=== PATIENT | male | born 1985 | race Caucasian/White ===

== ENCOUNTER 2018-09-15 18:42 | Emergency (ER) | payer MEDICAID, SELFPAY ==
[2018-09-15 18:43] VITALS: BP 161/89; PULSE 90; RESP 17; TEMP 36.1; O2SAT 96; BMI 43.4
--- NOTE | 2018-09-15 19:24 | CT_ITS ---
STUDY: CT ABDOMEN AND PELVIS WITHOUT CONTRAST REASON FOR EXAM: Male, 33 years old. Right flank pain and hypertension RADIATION DOSAGE (If Supplied By Facility): CTDIvol = ( 23.94 ) mGy, DLP = ( 1489.21 ) mGycm TECHNIQUE: Transaxial images were obtained from the dome of the diaphragm to the symphysis pubis without oral contrast, and without intravenous contrast. Sagittal and coronal images were reconstructed. Individualized dose optimization techniques were used for this CT. COMPARISON: None. FINDINGS: There is mild atelectasis within the dependent portion of the lungs.. The visualized portions of the heart are within normal limits. Liver is mildly fatty infiltrated without mass or bile duct dilatation Normal gallbladder and extrahepatic biliary system. Normal spleen. Normal pancreas. Normal bilateral adrenal glands. There is mild right hydroureteronephrosis secondary to tiny calculus at the ureterovesical junction measuring approximately 3.7 mm in size. Tiny nonobstructing left renal calculus. No hydronephrosis or mass Normal visualized stomach. Normal small intestine. Normal colon. The appendix is visualized and appears normal. Normal abdominal aorta. Normal inferior vena cava. Normal retroperitoneum. Incompletely distended mildly thick-walled bladder likely of no significance Normal abdominal wall. Normal osseous structures. CT/Abdomen/Pelvis without Cont IMPRESSION: Mild right hydroureteronephrosis secondary to tiny calculus at the ureterovesical junction Left nephrolithiasis Electronically Signed: Donis San MD at 20:40 EST , Service support ,
[2018-09-15] MEDS: 0.9% Normal Saline 1,000 ML 1000 ML IV (19:57)
[2018-09-15] MEDS: Morphine 4 MG/ML Syringe IV (19:57)
[2018-09-15] MEDS: Ondansetron 4 MG/2 ML Vial IV (19:58)
[2018-09-15 20:14] LABS: Bacteria 0 SEEN /hpf (None Seen); Mucous, Urine 0 SEEN /hpf (<or=2+); Squamous Epithelial Cells - UA 0 SEEN /hpf (0-5)
[2018-09-15 20:26] LABS: Absolute Lymphocyte Count 2.61 X10^3/ul (0.83-4.51); Absolute Neutrophil Count 11.1 X10^3/uL (2.0-7.7); Basophil# 0.03 X10^3/uL; Basophil% 0.2 % (0-1); Color, Urine Yellow (Yellow); Eosinophil# 0.04 X10^3/uL; Eosinophils% 0.3 % (0-5); Glucose, Dipstick Normal (Normal); Hematocrit 47.3 % (40-54); Hemoglobin 15.9 g/dl (13.0-16.5); Ketone-Dipstick Negative (Negative); Leukocyte Esterase-Dipstick 25 /ul (Negative); Lymphocyte # 2.61 X10^3/ul (4.0); Lymphocyte % 17.7 % (19-41); Mean Corp Hgb Conc 33.6 g/gl (32-36); Mean Corpuscular Hgb 30.4 pg (27.0-32.0); Mean Corpuscular Volume 90.4 fL (80-94); Mean Platelet Vol. 10.8 fl (6.2-12.0); Monocyte# 0.88 X10^3/uL; Neutrophil # 11.12 X10^3/uL (2.7-7.7); Neutrophil % 75.5 % (47-70); Nitrite-Dipstick Negative (Negative); Occult Blood-Urine 250 /ul (Negative); POSITIVE COUNT NO; POSITIVE DIFFERENTIAL NO; POSITIVE MORPHOLOGY NO; Platelet Count 234 K/mm3 (150-450); Protein-Dipstick 15 mg/dl (Negative); RBC Distribution Width CV 13.6 % (11.6-14.6); RBC Distribution Width SD 44.6 fl (35.1-43.9); Red Blood Count 5.23 M/mm3 (4.6-6.2); Specific Gravity, Urine 1.015 (1.002-1.030); Urine Bilirubin Dipstick Negative (Negative); Urine Clarity Clear (Clear); Urine Urobilinogen 1 mg/dl (Normal); White Blood Count 14.7 K/mm3 (4.4-11.0)
[2018-09-15 20:32] LABS: Red Blood Cells-Urine 10-25 SEEN /hpf (0-5); White Blood Cells 0-5 SEEN /hpf (0-5)
[2018-09-15 20:47] LABS: AST(SGOT) 32 U/L (15-37); Alanine Aminotransfer ALT/SGPT 56 U/L (16-61); Alkaline Phosphatase 83 U/L (45-117); Anion Gap 7 (5-15); BUN 10 mg/dL (7-18); BUN/Creat Ratio 7.9 RATIO (10-20); Calcium,Total 8.6 mg/dL (8.5-10.1); Chloride 108 mmol/L (98-107); Creatinine, Serum 1.26 mg/dL (0.70-1.30); EST Glomerular Filtration Rate 70 mL/min (>60); Est Glom Filt Rate - Afr Amer 84 mL/min (>60); Estimated Creatinine Clearance 90.67 ml/min; Glucose 101 mg/dL (74-106); Lipase 149 U/L (73-393); Potassium 4.1 mmol/L (3.5-5.1); Sodium Level 140 mmol/L (136-145)
--- NOTE | 2018-09-15 21:06 | ED.DCSUM_ITS ---
- ER Visit Summary Date of Service: 09/15/18 Chief Complaint: Right-sided abdominal pain History of Present Illness: The patient is a 33 M with right lower abdominal pain that started around 3 PM today. He feels like it is a stabbing pain. It radiates to his flank and right lower back. Associated with nausea and vomiting. Denies dysuria or hematuria. Denies any history of this in the past. Denies fevers. Physical Examination: Blood pressure 161/89. Otherwise afebrile and vitals are normal. He appears uncomfortable but not toxic or in distress. Heart regular rate and rhythm. Lungs clear. Abdomen tender in the right lower quadrant and right flank. No guarding or rebound. Skin appears normal. Test Results: White count 14.7. Other laboratory studies unremarkable. Urinalysis shows signs of blood but no signs of infection. CT shows a tiny miguel a culus at the right UVJ with hydroureter and hydronephrosis. He has multiple stones in his left kidney. Emergency Department Course and Treatment: Patient received fluids, morphine, and Zofran. Patient is comfortable and appropriate for outpatient follow-up at this point. There is no sign of infection or other complication. No indication for inpatient evaluation. He will be referred to Dr. Sy. He was given a prescription for Flomax, Zofran, and Percocet. His prescriptive database report was unremarkable. Patient should return if he is unable to tolerate his medications, if he has fevers, or signs of infection, or any other complicating issues. Treatment Plan: As above Disposition: Discharge Impression: 1. Ureteral colic right side This note was generated with [employer] dictation software. It may contain incorrect words, spelling, and punctuation that were not noted in review of the chart prior to signing ED Disposition - Plan for ED Patient: Chief Complaint: Abd Pain Referrals: Raghu Blackwell MD [Primary Care Provider] -
--- NOTE | 2018-09-15 21:06 | ED.DEP ---
ED Disposition - Plan for ED Patient: Chief Complaint: Abd Pain Instructions: ED Stone Renal W Colic Prescriptions: Oxycodone HCl/Acetaminophen [Percocet 5/325] 1 tab PO Q6H PRN PRN 3 Days #12 tab PRN Reason: Pain Ondansetron [Zofran Odt] 4 mg PO Q8H PRN PRN #10 tab PRN Reason: Nausea Tamsulosin HCl [Flomax] 0.4 mg PO DAILY #7 cap Referrals: Soto Sy MD [STAFF PHYSICIAN] -
[2018-09-15 21:18] VITALS: BP 147/82; PULSE 96; RESP 18; O2SAT 97
== END 2018-09-15 21:19 | disposition home or self-care (01) ==
LOC: ED 19:35
PROVIDERS: Emergency Provider Emergency Medicine; Family Provider Family Medicine; PCP Family Medicine
DX: N13.2 Hydronephrosis with renal and ureteral calculous obstruction (principal); Z72.0 Tobacco use; F41.9 Anxiety disorder, unspecified; F31.9 Bipolar disorder, unspecified
CPT/HCPCS: 74176; 80053; 81001; 83690; 85025; 96361; 96374; 96375; 99284; J7030; A4216; J2405

== ENCOUNTER 2019-05-10 19:24 | Emergency (ER) | payer MEDICAID, SELFPAY ==
[2019-05-10 19:25] VITALS: BP 131/89; PULSE 90; RESP 18; TEMP 36.2; O2SAT 99; BMI 41.5
--- NOTE | 2019-05-10 19:48 | CT_ITS ---
STUDY: CT ABDOMEN AND PELVIS WITHOUT CONTRAST REASON FOR EXAM: Male, 33 years old. Left flank pain RADIATION DOSAGE (If Supplied By Facility): CTDIvol = ( 23.37 ) mGy, DLP = ( 1389.84 ) mGycm TECHNIQUE: Transaxial images were obtained from the dome of the diaphragm to the symphysis pubis without oral contrast, and without intravenous contrast. Sagittal and coronal images were reconstructed. Individualized dose optimization techniques were used for this CT. COMPARISON: None. FINDINGS: The visualized lung bases are unremarkable. The visualized portions of the heart are within normal limits. Fatty liver. Normal gallbladder and extrahepatic biliary system. Normal spleen. Normal pancreas. Normal bilateral adrenal glands. Normal right kidney. Normal left kidney. Mild prominence of the distal left ureter. Normal visualized stomach. Normal small intestine. Normal colon. The appendix is visualized and appears normal. Normal abdominal aorta. Normal inferior vena cava. Normal retroperitoneum. There is a punctate stone at the left UVJ of the urinary bladder. Normal abdominal wall. Normal osseous structures. CT/Abdomen/Pelvis without Cont IMPRESSION: Punctate stone at the left UVJ with mild prominence of the distal left ureter. Fatty liver. Electronically Signed: Juan Brice DO at 20:42 EDT Tel [phone], Service support ,
[2019-05-10] MEDS: Ondansetron 4 MG/2 ML Vial IV (20:05)
[2019-05-10] MEDS: 0.9% Normal Saline 1,000 ML 125 ML IV (20:05)
[2019-05-10] MEDS: Ketorolac 30 MG/ML Syringe IV (20:06)
[2019-05-10] MEDS: Morphine 4 MG/ML Syringe IV (20:07)
[2019-05-10 20:09] LABS: Absolute Lymphocyte Count 3.44 X10^3/ul (0.83-4.51); Basophil# 0.03 X10^3/uL; Basophil% 0.3 % (0-1); Eosinophil# 0.07 X10^3/uL; Eosinophils% 0.7 % (0-5); Hematocrit 49.8 % (40-54); Hemoglobin 17.1 g/dl (13.0-16.5); Lymphocyte # 3.44 X10^3/ul (4.0); Lymphocyte % 33.6 % (19-41); Mean Corp Hgb Conc 34.3 g/gl (32-36); Mean Corpuscular Hgb 30.5 pg (27.0-32.0); Mean Corpuscular Volume 88.9 fL (80-94); Mean Platelet Vol. 10.6 fl (6.2-12.0); Monocyte% 6.8 % (0-10); Neutrophil # 5.97 X10^3/uL (2.7-7.7); Neutrophil % 58.3 % (47-70); POSITIVE COUNT NO; POSITIVE DIFFERENTIAL NO; POSITIVE MORPHOLOGY NO; Platelet Count 200 K/mm3 (150-450); RBC Distribution Width CV 13.2 % (11.6-14.6); RBC Distribution Width SD 43.4 fl (35.1-43.9); White Blood Count 10.2 K/mm3 (4.4-11.0)
[2019-05-10 20:19] LABS: Anion Gap 5 (5-15); BUN 13 mg/dL (7-18); BUN/Creat Ratio 15.7 RATIO (10-20); Calcium,Total 9.2 mg/dL (8.5-10.1); Chloride 108 mmol/L (98-107); Creatinine, Serum 0.83 mg/dL (0.70-1.30); EST Glomerular Filtration Rate 112 mL/min (>60); Est Glom Filt Rate - Afr Amer 136 mL/min (>60); Estimated Creatinine Clearance 137.64 ml/min; Glucose 89 mg/dL (74-106); Potassium 4.1 mmol/L (3.5-5.1); Sodium Level 138 mmol/L (136-145)
[2019-05-10 20:24] LABS: Color, Urine Yellow (Yellow); Glucose, Dipstick Normal (Normal); Ketone-Dipstick 5 mg/dl (Negative); Leukocyte Esterase-Dipstick Negative /ul (Negative); Nitrite-Dipstick Negative (Negative); Occult Blood-Urine 150 /ul (Negative); Protein-Dipstick 15 mg/dl (Negative); Urine Bilirubin Dipstick Negative (Negative); Urine Clarity Clear (Clear); Urine Urobilinogen Normal (Normal)
[2019-05-10 20:32] LABS: Red Blood Cells-Urine 10-25 SEEN /hpf (0-5); White Blood Cells 0-5 SEEN /hpf (0-5)
[2019-05-10 20:33] LABS: Bacteria 1+ /hpf (None Seen); Mucous, Urine 2+ /hpf (<or=2+); Squamous Epithelial Cells - UA 0-5 SEEN /hpf (0-5)
--- NOTE | 2019-05-10 20:41 | ED.VISSUMM ---
- ER Visit Summary Date of Service: 05/10/19 Chief Complaint: [Left flank pain] History of Present Illness: The patient is a 33 M [presents to the emergency department left-sided flank pain that started several hours ago. Patient states the pain came on suddenly. He currently rates his pain a 5 out of 10 but at one point was a 10 out of 10. Patient denies any nausea or vomiting. Pain did radiate around to the left side of his lower abdomen. Pain did radiate into his left testicle. Patient has had history of prior kidney stone on the right side and he was told he had small stones in his left kidney as well. Patient denies any fevers. He denies any diarrhea. He denies urinary symptoms.] Physical Examination: [HEENT-PERRLA, EOMI. Cranial nerves II through XII grossly intact. TMs clear. Mucous membranes moist. No adenopathy. Cardiovascular-regular rate and rhythm without murmur or ectopy Lungs-clear to auscultation, chest wall stable without crepitus or subcu emphysema Abdomen-normoactive bowel sounds, soft. Patient has tenderness to palpation over the left lower quadrant with some mild guarding. There is no rebound, rigidity, cranial signs. Patient also with some mild CVA tenderness on the left. Extremities-intact ?4, normal range of motion, normal pulses, atraumatic] Test Results: [CBC with differential obtained was normal. Chemistries unremarkable. Urinalysis showed 10-25 RBCs but no signs of infection. CT scan of the abdomen pelvis without contrast was obtained which was read by myself initially and is awaiting official interpretation by radiology. CT scan on my interpretation does show a 2 mm stone at the left UVJ with just mild hydroureter.] Emergency Department Course and Treatment: [Patient was medicated with Toradol 30 mg IV, morphine 4 mg IV, and Zofran 4 mg IV. Patient had good pain relief. Patient is currently pain-free.] Treatment Plan: [Patient will be given a prescription for Naprosyn and [place] as well as urine strainers. Patient will be given the referral to urology for follow-up.] Disposition: [Discharged home in stable condition. Patient advised to return if worsening pain, fever, vomiting, or conditions worsen anyway.] Impression: [Urolithiasis] This note was generated with [employer] dictation software. It may contain incorrect words, spelling, and punctuation that were not noted in review of the chart prior to signing ED Disposition - Plan for ED Patient: Referrals: Raghu Blackwell MD [Primary Care Provider] -
--- NOTE | 2019-05-10 20:44 | ED.DEP ---
ED Disposition - Plan for ED Patient: Instructions: KIDNEY STONE w/ Colic Prescriptions: Naproxen [Naprosyn] 500 mg PO BID PRN #20 tab Prescription Printed Hydrocodone Bitart/Apap 5-325 [[place] 5MG-325MG] 1 tab PO Q4H PRN PRN 2 Days #10 tab PRN Reason: Pain Prescription Printed Referrals: Raghu Blackwell MD [Primary Care Provider] - Soto Sy MD [STAFF PHYSICIAN] -
[2019-05-10 20:54] VITALS: BP 140/99; PULSE 95; RESP 18; O2SAT 98
== END 2019-05-10 20:55 | disposition home or self-care (01) ==
PROVIDERS: Emergency Provider Emergency Medicine; Family Provider Family Medicine; PCP Family Medicine
DX: N20.9 Urinary calculus, unspecified (principal); N13.4 Hydroureter; Z87.442 Personal history of urinary calculi; Z72.0 Tobacco use
CPT/HCPCS: 74176; 80048; 81001; 85025; 96361; 96374; 96375; 99284; J7030; A4216; J2405

== ENCOUNTER 2019-06-25 14:57 | Emergency (ER) | payer MEDICAID, SELFPAY ==
[2019-06-25 14:58] VITALS: BP 159/71; PULSE 97; RESP 16; TEMP 36.9; O2SAT 96; BMI 41.3
--- NOTE | 2019-06-25 15:26 | ED.VIS.BACK ---
History of Present Illness Chief Complaint: Back Informant: Patient Onset: Days - 3 Context: - - woke w/ sx Timing: Continuous Quality: Aching Location: Lumbar - left, no radiation Current Severity: Moderate Maximum Severity: Moderate Worsened by: improves with: Movement Relieved by: Remaining Still Associated Symptoms: - - Denies. No abdominal pain, numbness tingling, radiation to lower extremity, bowel or bladder dysfunction, problems urinating at all. Denies any injury or repetitive motions or heavy lifting the day before. Narrative: States he has had prior back pain that is gone away in a couple days but not like this and this is not changed since it started. He has history of degenerative disc disease and is a smoker. Denies any numbness or weakness in his lower extremities. Prior similar symptoms: No - Past Medical History (1) Bipolar 1 disorder Status: Chronic (2) Lumbar degenerative disc disease Status: Chronic Past Medical History - Allergies and Home Meds Allergies/Adverse Reactions: Allergies Penicillins Allergy (Verified 06/25/19 15:00) Hives Primary Care Physician: Raghu Blackwell MD [Primary Care Provider] - Lives: With Family Smoking Status: Current every day smoker Drugs: None - no IVDU Review of Systems General: Denies: Chills, Fever, Sweats Eyes: Denies: Visual changes - bilaterally, Diplopia ENT: Denies: Rhinorrhea, Sore throat Cardiovascular: Denies: Chest pain, Palpitations Respiratory: Denies: Dyspnea, Cough, Dyspnea on exertion Gastrointestinal: Denies: Abdominal pain, Nausea, Vomiting, Diarrhea, Melena, Hematochezia Genitourinary: Denies: Dysuria, Hematuria, Frequency Musculoskeletal: Reports: Back pain. Denies: Extremity Pain Skin: Denies: Rash, Wounds Neurological: Denies: Headache, Weakness, Numbness Physical Exam Vital Signs/Narrative: Vital Signs Temp Pulse Resp BP Pulse Ox 06/25/19 14:58 98.4 F 97 16 159/71 H 96 Inital Vital Signs reviewed: Yes General: Well nourished, Well developed, Obese Head: Normocephalic, Atraumatic Abdomen: Soft, Nontender, Nondistended, Normal bowel sounds Back: Normal Inspection, Nontender - pt indicates that pain is in area of left SI joint; no tenderness, no rash, Negative SLR - Right, Negative SLR - Left Extremeties: Nontender, No edema, Strong Pulses Skin: Normal color, No rash, No Trauma Neuro: Alert, Oriented, Normal Strength, Normal Sensation, Normal DTR, Normal Gait, Normal Reflexes Reflexes: Negative for: Right Clonus, Right Babinski, Left Clonus, Left Babinski Psychological: Normal affect, Normal Mood Diagnostic/Tx/Re-eval - Medical Decision Making No x-rays indicated. This is likely sacroiliac dysfunction. Given NSAIDs advised to follow-up with either chiropractic or physical therapy, the latter he may need referral from his PCP. ED Disposition - Plan for ED Patient: Disposition: Home or Assisted Living Diagnosis: Sacroiliac joint dysfunction of left side Instructions: Sacroiliitis, Anatomy of the Sacroiliac Joint Prescriptions: Naproxen [Naprosyn] 500 mg PO BID PRN #20 tab Prescription Printed Referrals: Raghu Blackwell MD [Primary Care Provider] - 1 Week if not improving
[2019-06-25] MEDS: Ketorolac 60 MG/2 ML Vial IM (15:39)
== END 2019-06-25 15:57 | disposition home or self-care (01) ==
PROVIDERS: Emergency Provider Emergency Medicine; Family Provider Family Medicine; PCP Family Medicine
DX: M53.3 Sacrococcygeal disorders, not elsewhere classified (principal); F31.9 Bipolar disorder, unspecified; M51.36 Other intervertebral disc degeneration, lumbar region; F17.200 Nicotine dependence, unspecified, uncomplicated; Z88.0 Allergy status to penicillin; E66.9 Obesity, unspecified
CPT/HCPCS: 96372; 99282

== ENCOUNTER 2022-09-03 01:55 | Emergency (ER) | payer MEDICAID, SELFPAY ==
[2022-09-03 01:56] VITALS: PULSE 74; RESP 17; TEMP 37.1; O2SAT 98; BMI 44.0
[2022-09-03 02:00] VITALS: BP 129/77
--- NOTE | 2022-09-03 03:07 | US_ITS ---
INDICATION: pain / ? Torsion EXAMINATION: Ultrasound US Scrotum (Contents) TECHNIQUE: Realtime ultrasound of the testicles was performed with grayscale, Color Doppler and spectral Doppler analysis. COMPARISON: None. FINDINGS: RIGHT: TESTIS: Right testicle measures 4.5 x 2.8 x 3 cm. Normal in size with numerous punctate calcifications but no discrete mass. COLOR DOPPLER: Normal arterial flow present in the testicle with monophasic waveforms. EPIDIDYMIS: Normal in size and echotexture, without focal lesion. [Normal color Doppler flow pattern in the epididymis. HYDROCELE: Small right hydrocele. VARICOCELE: None. LEFT: TESTIS: Left testicle measures 4.3 x 2.7 x 3.1 cm. Normal in size with numerous punctate calcifications but no discrete mass. COLOR DOPPLER: Normal arterial flow present in the testicle with monophasic waveforms. EPIDIDYMIS: Normal in size and echotexture, without focal lesion. [Normal color Doppler flow pattern in the epididymis. HYDROCELE: Trace left hydrocele. VARICOCELE: None. US/Testicular with Arterial Flow IMPRESSION: Bilateral testicular microlithiasis but no discrete mass or evidence of torsion. Small right and trace left hydroceles. Electronically Signed: Cj Barbosa MD at 3:54 EDT ,
[2022-09-03] MEDS: Ondansetron ODT 4 MG Tablet PO (03:13)
[2022-09-03] MEDS: morphine 10 MG/ML Syringe 8 MG IM (03:13)
--- NOTE | 2022-09-03 04:24 | EX.ED.GUMALE ---
HPI History of Present Illness Chief Complaint: Male Pain/Injury Narrative Narrative: Patient is a 37-year-old male with past medical history of bipolar and lumbar degenerative disc disease. He states that he was lying down this evening when he rolled over and when he did this he developed sudden pain in his right testicle. He states that the pain was not letting up over a few minutes and with this he was concerned about trauma to the area and therefore comes to the hospital for evaluation. He states there is no dysuria or hematuria he denies any discharge or concern for STD. PFSH PFSH Home Medications albuterol sulfate 90 mcg/actuation aerosol inhaler (ProAir HFA) 1 puff inhalation Q4H PRN PRN Shortness Of Breath 04/28/14 [History Last Taken 04/02/14] loratadine 10 mg tablet (Allergy Relief (loratadine)) 10 mg PO DAILY 04/28/14 [History Last Taken 04/02/14] cariprazine 6 mg capsule (Vraylar) 6 mg PO DAILY 09/15/18 [History Last Taken Unknown] melatonin 5 mg tablet 5 mg PO QHS PRN Insomnia 05/10/19 [History Last Taken Unknown] naproxen 500 mg tablet 500 mg PO BID PRN #20 tabs 05/10/19 [Rx Last Taken Unknown] omeprazole 20 mg capsule,delayed release 20 mg PO DAILY 05/10/19 [History Last Taken Unknown] naproxen 500 mg tablet 500 mg PO BID PRN #20 tabs 06/25/19 [Rx Last Taken Unknown] Allergy/AdvReac Type Severity Reaction Status Date / Time Penicillins Allergy Hives Verified 09/03/22 01:59 Social History Smoking Status: Current every day smoker tobacco type: cigarettes ROS ROS ED Constitutional Constitutional ED: Denies chills or fever(s) ENT ENT ED: Denies sore throat Cardiovascular Cardiovascular: Denies chest pain Respiratory/Chest Respiratory/Chest: Denies cough or dyspnea Gastrointestinal Gastrointestinal: Denies abdominal pain, diarrhea, nausea or vomiting Genitourinary Genitourinary ED: Reports other Details: Positive testicular pain ; Denies dysuria or hematuria Musculoskeletal Musculoskeletal: Denies back pain or myalgias Integumentary Denies rash Neurologic Neurologic: Denies headache(s) Hematologic/Lymphatic Hematologic/Lymphatic: Denies easy bleeding or easy bruising EXAM Physical Exam Const Vital Signs: 09/03/22 01:56 09/03/22 02:00 09/03/22 04:34 Temperature 98.7 F Temperature Source Temporal Pulse Rate 74 68 Respiratory Rate 17 17 Blood Pressure 129/77 H 112/71 Blood Pressure Mean 94 Pulse Ox 98 95 Oxygen Delivery Method Room Air Positive well nourished, well developed and obese General Appearance ED: well developed Nutritional Appearance: obese Eyes PERRL and EOMs intact bilaterally Neck supple Resp normal respiratory effort and clear to auscultation bilaterally Cardio regular rate and regular rhythm GI non-tender and non-distended Auscultation: normoactive bowel sounds Palpation: soft Narrative: Normal circumcised male without blood or discharge from the urethral meatus. No soft tissue swelling or discoloration of the scrotum noted. No obvious direct or indirect hernia palpated. The testicle is not held in an abnormal lie. There is mild diffuse pain on palpation of the right testicle without focal findings such as mass or discoloration. No soft tissue changes to suggest Marcelino's gangrene. Back/Spine no CVA tenderness Extremity normal to inspection Neuro oriented x3 and CN's II-XII intact bilaterally Sensorium / Orientation: alert Psych mental status grossly normal Skin no rashes or lesions noted MDM MDM MDM Narrative Medical decision making narrative: Patient presented to the ER with stable vitals. His age and physical exam do not suggest testicular torsion but as he still has diffuse tenderness I will elect to perform an ultrasound to rule this out. Ultrasound showed small bilateral hydroceles but no signs of torsion. Therefore at this time with physical exam showing no signs of infection and ultrasound confirming no torsion patient is otherwise safe for discharge Radiography Diagnostic Testing: Clinical Impression(s) from Imaging Studies Testicular Ultrasound 09/03/22 03:07 IMPRESSION: Bilateral testicular microlithiasis but no discrete mass or evidence of torsion. Small right and trace left hydroceles. Electronically Signed: Cj Barbosa MD at 3:54 EDT , Discharge Plan Triage Chief Complaint: Male Pain/Injury ED Provider: Marcio Edward Dx/Rx/DC Orders Clinical Impression: Pain in right testicle, Hydrocele in adult Instructions: ED Testicular Pain, Unclear Cause Prescriptions: No Action albuterol sulfate [ProAir HFA] 1 PUFF inhaler 1 puff inhalation Q4H PRN PRN (Reason: Shortness Of Breath) loratadine [Allergy Relief (loratadine)] 10 MG tablet 10 mg PO DAILY cariprazine [Vraylar] 6 mg capsule 6 mg PO DAILY Label Comments: Take 1 capsule by mouth once a day omeprazole 20 MG capsule 20 mg PO DAILY melatonin 5 MG tablet 5 mg PO QHS PRN (Reason: Insomnia) naproxen 500 MG tablet 500 mg PO BID PRN Qty: 20 0RF naproxen 500 MG tablet 500 mg PO BID PRN Qty: 20 0RF Primary Care Provider: Raghu Blackwell Referrals: Raghu Blackwell MD [Primary Care Provider] - Disposition Disposition: Home, Self Care Discharge Date/Time: 09/03/22 04:35
[2022-09-03 04:34] VITALS: BP 112/71; PULSE 68; RESP 17; O2SAT 95
== END 2022-09-03 04:35 | disposition home or self-care (01) ==
PROVIDERS: Emergency Provider Emergency Medicine; PCP Family Medicine; Visit Provider Emergency Medicine
DX: N50.811 Right testicular pain (principal); N43.3 Hydrocele, unspecified; F17.210 Nicotine dependence, cigarettes, uncomplicated
CPT/HCPCS: 76870; 93976

== ENCOUNTER 2022-09-03 17:52 | Emergency (ER) | payer MEDICAID, SELFPAY ==
[2022-09-03 17:52] VITALS: BP 150/98; PULSE 112; RESP 15; TEMP 36; O2SAT 99; BMI 44.7
--- NOTE | 2022-09-03 18:41 | CT_ITS ---
STUDY: CT ABDOMEN AND PELVIS WITHOUT CONTRAST REASON FOR EXAM: Male, 37 years old. kidney stone RADIATION DOSAGE (If Supplied By Facility): CTDIvol = ( 31.51 ) mGy, DLP = ( 1999.64 ) mGycm TECHNIQUE: Transaxial images were obtained from the dome of the diaphragm to the symphysis pubis without oral contrast, and without intravenous contrast. Sagittal and coronal images were reconstructed. Individualized dose optimization techniques were used for this CT. COMPARISON: 05/10/2019 FINDINGS: The visualized portions of the heart are within normal limits. Mild nonspecific fatty infiltration of liver without mass or bile duct dilatation. Gallbladder is normal. Normal spleen. Normal pancreas. Normal bilateral adrenal glands. Normal right kidney. Normal left kidney. Normal visualized stomach. Normal small intestine. Normal colon. The appendix is visualized and appears normal. Minor atherosclerotic changes of the aorta without evidence for aneurysm. Normal inferior vena cava. Normal retroperitoneum. Normal urinary bladder. Small fat-containing right inguinal hernia is noted. Normal osseous structures. CT/Abdomen/Pelvis without Cont IMPRESSION: No acute abnormalities. Specifically no evidence for hydronephrosis or ureteral calculus. Other findings as above Electronically Signed: Donis San MD at 20:20 EDT ,
--- NOTE | 2022-09-03 19:00 | EX.ED.GUMALE ---
HPI History of Present Illness Chief Complaint: Complaint Narrative Narrative: 37-year-old male presenting with right testicular pain. He was seen early this morning and was discharged home after 4 AM. He had an ultrasound of the testicles which showed hydroceles without evidence of torsion. Urinalysis showed occult blood. Patient states he had no trauma to his testicles. He states that he was given morphine while he was here and went home and slept most of the day. When he got up he states he had pain that doubled him over in the right testicle which is similar to what he had yesterday. He denies dysuria, hematuria. He denies concern for STDs. He is not had any trauma to the testicle. He states he has not taken anything for pain all day long because he did not know what to take. PFSH PFSH Home Medications albuterol sulfate 90 mcg/actuation aerosol inhaler (ProAir HFA) 1 puff inhalation Q4H PRN PRN Shortness Of Breath 04/28/14 [History Last Taken 04/02/14] loratadine 10 mg tablet (Allergy Relief (loratadine)) 10 mg PO DAILY 04/28/14 [History Last Taken 04/02/14] cariprazine 6 mg capsule (Vraylar) 6 mg PO DAILY 09/15/18 [History Last Taken Unknown] melatonin 5 mg tablet 5 mg PO QHS PRN Insomnia 05/10/19 [History Last Taken Unknown] naproxen 500 mg tablet 500 mg PO BID PRN #20 tabs 05/10/19 [Rx Last Taken Unknown] omeprazole 20 mg capsule,delayed release 20 mg PO DAILY 05/10/19 [History Last Taken Unknown] naproxen 500 mg tablet 500 mg PO BID PRN #20 tabs 06/25/19 [Rx Last Taken Unknown] Allergy/AdvReac Type Severity Reaction Status Date / Time Penicillins Allergy Hives Verified 09/03/22 17:54 Social History Smoking Status: Current every day smoker tobacco type: cigarettes ROS ROS ED Genitourinary Genitourinary ED: Denies testicular mass EXAM Physical Exam Const Vital Signs: 09/03/22 17:52 Temperature 96.8 F L Temperature Source Temporal Pulse Rate 112 H Respiratory Rate 15 Blood Pressure 150/98 H Blood Pressure Mean 115 Pulse Ox 99 Oxygen Delivery Method Room Air Positive well nourished General Appearance ED: NAD HEENT Reports moist mucous membranes normocephalic and atraumatic Eyes PERRL and EOMs intact bilaterally Resp normal respiratory effort Cardio regular rate and regular rhythm GI non-tender no CVA tenderness Penis: normal penis; Negative for edematous, erythema, mass, papules, pustules, vesicles or no retractile foreskin Meatus: meatus normal; Negative for meatal discharge or blood at meatus Scrotum: testes descended bilaterally and cremasteric reflex present; Negative for inguinal hernia, erythema, ecchymosis, varicocele or scrotal warts Testes: testicular lie normal; Negative for testicular mass, blue dot sign or high-riding testicle Extremity normal to inspection Neuro oriented x3 and CN's II-XII intact bilaterally Sensorium / Orientation: alert MDM MDM MDM Narrative Medical decision making narrative: Patient here for repeat evaluation of right testicle pain. He had ultrasound done yesterday which showed bilateral hydroceles. There was no torsion noted. Patient has not taken anything for pain all day long and woke up with pain. He states it doubled him over. She denies any new trauma. He does have a history of kidney stones and does relate that it previously radiated to his testicle but is denying abdominal pain or flank pain. Patient given Toradol. I obtain basic lab works. I will obtain a CT of the abdomen pelvis since his ultrasound was normal yesterday. His testicular exam is completely normal with exception of some mild tenderness on the right testicle. There is no evidence of torsion on exam. Scrotum appears normal. No high riding testicle. Normal cremasteric reflex. Blood work was obtained he has a slight leukocytosis of 12.0. Hemoglobin macular stable. Platelets are normal. Renal function and electrolytes all within normal limits. Reviewed previous ultrasound done yesterday which showed bilateral varicoceles. Based on his exam do not believe he has a torsion or any reason to have a repeat testicular ultrasound. I did check a CT scan of the abdomen pelvis because of the history of kidney stones and this is negative for any acute findings. Patient was initially treated with Toradol and feels improved. I counseled him he will need to alternate Tylenol and ibuprofen at home for his symptoms. He is to wear tight fitting underwear. I will give him follow-up with urology. Impression: Signed 1 Right testicular pain 2. History of bilateral hydroceles Lab Data Attestation: I reviewed the patient's lab results. Labs: Laboratory Results - last 24 hr 09/03/22 09/03/22 19:00 19:00 WBC 12.0 H RBC 5.05 Hgb 14.8 Hct 45.9 MCV 90.9 MCH 29.3 MCHC 32.2 RDW Std Deviation 45.4 H RDW Coeff of Jodie 13.4 Plt Count 239 MPV 10.7 Immature Gran % (Auto) 0.500 Neut % (Auto) 71.7 H Lymph % (Auto) 19.3 [place] % (Auto) 7.5 Eos % (Auto) 0.3 Baso % (Auto) 0.7 Absolute Neuts (auto) 8.6 H Absolute Lymphs (auto) 2.31 Nucleated RBC % 0 Sodium 140 Potassium 4.0 Chloride 110 H Carbon Dioxide 23.0 Anion Gap 7 BUN 13 Creatinine 1.13 Estim Creat Clear Calc 97.29 Est GFR (MDRD) Af Amer 93 Est GFR (MDRD) Non-Af 77 BUN/Creatinine Ratio 11.5 Glucose 95 Calcium 9.2 Radiography Diagnostic Testing: Clinical Impression(s) from Imaging Studies Abdomen/Pelvis CT 09/03/22 18:41 IMPRESSION: No acute abnormalities. Specifically no evidence for hydronephrosis or ureteral calculus. Other findings as above Electronically Signed: Donis San MD at 20:20 EDT , Discharge Plan Triage Chief Complaint: Complaint ED Provider: Augusto Medina Dx/Rx/DC Orders Prescriptions: No Action albuterol sulfate [ProAir HFA] 1 PUFF inhaler 1 puff inhalation Q4H PRN PRN (Reason: Shortness Of Breath) loratadine [Allergy Relief (loratadine)] 10 MG tablet 10 mg PO DAILY cariprazine [Vraylar] 6 mg capsule 6 mg PO DAILY Label Comments: Take 1 capsule by mouth once a day omeprazole 20 MG capsule 20 mg PO DAILY melatonin 5 MG tablet 5 mg PO QHS PRN (Reason: Insomnia) naproxen 500 MG tablet 500 mg PO BID PRN Qty: 20 0RF naproxen 500 MG tablet 500 mg PO BID PRN Qty: 20 0RF Primary Care Provider: Raghu Blackwell Referrals: Raghu Blackwell MD [Primary Care Provider] -
[2022-09-03] MEDS: Ketorolac 15 MG/ML Vial IV (19:07)
[2022-09-03 19:17] LABS: Absolute Lymphocyte Count 2.31 X10^3/uL (0.83-4.51); Absolute Neutrophil Count 8.6 X10^3/uL (2.0-7.7); Basophil# 0.08 X10^3/uL; Basophil% 0.7 % (0-1); Eosinophil# 0.04 X10^3/uL; Eosinophils% 0.3 % (0-5); Hematocrit 45.9 % (40-54); Hemoglobin 14.8 g/dL (13.0-16.5); Lymphocyte # 2.31 X10^3/ul (0.83-4.51); Lymphocyte % 19.3 % (19-41); Mean Corp Hgb Conc 32.2 g/dL (32-36); Mean Corpuscular Hgb 29.3 pg (27.0-32.0); Mean Corpuscular Volume 90.9 fL (80-94); Mean Platelet Vol. 10.7 fl (6.2-12.0); Monocyte% 7.5 % (0-10); NRBC Flagged by Analyzer 0 % (0-5); Neutrophil % 71.7 % (47-70); Platelet Count 239 K/mm3 (150-450); RBC Distribution Width CV 13.4 % (11.6-14.6); RBC Distribution Width SD 45.4 fl (35.1-43.9); Red Blood Count 5.05 M/mm3 (4.6-6.2)
[2022-09-03 19:30] LABS: Anion Gap 7 (5-15); BUN 13 mg/dL (7-18); BUN/Creat Ratio 11.5 RATIO (10-20); Calcium,Total 9.2 mg/dL (8.5-10.1); Chloride 110 mmol/L (98-107); Creatinine, Serum 1.13 mg/dL (0.70-1.30); EST Glomerular Filtration Rate 77 mL/min (>60); Est Glom Filt Rate - Afr Amer 93 mL/min (>60); Estimated Creatinine Clearance 97.29 ml/min; Glucose 95 mg/dL (74-106); Sodium Level 140 mmol/L (136-145)
[2022-09-03 22:54] VITALS: TEMP 36.8; O2SAT 98
== END 2022-09-03 23:03 | disposition home or self-care (01) ==
PROVIDERS: Emergency Provider Student in an Organized Health Care Education/Training Program; PCP Family Medicine; Visit Provider Student in an Organized Health Care Education/Training Program
DX: N50.811 Right testicular pain (principal); N43.3 Hydrocele, unspecified; F17.210 Nicotine dependence, cigarettes, uncomplicated
CPT/HCPCS: 74176; 76870; 80048; 85025; 93976; 96372; 96374; 99284; A4216

== ENCOUNTER 2022-09-13 11:29 | Emergency (ER) | payer MEDICAID, SELFPAY ==
[2022-09-13 11:30] VITALS: BP 166/85; PULSE 89; RESP 16; TEMP 36.6; O2SAT 98; BMI 43.7
--- NOTE | 2022-09-13 11:50 | US_ITS ---
STUDY: SCROTUM ULTRASOUND REASON FOR EXAM: Male, 37 years old. Bilateral scrotal pain. TECHNIQUE: Ultrasound evaluation of the scrotum was performed with color Doppler and static ivan-scale imaging. COMPARISON: None. FINDINGS: RIGHT TESTICLE INTRATESTICULAR: There is a normal size of the right testicle. The right testicle measures 4.8 cm x 3.7 cm x 2.9 cm. There is a homogenous echotexture. There is normal arterial and normal venous vascularity. There is no demonstrated right testicular mass or cyst. Microlithiasis. EXTRATESTICULAR: The epididymis is normal in size. The epididymis head measures 1.1 cm x 1 cm x 1.1 cm. There is normal vascularity of the epididymis. There is a well-defined cystic structure within the epididymis, without internal echoes, consistent with an epididymal cyst. There is a small hydrocele. There is no demonstrated varicocele. There is no demonstrated extratesticular mass or cyst. LEFT TESTICLE INTRATESTICULAR: There is a normal size of the left testicle. The left testicle measures 5.1 cm x 3.8 cm x 2.6 cm. There is a homogenous echotexture. There is normal arterial and normal venous vascularity. There is no demonstrated left testicular mass or cyst. Microlithiasis. EXTRATESTICULAR: The epididymis is normal in size. The epididymis head measures 1.1 cm x 1.4 cm x 1.1 cm. There is increased (hyperemic) vascularity of the epididymis. There is a well-defined cystic structure within the epididymis, without internal echoes, consistent with an epididymal cyst. The largest cyst measures 3 mm x 3 mm x 2 mm. There is a small hydrocele. There is no demonstrated varicocele. There is no demonstrated extratesticular mass or cyst. US/Testicular with Arterial Flow IMPRESSION: Small bilateral hydroceles. Small bilateral epididymal cysts. Mild increased vascularity in the left epididymis. Bilateral microlithiasis. Electronically Signed: Juels Bro MD at 13:54 EDT ,
--- NOTE | 2022-09-13 11:51 | EX.ED.GUMALE ---
HPI History of Present Illness Chief Complaint: Male Pain/Injury Pain Onset: Weeks (1-11/13) Context: Sudden Onset Timing: Waxes and wanes Worsened by: Sitting Relieved by: Standing Urinary Symptoms Genitourinary Symptoms: No Symptoms Narrative Narrative: Patient presents with right inguinal pain that became worse again today. Patient states that it has been waxing and waning over the past week and a half. Patient states that he was seen here in the emergency department twice when it began. Patient states he had an ultrasound done at that time which showed a hydrocele but no torsion. Patient states that he followed up with his primary care physician and was given antibiotics and pain medications. Patient states that today the pain became worse again. Patient states it feels like something is twisting. Patient describes his pain as dull and burning. Patient states it is worse when he sits and better when he stands. Patient does admit to some dysuria and urgency. Patient denies any hematuria. Patient also admits to some occasional back pain. [facility] Medical History Bipolar 1 disorder Home Medications albuterol sulfate 90 mcg/actuation aerosol inhaler (ProAir HFA) 1 puff inhalation Q4H PRN PRN Shortness Of Breath 04/28/14 [History Last Taken 04/02/14] cariprazine 6 mg capsule (Vraylar) 6 mg PO DAILY 09/15/18 [History Last Taken Unknown] melatonin 5 mg tablet 5 mg PO QHS PRN Insomnia 05/10/19 [History Last Taken Unknown] naproxen 500 mg tablet 500 mg PO BID PRN #20 tabs 05/10/19 [Rx Last Taken Unknown] omeprazole 20 mg capsule,delayed release 20 mg PO DAILY 05/10/19 [History Last Taken Unknown] naproxen 500 mg tablet 500 mg PO BID PRN #20 tabs 06/25/19 [Rx Last Taken Unknown] levofloxacin 500 mg tablet 500 mg PO DAILY #10 tabs 09/13/22 [Rx Last Taken Unknown] Allergy/AdvReac Type Severity Reaction Status Date / Time Penicillins Allergy Hives Verified 09/13/22 11:31 Social History Smoking Status: Current every day smoker tobacco type: cigarettes ROS ROS ED Constitutional Constitutional ED: Denies chills or fever(s) Eyes Eyes: Denies blurry vision or change in vision ENT ENT ED: Denies rhinorrhea or sore throat Cardiovascular Cardiovascular: Denies chest pain or palpitations Respiratory/Chest Respiratory/Chest: Denies cough or dyspnea Gastrointestinal Gastrointestinal: Denies nausea or vomiting Genitourinary Genitourinary ED: Reports dysuria; Denies hematuria Musculoskeletal Musculoskeletal: Reports back pain; Denies neck pain Integumentary Denies abscess or rash Neurologic Neurologic: Denies headache(s) or weakness Allergic/Immunologic Allergic/Immunologic ED: Denies mouth swelling or urticaria EXAM Physical Exam Const Vital Signs: 09/13/22 11:30 09/13/22 13:44 Temperature 97.8 F Temperature Source Temporal Pulse Rate 89 Respiratory Rate 16 14 Blood Pressure 166/85 H Blood Pressure Mean 112 Pulse Ox 98 Oxygen Delivery Method Room Air Positive well nourished, well developed and obese General Appearance ED: well developed and NAD Nutritional Appearance: obese HEENT Reports moist mucous membranes Neck supple and no JVD Resp normal respiratory effort and clear to auscultation bilaterally Cardio regular rate, regular rhythm and no murmurs GI normal to inspection, nondistended, normoactive bowel sounds Palpation: soft Narrative: There is some tenderness over the right inguinal area. There is mild testicular tenderness. There is no edema. There is no erythema or warmth. After palpation of the right inguinal area, patient stated he felt something move in his groin area. Patient states he feels something sliding in and out of his inguinal area. Groin / Perineum Exam: edema Back/Spine no CVA tenderness Extremity normal to inspection General Extremety ED: Negative for edema or tenderness General Extremity: Negative for edema Neuro oriented x3, CN's II-XII intact bilaterally and no sensory deficits noted Sensorium / Orientation: alert Motor Exam: strength 5/5 throughout Psych mental status grossly normal Skin no rashes or lesions noted MDM MDM MDM Narrative Medical decision making narrative: CBC was within normal limits. Basic metabolic profile was within normal limits. Urinalysis does not show any evidence of urinary tract infection. Testicular ultrasound was obtained. There are small bilateral hydroceles. There are small bilateral epididymal cysts. There is mild increased vascularity in the left epididymis. There is no torsion noted. This was interpreted by the radiologist and reviewed by myself. Patient was advised of his findings. Patient was also advised that this could be a sliding inguinal hernia that spontaneously reduces and recurs. I did not palpate an inguinal hernia today however. We will cover the patient with Levaquin for possible epididymitis. Patient was instructed to follow-up with urology as scheduled. Patient was instructed to return if worse in any way. Patient understood and was agreeable with the plan. All questions were answered. Lab Data Attestation: I reviewed the patient's lab results. Labs: Laboratory Results - last 24 hr 09/13/22 09/13/22 09/13/22 12:00 12:00 12:07 WBC 9.6 RBC 4.86 Hgb 14.7 Hct 44.5 MCV 91.6 MCH 30.2 MCHC 33.0 RDW Std Deviation 46.0 H RDW Coeff of Jodie 13.6 Plt Count 227 MPV 10.6 Immature Gran % (Auto) 0.400 Neut % (Auto) 48.1 Lymph % (Auto) 41.3 H [place] % (Auto) 8.1 Eos % (Auto) 1.3 Baso % (Auto) 0.8 Absolute Neuts (auto) 4.6 Absolute Lymphs (auto) 3.96 Nucleated RBC % 0 Sodium 140 Potassium 3.8 Chloride 113 H Carbon Dioxide 22.0 Anion Gap 5 BUN 13 Creatinine 0.94 Estim Creat Clear Calc 116.95 Est GFR (MDRD) Af Amer 116 Est GFR (MDRD) Non-Af 96 BUN/Creatinine Ratio 13.9 Glucose 96 Calcium 8.7 Urine Color Yellow Urine Clarity Sl. Cloudy Urine pH 6.0 Ur Specific [place] 1.020 Urine Protein Negative Urine Glucose (UA) Normal Urine Ketones Negative Urine Occult Blood Negative Urine Nitrite Negative Urine Bilirubin Negative Urine Urobilinogen Normal Ur Leukocyte Esterase 25 H Urine RBC 0 SEEN Urine WBC 0-5 SEEN Ur Squamous Epith Cells 0 SEEN Urine Bacteria 0 SEEN Urine Mucus 0 SEEN Radiography Diagnostic Testing: Clinical Impression(s) from Imaging Studies Testicular Ultrasound 09/13/22 11:50 IMPRESSION: Small bilateral hydroceles. Small bilateral epididymal cysts. Mild increased vascularity in the left epididymis. Bilateral microlithiasis. Electronically Signed: Jules Bro MD at 13:54 EDT , Discharge Plan Triage Chief Complaint: Male Pain/Injury ED Provider: Lazaro Zapata Dx/Rx/DC Orders Clinical Impression: Epididymitis, Right inguinal pain Instructions: ED Epididymitis Prescriptions: New levofloxacin [levofloxacin] 500 mg tablet 500 mg PO DAILY Qty: 10 0RF No Action albuterol sulfate [ProAir HFA] 1 PUFF inhaler 1 puff inhalation Q4H PRN PRN (Reason: Shortness Of Breath) Vraylar 6 mg capsule 6 mg PO DAILY Label Comments: Take 1 capsule by mouth once a day omeprazole 20 MG capsule 20 mg PO DAILY melatonin 5 MG tablet 5 mg PO QHS PRN (Reason: Insomnia) naproxen 500 MG tablet 500 mg PO BID PRN Qty: 20 0RF naproxen 500 MG tablet 500 mg PO BID PRN Qty: 20 0RF Primary Care Provider: Raghu Blackwell Referrals: Raghu Blackwell MD [Primary Care Provider] -
[2022-09-13 12:13] LABS: Bacteria 0 SEEN /hpf (None Seen); Mucous, Urine 0 SEEN /hpf (<or=2+); Red Blood Cells-Urine 0 SEEN /hpf (0-5); Squamous Epithelial Cells - UA 0 SEEN /hpf (0-5)
[2022-09-13 12:14] LABS: Color, Urine Yellow (Yellow); Glucose, Dipstick Normal (Normal); Ketone-Dipstick Negative (Negative); Leukocyte Esterase-Dipstick 25 /ul (Negative); Nitrite-Dipstick Negative (Negative); Occult Blood-Urine Negative /ul (Negative); Protein-Dipstick Negative (Negative); Urine Bilirubin Dipstick Negative (Negative); Urine Clarity Sl. Cloudy (Clear); Urine Urobilinogen Normal (Normal)
[2022-09-13 12:18] LABS: Anion Gap 5 (5-15); BUN 13 mg/dL (7-18); BUN/Creat Ratio 13.9 RATIO (10-20); Calcium,Total 8.7 mg/dL (8.5-10.1); Chloride 113 mmol/L (98-107); Creatinine, Serum 0.94 mg/dL (0.70-1.30); EST Glomerular Filtration Rate 96 mL/min (>60); Est Glom Filt Rate - Afr Amer 116 mL/min (>60); Estimated Creatinine Clearance 116.95 ml/min; Glucose 96 mg/dL (74-106); Potassium 3.8 mmol/L (3.5-5.1); Sodium Level 140 mmol/L (136-145)
[2022-09-13 12:23] LABS: Absolute Lymphocyte Count 3.96 X10^3/uL (0.83-4.51); Absolute Neutrophil Count 4.6 X10^3/uL (2.0-7.7); Basophil# 0.08 X10^3/uL; Basophil% 0.8 % (0-1); Eosinophil# 0.12 X10^3/uL; Eosinophils% 1.3 % (0-5); Hematocrit 44.5 % (40-54); Hemoglobin 14.7 g/dL (13.0-16.5); Lymphocyte # 3.96 X10^3/ul (0.83-4.51); Lymphocyte % 41.3 % (19-41); Mean Corpuscular Hgb 30.2 pg (27.0-32.0); Mean Corpuscular Volume 91.6 fL (80-94); Mean Platelet Vol. 10.6 fl (6.2-12.0); Monocyte# 0.78 X10^3/uL; Monocyte% 8.1 % (0-10); NRBC Flagged by Analyzer 0 % (0-5); Neutrophil # 4.61 X10^3/uL (2.7-7.7); Neutrophil % 48.1 % (47-70); Platelet Count 227 K/mm3 (150-450); RBC Distribution Width CV 13.6 % (11.6-14.6); Red Blood Count 4.86 M/mm3 (4.6-6.2); White Blood Count 9.6 K/mm3 (4.4-11.0)
[2022-09-13 12:26] LABS: White Blood Cells 0-5 SEEN /hpf (0-5)
[2022-09-13 13:44] VITALS: RESP 14
[2022-09-13] MEDS: levoFLOXacin 500 MG Tablet PO (14:35)
[2022-09-13] MEDS: Ibuprofen 400 MG Tablet 800 MG PO (14:39)
[2022-09-13 14:41] VITALS: BP 148/67; PULSE 82; RESP 16; O2SAT 97
== END 2022-09-13 14:41 | disposition home or self-care (01) ==
LOC: ED 12:20
PROVIDERS: Emergency Provider Emergency Medicine; PCP Family Medicine; Visit Provider Emergency Medicine
DX: N45.1 Epididymitis (principal); F31.9 Bipolar disorder, unspecified; N43.3 Hydrocele, unspecified; F17.210 Nicotine dependence, cigarettes, uncomplicated
CPT/HCPCS: 76870; 80048; 81001; 85025; 93976; 99284

== ENCOUNTER 2022-09-15 17:30 | Emergency (ER) | payer MEDICAID, SELFPAY ==
[2022-09-15 17:31] VITALS: BP 178/96; PULSE 104; RESP 18; TEMP 36.7; O2SAT 95; BMI 43.2
--- NOTE | 2022-09-15 18:35 | CT_ITS ---
INDICATION: Right lower quadrant abdominal pain for 3 weeks. EXAMINATION: CT ABDOMEN AND PELVIS WITH CONTRAST - CT Abdomen And Pelvis W/ Contrast Injection TECHNIQUE: Helically acquired images were obtained of the abdomen and pelvis following IV contrast. A radiation dose optimization technique was used for this scan. IV Contrast dosage and agent: 100 mL of Isovue 370 Oral contrast: None. COMPARISON: September 03, 2022. FINDINGS: LOWER CHEST: Lung bases are clear. No cardiomegaly or pericardial effusion. LIVER: Homogeneous. No focal mass. GALLBLADDER AND BILIARY TREE: No calcified gallstones. No gallbladder distension or wall edema. No intra- or extrahepatic biliary ductal dilation. PANCREAS: No focal cystic or solid mass. SPLEEN: Normal size without focal cystic or solid mass. ADRENAL GLANDS: No nodules. KIDNEYS AND URETERS: Normal renal size and position. No hydronephrosis. Normal ureters. PERITONEUM: No ascites or free air. No other fluid collection. BOWEL: Normal stomach. Normal small intestine. Normal colon. Normal appendix. LYMPH NODES: No enlarged mesenteric or retroperitoneal lymph nodes. VESSELS: Aorta is non-dilated. URINARY BLADDER: Unremarkable. REPRODUCTIVE ORGANS: Normal prostate. ABDOMINAL WALL: No discrete abdominal or pelvic wall hernia. BONES: No lytic or blastic abnormality. CT/Abdomen/Pelvis W IV Cont ONLY IMPRESSION: 1. Normal appendix. 2. No evidence of renal, ureteral or urinary bladder abnormality. 3. Normal CT of the abdomen and pelvis. No major interval change. Electronically Signed: Jean Pierre Fine DO at 20:33 EDT Reading Location ID and State: [facility] / [place] Tel [phone], Service support ,
--- NOTE | 2022-09-15 18:56 | EDS_ITS ---
HPI <RADHIKA Karimi - Last Filed: 09/15/22 21:39> HPI - GI History of Present Illness Chief Complaint: Abd Pain Narrative Narrative: Patient presents with sharp testicular pain that started on 03 September. The pain radiates into his back, lower abdomen, and bilateral inguinal region. He states he cannot sit or sleep due to being so uncomfortable. He was here on 13 September and was treated with levofloxacin for possible epididymitis. He states his PCP Dr. Lino prescribed him a second round of antibiotics. Patient has also vomited from the pain and is having dysuria and urinary hesitancy. Patient denies fever, chills, stool changes,and blood in the urine. [facility] <RADHIKA Karimi - Last Filed: 09/15/22 21:39> [facility] Medical History Bipolar 1 disorder Home Medications albuterol sulfate 90 mcg/actuation aerosol inhaler (ProAir HFA) 1 puff inhalation Q4H PRN PRN Shortness Of Breath 04/28/14 [History Last Taken 04/02/14] cariprazine 6 mg capsule (Vraylar) 6 mg PO DAILY 09/15/18 [History Last Taken Unknown] melatonin 5 mg tablet 5 mg PO QHS PRN Insomnia 05/10/19 [History Last Taken Unknown] naproxen 500 mg tablet 500 mg PO BID PRN #20 tabs 05/10/19 [Rx Last Taken Unknown] omeprazole 20 mg capsule,delayed release 20 mg PO DAILY 05/10/19 [History Last Taken Unknown] naproxen 500 mg tablet 500 mg PO BID PRN #20 tabs 06/25/19 [Rx Last Taken Unknown] levofloxacin 500 mg tablet 500 mg PO DAILY #10 tabs 09/13/22 [Rx Last Taken Unknown] hydrocodone-acetaminophen 5-325mg 5mg-325mg 1 tab PO Q6H PRN pain 3 days #10 tabs 09/15/22 [Rx Last Taken Unknown] naproxen 500 mg tablet (Naprosyn) 500 mg PO BID PRN pain #20 tabs 09/15/22 [Rx Last Taken Unknown] Allergy/AdvReac Type Severity Reaction Status Date / Time Penicillins Allergy Hives Verified 09/15/22 17:31 Social History Smoking Status: Current every day smoker tobacco type: cigarettes ROS <RADHIKA Karimi - Last Filed: 09/15/22 21:39> ROS ED Constitutional Constitutional ED: Denies chills, fever(s) or sweats ENT ENT ED: Denies rhinorrhea or sore throat Cardiovascular Cardiovascular: Denies chest pain Respiratory/Chest Respiratory/Chest: Denies cough, dyspnea or dyspnea on exertion Gastrointestinal Gastrointestinal: Reports abdominal pain, nausea and vomiting; Denies constipation or diarrhea Genitourinary Genitourinary ED: Reports dysuria; Denies hematuria or urinary frequency Musculoskeletal Musculoskeletal: Denies myalgias Integumentary Denies abscess, Abrasions or rash Neurologic Neurologic: Denies headache(s) EXAM <RADHIKA Karimi - Last Filed: 09/15/22 21:39> Physical Exam Const Vital Signs: 09/15/22 17:31 09/15/22 19:32 09/15/22 21:33 Temperature 98.1 F Temperature Source Temporal Pulse Rate 104 H 94 98 Respiratory Rate 18 16 16 Blood Pressure 178/96 H Blood Pressure Mean 123 Pulse Ox 95 97 97 Oxygen Delivery Method Room Air Room Air Room Air Positive obese Nutritional Appearance: obese HEENT Reports moist mucous membranes normocephalic and atraumatic Eyes PERRL and EOMs intact bilaterally Neck supple Resp normal respiratory effort and clear to auscultation bilaterally Effort and Inspection: Negative for respiratory distress Auscultation: Negative for rales, rhonchi, wheezes or diminished lung sounds Cardio regular rate, regular rhythm and no murmurs GI non-distended and no masses GI Narrative: Patient is tender to palpation along the right and left lower abdomen. Auscultation: normoactive bowel sounds Palpation: Negative for hepatomegaly or splenomegaly Narrative: Patient is non tender to testicular palpation per Dr. Morales. Extremity full ROM Neuro moves all extremities, no sensory deficits noted and gait normal Sensorium / Orientation: alert and oriented to person Psych mental status grossly normal and thought process normal Skin no wounds General Skin Exam: Negative for jaundice Lesions: no lesions Rashes: no rashes Trauma: Negative for abrasion <Dr. Corwin Morales DO - Last Filed: 09/15/22 21:11> Physical Exam Const Vital Signs: 09/15/22 17:31 09/15/22 19:32 09/15/22 21:33 Temperature 98.1 F Temperature Source Temporal Pulse Rate 104 H 94 98 Respiratory Rate 18 16 16 Blood Pressure 178/96 H Blood Pressure Mean 123 Pulse Ox 95 97 97 Oxygen Delivery Method Room Air Room Air Room Air [facility] <RADHIKA Karimi - Last Filed: 09/15/22 21:39> [facility] Narrative Medical decision making narrative: Due to the pain patient is presenting with, an abdominal CT has been ordered. He has been given Dilaudid and Zofran here in the ED to help control his pain and nausea. Abdominal CT shows no acute abdominal process. He is stable and able to go home with pain control. Patient has a urology appointment next Sunday. I have personally performed a face to face assessment of the patient and have reviewed the VIPIN Note. I performed a substantive portion of the visit including all aspects of the following. My sinha findings include: History is [patient presents with lower abdominal pain that he has had since September 03. Patient was seen in the emergency department recently had a testicular ultrasound and was diagnosed with epididymitis and started on antibiotics. Patient states that he is no better and has an appointment to see the urologist in 5 days. Patient continues to complain of lower abdominal discomfort. He denies any fevers. He does describe some dysuria. Patient denies any discharge from his penis.] Exam is [HEENT-PERRLA, EOMI. Cranial nerves II through XII grossly intact. TMs clear. Mucous membranes moist. No adenopathy. Cardiovascular-regular rate and rhythm without murmur or ectopy Lungs-clear to auscultation, chest wall stable without crepitus or subcu emphyse ma Abdomen-normoactive bowel sounds, soft,, no rebound or rigidity, no peritoneal signs. Patient does have tenderness palpation over the suprapubic region. No masses palpated. exam-testicles are both descended and vertical and lie. Normal cremasteric reflex. No tenderness over the testicles or the epididymides bilaterally. Extremities-intact ?4, normal range of motion, normal pulses, atraumatic] Medical Decison Making [patient had lab work obtained that was normal. Chemistries were normal. Urinalysis was normal. CT scan of the abdomen pelvis with IV contrast also was read as normal. This point etiology of his pain is unclear. I will send off GC and chlamydia from urine. Patient to keep his appointment with urology. Patient will be given a prescription for Douglas and naproxen. Patient advised to return if worsening pain, fever, vomiting, or condition should worsen anyway.] Other additions or changes: [None] Lab Data Attestation: I reviewed the patient's lab results. Labs: Laboratory Results - last 24 hr 09/15/22 09/15/22 09/15/22 19:30 19:30 19:30 WBC 10.5 RBC 5.09 Hgb 15.0 Hct 46.1 MCV 90.6 MCH 29.5 MCHC 32.5 RDW Std Deviation 45.1 H RDW Coeff of Jodie 13.5 Plt Count 227 MPV 10.8 Immature Gran % (Auto) 0.500 Neut % (Auto) 66.9 Lymph % (Auto) 25.8 [place] % (Auto) 5.9 Eos % (Auto) 0.3 Baso % (Auto) 0.6 Absolute Neuts (auto) 7.0 Absolute Lymphs (auto) 2.71 Nucleated RBC % 0 Platelet Estimate ADEQUATE RBC Morphology N CHROM Anisocytosis RARE Macrocytosis RARE Sodium 138 Potassium 4.6 Chloride 111 H Carbon Dioxide 21.0 Anion Gap 6 BUN 11 Creatinine 1.01 Estim Creat Clear Calc 108.84 Est GFR (MDRD) Af Amer 106 Est GFR (MDRD) Non-Af 88 BUN/Creatinine Ratio 10.9 Glucose 94 Lactic Acid 0.6 Calcium 9.4 Urine Color Urine Clarity Urine pH Ur Specific [place] Urine Protein Urine Glucose (UA) Urine Ketones Urine Occult Blood Urine Nitrite Urine Bilirubin Urine Urobilinogen Ur Leukocyte Esterase Urine RBC Urine WBC Ur Squamous Epith Cells Urine Bacteria Urine Mucus 09/15/22 19:30 WBC RBC Hgb Hct MCV MCH MCHC RDW Std Deviation RDW Coeff of Jodie Plt Count MPV Immature Gran % (Auto) Neut % (Auto) Lymph % (Auto) [place] % (Auto) Eos % (Auto) Baso % (Auto) Absolute Neuts (auto) Absolute Lymphs (auto) Nucleated RBC % Platelet Estimate RBC Morphology Anisocytosis Macrocytosis Sodium Potassium Chloride Carbon Dioxide Anion Gap BUN Creatinine Estim Creat Clear Calc Est GFR (MDRD) Af Amer Est GFR (MDRD) Non-Af BUN/Creatinine Ratio Glucose Lactic Acid Calcium Urine Color Yellow Urine Clarity Clear Urine pH 6.5 Ur Specific [place] 1.020 Urine Protein Negative Urine Glucose (UA) Normal Urine Ketones Negative Urine Occult Blood Negative Urine Nitrite Negative Urine Bilirubin Negative Urine Urobilinogen Normal Ur Leukocyte Esterase Negative Urine RBC 0 SEEN Urine WBC 0 SEEN Ur Squamous Epith Cells 0 SEEN Urine Bacteria RARE Urine Mucus 0 SEEN Radiography Diagnostic Testing: Clinical Impression(s) from Imaging Studies Abdomen/Pelvis CT 09/15/22 18:35 IMPRESSION: 1. Normal appendix. 2. No evidence of renal, ureteral or urinary bladder abnormality. 3. Normal CT of the abdomen and pelvis. No major interval change. Electronically Signed: Jean Pierre Fine DO at 20:33 EDT Reading Location ID and State: [facility] / [place] Tel [phone], Service support , <Dr. Corwin Morales DO - Last Filed: 09/15/22 21:11> [facility] Narrative Medical decision making narrative: Due to the pain patient is presenting with, an abdominal CT has been ordered. He has been given Dilaudid and Zofran here in the ED to help control his pain and nausea. Abdominal CT shows no acute abdominal process. He is stable and able to go home with pain control. I have personally performed a face to face assessment of the patient and have reviewed the VIPIN Note. I performed a substantive portion of the visit including all aspects of the following. My sinha findings include: History is [patient presents with lower abdominal pain that he has had since September 03. Patient was seen in the emergency department recently had a testicular ultrasound and was diagnosed with epididymitis and started on antibiotics. Patient states that he is no better and has an appointment to see the urologist in 5 days. Patient continues to complain of lower abdominal discomfort. He denies any fevers. He does describe some dysuria. Patient denies any discharge from his penis.] Exam is [HETOMMY-PERRLA, EOMI. Cranial nerves II through XII grossly intact. TMs clear. Mucous membranes moist. No adenopathy. Cardiovascular-regular rate and rhythm without murmur or ectopy Lungs-clear to auscultation, chest wall stable without crepitus or subcu emphysema Abdomen-normoactive bowel sounds, soft,, no rebound or rigidity, no peritoneal signs. Patient does have tenderness palpation over the suprapubic region. No m asses palpated. exam-testicles are both descended and vertical and lie. Normal cremasteric reflex. No tenderness over the testicles or the epididymides bilaterally. Extremities-intact ?4, normal range of motion, normal pulses, atraumatic] Medical Decison Making [patient had lab work obtained that was normal. Chemistries were normal. Urinalysis was normal. CT scan of the abdomen pelvis with IV contrast also was read as normal. This point etiology of his pain is unclear. I will send off GC and chlamydia from urine. Patient to keep his appointment with urology. Patient will be given a prescription for Douglas and naproxen. Patient advised to return if worsening pain, fever, vomiting, or condition should worsen anyway.] Other additions or changes: [None] Lab Data Labs: Laboratory Results - last 24 hr 09/15/22 09/15/22 09/15/22 19:30 19:30 19:30 WBC 10.5 RBC 5.09 Hgb 15.0 Hct 46.1 MCV 90.6 MCH 29.5 MCHC 32.5 RDW Std Deviation 45.1 H RDW Coeff of Jodie 13.5 Plt Count 227 MPV 10.8 Immature Gran % (Auto) 0.500 Neut % (Auto) 66.9 Lymph % (Auto) 25.8 [place] % (Auto) 5.9 Eos % (Auto) 0.3 Baso % (Auto) 0.6 Absolute Neuts (auto) 7.0 Absolute Lymphs (auto) 2.71 Nucleated RBC % 0 Platelet Estimate ADEQUATE RBC Morphology N CHROM Anisocytosis RARE Macrocytosis RARE Sodium 138 Potassium 4.6 Chloride 111 H Carbon Dioxide 21.0 Anion Gap 6 BUN 11 Creatinine 1.01 Estim Creat Clear Calc 108.84 Est GFR (MDRD) Af Amer 106 Est GFR (MDRD) Non-Af 88 BUN/Creatinine Ratio 10.9 Glucose 94 Lactic Acid 0.6 Calcium 9.4 Urine Color Urine Clarity Urine pH Ur Specific [place] Urine Protein Urine Glucose (UA) Urine Ketones Urine Occult Blood Urine Nitrite Urine Bilirubin Urine Urobilinogen Ur Leukocyte Esterase Urine RBC Urine WBC Ur Squamous Epith Cells Urine Bacteria Urine Mucus 09/15/22 19:30 WBC RBC Hgb Hct MCV MCH MCHC RDW Std Deviation RDW Coeff of Jodie Plt Count MPV Immature Gran % (Auto) Neut % (Auto) Lymph % (Auto) [place] % (Auto) Eos % (Auto) Baso % (Auto) Absolute Neuts (auto) Absolute Lymphs (auto) Nucleated RBC % Platelet Estimate RBC Morphology Anisocytosis Macrocytosis Sodium Potassium Chloride Carbon Dioxide Anion Gap BUN Creatinine Estim Creat Clear Calc Est GFR (MDRD) Af Amer Est GFR (MDRD) Non-Af BUN/Creatinine Ratio Glucose Lactic Acid Calcium Urine Color Yellow Urine Clarity Clear Urine pH 6.5 Ur Specific [place] 1.020 Urine Protein Negative Urine Glucose (UA) Normal Urine Ketones Negative Urine Occult Blood Negative Urine Nitrite Negative Urine Bilirubin Negative Urine Urobilinogen Normal Ur Leukocyte Esterase Negative Urine RBC 0 SEEN Urine WBC 0 SEEN Ur Squamous Epith Cells 0 SEEN Urine Bacteria RARE Urine Mucus 0 SEEN Radiography Diagnostic Testing: Clinical Impression(s) from Imaging Studies Abdomen/Pelvis CT 09/15/22 18:35 IMPRESSION: 1. Normal appendix. 2. No evidence of renal, ureteral or urinary bladder abnormality. 3. Normal CT of the abdomen and pelvis. No major interval change. Electronically Signed: Jean Pierre Fine DO at 20:33 EDT Reading Location ID and State: [address] [place] [address] Tel [phone], Service support , Discharge Plan Triage Chief Complaint: Abd Pain ED Midlevel Provider: Lana Boswell ED Provider: Corwin Morales Dx/Rx/DC Orders Clinical Impression: Abdominal pain, Pain in scrotum without trauma of scrotum Instructions: Abdominal Pain, ED Testicular Pain, Unclear Cause Prescriptions: New hydrocodone-acetaminophen 5-325 mg tablet 1 tab PO Q6H PRN (Reason: pain) 3 Days Qty: 10 0RF naproxen [Naprosyn] 500 mg tablet 500 mg PO BID PRN (Reason: pain) Qty: 20 0RF No Action albuterol sulfate [ProAir HFA] 1 PUFF inhaler 1 puff inhalation Q4H PRN PRN (Reason: Shortness Of Breath) Vraylar 6 mg capsule 6 mg PO DAILY Label Comments: Take 1 capsule by mouth once a day omeprazole 20 MG capsule 20 mg PO DAILY melatonin 5 MG tablet 5 mg PO QHS PRN (Reason: Insomnia) naproxen 500 MG tablet 500 mg PO BID PRN Qty: 20 0RF naproxen 500 MG tablet 500 mg PO BID PRN Qty: 20 0RF levofloxacin [levofloxacin] 500 mg tablet 500 mg PO DAILY Qty: 10 0RF Primary Care Provider: Raghu Blackwell Referrals: Raghu Blackwell MD [Primary Care Provider] - As soon as possible Activity Restrictions/Additional Instructions: Seek medical attention if symptoms worsen or if new symptoms begin. Follow up with PCP as soon as possible. Disposition Disposition: Home, Self Care
[2022-09-15] MEDS: HYDROmorphone 1 MG/ML Syringe IV (19:31)
[2022-09-15] MEDS: Ondansetron 4 MG/2 ML Vial IV (19:31)
[2022-09-15 19:32] VITALS: PULSE 94; RESP 16; O2SAT 97
[2022-09-15] MEDS: 0.9% Normal Saline 1,000 ML 125 ML IV (19:32)
[2022-09-15 19:39] LABS: Mucous, Urine 0 SEEN /hpf (<or=2+); Red Blood Cells-Urine 0 SEEN /hpf (0-5); Squamous Epithelial Cells - UA 0 SEEN /hpf (0-5); White Blood Cells 0 SEEN /hpf (0-5)
[2022-09-15 19:43] LABS: Absolute Lymphocyte Count 2.71 X10^3/uL (0.83-4.51); Basophil# 0.06 X10^3/uL; Basophil% 0.6 % (0-1); Color, Urine Yellow (Yellow); Eosinophil# 0.03 X10^3/uL; Eosinophils% 0.3 % (0-5); Glucose, Dipstick Normal (Normal); Hematocrit 46.1 % (40-54); Ketone-Dipstick Negative (Negative); Leukocyte Esterase-Dipstick Negative /ul (Negative); Lymphocyte # 2.71 X10^3/ul (0.83-4.51); Lymphocyte % 25.8 % (19-41); Mean Corp Hgb Conc 32.5 g/dL (32-36); Mean Corpuscular Hgb 29.5 pg (27.0-32.0); Mean Corpuscular Volume 90.6 fL (80-94); Mean Platelet Vol. 10.8 fl (6.2-12.0); Monocyte# 0.62 X10^3/uL; Monocyte% 5.9 % (0-10); NRBC Flagged by Analyzer 0 % (0-5); Neutrophil # 7.02 X10^3/uL (2.7-7.7); Neutrophil % 66.9 % (47-70); Nitrite-Dipstick Negative (Negative); Occult Blood-Urine Negative /ul (Negative); POSITIVE COUNT YES; Platelet Count 227 K/mm3 (150-450); Protein-Dipstick Negative (Negative); RBC Distribution Width CV 13.5 % (11.6-14.6); RBC Distribution Width SD 45.1 fl (35.1-43.9); Red Blood Count 5.09 M/mm3 (4.6-6.2); Urine Bilirubin Dipstick Negative (Negative); Urine Clarity Clear (Clear); Urine Urobilinogen Normal (Normal); Urine pH 6.5 (5.0 - 8.0); White Blood Count 10.5 K/mm3 (4.4-11.0)
[2022-09-15 19:51] LABS: Differential Indicated SCAN CRITERIA MET
[2022-09-15 19:54] LABS: Bacteria RARE /hpf (None Seen)
[2022-09-15 20:01] LABS: Anion Gap 6 (5-15); BUN 11 mg/dL (7-18); BUN/Creat Ratio 10.9 RATIO (10-20); Calcium,Total 9.4 mg/dL (8.5-10.1); Chloride 111 mmol/L (98-107); Creatinine, Serum 1.01 mg/dL (0.70-1.30); EST Glomerular Filtration Rate 88 mL/min (>60); Est Glom Filt Rate - Afr Amer 106 mL/min (>60); Estimated Creatinine Clearance 108.84 ml/min; Glucose 94 mg/dL (74-106); Potassium 4.6 mmol/L (3.5-5.1); Sodium Level 138 mmol/L (136-145)
[2022-09-15 20:15] LABS: Lactic Acid 0.6 mmol/L (0.4-1.9)
[2022-09-15 20:23] LABS: Anisocytosis RARE; Macrocytosis RARE; Platelet Estimate ADEQUATE (ADEQ); Red Cell Morphology N CHROM NORMAL (NORM C&C)
[2022-09-15 21:33] VITALS: PULSE 98; RESP 16; O2SAT 97
[2022-09-15 22:48] VITALS: BP 167/79; PULSE 88; RESP 18; O2SAT 95
[2022-09-15 23:43] LABS: Chlamydia Trachomatis by PCR Negative (Negative); Neisserai gonorrhoeae by PCR Negative (Negative); Probe Check PASS; Sample Adequacy Control PASS; Specimen Processing Control PASS
== END 2022-09-15 22:48 | disposition home or self-care (01) ==
PROVIDERS: Emergency Provider Emergency Medicine; PCP Family Medicine; Visit Provider Emergency Medicine
DX: R10.9 Unspecified abdominal pain (principal); R11.2 Nausea with vomiting, unspecified; M54.9 Dorsalgia, unspecified; R30.0 Dysuria; F17.210 Nicotine dependence, cigarettes, uncomplicated; N50.819 Testicular pain, unspecified; N45.1 Epididymitis; N50.82 Scrotal pain; R39.11 Hesitancy of micturition
CPT/HCPCS: 74177; 80048; 81001; 83605; 85025; 87491; 87591; 99282; J7030; Q9967; A4216; J2405

== ENCOUNTER 2022-12-04 15:10 | Emergency (ER) | payer MEDICAID, SELFPAY ==
[2022-12-04 15:11] VITALS: BP 135/85; PULSE 110; RESP 18; TEMP 36.1; O2SAT 97; BMI 44.0
[2022-12-04 16:34] LABS: Mucous, Urine 0 SEEN /hpf (<or=2+); Red Blood Cells-Urine 0 SEEN /hpf (0-5); Squamous Epithelial Cells - UA 0 SEEN /hpf (0-5)
[2022-12-04 16:37] LABS: Absolute Lymphocyte Count 2.57 X10^3/uL (0.83-4.51); Absolute Neutrophil Count 7.3 X10^3/uL (2.0-7.7); Basophil# 0.06 X10^3/uL; Basophil% 0.6 % (0-1); Eosinophil# 0.07 X10^3/uL; Eosinophils% 0.6 % (0-5); Hematocrit 48.2 % (40-54); Hemoglobin 15.6 g/dL (13.0-16.5); Lymphocyte # 2.57 X10^3/ul (0.83-4.51); Lymphocyte % 23.9 % (19-41); Mean Corp Hgb Conc 32.4 g/dL (32-36); Mean Corpuscular Volume 89.6 fL (80-94); Mean Platelet Vol. 9.8 fl (6.2-12.0); Monocyte# 0.71 X10^3/uL; Monocyte% 6.6 % (0-10); NRBC Flagged by Analyzer 0 % (0-5); Neutrophil # 7.32 X10^3/uL (2.7-7.7); Neutrophil % 67.9 % (47-70); Platelet Count 250 K/mm3 (150-450); RBC Distribution Width CV 13.9 % (11.6-14.6); RBC Distribution Width SD 45.1 fl (35.1-43.9); Red Blood Count 5.38 M/mm3 (4.6-6.2); White Blood Count 10.8 K/mm3 (4.4-11.0)
[2022-12-04 16:49] LABS: Glucose, Dipstick Normal (Normal); Ketone-Dipstick Negative (Negative); Occult Blood-Urine Negative /ul (Negative); Urine Bilirubin Dipstick Negative (Negative); Urine Urobilinogen Normal (Normal)
--- NOTE | 2022-12-04 16:49 | ED.VIS.GI ---
HPI HPI - GI History of Present Illness Chief Complaint: Abd Pain Narrative Narrative: 37-year-old male presenting with abdominal pain. He states its bilateral in the lower abdomen mostly. He reports he has had this since August of last year. He had negative CTs in August in September of last year. He did have epididymitis and followed up with urology. He reports that he was diagnosed with pelvic floor syndrome. He is not having any nausea, vomiting, diarrhea, constipation, fever, chills. He feels otherwise well except for chronic intermittent pain in the lower abdomen. He states he went to his primary care office today to be evaluated for this and was told he needed to come to the emergency room for an emergent CT. He does report that his pain is basically unchanged. He states his pain is at a 2/3 on the pain scale. He states that his primary care office sent him over here for rebound tenderness and as well as concern for a bowel perforation. Patient denies previous abdominal surgeries or obstruction. Patient does have history of kidney stones in the past. He is not having flank pain. PFSH PFS Medical History Bipolar 1 disorder DDD (degenerative disc disease) Spastic pelvic floor syndrome Home Medications cariprazine 6 mg capsule (Vraylar) 6 mg PO DAILY 09/15/18 [History Last Taken Unknown] omeprazole 20 mg capsule,delayed release 20 mg PO DAILY 05/10/19 [History Last Taken Unknown] polyethylene glycol 3350 17 gram/dose oral powder (ClearLax) 17 g PO DAILY PRN constipation #119 grams 12/04/22 [Rx Last Taken Unknown] topiramate 50 mg tablet 100 mg PO DAILY 12/04/22 [History Last Taken Unknown] hydrocodone-acetaminophen 5-325mg 5mg-325mg 1 tab PO Q6H PRN PRN Pain 3 days #10 TABLETS 12/06/22 [Rx Last Taken Unknown] Allergy/AdvReac Type Severity Reaction Status Date / Time Penicillins Allergy Hives Verified 12/06/22 18:57 Surgical History Hx of cardiac cath Social History Smoking Status: Current every day smoker tobacco type: cigarettes ROS ROS ED Constitutional Constitutional ED: Denies chills or fever(s) ENT ENT ED: Denies rhinorrhea or sore throat Cardiovascular Cardiovascular: Denies chest pain or palpitations Respiratory/Chest Respiratory/Chest: Denies cough or dyspnea Gastrointestinal Gastrointestinal: Reports abdominal pain; Denies constipation, diarrhea, melena, nausea or vomiting Genitourinary Genitourinary ED: Denies dysuria Musculoskeletal Musculoskeletal: Denies arthralgias or back pain Integumentary Denies abscess or Abrasions Neurologic Neurologic: Denies headache(s) Psychiatric Psychiatric: Denies anxiety or depression Endocrine Endocrinology: Denies polydipsia or polyphagia EXAM Physical Exam Const Vital Signs: 12/04/22 15:11 Temperature 96.9 F L Temperature Source Temporal Pulse Rate 110 H Respiratory Rate 18 Blood Pressure 135/85 H Blood Pressure Mean 101 Pulse Ox 97 Oxygen Delivery Method Room Air Positive well nourished and obese Constitutional Narrative: Patient is pleasant, laughing, joking. He is in no distress. General Appearance ED: NAD; Negative for pallor Nutritional Appearance: obese HEENT Reports moist mucous membranes normocephalic Eyes PERRL and EOMs intact bilaterally Neck no lymphadenopathy Resp normal respiratory effort and clear to auscultation bilaterally Effort and Inspection: respiratory distress Auscultation: Negative for rales, rhonchi or wheezes Cardio regular rhythm Rate: tachycardic GI Palpation: soft and tender LLQ and RLQ; Negative for guarding, rigid, hepatomegaly, splenomegaly, hernia, mass or rebound tenderness present Back/Spine no CVA tenderness Neuro CN's II-XII intact bilaterally, moves all extremities and no sensory deficits noted Sensorium / Orientation: alert Motor Exam: strength 5/5 throughout Psych mental status grossly normal and thought process normal Skin no wounds General Skin Exam: Negative for jaundice or pallor MDM MDM MDM Narrative Medical decision making narrative: Patient with chronic lower abdominal pain. He is diagnosed with pelvic floor syndrome. He states this is similar and unchanged. He reports no other new GI symptoms. He has been able to eat and drink as well as make normal urine and stool. He has not had any fever. No previous abdominal surgery. Abdominal exam is significant for some very mild tenderness in the lower quadrants and the patient does not flinch. No rebound, guarding, rigidity, masses. Bowel sounds are normal active. Differential at this point is constipation, pelvic floor syndrome, kidney stone. I have a low suspicion for bowel obstruction given patient's not had any surgical history to his abdomen and he has normal bowel sounds. His abdominal exam is benign. He is not distended. CBC to assess for white blood cell count, hemoglobin, platelets, differential. This shows a normal white blood cell at 10.8. Hemoglobin stable at 15.6. Platelets normal at 250. No left shift. CMP to assess for liver function, electrolytes, renal function, glucose, anion gap. Liver function is normal. Renal function and electrolytes within normal limits with exception of a chloride of 113. Glucose 95. Anion gap normal. Urinalysis used to assess for infection versus occult blood for kidney stone. Urinalysis is normal. Lipase to assess for pancreatic involvement. This is normal at 170. Given normal lab work I do not feel patient needs a CT of the abdomen pelvis. I did obtain an acute abdominal series which on my interpretation showed no acute obstruction. Does appear to be a lot of stool burden. Patient was started on MiraLAX for home. Return precautions were discussed. Impression: 1. Abdominal pain 2. Constipation Lab Data Labs: Laboratory Results - last 24 hr 12/04/22 12/04/22 12/04/22 16:27 16:27 16:27 WBC 10.8 RBC 5.38 Hgb 15.6 Hct 48.2 MCV 89.6 MCH 29.0 MCHC 32.4 RDW Std Deviation 45.1 H RDW Coeff of Jodie 13.9 Plt Count 250 MPV 9.8 Immature Gran % (Auto) 0.400 Neut % (Auto) 67.9 Lymph % (Auto) 23.9 [place] % (Auto) 6.6 Eos % (Auto) 0.6 Baso % (Auto) 0.6 Absolute Neuts (auto) 7.3 Absolute Lymphs (auto) 2.57 Nucleated RBC % 0 Sodium 140 Potassium 4.2 Chloride 113 H Carbon Dioxide 22.0 Anion Gap 5 BUN 8 Creatinine 1.10 Estim Creat Clear Calc 99.94 Est GFR (MDRD) Af Amer 96 Est GFR (MDRD) Non-Af 80 BUN/Creatinine Ratio 7.3 L Glucose 95 Calcium 9.1 Total Bilirubin 0.30 AST 17 ALT 30 Alkaline Phosphatase 92 Total Protein 8.2 Albumin 4.0 Globulin 4.2 Albumin/Globulin Ratio 1.0 Lipase 170 Urine Color Yellow Urine Clarity Clear Urine pH 8.0 Ur Specific [place] 1.015 Urine Protein Negative Urine Glucose (UA) Normal Urine Ketones Negative Urine Occult Blood Negative Urine Nitrite Negative Urine Bilirubin Negative Urine Urobilinogen Normal Ur Leukocyte Esterase 25 H Radiography Diagnostic Testing: Clinical Impression(s) from Imaging Studies Acute Abdomen Series 12/04/22 18:15 IMPRESSION: 1. No acute cardiopulmonary disease. 2. Increased colonic feces suggesting constipation. Electronically Signed: Jean Pierre Fine DO at 18:37 EST Reading Location ID and State: [facility] / [place] Tel [phone], Service support , Discharge Plan Triage Chief Complaint: Abd Pain ED Provider: Augusto Medina Dx/Rx/DC Orders Instructions: ED Constipation (Adult), ED Abdominal Pain Unkn Cause Male... Prescriptions: New polyethylene glycol 3350 [ClearLax] 17 gram/dose powder 17 g PO DAILY PRN (Reason: constipation) Qty: 119 0RF No Action Vraylar 6 mg capsule 6 mg PO DAILY Label Comments: Take 1 capsule by mouth once a day omeprazole 20 MG capsule 20 mg PO DAILY topiramate 50 mg tablet 100 mg PO DAILY hydrocodone-acetaminophen 5-325 mg tablet 1 tab PO Q6H PRN PRN (Reason: Pain) 3 Days Qty: 10 0RF Primary Care Provider: Raghu Blackwell Referrals: Raghu Blackwell MD [Primary Care Provider] - Disposition Disposition: Home, Self Care Discharge Date/Time: 12/04/22 19:24
[2022-12-04 16:53] LABS: Color, Urine Yellow (Yellow); Leukocyte Esterase-Dipstick 25 /ul (Negative); Nitrite-Dipstick Negative (Negative); Protein-Dipstick Negative (Negative); Specific Gravity, Urine 1.015 (1.002-1.030); Urine Clarity Clear (Clear)
[2022-12-04 16:54] LABS: AST(SGOT) 17 U/L (15-37); Alanine Aminotransfer ALT/SGPT 30 U/L (16-61); Alkaline Phosphatase 92 U/L (45-117); Anion Gap 5 (5-15); BUN 8 mg/dL (7-18); BUN/Creat Ratio 7.3 RATIO (10-20); Calcium,Total 9.1 mg/dL (8.5-10.1); Chloride 113 mmol/L (98-107); EST Glomerular Filtration Rate 80 mL/min (>60); Est Glom Filt Rate - Afr Amer 96 mL/min (>60); Estimated Creatinine Clearance 99.94 ml/min; Globulin 4.2 g/dL (2.2-4.2); Glucose 95 mg/dL (74-106); Lipase 170 U/L (73-393); Potassium 4.2 mmol/L (3.5-5.1); Protein, Total 8.2 g/dL (6.4-8.2); Sodium Level 140 mmol/L (136-145)
[2022-12-04 17:00] LABS: Bacteria 1+ /hpf (None Seen); White Blood Cells 0-5 SEEN /hpf (0-5)
[2022-12-04 17:10] VITALS: BP 119/73; PULSE 86; RESP 18; O2SAT 96
--- NOTE | 2022-12-04 18:15 | RAD_ITS ---
STUDY: X-RAY - ACUTE ABDOMINAL SERIES REASON FOR EXAM: Male, 37 years old. Abdominal pain. TECHNIQUE: Single view of the chest. Supine, and erect view(s) of the abdomen were obtained. COMPARISON: CT the abdomen and pelvis, September 15, 2022. FINDINGS: The lungs are clear and expanded. Normal size heart. Normal mediastinum and william. Normal visualized pulmonary arteries. Normal visualized aortic arch and descending thoracic aorta. Feces is seen throughout nondistended colon. There is no small bowel dilatation. No free air. The soft tissue structures of the abdomen and pelvis are unremarkable. Normal visualized osseous structures. RAD/Acute Abdomen Inc Chest IMPRESSION: 1. No acute cardiopulmonary disease. 2. Increased colonic feces suggesting constipation. Electronically Signed: Jean Pierre Fine DO at 18:37 EST ,
[2022-12-04 19:00] VITALS: BP 115/78; PULSE 82; RESP 16; O2SAT 98
== END 2022-12-04 19:24 | disposition home or self-care (01) ==
PROVIDERS: Emergency Provider Student in an Organized Health Care Education/Training Program; PCP Family Medicine; Visit Provider Student in an Organized Health Care Education/Training Program
DX: R10.819 Abdominal tenderness, unspecified site (principal); F31.9 Bipolar disorder, unspecified; K59.00 Constipation, unspecified; F17.210 Nicotine dependence, cigarettes, uncomplicated
CPT/HCPCS: 74022; 80053; 81001; 83690; 85025; 99283; A4216

== ENCOUNTER 2022-12-06 18:55 | Emergency (ER) | payer MEDICAID, SELFPAY ==
[2022-12-06 18:57] VITALS: BP 149/64; PULSE 114; RESP 18; TEMP 36.8; O2SAT 95; BMI 44.0
--- NOTE | 2022-12-06 21:05 | CT_ITS ---
STUDY: CT ABDOMEN AND PELVIS WITH CONTRAST REASON FOR EXAM: Male, 37 years old. Abdominal pain RADIATION DOSAGE (If Supplied By Facility): CTDIvol = ( 25.39 ) mGy, DLP = ( 1396.66 ) mGycm TECHNIQUE: Transaxial images were obtained from the dome of the diaphragm to the symphysis pubis without oral contrast. IV 100mL Isovue-370 was administered. Sagittal and coronal images were reconstructed. Individualized dose optimization techniques were used for this CT. COMPARISON: September 15, 2022 FINDINGS: The visualized lung bases are unremarkable. The visualized portions of the heart are within normal limits. Normal liver. Normal gallbladder and extrahepatic biliary system. Normal spleen. Normal pancreas. Normal bilateral adrenal glands. There is stable 0.2 cm stone of the right kidney. Normal left kidney. Normal visualized stomach. Normal small intestine. Normal colon. The appendix is visualized and appears normal. Normal abdominal aorta. Normal inferior vena cava. Normal retroperitoneum. Normal urinary bladder. There are prostatic calcifications. There is no free fluid in the abdomen or pelvis. Normal abdominal wall. Normal osseous structures. CT/Abdomen/Pelvis W IV Cont ONLY IMPRESSION: Stable small right renal stone. No hydronephrosis No obstruction. Electronically Signed: Goyo Nino MD at 22:49 EST ,
--- NOTE | 2022-12-06 21:05 | US_ITS ---
STUDY: SCROTUM ULTRASOUND REASON FOR EXAM: Male, 37 years old. Testicular pain TECHNIQUE: Ultrasound evaluation of the scrotum was performed with color Doppler and static ivan-scale imaging. COMPARISON: September 13, 2022 FINDINGS: RIGHT TESTICLE INTRATESTICULAR: There is a normal size of the right testicle. The right testicle measures 4.7 x 2.9 x 2.5 cm. There is a homogenous echotexture. There is stable testicular microlithiasis. There is normal arterial and normal venous vascularity. There is no demonstrated right testicular mass or cyst. EXTRATESTICULAR: The epididymis is normal in size. The epididymis head measures 1.2 cm. There is normal vascularity of the epididymis. There is no demonstrated epididymal cystic structure. There is a small hydrocele. There is no demonstrated varicocele. There is no demonstrated extratesticular mass or cyst. LEFT TESTICLE INTRATESTICULAR: There is a normal size of the left testicle. The left testicle measures 5.0 x 2.8 x 2.4 cm. There is a homogenous echotexture. There is stable testicular microlithiasis. There is normal arterial and normal venous vascularity. There is no demonstrated left testicular mass or cyst. EXTRATESTICULAR: The epididymis is normal in size. The epididymis head measures 1.1 cm. There is normal vascularity of the epididymis. There is no demonstrated epididymal cystic structure. There is a small hydrocele. There is no demonstrated varicocele. There is no demonstrated extratesticular mass or cyst. US/Testicular with Arterial Flow IMPRESSION: No intratesticular mass. Normal blood flow. Bilateral microlithiasis. Small hydroceles. Electronically Signed: Goyo Nino MD at 22:52 EST ,
[2022-12-06] MEDS: Ondansetron 4 MG/2 ML Vial IV (21:19)
[2022-12-06] MEDS: Morphine 4 MG/ML Syringe IV (21:20)
[2022-12-06] MEDS: 0.9% Normal Saline 1,000 ML 1000 ML IV (21:21)
--- NOTE | 2022-12-06 21:21 | EDS_ITS ---
HPI History of Present Illness Chief Complaint: Male Pain/Injury Informant: patient Narrative Narrative: 37-year-old male presenting with abdominal and groin pain. He states this started tonight. He complains of bilateral testicular pain that is sharp and started suddenly. He has a history of pelvic floor syndrome and is currently in physical therapy. He is unsure if he hurt himself while doing physical therapy. Denies vomiting or diarrhea. Prior similar symptoms: Yes Recent Illness/Hospitalization: No PFSH PFSH Medical History Bipolar 1 disorder DDD (degenerative disc disease) Spastic pelvic floor syndrome Home Medications cariprazine 6 mg capsule (Vraylar) 6 mg PO DAILY 09/15/18 [History Last Taken Unknown] omeprazole 20 mg capsule,delayed release 20 mg PO DAILY 05/10/19 [History Last Taken Unknown] polyethylene glycol 3350 17 gram/dose oral powder (ClearLax) 17 g PO DAILY PRN constipation #119 grams 12/04/22 [Rx Last Taken Unknown] topiramate 50 mg tablet 100 mg PO DAILY 12/04/22 [History Last Taken Unknown] hydrocodone-acetaminophen 5-325mg 5mg-325mg 1 tab PO Q6H PRN PRN Pain 3 days #10 TABLETS 12/06/22 [Rx Last Taken Unknown] Allergy/AdvReac Type Severity Reaction Status Date / Time Penicillins Allergy Hives Verified 12/06/22 18:57 Surgical History Hx of cardiac cath Social History Smoking Status: Current every day smoker tobacco type: cigarettes ROS ROS ED Constitutional Constitutional ED: Denies fever(s) Eyes Eyes: Denies change in vision ENT ENT ED: Denies rhinorrhea or sore throat Cardiovascular Cardiovascular: Denies chest pain or palpitations Respiratory/Chest Respiratory/Chest: Denies cough or dyspnea Gastrointestinal Gastrointestinal: Reports abdominal pain; Denies diarrhea, nausea or vomiting Genitourinary Genitourinary ED: Denies dysuria Musculoskeletal Musculoskeletal: Denies myalgias Integumentary Denies rash Neurologic Neurologic: Denies headache(s) Psychiatric Psychiatric: Denies suicidal thoughts EXAM Physical Exam Const Vital Signs: 12/06/22 18:57 12/06/22 22:00 Temperature 98.3 F Temperature Source Temporal Pulse Rate 114 H 95 Respiratory Rate 18 15 Blood Pressure 149/64 H 131/80 H Blood Pressure Mean 92 97 Pulse Ox 95 94 Oxygen Delivery Method Room Air Room Air Positive well nourished and well developed General Appearance ED: well developed HEENT Reports normocephalic and head/scalp atraumatic Eyes PERRL and EOMs intact bilaterally Neck supple General: Negative for tenderness Chest Wall inspection of chest normal Resp normal respiratory effort and clear to auscultation bilaterally Cardio regular rhythm Rate: tachycardic GI non-distended Palpation: soft and tender suprapubic; Negative for guarding or rebound tenderness present no CVA tenderness Narrative: Minimal testicular tenderness, normal lie. Extremity normal to inspection Neuro oriented x3 Sensorium / Orientation: alert Psych mental status grossly normal MDM MDM MDM Narrative Medical decision making narrative: Patient was given morphine, Zofran IV. CBC is unremarkable. Chemistries unremarkable. Urinalysis is normal. CT abdomen pelvis shows stable right renal stone, no hydronephrosis. No obstruction. Testicular ultrasound shows no testicular mass, normal blood flow, bilateral microlithiasis, small hydroceles. Patient is resting comfortably on reevaluation. He will follow-up with urology. He was given short course of [place]. He is comfortable with discharge home. Advised to return to the ED for worsening complaints. Lab Data Attestation: I reviewed the patient's lab results. Labs: Laboratory Results - last 24 hr 12/06/22 12/06/22 12/06/22 21:10 21:10 22:30 WBC 9.4 RBC 5.26 Hgb 15.5 Hct 47.5 MCV 90.3 MCH 29.5 MCHC 32.6 RDW Std Deviation 46.3 H RDW Coeff of Jodie 13.8 Plt Count 229 MPV 10.3 Immature Gran % (Auto) 0.400 Neut % (Auto) 59.6 Lymph % (Auto) 30.8 [place] % (Auto) 7.5 Eos % (Auto) 1.2 Baso % (Auto) 0.5 Absolute Neuts (auto) 5.6 Absolute Lymphs (auto) 2.90 Nucleated RBC % 0 Sodium 140 Potassium 4.0 Chloride 112 H Carbon Dioxide 22.0 Anion Gap 6 BUN 11 Creatinine 1.00 Estim Creat Clear Calc 109.93 Est GFR (MDRD) Af Amer 107 Est GFR (MDRD) Non-Af 89 BUN/Creatinine Ratio 11.0 Glucose 94 Calcium 9.1 Urine Color Yellow Urine Clarity Clear Urine pH 7.0 Ur Specific [place] 1.010 Urine Protein Negative Urine Glucose (UA) NEGATIVE Urine Ketones Negative Urine Occult Blood Negative Urine Nitrite Negative Urine Bilirubin Negative Urine Urobilinogen Normal Ur Leukocyte Esterase Negative Urine RBC 0 SEEN Urine WBC 0 SEEN Ur Squamous Epith Cells 0 SEEN Urine Bacteria 0 SEEN Urine Mucus 0 SEEN Radiography Diagnostic Testing: Clinical Impression(s) from Imaging Studies Abdomen/Pelvis CT 12/06/22 21:05 IMPRESSION: Stable small right renal stone. No hydronephrosis No obstruction. Electronically Signed: Goyo Nino MD at 22:49 EST Reading Location ID and State: [facility] / [place] , Service support , Testicular Ultrasound 12/06/22 21:05 IMPRESSION: No intratesticular mass. Normal blood flow. Bilateral microlithiasis. Small hydroceles. Electronically Signed: Goyo Nino MD at 22:52 EST , Discharge Plan Triage Chief Complaint: Male Pain/Injury ED Provider: Zoe Lema Dx/Rx/DC Orders Clinical Impression: Bilateral groin pain Instructions: Abdominal Pain Prescriptions: New hydrocodone-acetaminophen 5-325 mg tablet 1 tab PO Q6H PRN PRN (Reason: Pain) 3 Days Qty: 10 0RF No Action Vraylar 6 mg capsule 6 mg PO DAILY Label Comments: Take 1 capsule by mouth once a day omeprazole 20 MG capsule 20 mg PO DAILY topiramate 50 mg tablet 100 mg PO DAILY polyethylene glycol 3350 [ClearLax] 17 gram/dose powder 17 g PO DAILY PRN (Reason: constipation) Qty: 119 0RF Primary Care Provider: Raghu Blackwell Referrals: Soto Sy MD [Med Staff - Active Staff] - Raghu Blackwell MD [Primary Care Provider] - Disposition Disposition: Home, Self Care
[2022-12-06 21:39] LABS: Absolute Neutrophil Count 5.6 X10^3/uL (2.0-7.7); Basophil# 0.05 X10^3/uL; Basophil% 0.5 % (0-1); Eosinophil# 0.11 X10^3/uL; Eosinophils% 1.2 % (0-5); Hematocrit 47.5 % (40-54); Hemoglobin 15.5 g/dL (13.0-16.5); Lymphocyte % 30.8 % (19-41); Mean Corp Hgb Conc 32.6 g/dL (32-36); Mean Corpuscular Hgb 29.5 pg (27.0-32.0); Mean Corpuscular Volume 90.3 fL (80-94); Mean Platelet Vol. 10.3 fl (6.2-12.0); Monocyte# 0.71 X10^3/uL; Monocyte% 7.5 % (0-10); NRBC Flagged by Analyzer 0 % (0-5); Neutrophil # 5.62 X10^3/uL (2.7-7.7); Neutrophil % 59.6 % (47-70); Platelet Count 229 K/mm3 (150-450); RBC Distribution Width CV 13.8 % (11.6-14.6); RBC Distribution Width SD 46.3 fl (35.1-43.9); Red Blood Count 5.26 M/mm3 (4.6-6.2); White Blood Count 9.4 K/mm3 (4.4-11.0)
[2022-12-06 21:59] LABS: Anion Gap 6 (5-15); BUN 11 mg/dL (7-18); Calcium,Total 9.1 mg/dL (8.5-10.1); Chloride 112 mmol/L (98-107); EST Glomerular Filtration Rate 89 mL/min (>60); Est Glom Filt Rate - Afr Amer 107 mL/min (>60); Estimated Creatinine Clearance 109.93 ml/min; Glucose 94 mg/dL (74-106); Sodium Level 140 mmol/L (136-145)
[2022-12-06 22:00] VITALS: BP 131/80; PULSE 95; RESP 15; O2SAT 94
[2022-12-06 22:33] LABS: Bacteria 0 SEEN /hpf (None Seen); Mucous, Urine 0 SEEN /hpf (<or=2+); Red Blood Cells-Urine 0 SEEN /hpf (0-5); Squamous Epithelial Cells - UA 0 SEEN /hpf (0-5); White Blood Cells 0 SEEN /hpf (0-5)
[2022-12-06 22:45] LABS: Color, Urine Yellow (Yellow); Urine Clarity Clear (Clear)
[2022-12-06 22:46] LABS: Glucose, Dipstick NEGATIVE (Normal); Ketone-Dipstick Negative (Negative); Leukocyte Esterase-Dipstick Negative /ul (Negative); Nitrite-Dipstick Negative (Negative); Occult Blood-Urine Negative /ul (Negative); Protein-Dipstick Negative (Negative); Urine Bilirubin Dipstick Negative (Negative); Urine Urobilinogen Normal (Normal)
[2022-12-06 23:29] VITALS: BP 143/83; PULSE 95; RESP 15; O2SAT 96
== END 2022-12-06 23:30 | disposition home or self-care (01) ==
PROVIDERS: Emergency Provider Emergency Medicine; PCP Family Medicine; Visit Provider Emergency Medicine
DX: R10.31 Right lower quadrant pain (principal); F31.9 Bipolar disorder, unspecified; N20.0 Calculus of kidney; R10.32 Left lower quadrant pain; F17.210 Nicotine dependence, cigarettes, uncomplicated
CPT/HCPCS: 74177; 76870; 80048; 81001; 85025; 93976; 96361; 96374; 96375; 99285; J7030; Q9967; A4216; J2405

== ENCOUNTER 2023-06-16 03:08 | Emergency (ER) | payer MEDICAID, SELFPAY ==
[2023-06-16 03:09] VITALS: BP 161/108; PULSE 72; RESP 18; TEMP 36.2; O2SAT 98
--- NOTE | 2023-06-16 03:30 | EDS_ITS ---
HPI History of Present Illness Chief Complaint: Lower Extremity Injury Informant: patient and EMS Narrative Narrative: Patient is a 37-year-old male with past medical history of bipolar disorder lumbar degenerative disc disease and pelvic floor syndrome. He states that over the last 2 days he has been having increasing pain along the lower abdomen and into the groin. He denies any trauma or excessive activity. He states he is not having dysuria or hematuria. He denies any flank pain. He denies any nausea vomiting diarrhea or constipation. He states that his symptoms feel similar nature to his pelvic floor syndrome but that they have slowly progressed and he cannot sleep secondary to them and therefore comes in for evaluation. [facility] Medical History Bipolar 1 disorder DDD (degenerative disc disease) Spastic pelvic floor syndrome Home Medications cariprazine 6 mg capsule (Vraylar) 6 mg PO DAILY 09/15/18 [History Last Taken Unknown] omeprazole 20 mg capsule,delayed release 20 mg PO DAILY 05/10/19 [History Last Taken Unknown] polyethylene glycol 3350 17 gram/dose oral powder (ClearLax) 17 g PO DAILY PRN constipation #119 grams 12/04/22 [Rx Last Taken Unknown] topiramate 50 mg tablet 100 mg PO DAILY 12/04/22 [History Last Taken Unknown] hydrocodone-acetaminophen 5-325mg 5mg-325mg 1 tab PO Q6H PRN PRN Pain 3 days #10 TABLETS 12/06/22 [Rx Last Taken Unknown] diazepam 5 mg tablet (Valium) 5 mg PO TID PRN muscle spasm 5 days #15 tabs 06/16/23 [Rx Last Taken Unknown] oxycodone-acetaminophen 5 mg-325 mg tablet (Percocet) 1 tab PO Q6H PRN pain 3 days #12 tabs 06/16/23 [Rx Last Taken Unknown] Allergy/AdvReac Type Severity Reaction Status Date / Time Penicillins Allergy Hives Verified 12/06/22 18:57 Surgical History Hx of cardiac cath Social History Smoking Status: Current every day smoker tobacco type: cigarettes ROS ROS ED Constitutional Constitutional ED: Denies chills or fever(s) ENT ENT ED: Denies sore throat Cardiovascular Cardiovascular: Denies chest pain Respiratory/Chest Respiratory/Chest: Denies cough or dyspnea Gastrointestinal Gastrointestinal: Reports abdominal pain; Denies constipation, diarrhea, nausea or vomiting Genitourinary Genitourinary ED: Reports other Details: Positive genital pain ; Denies dysuria, hematuria or urinary frequency Musculoskeletal Musculoskeletal: Denies back pain or myalgias Integumentary Denies rash Neurologic Neurologic: Denies headache(s) Hematologic/Lymphatic Hematologic/Lymphatic: Denies easy bleeding or easy bruising EXAM Physical Exam Const Vital Signs: 06/16/23 03:09 Temperature 97.1 F L Temperature Source Temporal Pulse Rate 72 Respiratory Rate 18 Blood Pressure 161/108 H Blood Pressure Mean 125 Pulse Ox 98 Oxygen Delivery Method Room Air Positive well nourished, well developed and obese General Appearance ED: well developed Nutritional Appearance: obese HEENT HEENT Narrative: Normocephalic atraumatic Eyes PERRL and EOMs intact bilaterally Neck supple Resp normal respiratory effort and clear to auscultation bilaterally Cardio regular rate and regular rhythm Rate: other Other Details: Radial pulses are equal bilaterally GI non-distended GI Narrative: Abdomen is obese soft and nondistended with normal active bowel sounds. There is faint pain on palpation in the lower abdomen diffusely without voluntary guarding or rigidity. No pulsatile mass or fluid wave. No organomegaly to suggest urinary retention. Auscultation: normoactive bowel sounds Palpation: soft Narrative: No testicular swelling or masses palpated. No hernia palpated. No overlying soft tissue changes to suggest Marcelino's gangrene. Back/Spine no CVA tenderness Extremity normal to inspection Neuro oriented x3 and CN's II-XII intact bilaterally Sensorium / Orientation: alert Psych mental status grossly normal Skin no rashes or lesions noted MDM MDM MDM Narrative Medical decision making narrative: Patient arrived to the ER hypertensive but otherwise with stable vitals. He has a history of pelvic floor dysfunction and reports that he has had increasing pain over the last few days without trauma or excessive activity. He also states he has been no sick symptoms such as nausea vomiting diarrhea dysuria or hematuria. Charts from December 04 and of this year were reviewed as patient presented with similar complaint. At that time he had blood work as well as a CT scan and ultrasound obtained all showing no clinically significant findings. Differential diagnosis today includes acute urinary retention versus kidney stone versus biliary colic versus pancreatitis versus colitis versus hernia versus UTI versus pelvic floor syndrome. Patient does not have flank pain he denies dysuria he also denies hematuria and there my concern for UTI versus kidney stone is low. The pain is in the genital region and suprapubic region and not the midepigastric going against pancreatitis or biliary colic. There is also no organomegaly palpated and a bedside ultrasound shows no signs of a distended bladder going against acute urinary retention. At this time his history and exam indicate he is having a flare of his chronic pelvic floor syndrome symptoms. As it has been worked up in the past with negative results I do not feel there is need for repeat imaging or lab. Patient was medicated with [place] and Valium and Toradol and had resolution of pain. Therefore this time there is no need for further work-up and he can be discharged home with symptomatic care History & Record Review Discussion w/independent historian: EMS personnel and Patient Discharge Plan Triage Chief Complaint: Lower Extremity Injury ED Provider: Marcio Edward Dx/Rx/DC Orders Clinical Impression: Spastic pelvic floor syndrome, Lumbar degenerative disc disease, Bipolar 1 disorder Instructions: Abdominal Pain Prescriptions: New oxycodone-acetaminophen [Percocet] 5-325 mg tablet 1 tab PO Q6H PRN (Reason: pain) 3 Days Qty: 12 0RF diazepam [Valium] 5 mg tablet 5 mg PO TID PRN (Reason: muscle spasm) 5 Days Qty: 15 0RF No Action Vraylar 6 mg capsule 6 mg PO DAILY Patient Comments: Take 1 capsule by mouth once a day omeprazole 20 MG capsule 20 mg PO DAILY topiramate 50 mg tablet 100 mg PO DAILY polyethylene glycol 3350 [ClearLax] 17 gram/dose powder 17 g PO DAILY PRN (Reason: constipation) Qty: 119 0RF hydrocodone-acetaminophen 5-325 mg tablet 1 tab PO Q6H PRN PRN (Reason: Pain) 3 Days Qty: 10 0RF Primary Care Provider: Raghu Blackwell Referrals: Raghu Blackwell MD [Primary Care Provider] - Activity Restrictions/Additional Instructions: Your history and exam indicate that you are having a flare of your pelvic floor syndrome. Continue to stretch and walk to help control symptoms but take the medication which was prescribed as directed to help with the flare. Follow-up with your family doctor and/or urologist for repeat evaluation and return to the ER should you have any further concerns. Disposition Disposition: Home, Self Care
[2023-06-16] MEDS: HYDROcodone Bitartrate/Apap 5/325 Tablet PO (03:38)
[2023-06-16] MEDS: diazePAM 5 MG Tablet PO (03:39)
[2023-06-16] MEDS: Ketorolac 60 MG/2 ML Vial IM (04:30)
[2023-06-16 05:20] VITALS: BP 149/89; PULSE 77; RESP 18; O2SAT 97
== END 2023-06-16 05:20 | disposition home or self-care (01) ==
PROVIDERS: Emergency Provider Emergency Medicine; PCP Family Medicine; Visit Provider Emergency Medicine
DX: M99.05 Segmental and somatic dysfunction of pelvic region (principal); F31.9 Bipolar disorder, unspecified; M51.36 Other intervertebral disc degeneration, lumbar region; F17.210 Nicotine dependence, cigarettes, uncomplicated
CPT/HCPCS: 96372; 99285

== ENCOUNTER → 2023-06-19 | Outpatient (CLI) | payer MEDICAID, SELFPAY ==
--- NOTE | 2023-06-19 08:31 | VDLE_ITS ---
Reason For Study: BLE Edema RIGHT LEFT GSV is normal. GSV is normal. CFV is compressible, spontaneous, phasic, CFV is compressible, spontaneous, phasic, competent and demonstrates normal competent, and demonstrates normal augmentation. augmentation. FV is compressible, spontaneous, phasic, FV is compressible, spontaneous, phasic, competent and demonstrates normal competent and demonstrates normal augmentation. augmentation. POP V is compressible, spontaneous, phasic, POP V is compressible, spontaneous, phasic, competent and demonstrates normal competent and demonstrates normal augmentation. augmentation. T/P Trunk is compressible. T/P Trunk is compressible. PTV is compressible. PTV is compressible. RT PerV is compressible. LT PerV is compressible. Procedure This is a venous duplex using B-mode, color flow and spectral Doppler. Exam performed in department. The exam was diagnostic. A preliminary report was called and/or faxed to Dr. Blackwell Office. VL/Venous Duplex US - Caleb Extrem Interpretation Summary Deep veins of the lower extremities are bilaterally patent and compressible seg mentally. There is no evidence of deep vein thrombosis on either side. Valvular competence appears in tact within the proximal deep venous systems bilaterally. The great saphenous veins appear bila terally patent and compressible segmentally. Ordering Physician: Raghu Blackwell Referring Physician: Raghu Blackwell Performed By: Shaan De La Cruz, RVT
== END | disposition home or self-care (01) ==
PROVIDERS: PCP Family Medicine; Referring Provider Family Medicine; Visit Provider Family Medicine
DX: R60.0 Localized edema (principal)
CPT/HCPCS: 93970

== ENCOUNTER 2024-01-07 16:01 | Emergency (ER) | payer MEDICAID, SELFPAY ==
[2024-01-07 16:02] VITALS: BP 169/109; PULSE 149; RESP 22; TEMP 37.4; O2SAT 94; BMI 44.9
--- NOTE | 2024-01-07 16:22 | CT_ITS ---
STUDY: CT PELVIS WITH CONTRAST REASON FOR EXAM: Male, 38 years old. pelvic pain, infection RADIATION DOSAGE (If Supplied By Facility): CTDIvol = ( 28.21 ) mGy, DLP = ( 1201.39 ) mGycm TECHNIQUE: Transaxial imaging of the pelvis was performed without oral contrast. IV 100mL Isovue-370 was administered intravenously. Individualized dose optimization techniques were used for this CT. COMPARISON: None. FINDINGS: Normal urinary bladder. Normal visualized small intestine. Normal visualized colon. There is no pelvic fluid. There is no pelvic lymphadenopathy or mass lesion. Normal visualized pelvic arteries. Normal abdominal wall. Normal osseous structures. CT/Pelvis WITH IV Contrast IMPRESSION: Normal enhanced CT of the pelvis. MRI of the pelvic floor may be useful for further evaluation if indicated Electronically Signed: Donis San MD at 18:45 EST ,
--- NOTE | 2024-01-07 16:26 | EX.ED.DYSGE1 ---
HPI History of Present Illness Chief Complaint: Complaint Detail of Chief Complaint: Pelvic pain, pelvic floor syndrome Informant: patient Narrative Narrative: Patient reports having a history of pelvic floor syndrome. The last couple days he was wearing 2 pairs of boxers which did not give him as much support as normal. He states he now has pain through his scrotum and perineum. He noted a slight rash in the area as well. Patient denies fever or chills. [facility] Medical History Bipolar 1 disorder DDD (degenerative disc disease) Spastic pelvic floor syndrome Home Medications cariprazine 6 mg capsule (Vraylar) 6 mg PO DAILY 09/15/18 [History Last Taken Unknown] omeprazole 20 mg capsule,delayed release 20 mg PO DAILY 05/10/19 [History Last Taken Unknown] polyethylene glycol 3350 17 gram/dose oral powder (ClearLax) 17 g PO DAILY PRN constipation #119 grams 12/04/22 [Rx Last Taken Unknown] topiramate 50 mg tablet 100 mg PO DAILY 12/04/22 [History Last Taken Unknown] hydrocodone-acetaminophen 5-325mg 5mg-325mg 1 tab PO Q6H PRN PRN Pain 3 days #10 TABLETS 12/06/22 [Rx Last Taken Unknown] diazepam 5 mg tablet (Valium) 5 mg PO TID PRN muscle spasm 5 days #15 tabs 06/16/23 [Rx Last Taken Unknown] oxycodone-acetaminophen 5 mg-325 mg tablet (Percocet) 1 tab PO Q6H PRN pain 3 days #12 tabs 06/16/23 [Rx Last Taken Unknown] diazepam 5 mg tablet (Valium) 5 mg PO BID PRN muscle spasm #10 tabs 01/07/24 [Rx Last Taken Unknown] oxycodone-acetaminophen 5 mg-325 mg tablet (Percocet) 1 tab PO Q8H PRN pain 3 days #10 tabs 01/07/24 [Rx Last Taken Unknown] Allergy/AdvReac Type Severity Reaction Status Date / Time Penicillins Allergy Hives Verified 01/07/24 16:08 Surgical History Hx of cardiac cath Social History Smoking Status: Current every day smoker tobacco type: cigarettes ROS ROS ED Constitutional Constitutional ED: Denies chills or fever(s) Eyes Eyes: Denies discharge from eye(s) ENT ENT ED: Denies discharge from eye(s), rhinorrhea or sore throat Cardiovascular Cardiovascular: Denies chest pain or palpitations Respiratory/Chest Respiratory/Chest: Denies cough or dyspnea Gastrointestinal Gastrointestinal: Reports abdominal pain; Denies nausea or vomiting Genitourinary Genitourinary ED: Denies dysuria Musculoskeletal Musculoskeletal: Denies back pain or extremity pain Integumentary Reports rash; Denies Abrasions Neurologic Neurologic: Denies headache(s) or weakness Psychiatric Psychiatric: Denies anxiety or depression Allergic/Immunologic Allergic/Immunologic ED: Denies lip swelling or urticaria EXAM Physical Exam Const Vital Signs: 01/07/24 16:02 01/07/24 18:02 Temperature 99.4 F H Temperature Source Temporal Pulse Rate 149 H Respiratory Rate 22 H Blood Pressure 169/109 H 151/83 H Blood Pressure Mean 129 105 Pulse Ox 94 Oxygen Delivery Method Room Air Positive well nourished and well developed General Appearance ED: well developed HEENT Reports moist mucous membranes Eyes EOMs intact bilaterally Chest Wall inspection of chest normal and palpation of chest normal Resp normal respiratory effort and clear to auscultation bilaterally Cardio Rate: tachycardic GI GI Narrative: Abdomen soft and nontender. He does have mild erythema over the anterior pelvis and scrotum. No crepitus. No significant edema. No testicular tenderness. Extremity normal to inspection Neuro oriented x3 Psych Mood & Affect: anxious MDM MDM MDM Narrative Medical decision making narrative: Patient's oral temperature was rechecked at the time of my exam and he did not have a fever. IV line is initiated. Labwork obtained to evaluate for leukocytosis, anemia, and electrolyte derangement. CT scan of the pelvis was obtained to evaluate for deep infection. Urinalysis obtained to evaluate for infection/hematuria. Morphine and Zofran given for pain control. History & Record Review Discussion w/independent historian: Patient Lab Data Attestation: I reviewed the patient's lab results. Labs: Laboratory Results - last 24 hr 01/07/24 01/07/24 16:40 18:10 WBC 10.6 RBC 5.13 Hgb 14.4 Hct 44.6 MCV 86.9 MCH 28.1 MCHC 32.3 RDW Std Deviation 42.1 RDW Coeff of Jodie 13.3 Plt Count 305 MPV 10.0 Immature Gran % (Auto) 0.800 Neut % (Auto) 53.1 Lymph % (Auto) 36.0 Wirt % (Auto) 8.4 Eos % (Auto) 0.8 Baso % (Auto) 0.9 Absolute Neuts (auto) 5.6 Absolute Lymphs (auto) 3.81 Nucleated RBC % 0 Sodium 140 Potassium 3.9 Chloride 115 H Carbon Dioxide 21.0 Anion Gap 4 L BUN 14 Creatinine 1.59 H Estim Creat Clear Calc 94.15 Est GFR (MDRD) Af Amer 63 Est GFR (MDRD) Non-Af 52 L BUN/Creatinine Ratio 8.8 L Glucose 107 H Lactic Acid 0.9 Calcium 9.5 Urine Color Yellow Urine Clarity Clear Urine pH 6.0 Ur Specific [place] 1.020 Urine Protein 15 H Urine Glucose (UA) Normal Urine Ketones Negative Urine Occult Blood Negative Urine Nitrite Negative Urine Bilirubin Negative Urine Urobilinogen 1 H Ur Leukocyte Esterase 25 H Urine RBC 0 SEEN Urine WBC 0-5 SEEN Ur Squamous Epith Cells 0 SEEN Urine Bacteria 0 SEEN Urine Mucus 0 SEEN Radiography Diagnostic Testing: Clinical Impression(s) from Imaging Studies Pelvis CT 01/07/24 16:22 IMPRESSION: Normal enhanced CT of the pelvis. MRI of the pelvic floor may be useful for further evaluation if indicated Electronically Signed: Donis San MD at 18:45 EST Reading Location ID and State: [address] [place] [address] Tel , Service support , Treatment and Re-Evaluation :: CBC was normal white count at 10.6 with normal differential. Hemoglobin is 14.4. Chemistry studies significant only for a creatinine 1.59. This is increased from a creatinine of 1.0 from 13 months ago. Urinalysis reveals no evidence of infection. CT scan of the pelvis with contrast is unremarkable with no evidence of infection. Patient did receive analgesics here along with medication for muscle spasm. It appears that he was here in June of last year and received Percocet and Valium for similar symptoms. He states he did well with this. He will be given prescriptions for the same as he has not had any controlled substances since that time. Discharge Plan Triage Chief Complaint: Complaint ED Provider: Priscila Cates Dx/Rx/DC Orders Clinical Impression: Spastic pelvic floor syndrome Instructions: ED Abdominal Pain Unkn Cause Male... Prescriptions: New oxycodone-acetaminophen [Percocet] 5-325 mg tablet 1 tab PO Q8H PRN (Reason: pain) 3 Days Qty: 10 0RF diazepam [Valium] 5 mg tablet 5 mg PO BID PRN (Reason: muscle spasm) Qty: 10 0RF No Action Vraylar 6 mg capsule 6 mg PO DAILY Patient Comments: Take 1 capsule by mouth once a day omeprazole 20 MG capsule 20 mg PO DAILY topiramate 50 mg tablet 100 mg PO DAILY polyethylene glycol 3350 [ClearLax] 17 gram/dose powder 17 g PO DAILY PRN (Reason: constipation) Qty: 119 0RF hydrocodone-acetaminophen 5-325 mg tablet 1 tab PO Q6H PRN PRN (Reason: Pain) 3 Days Qty: 10 0RF oxycodone-acetaminophen [Percocet] 5-325 mg tablet 1 tab PO Q6H PRN (Reason: pain) 3 Days Qty: 12 0RF diazepam [Valium] 5 mg tablet 5 mg PO TID PRN (Reason: muscle spasm) 5 Days Qty: 15 0RF Primary Care Provider: Raghu Blackwell Referrals: Raghu Blackwell MD [Primary Care Provider] - 1 Week Activity Restrictions/Additional Instructions: Follow-up with your urologist/specialist at [facility]. Disposition Disposition: Home, Self Care
[2024-01-07] MEDS: Ondansetron 4 MG/2 ML Vial IV (16:46)
[2024-01-07] MEDS: 0.9% Normal Saline (1000mL) 1,000 ML 1000 ML IV (16:46)
[2024-01-07] MEDS: Morphine 4 MG/ML Syringe IV ×2 (16:47→17:44)
[2024-01-07 16:58] LABS: Absolute Lymphocyte Count 3.81 X10^3/uL (0.83-4.51); Absolute Neutrophil Count 5.6 X10^3/uL (2.0-7.7); Basophil# 0.09 X10^3/uL; Basophil% 0.9 % (0-1); Eosinophil# 0.08 X10^3/uL; Eosinophils% 0.8 % (0-5); Hematocrit 44.6 % (40-54); Hemoglobin 14.4 g/dL (13.0-16.5); Lymphocyte # 3.81 X10^3/ul (0.83-4.51); Mean Corp Hgb Conc 32.3 g/dL (32-36); Mean Corpuscular Hgb 28.1 pg (27.0-32.0); Mean Corpuscular Volume 86.9 fL (80-94); Monocyte# 0.89 X10^3/uL; Monocyte% 8.4 % (0-10); NRBC Flagged by Analyzer 0 % (0-5); Neutrophil # 5.62 X10^3/uL (2.7-7.7); Neutrophil % 53.1 % (47-70); Platelet Count 305 K/mm3 (150-450); RBC Distribution Width CV 13.3 % (11.6-14.6); RBC Distribution Width SD 42.1 fl (35.1-43.9); Red Blood Count 5.13 M/mm3 (4.6-6.2); White Blood Count 10.6 K/mm3 (4.4-11.0)
[2024-01-07 17:12] LABS: Anion Gap 4 (5-15); BUN 14 mg/dL (7-18); BUN/Creat Ratio 8.8 RATIO (10-20); Calcium,Total 9.5 mg/dL (8.5-10.1); Chloride 115 mmol/L (98-107); Creatinine, Serum 1.59 mg/dL (0.70-1.30); EST Glomerular Filtration Rate 52 mL/min (>60); Est Glom Filt Rate - Afr Amer 63 mL/min (>60); Estimated Creatinine Clearance 94.15 ml/min; Glucose 107 mg/dL (74-106); Potassium 3.9 mmol/L (3.5-5.1); Sodium Level 140 mmol/L (136-145)
[2024-01-07 17:23] LABS: Lactic Acid 0.9 mmol/L (0.4-1.9)
[2024-01-07] MEDS: cycloBENZAPRine HCl 10 MG Tablet PO (17:43)
[2024-01-07 18:02] VITALS: BP 151/83
[2024-01-07 18:17] LABS: Bacteria 0 SEEN /hpf (None Seen); Mucous, Urine 0 SEEN /hpf (<or=2+); Red Blood Cells-Urine 0 SEEN /hpf (0-5); Squamous Epithelial Cells - UA 0 SEEN /hpf (0-5)
[2024-01-07 18:24] LABS: Color, Urine Yellow (Yellow); Glucose, Dipstick Normal (Normal); Ketone-Dipstick Negative (Negative); Leukocyte Esterase-Dipstick 25 /ul (Negative); Nitrite-Dipstick Negative (Negative); Occult Blood-Urine Negative /ul (Negative); Protein-Dipstick 15 mg/dl (Negative); Urine Bilirubin Dipstick Negative (Negative); Urine Clarity Clear (Clear); Urine Urobilinogen 1 mg/dl (Normal)
[2024-01-07 18:32] LABS: White Blood Cells 0-5 SEEN /hpf (0-5)
[2024-01-07] MEDS: 0.9% Normal Saline (1000mL) 1,000 ML 150 ML IV (18:54)
[2024-01-07] MEDS: diazePAM 5 MG Tablet PO (19:50)
[2024-01-07] MEDS: oxyCODONE 5 MG Tablet PO (19:50)
[2024-01-07 19:52] VITALS: BP 147/95; PULSE 73; RESP 18; TEMP 35.9; O2SAT 96
--- OUTSIDE RECORDS SUMMARY | 2024-01-08 00:04 | XMS RPT_ITS | CCD ---
Author Name Unknown Address [facility] [address] [place] [address] Organization [facility] Care Team Providers Care Supervisor Shuttle Veneering Name Role Phone Jessie Blackwell MD Primary Care Provider JACOBO, JESSIE Nielsen Referring Unavailable DIAN HEATON Attending Unavailable JACOBO, JESSIE Nielsen Primary Care Unavailable JACOBO, JESSIE Nielsen Referring Unavailable JACOBO, JESSIE Nielsen Primary Care Unavailable KENZIE ART Attending Unavailable JESSIE BLACKWELL Primary Care Unavailable JACOBO, JESSIE Nielsen Referring Unavailable EDMUND MCKENZIE Attending Unavailable JACOBO, JESSIE Nielsen Primary Care Unavailable JACOBO, JESSIE Nielsen Referring Unavailable KENZIE ART Attending Unavailable JACOBO, JESSIE Nielsen Primary Care Unavailable JACOBO, JESSIE Nielsen Referring Unavailable DIAN HEATON Attending Unavailable JESSIE BLACKWELL Primary Care Unavailable JESSIE BLACKWELL Referring Unavailable KENZIE ART Attending Unavailable JESSIE BLACKWELL Primary Care Unavailable JACOBO, JESSIE Nielsen Referring Unavailable JACOBO, JESSIE Nielsen Primary Care Unavailable KENZIE ART Attending Unavailable JESSIE BLACKWELL Primary Care Unavailable JESSIE BLACKWELL Referring Unavailable JACOBO, JESSIE Nielsen Referring Unavailable JACOBO, JESSIE Nielsen Primary Care Unavailable JACOBO, JESSIE Nielsen Primary Care Unavailable LEONARD MARTÍNEZ Attending Unavailable PLACIDO PÉREZ Referring Unavailable JACOBO, JESSIE Nielsen Attending Unavailable JESSIE BLACKWELL Primary Care Unavailable JACOBO, JESSIE Nielsen Primary Care Unavailable JACOBOJESSIE Attending Unavailable JESSIE BLACKWELL Primary Care Unavailable JACOBO, JESSIE Nielsen Primary Care Unavailable JACOBO, JESSIE Nielsen Primary Care Unavailable EBEN CHEN Referring Unavailable JACOBO, JESSIE Nielsen Primary Care Unavailable JACOBO, JESSIE Nielsen Primary Care Unavailable JACOBO, JESSIE Nielsen Referring Unavailable EDMUND MCKENZIE Referring Unavailable DIAN HEATON Attending Unavailable JACOBO, JESSIE Nielsen Primary Care Unavailable JACOBO, JESSIE Nielsen Referring Unavailable JACOBO, JESSIE Nielsen Primary Care Unavailable Jessie Blackwell MD Primary Care Provider Allergies Allergy Classification Reported Allergen(s) Allergy Type Date of Onset Reaction(s) Facility (20 sources) Penicillins; Translations: [PENICILLINS] Drug Allergy 02-12-2012 [facility] Medications Current Medications Medication Drug Class(es) Dates Sig (Normalized) Sig (Original) cephalexin 500 mg oral capsule (1 source) Cephalosporin Antibacterial Start: 01-02-2024 End: 01-09-2024 take 1 capsule by mouth four times daily cephALEXin (KEFLEX) 500 mg capsule Indications: Facial infection Take 1 capsule by mouth four times daily for 7 days. 28 capsule 0 01/02/2024 01/09/2024 Active Completed/Discontinued Medications Medication Drug Class(es) Dates Sig (Normalized) Sig (Original) acetaminophen 325 mg / HYDROcodone bitartrate 7.5 mg oral tablet (20 sources) Opioid Agonist Start: 09-05-2022 take 1 tablet by mouth every six hours as needed for pain HYDROcodone-Acetami nophen (NORCO) 7.5-325 mg per tablet Indications: Right epididymitis Take 1 tablet by mouth every 6 hours as needed for pain. 28 tablet 0 09/05/2022 Active Problems Active Problems Problem Classification Problem Date Documented Date Episodic/Chronic Abdominal pain (2 sources) Right lower quadrant pain; Translations: [Right lower quadrant pain] Episodic Disorders of lipid metabolism (20 sources) Hyperlipidemia; Translations: [Hyperlipidemia, unspecified] Onset: 06-21-2012 06-21-2012 Chronic Esophageal disorders (20 sources) Gastroesophageal reflux disease; Translations: [Gastro-esophageal reflux disease without esophagitis] Onset: 06-21-2012 06-21-2012 Chronic Essential hypertension (20 sources) Hypertensive disorder; Translations: [Essential (primary) hypertension] Onset: 06-21-2012 06-21-2012 Chronic Inflammatory conditions of male genital organs (1 source) Epididymitis; Translations: [Epididymitis] Episodic Mood disorders (20 sources) Bipolar II disorder; Translations: [Bipolar II disorder] Onset: 11-07-2021 11-07-2021 Chronic Nutritional deficiencies (1 source) Vitamin D deficiency, unspecified; Translations: [Avitaminosis D] Onset: 10-03-2023 Chronic Other aftercare (1 source) Other extermination inspector (current) drug therapy; Translations: [On angiotensin receptor blockers (ARB)] Onset: 10-03-2023 Episodic Other circulatory disease (1 source) Abnormal peripheral pulse; Translations: [Other specified symptoms and signs involving the circulatory and respiratory systems] 12-25-2023 Episodic Other connective tissue disease (1 source) Swelling of lower limb; Translations: [Other specified soft tissue disorders] Episodic Other hematologic conditions (1 source) Erythrocytosis; Translations: [Secondary polycythemia] Episodic Other non-traumatic joint disorders (2 sources) Pain in left knee; Translations: [Pain in joint, lower leg] Onset: 10-13-2023 10-13-2023 Episodic Other nutritional; endocrine; and metabolic disorders (20 sources) Body mass index 40+ - severely obese; Translations: [Morbid (severe) obesity due to excess calories] Onset: 02-13-2018 02-13-2018 Chronic Other skin disorders (1 source) Ingrowing toenail; Translations: [Ingrowing nail] 12-25-2023 Episodic Other skin disorders (1 source) Dystrophia unguium; Translations: [Nail dystrophy] 12-25-2023 Episodic Other skin disorders (1 source) Ingrowing nail; Translations: [Ingrown toenail] Onset: 12-25-2023 Episodic Residual codes; unclassified (1 source) Edema; Translations: [Edema, unspecified] 06-18-2023 Episodic Residual codes; unclassified (1 source) Localized edema; Translations: [Localized edema] 06-18-2023 Episodic Skin and subcutaneous tissue infections (4 sources) Infected face; Translations: [Local infection of the skin and subcutaneous tissue, unspecified] Onset: 08-07-2023 12-31-2023 Episodic Spondylosis; intervertebral disc disorders; other back problems (20 sources) Degeneration of lumbar intervertebral disc; Translations: [Other intervertebral disc degeneration, lumbar region] Onset: 09-30-2012 09-30-2012 Chronic Substance-related disorders (20 sources) Cannabis abuse; Translations: [Cannabis abuse, uncomplicated] Onset: 2012 2012 Chronic Past or Other Problems Problem Classification Problem Date Documented Da te Episodic/Chronic Immunizations and screening for infectious disease (2 sources) Encounter for immunization; Translations: [Encounter for immunization] Onset: 08-07-2023 Episodic Other connective tissue disease (15 sources) Increased muscle tone; Translations: [Other specified disorders of muscle] Onset: 06-29-2023 06-29-2023 Episodic Other gastrointestinal disorders (20 sources) Anismus; Translations: [Other specified symptoms and signs involving the digestive system and abdomen] Onset: 10-20-2022 Episodic Other gastrointestinal disorders (1 source) Outlet dysfunction constipation; Translations: [Spastic pelvic floor syndrome] Onset: 10-20-2022 Episodic Other male genital disorders (18 sources) Bilateral testicular pain; Translations: [Right testicular pain] Onset: 06-29-2023 Episodic Other male genital disorders (1 source) Right testicular pain; Translations: [Pain in both testicles] Onset: 06-22-2023 Episodic Other male genital disorders (1 source) Left testicular pain; Translations: [Pain in both testicles] Onset: 06-22-2023 Episodic Residual codes; unclassified (20 sources) Tobacco use and exposure - finding; Translations: [Tobacco use] Onset: 06-21-2012 06-21-2012 Episodic Residual codes; unclassified (1 source) Edema, unspecified; Translations: [Edema, unspecified type] Onset: 06-21-2023 Episodic Residual codes; unclassified (1 source) Localized edema; Translations: [Localized edema] Onset: 06-18-2023 Episodic Spondylosis; intervertebral disc disorders; other back problems (20 sources) Neck pain; Translations: [Cervicalgia] Onset: 10-21-2013 10-21-2013 Episodic Results Test Name Value Interpretation Reference Range Facil ity Vital Signs Date Time Vital Sign Value Performing Clinician Heidi burton 01-02-2024 10:26-0500 Body temperature 98.6 [degF] Placido Pérez APRN.CNP Work Phone: [facility] 01-02-2024 10:26-0500 Body weight 148.33 kg Placido Pérez APRN.CNP Work Phone: [facility] 01-02-2024 10:26-0500 Diastolic blood pressure 88 mm[Hg] Placido Pérez APRN.CNP Work Phone: [facility] 01-02-2024 10:26-0500 Heart rate 118 /min Placido Pérez APRN.CNP Work Phone: [facility] 01-02-2024 10:26-0500 Respiratory rate 18 /min Placido Beto NAIL TECH.SET O TYPE OPERATOR Work Phone: [facility] 01-02-2024 10:26-0500 SaO2% (BldA) [Mass fraction] 96 % Placido Beto NAIL TECH.SET O TYPE OPERATOR Work Phone: [facility] 01-02-2024 10:26-0500 Systolic blood pressure 128 mm[Hg] Placido Beto NAIL TECH.SET O TYPE OPERATOR Work Phone: [facility] 12-31-2023 13:57-0500 Body temperature 98.4 [degF] Placido Beto NAIL TECH.SET O TYPE OPERATOR Work Phone: [facility] 12-31-2023 13:57-0500 Body weight 151.96 kg Placido Beto NAIL TECH.SET O TYPE OPERATOR Work Phone: [facility] 12-31-2023 13:57-0500 Diastolic blood pressure 82 mm[Hg] Placido Beto NAIL TECH.SET O TYPE OPERATOR Work Phone: [facility] 12-31-2023 13:57-0500 Heart rate 118 /min Placido Beto NAIL TECH.SET O TYPE OPERATOR Work Phone: [facility] 12-31-2023 13:57-0500 Respiratory rate 18 /min Placido Beto NAIL TECH.SET O TYPE OPERATOR Work Phone: [facility] 12-31-2023 13:57-0500 SaO2% (BldA) [Mass fraction] 96 % Placido Beto NAIL TECH.SET O TYPE OPERATOR Work Phone: [facility] 12-31-2023 13:57-0500 Systolic blood pressure 148 mm[Hg] Placido Beto NAIL TECH.SET O TYPE OPERATOR Work Phone: [facility] 10-13-2023 09:20-0500 Body temperature 97.11 [degF] Eben Chen MD Work Phone: [facility] 10-13-2023 09:20-0500 Body weight 151.5 kg Eben Chen MD Work Phone: [facility] 10-13-2023 09:20-0500 Diastolic blood pressure 72 mm[Hg] Eben Chen MD Work Phone: [facility] 10-13-2023 09:20-0500 Heart rate 98 /min Eben Chen MD Work Phone: [facility] 10-13-2023 09:20-0500 Respiratory rate 18 /min Eben Chen MD Work Phone: [facility] 10-13-2023 09:20-0500 SaO2% (BldA) [Mass fraction] 95 % Eben Chen MD Work Phone: [facility] 10-13-2023 09:20-0500 Systolic blood pressure 128 mm[Hg] Eben Chen MD Work Phone: [facility] 06-22-2023 15:37-0400 Body height 182.9 cm Edmund Mckenzie PA-C Work Phone: [facility] 06-22-2023 15:37-0400 Body temperature 97.9 [degF] Edmund Mckenzie PA-C Work Phone: [facility] 06-22-2023 15:37-0400 Body weight 155.04 kg Edmund Mckenzie PA-C Work Phone: [facility] 06-22-2023 15:37-0400 Diastolic blood pressure 80 mm[Hg] Edmund Mckenzie PA-C Work Phone: [facility] 06-22-2023 15:37-0400 Heart rate 102 /min Edmund Mckenzie PA-C Work Phone: [facility] 06-22-2023 15:37-0400 Respiratory rate 20 /min Edmund Mckenzie PA-C Work Phone: [facility] 06-22-2023 15:37-0400 SaO2% (BldA) [Mass fraction] 95 % Edmund Mckenzie PA-C Work Phone: [facility] 06-22-2023 15:37-0400 Systolic blood pressure 144 mm[Hg] Edmund Mckenzie PA-C Work Phone: [facility] 06-18-2023 18:35-0400 Body weight 154.68 kg Jessie Blackwell MD Work Phone: [facility] 06-18-2023 18:35-0400 Diastolic blood pressure 74 mm[Hg] Jessie Blackwell MD Work Phone: [facility] 06-18-2023 18:35-0400 Heart rate 88 /min Jessie Blackwell MD Work Phone: [facility] 06-18-2023 18:35-0400 SaO2% (BldA) [Mass fraction] 95 % Jessie Blackwell MD Work Phone: [facility] 06-18-2023 18:35-0400 Systolic blood pressure 115 mm[Hg] Jessie Blackwell MD Work Phone: [facility] 12-04-2022 14:42-0500 Body temperature 99 [degF] Frida Haagen NAIL TECH.SET O TYPE OPERATOR Work Phone: [facility] 12-04-2022 14:26-0500 Body weight 147.42 kg Frida Haagen NAIL TECH.SET O TYPE OPERATOR Work Phone: [facility] 12-04-2022 14:26-0500 Diastolic blood pressure 94 mm[Hg] Frida Haagen NAIL TECH.SET O TYPE OPERATOR Work Phone: [facility] 12-04-2022 14:26-0500 Heart rate 118 /min Frida Haagen NAIL TECH.SET O TYPE OPERATOR Work Phone: [facility] 12-04-2022 14:26-0500 Respiratory rate 20 /min Frida Haagen NAIL TECH.SET O TYPE OPERATOR Work Phone: [facility] 12-04-2022 14:26-0500 SaO2% (BldA) [Mass fraction] 96 % Frida Haagen NAIL TECH.SET O TYPE OPERATOR Work Phone: [facility] 12-04-2022 14:26-0500 Systolic blood pressure 148 mm[Hg] Frida Haagen NAIL TECH.SET O TYPE OPERATOR Work Phone: [facility] 09-15-2022 16:35-0400 Body height 181.6 cm Jessie Blackwell MD Work Phone: [facility] 09-15-2022 16:35-0400 Body temperature 97.9 [degF] Jessie Blackwell MD Work Phone: [facility] 09-15-2022 16:35-0400 Body weight 144.97 kg Jessie Blackwell MD Work Phone: [facility] 09-15-2022 16:35-0400 Diastolic blood pressure 98 mm[Hg] Jessie Blackwell MD Work Phone: [facility] 09-15-2022 16:35-0400 Heart rate 96 /min Jessie Blackwell MD Work Phone: [facility] 09-15-2022 16:35-0400 SaO2% (BldA) [Mass fraction] 98 % Jessie Blackwell MD Work Phone: [facility] 09-15-2022 16:35-0400 Systolic blood pressure 144 mm[Hg] Jessie Blackwell MD Work Phone: [facility] 09-05-2022 15:16-0400 Body temperature 98.6 [degF] NA Lino PA-C Work Phone: [facility] 09-05-2022 15:16-0400 Body weight 146.06 kg NA Lino PA-C Work Phone: [facility] 09-05-2022 15:16-0400 Diastolic blood pressure 72 mm[Hg] NA Lino PA-C Work Phone: [facility] 09-05-2022 15:16-0400 Heart rate 87 /min NA Lino PA-C Work Phone: [facility] 09-05-2022 15:16-0400 Respiratory rate 20 /min NA Lino PA-C Work Phone: [facility] 09-05-2022 15:16-0400 SaO2% (BldA) [Mass fraction] 96 % NA Lino PA-C Work Phone: [facility] 09-05-2022 15:16-0400 Systolic blood pressure 130 mm[Hg] NA Holland VALERO Work Phone: [facility] Encounters Encounter Date Encounter Type Care Provider Facility Start: 01-02-2024 End: 01-02-2024 Patient encounter procedure Placido Pérez APRN.SET O TYPE OPERATOR Work Phone: [facility] Procedures Date Procedure Procedure Detail Performing Clinician Start: 10-03-2023 Lipid 1996 panel - S fab or Plasma Eben Chen MD Work Phone: Start: 06-26-2023 Lipid 1996 panel - S fab or Plasma Kenzie Art PT Work Phone: Start: 05-04-2022 Adult depression screening assessment Jessie Blackwell MD Work Phone: Plan of Treatment Date Care Activity Detail Author Start: 10-03-2028 Lipid 1996 panel - S fab or Plasma Lipid Screening [facility] Start: 10-03-2028 Lipid panel Lipid Screening [facility] Start: 06-26-2028 Lipid 1996 panel - S fab or Plasma Lipid Screening [facility] Start: 06-26-2028 LIPID SCREEN LIPID SCREEN [facility] Start: 05-11-2027 LIPID SCREEN LIPID SCREEN [facility] Start: 10-13-2024 BP Controlled (<130/80) BP Controlle d (<130/80) [facility] Start: 08-07-2024 Annual PCP Team Staffing Branch Manager dolores Disease Visit Annual PCP Team Chronic Disease Visit [facility] Start: 08-07-2024 Covid-19 Vaccine ( season) Covid-19 Vaccine ( season) [facility] Immunizations Immunization Date Immunization Notes Care Provider Fa cility 08-07-2023 influenza, injectabl e, quadrivalent, contains preservative Eben Chen MD Work Phone: [facility] 08-07-2023 pneumococcal (PCV20) vaccine, 20 valent (PREVNAR 20) Eben Chen MD Work Phone: [facility] 07-04-2021 COVID-19 vaccine, fu ll dose (MODERNA) Jessie Blackwell MD Work Phone: [facility] 06-06-2021 COVID-19 vaccine, fu ll dose (MODERNA) Jessie Blackwell MD Work Phone: [facility] 07-30-2019 influenza, injectabl e, quadrivalent, contains preservative Jessie Blackwell MD Work Phone: [facility] 07-30-2019 influenza virus vacc ine, unspecified formulation Kenzie Art PT Work Phone: [facility] 01-08-2018 influenza, injectabl e, quadrivalent, contains preservative Jessie Blackwell MD Work Phone: [facility] 01-11-2017 influenza, injectabl e, quadrivalent, preservative free Jessie Blackwell MD Work Phone: [facility] 08-28-2014 influenza, seasonal, injectable Jessie Blackwell MD Work Phone: [facility] 10-08-2013 influenza virus vacc ine, unspecified formulation Jessie Blackwell MD Work Phone: [facility] 12-04-2012 influenza virus vacc ine, unspecified formulation Jessie Blackwell MD Work Phone: [facility] Payers Date Payer Category Payer Medicaid [id number] 2021 Medicaid [employer] [id number] 2021-Present [phone] [address] [place] [address] Medicaid [id number] 2021 Medicaid [id number] Social History Date Type Detail Facility Start: 05-25-2014 End: 06-22-2023 Tobacco smoking status NHIS Smokes tobacco daily [facility] End: 09-12-2023 History of tobacco use Cigarette Smoker [facility] Start: 05-25-2014 End: 06-22-2023 Cigarettes smoked current (pack per day) - Reported 1 [facility] Work Phone: Start: 05-25-2014 End: 12-25-2023 Tobacco use and exposure Former smokeless tobacco user [facility] Start: 05-04-2022 End: 01-02-2024 Alcohol intake Ex-drinker (finding) [facility] Start: 06-21-2012 History SDOH Alcohol Comment social few drinks a year [facility] Start: 1985 Sex Assigned At Not on file C [facility] Start: 09-01-2022 End: 09-19-2022 Exposure to SARS-CoV-2 (event) Not sure [facility] Start: 06-18-2023 End: 06-22-2023 Tobacco use panel [facility] Work Phone: Adult Depression Screening Assessment 1 [facility] Work Phone: History of tobacco use Chews Tobacco [facility] Start: 12-25-2023 Tobacco smoking stat us NJIS Ex-smoker [facility] End: 09-12-2023 History of tobacco use Current smoker [facility] Clinical Notes 10-22-2014 to 01-02-2024 Placido Pérez APRN.SET O TYPE OPERATOR - 01/02/2024 10:37 AM ESTAddendum Note - Placido Pérez APRN.SET O TYPE OPERATOR - 12/31/2023 3:07 PM ESTTelephone Encounter - Krysten Diaz RN - 12/31/2023 2:46 PM EST Note Date & Type Note Facility 01-02-2024 History of Presen t illness Narrative Images from the original note were not included. Subjective HPI HPI Alyson Quinn is a 38 year old male who presents today for CC of facial infection, continuing. Seen in express care 2 days ago, placed on bactrim. Denies fever. .Patient presents with: Derm Problem: redness, swelling and drainage seen Sunday on bactrim PAST MEDICAL HISTORY Diagnosis Date Bipolar 2 disorder (HCC) Dr. Justice, psych Degenerative disc disease Dr. 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 1/2 hr before meal.^Disp: 30 capsule^Rfl: 5 amitriptyline (ELAVIL) 50 mg tablet^Take 1 tablet by mouth daily at bedtime.^Disp: 90 tablet^Rfl: 3 FLUoxetine (PROZAC) 10 mg capsule^Take 10 mg by mouth once daily.^Disp: ^Rfl: topiramate (TOPAMAX) 25 mg tablet^Take 25 mg by mouth. 1 twice daily^Disp: ^Rfl: diphenhydrAMINE (BENADRYL) 25 mg capsule^Take 25 mg by mouth once daily. daily^Disp: ^Rfl: cariprazine (VRAYLAR) 3 mg capsule^Take 6 mg by mouth once daily. [facility] ^Disp: ^Rfl: cephALEXin (KEFLEX) 500 mg capsule^Take 1 capsule by mouth four times daily for 7 days.^Disp: 28 capsule^Rfl: 0 naproxen (NAPROSYN) 500 mg tablet^Take 500 mg by mouth twice daily with meals.^Disp: ^Rfl: (Patient not taking: Reported on 06/22/2023) HYDROcodone-Acetaminophen (NORCO) 7.5-325 mg per tablet^Take 1 tablet by mouth every 6 hours as needed for pain.^Disp: 28 tablet^Rfl: 0 (Patient not taking: Reported on 08/07/2023) FAMILY HISTORY Problem Relation Age of Onset other (bipolar [Other]) Father Diabetes Paternal Grandfather Stroke Paternal Grandmother Hypertension Paternal Grandmother Heart Paternal Grandmother other (Migraine [Other]) Mother other (Migraine [Other]) Father Social History Tobacco Use Smoking status: Former Packs/day: 1 Types: Cigarettes Quit date: 09/12/2023 Years since quittin.3 Smokeless tobacco: Former Types: Chew Vaping Use Vaping Use: Never used Substance Use Topics Alcohol use: Not Currently Comment: social few drinks a year Drug use: Yes Frequency: 7.0 times per week Types: Marijuana ROS Objective Blood pressure 128/88, pulse 118, temperature 37 C (98.6 F), resp. rate 18, weight (!) 148.3 kg (327 lb), SpO2 96%. Physical Exam Constitutional: General: He is not in acute distress. Appearance: He is not toxic-appearing or diaphoretic. HENT: Head: Normocephalic and atraumatic. Pulmonary: Effort: Pulmonary effort is normal. No accessory muscle usage or respiratory distress. Neurological: Mental Status: He is alert and oriented to person, place, and time. ASSESSMENT/PLAN: 1. Facial infection - ICD9: 136.8, ICD10: L08.9 - Begin treatment with Cephalaxin (Keflex) - No lymphangetic streaking, this was defined for patient to watch for and to seek medical care immediately if appears - Follow up for recheck in two days with pcp, will schedule Urgent f/u for worsening s/s. - CEPHALEXIN 500 MG CAPSULE Placido Pérez APRN.RAMÓN documented in this encounter [facility] 12-31-2023 Note HNO ID: [id number] Author: PLACIDO PÉREZ APRN.RAMÓN Service: ? Author Type: Nurse Practitioner Type: Progress Notes Filed: 12/31/2023 14:40 Note Text: Subjective HPI HPI Alyson Quinn is a 38 year old male who presents today for CC of infection on face. This started 3-4 days ago. Has tried warm compresses for relief. Symptoms are worsened by nothing. Denies hx of bad skin infections/mrsa. Reports otherwise feeling well. .Patient presents with: Derm Problem: right lower lip sore x 3-4 days PAST MEDICAL HISTORY Diagnosis Date Bipolar 2 disorder (HCC) Dr. Justice, psych Degenerative disc disease Dr. 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 1/2 hr before meal.Disp: 30 capsuleRfl: 5 FLUoxetine (PROZAC) 10 mg capsuleTake 10 mg by mouth once daily.Disp: Rfl: topiramate (TOPAMAX) 25 mg tabletTake 25 mg by mouth. 1 twice dailyDisp: Rfl: diphenhydrAMINE (BENADRYL) 25 mg capsuleTake 25 mg by mouth once daily. dailyDisp: Rfl: cariprazine (VRAYLAR) 3 mg capsuleTake 6 mg by mouth once daily. [facility] Disp: Rfl: amitriptyline (ELAVIL) 50 mg tabletTake 1 tablet by mouth daily at bedtime.Disp: 90 tabletRfl: 3 naproxen (NAPROSYN) 500 mg tabletTake 500 mg by mouth twice daily with meals.Disp: Rfl: (Patient not taking: Reported on 06/22/2023) levoFLOXacin (LEVAQUIN) 500 mg tabletTake 500 mg by mouth once daily. X 10 days. Ordered previously. Patient states five days remaining.Disp: Rfl: (Patient not taking: Reported on 06/22/2023) HYDROcodone-Acetaminophen (NORCO) 7.5-325 mg per tabletTake 1 tablet by mouth every 6 hours as needed for pain.Disp: 28 tabletRfl: 0 (Patient not taking: Reported on 08/07/2023) FAMILY HISTORY Problem Relation Age of Onset other (bipolar [Other]) Father Diabetes Paternal Grandfather Stroke Paternal Grandmother Hypertension Paternal Grandmother Heart Paternal Grandmother other (Migraine [Other]) Mother other (Migraine [Other]) Father Social History Tobacco Use Smoking status: Former Packs/day: 1 Types: Cigarettes Quit date: 09/12/2023 Years since quittin.3 Smokeless tobacco: Former Types: Chew Vaping Use Vaping Use: Never used Substance Use Topics Alcohol use: Not Currently Comment: social few drinks a year Drug use: Yes Frequency: 7.0 times per week Types: Marijuana Review of Systems Constitutional: Negative for fever. Objective Blood pressure 148/82, pulse 118, temperature 36.9 ?C (98.4 ?F), resp. rate 18, weight (!) 152 kg (335 lb), SpO2 96%. Physical Exam Constitutional: General: He is not in acute distress. Appearance: He is not toxic-appearing or diaphoretic. HENT: Head: Normocephalic and atraumatic. Pulmonary: Effort: Pulmonary effort is normal. No accessory muscle usage or respiratory distress. Neurological: Mental Status: He is alert and oriented to person, place, and time. ASSESSMENT/PLAN: 1. Facial infection - ICD9: 136.8, ICD10: L08.9 - Begin treatment with Trimethoprim-sulfamethozazole (Bactrim) 2 DS PO BID - No lymphangetic streaking, this was defined for patient to watch for and to seek medical care immediately if appears - Follow up for recheck in three days with pcp or express care if not able to get in Urgent f/u for worsening s/s - SULFAMETHOXAZOLE 800 MG-TRIMETHOPRIM 160 MG TABLET Placido Pérez APRN.CNP [facility] 12-31-2023 Miscellaneous Notes Addended by: PLACIDO PÉREZ on: 12/31/2023 03:07 PM Modules accepted: Orders documented in this encounter [facility] 12-31-2023 Miscellaneous Notes Pt needed antibiotic sent to [facility] instead of [place]. Patient has been identified by name and date of : Yes, Provider Placido Pérez [facility] Date 12/31/23 Time 1447. Patient phones for refill(s): Requested Prescriptions Pending Prescriptions Disp Refills sulfamethoxazole-trimethoprim (BACTRIM DS) 800-160 mg per tablet 14 tablet 0 Sig: Take 1 tablet by mouth two times a day for 7 days. Date of last office visit in primary care: 12/31/2023 Date of next office visit in primary care: Visit date not found Please advise. Thank you. Krysten Diaz RN. documented in this encounter [facility] 12-31-2023 History of Presen t illness Narrative Images from the original note were not included. Subjective HPI HPI Alyson Quinn is a 38 year old male who presents today for CC of infection on face. This started 3-4 days ago. Has tried warm compresses for relief. Symptoms are worsened by nothing. Denies hx of bad skin infections/mrsa. Reports otherwise feeling well. .Patient presents with: Derm Problem: right lower lip sore x 3-4 days PAST MEDICAL HISTORY Diagnosis Date Bipolar 2 disorder (HCC) Dr. Justice, psych Degenerative disc disease Dr. 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 1/2 hr before meal.^Disp: 30 capsule^Rfl: 5 FLUoxetine (PROZAC) 10 mg capsule^Take 10 mg by mouth once daily.^Disp: ^Rfl: topiramate (TOPAMAX) 25 mg tablet^Take 25 mg by mouth. 1 twice daily^Disp: ^Rfl: diphenhydrAMINE (BENADRYL) 25 mg capsule^Take 25 mg by mouth once daily. daily^Disp: ^Rfl: cariprazine (VRAYLAR) 3 mg capsule^Take 6 mg by mouth once daily. [facility] ^Disp: ^Rfl: amitriptyline (ELAVIL) 50 mg tablet^Take 1 tablet by mouth daily at bedtime.^Disp: 90 tablet^Rfl: 3 naproxen (NAPROSYN) 500 mg tablet^Take 500 mg by mouth twice daily with meals.^Disp: ^Rfl: (Patient not taking: Reported on 06/22/2023) levoFLOXacin (LEVAQUIN) 500 mg tablet^Take 500 mg by mouth once daily. X 10 days. Ordered previously. Patient states five days remaining.^Disp: ^Rfl: (Patient not taking: Reported on 06/22/2023) HYDROcodone-Acetaminophen (NORCO) 7.5-325 mg per tablet^Take 1 tablet by mouth every 6 hours as needed for pain.^Disp: 28 tablet^Rfl: 0 (Patient not taking: Reported on 08/07/2023) FAMILY HISTORY Problem Relation Age of Onset other (bipolar [Other]) Father Diabetes Paternal Grandfather Stroke Paternal Grandmother Hypertension Paternal Grandmother Heart Paternal Grandmother other (Migraine [Other]) Mother other (Migraine [Other]) Father Social History Tobacco Use Smoking status: Former Packs/day: 1 Types: Cigarettes Quit date: 09/12/2023 Years since quittin.3 Smokeless tobacco: Former Types: Chew Vaping Use Vaping Use: Never used Substance Use Topics Alcohol use: Not Currently Comment: social few drinks a year Drug use: Yes Frequency: 7.0 times per week Types: Marijuana Review of Systems Constitutional: Negative for fever. Objective Blood pressure 148/82, pulse 118, temperature 36.9 C (98.4 F), resp. rate 18, weight (!) 152 kg (335 lb), SpO2 96%. Physical Exam Constitutional: General: He is not in acute distress. Appearance: He is not toxic-appearing or diaphoretic. HENT: Head: Normocephalic and atraumatic. Pulmonary: Effort: Pulmonary effort is normal. No accessory muscle usage or respiratory distress. Neurological: Mental Status: He is alert and oriented to person, place, and time. ASSESSMENT/PLAN: 1. Facial infection - ICD9: 136.8, ICD10: L08.9 - Begin treatment with Trimethoprim-sulfamethozazole (Bactrim) 2 DS PO BID - No lymphangetic streaking, this was defined for patient to watch for and to seek medical care immediately if appears - Follow up for recheck in three days with pcp or express care if not able to get in Urgent f/u for worsening s/s - SULFAMETHOXAZOLE 800 MG-TRIMETHOPRIM 160 MG TABLET Placido Pérez APRN.SET O TYPE OPERATOR documented in this encounter [facility] 12-25-2023 Note HNO ID: [id number] Author: LEONARD MARTÍNEZ, ? Service: ? Author Type: Physician Type: Progress Notes Filed: 12/25/2023 13:54 Note Text: Consultation requested by Dr. Pérez for an opinion regarding ingrowing toenail. My final recommendations will be communicated back to the requesting physician by way of shared Medical record or letter to requesting physician via US mail. Initial Podiatric Office Visit: Chief Complaint: This 38 year old male who presents with chief complaint:ingrowing toenail of left hallux HPI Patient presents to clinic for evaluation of left foot. Had developed ingrowing toenail of left hallux. Was treated with doxycyline. He states that helped with infection and the pain has resolved Now complaining of occasional painful toenail, right hallux. PAIN EVALUATION No data found in the last 1 encounters. Hemoglobin A1C (%) Date Value 10/03/2023 5.3 PCP: Jessie Blackwell MD PAST MEDICAL HISTORY Diagnosis Date Bipolar 2 disorder (HCC) Dr. Justice, psych Degenerative disc disease Dr. 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 1/2 hr before meal. amitriptyline (ELAVIL) 50 mg tablet Take 1 tablet by mouth daily at bedtime. FLUoxetine (PROZAC) 10 mg capsule Take 10 mg by mouth once daily. topiramate (TOPAMAX) 25 mg tablet Take 25 mg by mouth. 1 twice daily diphenhydrAMINE (BENADRYL) 25 mg capsule Take 25 mg by mouth once daily. daily cariprazine (VRAYLAR) 3 mg capsule Take 6 mg by mouth once daily. [facility] naproxen (NAPROSYN) 500 mg tablet Take 500 mg by mouth twice daily with meals. (Patient not taking: Reported on 06/22/2023) levoFLOXacin (LEVAQUIN) 500 mg tablet Take 500 mg by mouth once daily. X 10 days. Ordered previously. Patient states five days remaining. (Patient not taking: Reported on 06/22/2023) HYDROcodone-Acetaminophen (NORCO) 7.5-325 mg per tablet Take 1 tablet by mouth every 6 hours as needed for pain. (Patient not taking: Reported on 08/07/2023) Current Facility-Administered Medications Medication Dose Route Frequency perflutren lipid microspheres 1.3 mL in NaCl (PF) 0.9% 10 mL injection (DEFINITY) INTRAVENOUS DIRECTED PRN sodium chloride 0.9 % (flush) 10 mL (BD POSIFLUSH) 10 mL INTRAVENOUS DIRECTED PRN ALLERGIES Allergen Reactions Penicillins Hives PAST SURGICAL HISTORY Procedure Laterality Date CARDIAC CATH 2007 [facility]-normal ESOPHAGOGASTRODUODENOSCOPY TRANSORAL DIAGNOSTIC 2007 EGD FAMILY HISTORY Problem Relation Age of Onset other (bipolar [Other]) Father Diabetes Paternal Grandfather Stroke Paternal Grandmother Hypertension Paternal Grandmother Heart Paternal Grandmother other (Migraine [Other]) Mother other (Migraine [Other]) Father Social History Tobacco Use Smoking status: Former Packs/day: 1 Types: Cigarettes Quit date: 09/12/2023 Years since quittin.2 Smokeless tobacco: Former Types: Chew Vaping Use Vaping Use: Never used Substance Use Topics Alcohol use: Not Currently Comment: social few drinks a year Drug use: Yes Frequency: 7.0 times per week Types: Marijuana REVIEW OF SYSTEMS GENERAL: Negative for Malaise, significant weight loss, fever RESPIRATORY: Negative for cough, wheezing and shortness of breath CARDIOVASCULAR: Negative for chest pain, leg swelling and palpitations GI: Negative for abdominal discomfort, blood in stools or black stools and change in bowel habits : Negative for dysuria, frequency and incontinence MUSCULOSKELETAL: Negative for joint pain or swelling, back pain, and muscle pain. SKIN: Negative for lesions, rash, and itching. HEMATOLOGY/LYMPHOLOGY Negative for prolonged bleeding, bruising easily, and swollen nodes. ENDOCRINE: Negative for cold or heat intolerance, polyuria, polydipsia and goiter. NEURO: negative Physical Exam: Constitutional: Pt is a well developed 38 year old male who is alert, oriented and cooperative Eyes: Following during examination. No redness or drainage. Respiratory: RR normal and nonlabored. Even breathing. No evidence of distress or shortness of breath. Psychology: Patient is engaged during conversation. Normal affect and mood. Does not appear depressed or anxious during encounter. Vascular: Dorsalis pedis and posterior tibial pulses nonpalpable b/l Capillary Fill time < 5 seconds to digits 1-5 b/l Skin temperature warm to cool proximal to distal b/l Hair growth decreased to digits Neurological: intact light touch/epicritic (more content not included)... [facility] 12-25-2023 Note HNO ID: [id number] Author: POOJA ROSALES RN Service: ? Author Type: Registered Nurse Type: Progress Notes Filed: 12/25/2023 13:54 Note Text: Patient presents with: Left Great Toe - New Patient, Ingrown Nail Referred by Urgent Care. Was seen on 12/06/23 for ingrown toenail that was infected. Prescribed doxycycline. Infection has since resolved. No pain. [facility] 12-25-2023 History of Presen t illness Narrative Consultation requested by Dr. Pérez for an opinion regarding ingrowing toenail. My final recommendations will be communicated back to the requesting physician by way of shared Medical record or letter to requesting physician via [place] mail. Initial Podiatric Office Visit: Chief Complaint: This 38 year old male who presents with chief complaint:ingrowing toenail of left hallux HPI Patient presents to clinic for evaluatio\n of left foot. Had developed ingrowing toenail of left hallux. Was treated with doxycyline. He states that helped with infection and the pain has resolved Now complaining of occasional painful toenail, right hallux. PAIN EVALUATION No data found in the last 1 encounters. Hemoglobin A1C (%) Date Value 10/03/2023 5.3 PCP: Jessie Blackwell MD PAST MEDICAL HISTORY Diagnosis Date Bipolar 2 disorder (HCC) Dr. Justice, psych Degenerative disc disease Dr. 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 1/2 hr before meal. amitriptyline (ELAVIL) 50 mg tablet Take 1 tablet by mouth daily at bedtime. FLUoxetine (PROZAC) 10 mg capsule Take 10 mg by mouth once daily. topiramate (TOPAMAX) 25 mg tablet Take 25 mg by mouth. 1 twice daily diphenhydrAMINE (BENADRYL) 25 mg capsule Take 25 mg by mouth once daily. daily cariprazine (VRAYLAR) 3 mg capsule Take 6 mg by mouth once daily. [facility] naproxen (NAPROSYN) 500 mg tablet Take 500 mg by mouth twice daily with meals. (Patient not taking: Reported on 06/22/2023) levoFLOXacin (LEVAQUIN) 500 mg tablet Take 500 mg by mouth once daily. X 10 days. Ordered previously. Patient states five days remaining. (Patient not taking: Reported on 06/22/2023) HYDROcodone-Acetaminophen (NORCO) 7.5-325 mg per tablet Take 1 tablet by mouth every 6 hours as needed for pain. (Patient not taking: Reported on 08/07/2023) Current Facility-Administered Medications Medication Dose Route Frequency perflutren lipid microspheres 1.3 mL in NaCl (PF) 0.9% 10 mL injection (DEFINITY) INTRAVENOUS DIRECTED PRN sodium chloride 0.9 % (flush) 10 mL (BD POSIFLUSH) 10 mL INTRAVENOUS DIRECTED PRN ALLERGIES Allergen Reactions Penicillins Hives PAST SURGICAL HISTORY Procedure Laterality Date CARDIAC CATH 2007 [facility]-normal ESOPHAGOGASTRODUODENOSCOPY TRANSORAL DIAGNOSTIC 2007 EGD FAMILY HISTORY Problem Relation Age of Onset other (bipolar [Other]) Father Diabetes Paternal Grandfather Stroke Paternal Grandmother Hypertension Paternal Grandmother Heart Paternal Grandmother other (Migraine [Other]) Mother other (Migraine [Other]) Father Social History Tobacco Use Smoking status: Former Packs/day: 1 Types: Cigarettes Quit date: 09/12/2023 Years since quittin.2 Smokeless tobacco: Former Types: Chew Vaping Use Vaping Use: Never used Substance Use Topics Alcohol use: Not Currently Comment: social few drinks a year Drug use: Yes Frequency: 7.0 times per week Types: Marijuana REVIEW OF SYSTEMS GENERAL: Negative for Malaise, significant weight loss, fever RESPIRATORY: Negative for cough, wheezing and shortness of breath CARDIOVASCULAR: Negative for chest pain, leg swelling and palpitations GI: Negative for abdominal discomfort, blood in stools or black stools and change in bowel habits : Negative for dysuria, frequency and incontinence MUSCULOSKELETAL: Negative for joint pain or swelling, back pain, and muscle pain. SKIN: Negative for lesions, rash, and itching. HEMATOLOGY/LYMPHOLOGY Negative for prolonged bleeding, bruising easily, and swollen nodes. ENDOCRINE: Negative for cold or heat intolerance, polyuria, polydipsia and goiter. NEURO: negative Physical Exam: Constitutional: Pt is a well developed 38 year old male who is alert, oriented and cooperative Eyes: Following during examination. No redness or drainage. Respiratory: RR normal and nonlabored. Even breathing. No evidence of distress or shortness of breath. Psychology: Patient is engaged during conversation. Normal affect and mood. Does not appear depressed or anxious during encounter. Vascular: Dorsalis pedis and posterior tibial pulses nonpalpable b/l Capillary Fill time < 5 seconds to digits 1-5 b/l Skin temperature warm to cool proximal to distal b/l Hair growth decreased to digits Neurological: intact light touch/epicritic sensation b/l intact protective sensation no significant neurological deficits Dermatological: B/l hallux has ingrowing tendency. No signs of infection. No pain left. Minimal pain right. Webspaces clean and dry 1-4 b/l. Skin appears well hydrated and supple. good color, texture, turgor. No open lesions present. No callosities present. Radiographs: n/a ASSESSMENT: (L60.3) Onychodystrophy (primary encounter diagnosis) (L60.0) Ingrown toenail (R09.89) Diminished pulses in lower extremity PLAN: 1. History and physical examination performed. 2. Discussed ingrowing toenail of b/l hallux. No signs of infection at this time. Informed patient that he does have ingrowing tendency and these can lead to infection but no infection currently. Options include proper trimming of the nail vs partial nail or total nail matrixectomy. He is former smoker, quit in September. I have difficult time palpating pulses. Would recommend getting pvr to access ability to heal. 3. We discussed the possible etiologies of discolored, dystrophic, and thickened nails including fungus, yeast, mold as well as in some instances, prior trauma, or mechanical causes such as repetitive microtrauma in shoe gear. We discussed topical medication for discolored toenails which has very low success but no major side effects. We discussed oral medication. Patient will need hepatic testing prior to use. Patient informed of risks associated with Lamisil. We discussed removal of toenails. Suspect more trauma etiology. May consider removal pending pvr Leonard Martínez DPM Podiatry [address] [facility] [address] Dept: [phone] Dept Patient presents with: Left Great Toe - New Patient, Ingrown Nail Referred by Urgent Care. Was seen on 12/06/23 for ingrown toenail that was infected. Prescribed doxycycline. Infection has since resolved. No pain. documented in this encounter [facility] 12-06-2023 Note HNO ID: [id number] Author: PLACIDO PÉREZ APRN.SET O TYPE OPERATOR Service: ? Author Type: Nurse Practitioner Type: Progress Notes Filed: 12/06/2023 09:33 Note Text: Subjective HPI HPI Alyson Quinn is a 38 year old male who presents today for CC of great toe infection. This started 1 week ago. Has tried otc medication for relief. Symptoms are worsened by nothing. Risk factors, broke the nail recently. Denies fever. .Patient presents with: toenail infection: Left big toe infection x 1 week PAST MEDICAL HISTORY Diagnosis Date Bipolar 2 disorder (HCC) Dr. Justice, psych Degenerative disc disease Dr. 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 1/2 hr before meal.Disp: 30 capsuleRfl: 5 amitriptyline (ELAVIL) 50 mg tabletTake 1 tablet by mouth daily at bedtime.Disp: 90 tabletRfl: 3 FLUoxetine (PROZAC) 10 mg capsuleTake 10 mg by mouth once daily.Disp: Rfl: topiramate (TOPAMAX) 25 mg tabletTake 25 mg by mouth. 1 twice dailyDisp: Rfl: diphenhydrAMINE (BENADRYL) 25 mg capsuleTake 25 mg by mouth once daily. dailyDisp: Rfl: cariprazine (VRAYLAR) 3 mg capsuleTake 6 mg by mouth once daily. [facility] Disp: Rfl: Cholecalciferol, Vitamin D3, 125 mcg (5,000 unit) capDisp: Rfl: naproxen (NAPROSYN) 500 mg tabletTake 500 mg by mouth twice daily with meals.Disp: Rfl: (Patient not taking: Reported on 06/22/2023) levoFLOXacin (LEVAQUIN) 500 mg tabletTake 500 mg by mouth once daily. X 10 days. Ordered previously. Patient states five days remaining.Disp: Rfl: (Patient not taking: Reported on 06/22/2023) HYDROcodone-Acetaminophen (NORCO) 7.5-325 mg per tabletTake 1 tablet by mouth every 6 hours as needed for pain.Disp: 28 tabletRfl: 0 (Patient not taking: Reported on 08/07/2023) FAMILY HISTORY Problem Relation Age of Onset other (bipolar [Other]) Father Diabetes Paternal Grandfather Stroke Paternal Grandmother Hypertension Paternal Grandmother Heart Paternal Grandmother other (Migraine [Other]) Mother other (Migraine [Other]) Father Social History Tobacco Use Smoking status: Every Day Packs/day: 1 Types: Cigarettes Smokeless tobacco: Former Types: Chew Vaping Use Vaping Use: Never used Substance Use Topics Alcohol use: Not Currently Comment: social few drinks a year Drug use: Yes Frequency: 7.0 times per week Types: Marijuana ROS Objective Blood pressure 132/78, pulse 87, temperature 36.7 ?C (98 ?F), temperature source Tympanic, resp. rate 16, weight (!) 153.5 kg (338 lb 6.4 oz), SpO2 96%. Physical Exam Constitutional: General: He is not in acute distress. Appearance: He is not toxic-appearing or diaphoretic. HENT: Head: Normocephalic and atraumatic. Pulmonary: Effort: Pulmonary effort is normal. No accessory muscle usage or respiratory distress. Musculoskeletal: Feet: Neurological: Mental Status: He is alert and oriented to person, place, and time. ASSESSMENT/PLAN: 1. Ingrown toenail - ICD9: 703.0, ICD10: L60.0 Atb ordered Refer to podiatry F/u for worsening s/s Keep clean and covered - CONSULT TO PODIATRY - DOXYCYCLINE MONOHYDRATE 100 MG TABLET - MUPIROCIN 2 % TOPICAL OINTMENT Placido Pérez APRN.[facility] 10-13-2023 Note HNO ID: [id number] Author: Shanon Reid RT(R) Service: Radiology Author Type: Technologist Type: Progress Notes Filed: 10/13/2023 9:52 AM Note Text: Radiology Service Progress Note PATIENT NAME: Alyson Quinn DATE OF SERVICE: October 13, 2023 TIME: 9:41 AM PATIENT IDENTITY VERIFICATION COMPLETED USING TWO (2) IDENTIFIERS: Name and Date of confirmed by patient verbally. FALL SCREENING: Has the patient had 2 falls in the last year or 1 fall with injury or currently using an Ambulatory Assistive Device (Walker, Cane, Wheelchair, Crutches, etc.)? No PATIENT GENDER DATA: Male PATIENT RELEVANT IMPLANT DATA REVIEWED: Not Applicable RADIOLOGY DEPARTMENT: General X-ray: Exam(s) Completed: Lower Extremity X-Ray(s): Knee, AP / Lat / Tunne / Merchant Left and Wt. Bearing PERIPHERAL IV DATA: Not applicable SIGNED BY: RT Luis(R) October 13, 2023 9:41 AM [facility] 10-13-2023 Note HNO ID: [id number] Author: Eben Chen MD Service: ? Author Type: Physician Type: Progress Notes Filed: 10/13/2023 10:07 AM Note Text: Patient presents with: Knee Pain: left x 1 week, denies injury HPI: Left knee pain: Duration: started a couple weeks ago Location: medial left knee Character: aching, sharp, and stabbing Radiation: No. Aggravating: walking and lifting leg Relieving: rest (no pain) Pain relievers: Motrin Associated: Pertinent negatives: Denies numbness, swelling, bruising, fever, known injury, locking, popping, MEDICATIONS: omeprazole (PRILOSEC) 20 mg capsuleTake 1 capsule by mouth daily before breakfast. 1/2 hr before meal.Disp: 30 capsuleRfl: 5 amitriptyline (ELAVIL) 50 mg tabletTake 1 tablet by mouth daily at bedtime.Disp: 90 tabletRfl: 3 FLUoxetine (PROZAC) 10 mg capsuleTake 10 mg by mouth once daily.Disp: Rfl: topiramate (TOPAMAX) 25 mg tabletTake 25 mg by mouth. 1 twice dailyDisp: Rfl: diphenhydrAMINE (BENADRYL) 25 mg capsuleTake 25 mg by mouth once daily. dailyDisp: Rfl: cariprazine (VRAYLAR) 3 mg capsuleTake 6 mg by mouth once daily. [facility] Disp: Rfl: naproxen (NAPROSYN) 500 mg tabletTake 500 mg by mouth twice daily with meals.Disp: Rfl: (Patient not taking: Reported on 06/22/2023) levoFLOXacin (LEVAQUIN) 500 mg tabletTake 500 mg by mouth once daily. X 10 days. Ordered previously. Patient states five days remaining.Disp: Rfl: (Patient not taking: Reported on 06/22/2023) HYDROcodone-Acetaminophen (NORCO) 7.5-325 mg per tabletTake 1 tablet by mouth every 6 hours as needed for pain.Disp: 28 tabletRfl: 0 (Patient not taking: Reported on 08/07/2023) ALLERGIES: ALLERGIES Allergen Reactions Penicillins Hives VITALS: BP 128/72 Pulse 98 Temp 36.2 ?C (97.1 ?F) Resp 18 Wt (!) 151.5 kg (334 lb) SpO2 95% BMI 45.30 kg/m? PE: Pleasant, in no acute distress. KNEE: left compared to right. No erythema, effusion, or deformity. FROM without pain. No crepitus. medial joint line tenderness. Stable to varus and valgus strain. Negative anterior drawer test. Negative posterior drawer test. No pain with weightbearing. Mild antalgic gait. ASSESSMENT/PLAN: 1. Acute pain of left knee - ICD9: 719.46, ICD10: M25.562 - XR KNEE GENERAL 4V AP BOTH/PA BOTH/LAT/MERC LEFT - no acute fractures or lytic lesions. - PREDNISONE 20 MG TABLET - burst. Follow up with primary care or orthopedics if not improving. Eben Chen MD [facility] 10-13-2023 History of Presen t illness Narrative Patient presents with: Knee Pain: left x 1 week, denies injury HPI: Left knee pain: Duration: started a couple weeks ago Location: medial left knee Character: aching, sharp, and stabbing Radiation: No. Aggravating: walking and lifting leg Relieving: rest (no pain) Pain relievers: Motrin Associated: Pertinent negatives: Denies numbness, swelling, bruising, fever, known injury, locking, popping, MEDICATIONS: omeprazole (PRILOSEC) 20 mg capsule^Take 1 capsule by mouth daily before breakfast. 1/2 hr before meal.^Disp: 30 capsule^Rfl: 5 amitriptyline (ELAVIL) 50 mg tablet^Take 1 tablet by mouth daily at bedtime.^Disp: 90 tablet^Rfl: 3 FLUoxetine (PROZAC) 10 mg capsule^Take 10 mg by mouth once daily.^Disp: ^Rfl: topiramate (TOPAMAX) 25 mg tablet^Take 25 mg by mouth. 1 twice daily^Disp: ^Rfl: diphenhydrAMINE (BENADRYL) 25 mg capsule^Take 25 mg by mouth once daily. daily^Disp: ^Rfl: cariprazine (VRAYLAR) 3 mg capsule^Take 6 mg by mouth once daily. [facility] ^Disp: ^Rfl: naproxen (NAPROSYN) 500 mg tablet^Take 500 mg by mouth twice daily with meals.^Disp: ^Rfl: (Patient not taking: Reported on 06/22/2023) levoFLOXacin (LEVAQUIN) 500 mg tablet^Take 500 mg by mouth once daily. X 10 days. Ordered previously. Patient states five days remaining.^Disp: ^Rfl: (Patient not taking: Reported on 06/22/2023) HYDROcodone-Acetaminophen (NORCO) 7.5-325 mg per tablet^Take 1 tablet by mouth every 6 hours as needed for pain.^Disp: 28 tablet^Rfl: 0 (Patient not taking: Reported on 08/07/2023) ALLERGIES: ALLERGIES Allergen Reactions Penicillins Hives VITALS: BP 128/72 Pulse 98 Temp 36.2 C (97.1 F) Resp 18 Wt (!) 151.5 kg (334 lb) SpO2 95% BMI 45.30 kg/m PE: Pleasant, in no acute distress. KNEE: left compared to right. No erythema, effusion, or deformity. FROM without pain. No crepitus. medial joint line tenderness. Stable to varus and valgus strain. Negative anterior drawer test. Negative posterior drawer test. No pain with weightbearing. Mild antalgic gait. ASSESSMENT/PLAN: 1. Acute pain of left knee - ICD9: 719.46, ICD10: M25.562 - XR KNEE GENERAL 4V AP BOTH/PA BOTH/LAT/MERC LEFT - no acute fractures or lytic lesions. - PREDNISONE 20 MG TABLET - burst. Follow up with primary care or orthopedics if not improving. Eben Chen MD documented in this encounter [facility] 08-07-2023 Note HNO ID: [id number] Author: Jessie Blackwell MD Service: ? Author Type: Physician Type: Progress Notes Filed: 08/08/2023 8:01 AM Note Text: Patient presents with: Follow Up: 1 month HPI: Patient presents today for office visit for follow up. Has seen urology. Now on elavil. Finished his therapy He is feeling much better. Still has mild tingling in his right thigh. Pain is much better in his back and pelvis. No weakness. No problems with bowel or bladder. Has been losing weight. He is moving more. He is trying to quit smoking. Needs letter that he is disabled to help with the cost of his bus pass. His edema is improving. Wearing support socks. Bp is good. No chest pain or shortness of breath. Still seeing psychiatry. See previous ov: HOSPITAL/ER FOLLOW UP: Reason for visit: testicular pain Which facility: [facility] Date of visit: 06/16/23 Diagnosis: spastic pelvic floor symdrome, lumbar degenerative disc disease Testing done: reports US to be sure bladder was not obstructed Treatment given: percocet and valium Current symptoms: Feels like when he sits is sitting on his right testicle. Bilateral feet/leg edema wearing diabetic socks for them and they are leaving indents in legs. The edema has been going on for a couple of months with the rest of these issues while he has been stuck in the chair unable to lay down. Stay swollen all the time. States that is doing the stretches and exercises as he was instructed. Issues have been on and off since Aug. Hasn't been able to lie down since Aug. Started on Sunday night with the feeling of pelvic spasms again and that is when he went to ER. Denies fever, dysuria, or hematuria Appears he has been going back to ER multiple times He has had multiple ct's and ultrasounds. He only went a few times to physical therapy and has not followed up again with urology. Back is bothering him more again. He having worsening pain in his lower back and down his right leg. Has had xrays and lumbar mri's remotely. No new injuries. No urinary or bladder incontinence. Component Latest Ref Rng AND Units 06/26/2023 WBC 3.70 - 11.00 k/uL 9.42 RBC 4.20 - 6.00 m/uL 5.11 Hemoglobin 13.0 - 17.0 g/dL 15.0 Hematocrit 39.0 - 51.0 % 45.8 MCV 80.0 - 100.0 fL 89.6 MCH 26.0 - 34.0 pg 29.4 MCHC 30.5 - 36.0 g/dL 32.8 RDW-CV 11.5 - 15.0 % 13.9 Platelet Count 150 - 400 k/uL 208 MPV 9.0 - 12.7 fL 11.0 Neut% % 50.2 Abs Neut (ANC) 1.45 - 7.50 k/uL 4.72 Lymph% % 40.4 Abs Lymph 1.00 - 4.00 k/uL 3.81 [place]% % 7.1 Abs [place] <0.87 k/uL 0.67 Eosin% % 1.1 Abs Eosin <0.46 k/uL 0.10 Baso% % 0.7 Abs Baso <0.11 k/uL 0.07 Immature Gran % % 0.5 IMMATURE GRANS (ABS) <0.10 k/uL 0.05 NRBC /100 WBC 0.0 Absolute nRBC <0.01 k/uL <0.01 DTYPE Auto Protein, Total 6.3 - 8.0 g/dL 7.0 Albumin 3.9 - 4.9 g/dL 4.2 Calcium 8.5 - 10.2 mg/dL 9.1 Bilirubin, Total 0.2 - 1.3 mg/dL <0.2 (L) Alkaline Phosphatase 38 - 113 U/L 90 AST 14 - 40 U/L 18 ALT 10 - 54 U/L 25 Glucose 74 - 99 mg/dL 77 BUN 9 - 24 mg/dL 9 Creatinine 0.73 - 1.22 mg/dL 1.01 Sodium 136 - 144 mmol/L 138 Potassium 3.7 - 5.1 mmol/L 4.0 Chloride 97 - 105 mmol/L 107 (H) CO2 22 - 30 mmol/L 20 (L) Anion Gap 9 - 18 mmol/L 11 eGFR >=60 mL/min/1.73mA? 98 Cholesterol, Total <200 mg/dL 168 Triglyceride <150 mg/dL 111 HDL Cholesterol >39 mg/dL 36 (L) Non HDL Cholesterol <130 mg/dL 132 (H) Fasting Time hrs 9 VLDL Cholesterol <30 mg/dL 22 TC:HDL Ratio <5.10 4.67 LDL Cholesterol <100 mg/dL 110 (H) LDL:HDL Ratio <2.54 3.06 (H) MEDICATIONS: Current Outpatient Medications Medication Sig amitriptyline (ELAVIL) 50 mg tablet Take 1 tablet by mouth daily at bedtime. FLUoxetine (PROZAC) 10 mg capsule Take 10 mg by mouth once daily. omeprazole (PRILOSEC) 20 mg capsule Take 1 capsule by mouth daily before breakfast. 1/2 hr before meal. topiramate (TOPAMAX) 25 mg tablet Take 25 mg by mouth. 1 twice daily diphenhydrAMINE (BENADRYL) 25 mg capsule Take 25 mg by mouth once daily. daily cariprazine (VRAYLAR) 3 mg capsule Take 6 mg by mouth once daily. [facility] naproxen (NAPROSYN) 500 mg tablet Take 500 mg by mouth twice daily with meals. (Patient not taking: Reported on 06/22/2023) levoFLOXacin (LEVAQUIN) 500 mg tablet Take 500 mg by mouth once daily. X 10 days. Ordered previously. Patient states five days remaining. (Patient not taking: Reported on 06/22/2023) HYDROcodone-Acetaminophen (NORCO) 7.5-325 mg per tablet Take 1 tablet by mouth every 6 hours as needed for pain. (Patient not taking: Reported on 08/07/2023) Current Facility-Administered Medications Medication Dose Route Frequency perflutren lipid microspheres 1.3 mL in NaCl (PF) 0.9% 10 mL injection (DEFINITY) INTRAVENOUS DIRECTED PRN sodium chloride 0.9 % (flush) 10 mL (BD POSIFLUSH) 10 mL INTRAVENOUS DIRECTED PRN ALLERGIES: ALLERGIES Allergen Reactions Penicillins Hives PAST MEDICAL (more content not included)... [facility] 07-31-2023 Note HNO ID: [id number] Author: Kenzie Art PT Service: ? Author Type: Physical Therapist Type: Progress Notes Filed: 07/31/2023 2:53 PM Note Text: Episode Visit Count: 5 Therapist That Will Accept/Oversee The Plan Of Care: Kenzie Art Start of Care Date: 06/29/23 Onset Date: 06/22/23 Plan of Care Certification Date: 06/29/23 Next Certification Due Date: 08/28/23 Patient Identified by Name and Date of : Yes REHABILITATION AND SPORTS THERAPY PHYSICAL THERAPY DISCONTINUANCE OF CARE PLAN OF CARE UPDATE: Assessment: Alyson Quinn is discontinued from Physical Therapy services due to Patient/Clinician mutual decision to discontinue current plan of care.. Patient was seen for 5 visits from Start of Care Date: 06/29/23 to 07/31/2023 and treatment included: Therapeutic exercise, Self-half-way management, and Patient/Family/Caregiver Education. Goals updated 07/31/2023 Goals for Episode of Care: created on 06/28/23 through 08/23/23 [place] in home exercise program. - MET Perform standing and walking for 45 minutes without pain. - MET Improve flexibility of hip flexors to WNL for decreased extension force on L spine in 8 weeks or less- Not assessed Patient Goals: Reduce pain SUBJECTIVE: Had some soreness this morning. Somes and goes but stretching helps. Patient Goals: improve pain Functional Limitations: nothing Prior Level of Function: Independent without limitations Intake Information: Prescription present Pain: Pain Pain Level: 0 Pain Location: Leg - Right Pain Level 2: 0 Pain Location 2: Low Back/Lumbar Spine - Right PROMIS Scales Higher is Better 07/31/2023 06/28/2023 Phys Func - Score 49 (within normal limits) 45 (within normal limits) Phys Func - Percentile 46 % 31 % Self-Eff Symptom - Score - 50 (Average) Self-Eff Symptom - Percentile - 50 % T-scores: mean of general population = 50. 5 points is clinically meaningfully difference Percentiles provide an indication of how the patient's score ranks in relation to the general population. Higher percentile rankings indicate better function/quality of life. 50th percentile is the average of the general population and indicates half of respondents had a worse score. OBJECTIVE MEASURES WITH LEVEL OF FUNCTION: Lumbar Spine AROM Lumbar Flexion: Normal Lumbar Extension: Normal Lumbar R Side-Bend: Normal Lumbar L Side-Bend: Normal Lumbar R Rotation: Normal Lumbar L Rotation: Normal LE AROM Tested?: Yes LE AROM R LE AROM: WNL L LE AROM: WNL LE Strength R LE Strength: 5/5 L LE Strength: 5/5 TREATMENT: Therapeutic Exercise: 1: All objective measures taken this session 2: Standing press with core bracing x 10 with 20 sec holds 3: Standing curl 15# 2 x 10 each arm 4: Reverse crunch x 10 5: Rotary crunch alternating direction 3 x 8 Skilled Intervention: Patient was educated in proper exercise technique and purpose for exercises. Skilled judgment was provided in selection of appropriate interventions. Provided written instruction for home exercise program to facilitate proper performance and compliance. Correct performance of therapeutic exercises was facilitated with verbal and visual cuing. Billing Therapeutic Exercise Treatment Minutes: 39 Skilled Treatment Time Minutes (timed and untimed codes): 39 Total Session Time (minutes): 39 Session Start Time : 1415 Session Stop Time : 1454 Kenzie Art PT [facility] 07-31-2023 Note HNO ID: [id number] Author: Dian Heaton PT Service: ? Author Type: Physical Therapist Type: Progress Notes Filed: 07/31/2023 1:42 PM Note Text: Episode Visit Count: 3 Therapist That Will Accept/Oversee The Plan Of Care: Dian Moyer Start of Care Date: 06/29/23 Onset Date: 06/22/23 Plan of Care Certification Date: 06/29/23 Next Certification Due Date: 08/28/23 Patient Identified by Name and Date of : Yes REHABILITATION AND SPORTS THERAPY PHYSICAL THERAPY DISCONTINUANCE OF CARE PLAN OF CARE UPDATE: Assessment: Alyson Quinn is discontinued from Physical Therapy services due to goal achievement and maximal benefit.. Patient was seen for 3 visits from Start of Care Date: 06/29/23 to 07/31/2023 and treatment included: Therapeutic exercise and Self-half-way management. Goals for Episode of Care: created on 06/29/23 Updated on: 07/31/23 [place] in home exercise program.-MET Patient will increase flexibility of BLE to WNL to decrease pain.-MOSTLY MET Perform sitting and sleeping with at least 75% improvement in pain compared to IE.-MET Patient Goals: improve pain SUBJECTIVE: Pt reports feeling great, no pelvic pain at all since last visit. Pt able to sleep and sit with no issues. Pt reports good compliance with HEP, feels comfortable continuing on his own at home. Pain: Pain Pain Level: 0 Post Treatment Pain Post Treatment Pain Level: 0 PROMIS Scales Higher is Better 06/28/2023 Phys Func - Score 45 (within normal limits) Phys Func - Percentile 31 % Self-Eff Symptom - Score 50 (Average) Self-Eff Symptom - Percentile 50 % T-scores: mean of general population = 50. 5 points is clinically meaningfully difference Percentiles provide an indication of how the patient's score ranks in relation to the general population. Higher percentile rankings indicate better function/quality of life. 50th percentile is the average of the general population and indicates half of respondents had a worse score. OBJECTIVE MEASURES WITH LEVEL OF FUNCTION: LE Flexibility Flexibility: Hamstring Flexibility R Hamstring Flexibility: WNL L Hamstring Flexibility: WNL R Hip Flexor Flexibility: Min restrictions L Hip Flexor Flexibility: Min restrictions TREATMENT: Therapeutic Exercise: 1: Reassessment 2: seated hamstring stretch, [id number] each 3: seated figure-4 stretch, [id number] each 4: standing hip flexor stretch, [id number] each 5: standing sidebend stretch, [id number] each 6: Discussed discharge planning Skilled Intervention: Patient was educated in proper exercise technique and purpose for exercises. Skilled judgment was provided in selection of appropriate interventions. Billing Therapeutic Exercise Treatment Minutes: 25 Skilled Treatment Time Minutes (timed and untimed codes): 25 Total Session Time (minutes): 25 Session Start Time : 1316 Session Stop Time : 1341 Dian Moyer PT [facility] 07-31-2023 History of Presen t illness Narrative Episode Visit Count: 5 Therapist That Will Accept/Oversee The Plan Of Care: Kenzie Art Start of Care Date: 06/29/23 Onset Date: 06/22/23 Plan of Care Certification Date: 06/29/23 Next Certification Due Date: 08/28/23 Patient Identified by Name and Date of : Yes REHABILITATION AND SPORTS THERAPY PHYSICAL THERAPY DISCONTINUANCE OF CARE PLAN OF CARE UPDATE: Assessment: Alyson Quinn is discontinued from Physical Therapy services due to Patient/Clinician mutual decision to discontinue current plan of care.. Patient was seen for 5 visits from Start of Care Date: 06/29/23 to 07/31/2023 and treatment included: Therapeutic exercise, Self-half-way management, and Patient/Family/Caregiver Education. Goals updated 07/31/2023 Goals for Episode of Care: created on 06/28/23 through 08/23/23 [place] in home exercise program. - MET Perform standing and walking for 45 minutes without pain. - MET Improve flexibility of hip flexors to WNL for decreased extension force on L spine in 8 weeks or less- Not assessed Patient Goals: Reduce pain SUBJECTIVE: Had some soreness this morning. Somes and goes but stretching helps. Patient Goals: improve pain Functional Limitations: nothing Prior Level of Function: Independent without limitations Intake Information: Prescription present Pain: Pain Pain Level: 0 Pain Location: Leg - Right Pain Level 2: 0 Pain Location 2: Low Back/Lumbar Spine - Right PROMIS Scales Higher is Better 07/31/2023 06/28/2023 Phys Func - Score 49 (within normal limits) 45 (within normal limits) Phys Func - Percentile 46 % 31 % Self-Eff Symptom - Score - 50 (Average) Self-Eff Symptom - Percentile - 50 % T-scores: mean of general population = 50. 5 points is clinically meaningfully difference Percentiles provide an indication of how the patient's score ranks in relation to the general population. Higher percentile rankings indicate better function/quality of life. 50th percentile is the average of the general population and indicates half of respondents had a worse score. OBJECTIVE MEASURES WITH LEVEL OF FUNCTION: Lumbar Spine AROM Lumbar Flexion: Normal Lumbar Extension: Normal Lumbar R Side-Bend: Normal Lumbar L Side-Bend: Normal Lumbar R Rotation: Normal Lumbar L Rotation: Normal LE AROM Tested?: Yes LE AROM R LE AROM: WNL L LE AROM: WNL LE Strength R LE Strength: 5/5 L LE Strength: 5/5 TREATMENT: Therapeutic Exercise: 1: All objective measures taken this session 2: Standing press with core bracing x 10 with 20 sec holds 3: Standing curl 15# 2 x 10 each arm 4: Reverse crunch x 10 5: Rotary crunch alternating direction 3 x 8 Skilled Intervention: Patient was educated in proper exercise technique and purpose for exercises. Skilled judgment was provided in selection of appropriate interventions. Provided written instruction for home exercise program to facilitate proper performance and compliance. Correct performance of therapeutic exercises was facilitated with verbal and visual cuing. Billing Therapeutic Exercise Treatment Minutes: 39 Skilled Treatment Time Minutes (timed and untimed codes): 39 Total Session Time (minutes): 39 Session Start Time : 1415 Session Stop Time : 1454 Kenzie Art PT documented in this encounter [facility] 07-31-2023 History of Presen t illness Narrative Episode Visit Count: 3 Therapist That Will Accept/Oversee The Plan Of Care: Dian Moyer Start of Care Date: 06/29/23 Onset Date: 06/22/23 Plan of Care Certification Date: 06/29/23 Next Certification Due Date: 08/28/23 Patient Identified by Name and Date of : Yes REHABILITATION AND SPORTS THERAPY PHYSICAL THERAPY DISCONTINUANCE OF CARE PLAN OF CARE UPDATE: Assessment: Alyson Quinn is discontinued from Physical Therapy services due to goal achievement and maximal benefit.. Patient was seen for 3 visits from Start of Care Date: 06/29/23 to 07/31/2023 and treatment included: Therapeutic exercise and Self-half-way management. Goals for Episode of Care: created on 06/29/23 Updated on: 07/31/23 [place] in home exercise program.-MET Patient will increase flexibility of BLE to WNL to decrease pain.-MOSTLY MET Perform sitting and sleeping with at least 75% improvement in pain compared to IE.-MET Patient Goals: improve pain SUBJECTIVE: Pt reports feeling great, no pelvic pain at all since last visit. Pt able to sleep and sit with no issues. Pt reports good compliance with HEP, feels comfortable continuing on his own at home. Pain: Pain Pain Level: 0 Post Treatment Pain Post Treatment Pain Level: 0 PROMIS Scales Higher is Better 06/28/2023 Phys Func - Score 45 (within normal limits) Phys Func - Percentile 31 % Self-Eff Symptom - Score 50 (Average) Self-Eff Symptom - Percentile 50 % T-scores: mean of general population = 50. 5 points is clinically meaningfully difference Percentiles provide an indication of how the patient's score ranks in relation to the general population. Higher percentile rankings indicate better function/quality of life. 50th percentile is the average of the general population and indicates half of respondents had a worse score. OBJECTIVE MEASURES WITH LEVEL OF FUNCTION: LE Flexibility Flexibility: Hamstring Flexibility R Hamstring Flexibility: WNL L Hamstring Flexibility: WNL R Hip Flexor Flexibility: Min restrictions L Hip Flexor Flexibility: Min restrictions TREATMENT: Therapeutic Exercise: 1: Reassessment 2: seated hamstring stretch, [id number] each 3: seated figure-4 stretch, [id number] each 4: standing hip flexor stretch, [id number] each 5: standing sidebend stretch, [id number] each 6: Discussed discharge planning Skilled Intervention: Patient was educated in proper exercise technique and purpose for exercises. Skilled judgment was provided in selection of appropriate interventions. Billing Therapeutic Exercise Treatment Minutes: 25 Skilled Treatment Time Minutes (timed and untimed codes): 25 Total Session Time (minutes): 25 Session Start Time : 1316 Session Stop Time : 1341 Dian Moyer PT documented in this encounter [facility] 07-27-2023 Note HNO ID: [id number] Author: Kenzie Art PT Service: ? Author Type: Physical Therapist Type: Progress Notes Filed: 07/27/2023 2:54 PM Note Text: Episode Visit Count: 4 Therapist That Will Accept/Oversee The Plan Of Care: Kenzie Art Start of Care Date: 06/29/23 Onset Date: 06/22/23 Plan of Care Certification Date: 06/29/23 Next Certification Due Date: 08/28/23 Patient Identified by Name and Date of : Yes REHABILITATION AND SPORTS THERAPY PHYSICAL THERAPY TREATMENT NOTE ASSESSMENT: Alyson Quinn tolerated the session with no issues. He demonstrated decreased pain compared to last visit at the start of the session. The patient will continue to benefit from ongoing skilled physical therapy to progress toward set goals. PLAN FOR NEXT VISIT: Standing PPT with core strengthening SUBJECTIVE: The exercises are going good. Pain: Pain Pain Level: 0 Pain Location: Leg - Right Pain Level 2: 2 Pain Location 2: Low Back/Lumbar Spine - Right Post Treatment Pain Post Treatment Pain Level: 0 Post Treatment Pain Location: Low Back/Lumbar Spine- Midline OBJECTIVE MEASURES WITH LEVEL OF FUNCTION: Good posture in sitting TREATMENT: Therapeutic Exercise: 2: Supine hip flexor stretch 3 x 30 sec each leg 4: Stri the pot standing holding 15# x 10 CW x 3 sets 5: Standing core bracing with aingle arm 15# bicep curls x 10 each x 3 sets 6: Hooklying TA bracing with alt arm/leg lifts 3 x 10 7: Hooklying PPT with alt marching 3x10 BLE 8: Hooklying PPT 4# MB raises 3 x 15 9: SKTC x 5 each leg holding 15 sec Skilled Intervention: Patient was educated in proper exercise technique and purpose for exercises. Provided written instruction for home exercise program to facilitate proper performance and compliance. Correct performance of therapeutic exercises was facilitated with verbal and visual cuing. Billing Therapeutic Exercise Treatment Minutes: 40 Skilled Treatment Time Minutes (timed and untimed codes): 40 Total Session Time (minutes): 40 Session Start Time : 1407 Session Stop Time : 1447 Kenzie Art PT [facility] 07-27-2023 History of Presen t illness Narrative Episode Visit Count: 4 Therapist That Will Accept/Oversee The Plan Of Care: Kenzie Art Start of Care Date: 06/29/23 Onset Date: 06/22/23 Plan of Care Certification Date: 06/29/23 Next Certification Due Date: 08/28/23 Patient Identified by Name and Date of : Yes REHABILITATION AND SPORTS THERAPY PHYSICAL THERAPY TREATMENT NOTE ASSESSMENT: Alyson Quinn tolerated the session with no issues. He demonstrated decreased pain compared to last visit at the start of the session. The patient will continue to benefit from ongoing skilled physical therapy to progress toward set goals. PLAN FOR NEXT VISIT: Standing PPT with core strengthening SUBJECTIVE: The exercises are going good. Pain: Pain Pain Level: 0 Pain Location: Leg - Right Pain Level 2: 2 Pain Location 2: Low Back/Lumbar Spine - Right Post Treatment Pain Post Treatment Pain Level: 0 Post Treatment Pain Location: Low Back/Lumbar Spine- Midline OBJECTIVE MEASURES WITH LEVEL OF FUNCTION: Good posture in sitting TREATMENT: Therapeutic Exercise: 2: Supine hip flexor stretch 3 x 30 sec each leg 4: Stri the pot standing holding 15# x 10 CW x 3 sets 5: Standing core bracing with aingle arm 15# bicep curls x 10 each x 3 sets 6: Hooklying TA bracing with alt arm/leg lifts 3 x 10 7: Hooklying PPT with alt marching 3x10 BLE 8: Hooklying PPT 4# MB raises 3 x 15 9: SKTC x 5 each leg holding 15 sec Skilled Intervention: Patient was educated in proper exercise technique and purpose for exercises. Provided written instruction for home exercise program to facilitate proper performance and compliance. Correct performance of therapeutic exercises was facilitated with verbal and visual cuing. Billing Therapeutic Exercise Treatment Minutes: 40 Skilled Treatment Time Minutes (timed and untimed codes): 40 Total Session Time (minutes): 40 Session Start Time : 1407 Session Stop Time : 1447 Kenzie Art PT documented in this encounter [facility] 07-20-2023 Note HNO ID: [id number] Author: Kenzie Art PT Service: ? Author Type: Physical Therapist Type: Progress Notes Filed: 07/20/2023 3:42 PM Note Text: Episode Visit Count: 3 Therapist That Will Accept/Oversee The Plan Of Care: Kenzie Art Start of Care Date: 06/29/23 Onset Date: 06/22/23 Plan of Care Certification Date: 06/29/23 Next Certification Due Date: 08/28/23 Patient Identified by Name and Date of : Yes REHABILITATION AND SPORTS THERAPY PHYSICAL THERAPY TREATMENT NOTE ASSESSMENT: Alyson Quinn tolerated the session with no issues. He demonstrated good tolerance to all therapeutic exercises with good form. The patient will continue to benefit from ongoing skilled physical therapy to progress toward set goals. PLAN FOR NEXT VISIT: PPT with strengthening SUBJECTIVE: The exercises are really helping. Loves the hip stretch. Pain: Pain Pain Level: 5 Pain Location: Leg - Right Frequency: Continuous Pain Level 2: 5 Pain Location 2: Low Back/Lumbar Spine - Right Post Treatment Pain Post Treatment Pain Level: 0 Post Treatment Pain Location: Low Back/Lumbar Spine- Midline OBJECTIVE MEASURES WITH LEVEL OF FUNCTION: TREATMENT: Therapeutic Exercise: 3: Seated lumbar flexion x 10 reps holding 10 sec each 4: standing hip flexor stretch, [id number] each 6: *Hooklying PPT with alt UE 2x10 B 7: Hooklying PPT with alt marching 3x10 BLE 8: Hooklying PPT 4# MB raises 2 x 10 9: SKTC x 5 each leg holding 15 sec Skilled Intervention: Patient was educated in proper exercise technique and purpose for exercises. Correct performance of therapeutic exercises was facilitated with verbal and visual cuing. Billing Therapeutic Exercise Treatment Minutes: 41 Skilled Treatment Time Minutes (timed and untimed codes): 41 Total Session Time (minutes): 41 Session Start Time : 1503 Session Stop Time : 1544 Kenzie Art PT [facility] 07-20-2023 History of Presen t illness Narrative Episode Visit Count: 3 Therapist That Will Accept/Oversee The Plan Of Care: Kenzie Art Start of Care Date: 06/29/23 Onset Date: 06/22/23 Plan of Care Certification Date: 06/29/23 Next Certification Due Date: 08/28/23 Patient Identified by Name and Date of : Yes REHABILITATION AND SPORTS THERAPY PHYSICAL THERAPY TREATMENT NOTE ASSESSMENT: Alyson Quinn tolerated the session with no issues. He demonstrated good tolerance to all therapeutic exercises with good form. The patient will continue to benefit from ongoing skilled physical therapy to progress toward set goals. PLAN FOR NEXT VISIT: PPT with strengthening SUBJECTIVE: The exercises are really helping. Loves the hip stretch. Pain: Pain Pain Level: 5 Pain Location: Leg - Right Frequency: Continuous Pain Level 2: 5 Pain Location 2: Low Back/Lumbar Spine - Right Post Treatment Pain Post Treatment Pain Level: 0 Post Treatment Pain Location: Low Back/Lumbar Spine- Midline OBJECTIVE MEASURES WITH LEVEL OF FUNCTION: TREATMENT: Therapeutic Exercise: 3: Seated lumbar flexion x 10 reps holding 10 sec each 4: standing hip flexor stretch, [id number] each 6: *Hooklying PPT with alt UE 2x10 B 7: Hooklying PPT with alt marching 3x10 BLE 8: Hooklying PPT 4# MB raises 2 x 10 9: SKTC x 5 each leg holding 15 sec Skilled Intervention: Patient was educated in proper exercise technique and purpose for exercises. Correct performance of therapeutic exercises was facilitated with verbal and visual cuing. Billing Therapeutic Exercise Treatment Minutes: 41 Skilled Treatment Time Minutes (timed and untimed codes): 41 Total Session Time (minutes): 41 Session Start Time : 1503 Session Stop Time : 1544 Kenzie Art PT documented in this encounter [facility] 07-17-2023 Note HNO ID: [id number] Author: Dian Heaton PT Service: ? Author Type: Physical Therapist Type: Progress Notes Filed: 07/17/2023 1:54 PM Note Text: Episode Visit Count: 2 Therapist That Will Accept/Oversee The Plan Of Care: Dian Moyer Start of Care Date: 06/29/23 Onset Date: 06/22/23 Plan of Care Certification Date: 06/29/23 Next Certification Due Date: 08/28/23 Patient Identified by Name and Date of : Yes REHABILITATION AND SPORTS THERAPY PHYSICAL THERAPY TREATMENT NOTE ASSESSMENT: Alyson Quinn tolerated the session with no issues. He demonstrated improvements in overall pelvic pain. The patient will continue to benefit from ongoing skilled physical therapy to progress toward set goals. PLAN FOR NEXT VISIT: reassessment SUBJECTIVE: Pt reports feeling good since last visit, good compliance with HEP. Pt reports one episode of pain flaring up for a couple minutes but then felt better after stretching, otherwise no pelvic pain at all for the past couple weeks. Pt reports difficulty sleeping in his bed occasionally, states it's a very soft mattress. Pt reports occasional use of foamroller for self-STM. Pain: Pain Pain Level: 0 Post Treatment Pain Post Treatment Pain Level: 0 OBJECTIVE MEASURES WITH LEVEL OF FUNCTION: No acute distress noted. TREATMENT: Therapeutic Exercise: 1: *seated figure-4 stretch, [id number] each 2: *seated hamstring stretch, [id number] each 3: *diaphragmatic breathing, 2x5 breaths 4: *standing hip flexor stretch, [id number] each 5: *standing sidebend stretch, [id number] each Skilled Intervention: Patient was educated in proper exercise technique and purpose for exercises. Reviewed and educated patient on additions/changes for home exercise program as above (*). Skilled judgment was provided in selection of appropriate interventions. Provided written instruction for home exercise program to facilitate proper performance and compliance. Self-Alf Management: 1: Reviewed benefits of a firmer surface for sleeping 2: Reviewed benefits of consistent use of foamroller for self-STM Skilled Intervention: Skilled judgment in the selection of proper modification for activity of daily living/home management based on clinical presentation, deficits, and needs. Billing Therapeutic Exercise Treatment Minutes: 20 Self-Care/Home Management Treatment Minutes: 8 Skilled Treatment Time Minutes (timed and untimed codes): 28 Total Session Time (minutes): 28 Session Start Time : 1324 Session Stop Time : 1352 Dian Moyer, PT [facility] 07-17-2023 History of Presen t illness Narrative Episode Visit Count: 2 Therapist That Will Accept/Oversee The Plan Of Care: Dian Moyer Start of Care Date: 06/29/23 Onset Date: 06/22/23 Plan of Care Certification Date: 06/29/23 Next Certification Due Date: 08/28/23 Patient Identified by Name and Date of : Yes REHABILITATION AND SPORTS THERAPY PHYSICAL THERAPY TREATMENT NOTE ASSESSMENT: Alyson Qiunn tolerated the session with no issues. He demonstrated improvements in overall pelvic pain. The patient will continue to benefit from ongoing skilled physical therapy to progress toward set goals. PLAN FOR NEXT VISIT: reassessment SUBJECTIVE: Pt reports feeling good since last visit, good compliance with HEP. Pt reports one episode of pain flaring up for a couple minutes but then felt better after stretching, otherwise no pelvic pain at all for the past couple weeks. Pt reports difficulty sleeping in his bed occasionally, states it's a very soft mattress. Pt reports occasional use of foamroller for self-STM. Pain: Pain Pain Level: 0 Post Treatment Pain Post Treatment Pain Level: 0 OBJECTIVE MEASURES WITH LEVEL OF FUNCTION: No acute distress noted. TREATMENT: Therapeutic Exercise: 1: *seated figure-4 stretch, [id number] each 2: *seated hamstring stretch, [id number] each 3: *diaphragmatic breathing, 2x5 breaths 4: *standing hip flexor stretch, [id number] each 5: *standing sidebend stretch, 1y90san each Skilled Intervention: Patient was educated in proper exercise technique and purpose for exercises. Reviewed and educated patient on additions/changes for home exercise program as above (*). Skilled judgment was provided in selection of appropriate interventions. Provided written instruction for home exercise program to facilitate proper performance and compliance. Self-Alf Management: 1: Reviewed benefits of a firmer surface for sleeping 2: Reviewed benefits of consistent use of foamroller for self-STM Skilled Intervention: Skilled judgment in the selection of proper modification for activity of daily living/home management based on clinical presentation, deficits, and needs. Billing Therapeutic Exercise Treatment Minutes: 20 Self-Care/Home Management Treatment Minutes: 8 Skilled Treatment Time Minutes (timed and untimed codes): 28 Total Session Time (minutes): 28 Session Start Time : 1324 Session Stop Time : 1352 Dian Moyer PT documented in this encounter [facility] 07-13-2023 Note HNO ID: [id number] Author: Kenzie Art PT Service: ? Author Type: Physical Therapist Type: Progress Notes Filed: 07/13/2023 3:46 PM Note Text: Episode Visit Count: 2 Therapist That Will Accept/Oversee The Plan Of Care: Kenzie Art Start of Care Date: 06/29/23 Onset Date: 06/22/23 Plan of Care Certification Date: 06/29/23 Next Certification Due Date: 08/28/23 Patient Identified by Name and Date of : Yes REHABILITATION AND SPORTS THERAPY PHYSICAL THERAPY TREATMENT NOTE ASSESSMENT: Alyson Quinn tolerated the session with fatigue and decreased symptoms. He demonstrated difficulty with hooklying PPT with alt LE marching. The patient will continue to benefit from ongoing skilled physical therapy to progress toward set goals. PLAN FOR NEXT VISIT: Asses response to PPT exercicse, advance as tolerated . SUBJECTIVE: Pt reports that his low back is a little sore today. Pain: Pain Pain Level: 7 Pain Location: Leg - Right Description: ( needles ) Frequency: Continuous Pain Level 2: 7 Pain Location 2: Low Back/Lumbar Spine - Right Post Treatment Pain Post Treatment Pain Level: 2 Post Treatment Pain Location: Low Back/Lumbar Spine- Midline OBJECTIVE MEASURES WITH LEVEL OF FUNCTION: Increased tightness of R hip flexor compared to L TREATMENT: Therapeutic Exercise: 1: Standing hip flexor stretch 2x30 seconds (good stretch in hip flexors, pain in low back, gave in supine for HEP.) 2: Seated repeated lumbar flexion x10 3: Seated lumbar flexion stretch 3x30 second holds ( feels great ) 4: *Supine hip flexor stretch with LE off edge of table 3x30 seconds B 5: Hooklying PPT 2x 10 reps 6: *Hooklying PPT with alt UE 2x10 B 7: Hooklying PPT with alt marching 3x3 BLE 8: Hooklying push into physioball with TA activation 2x10 Skilled Intervention: Patient was educated in proper exercise technique and purpose for exercises. Reviewed and educated patient on additions/changes for home exercise program as above (*). Skilled judgment was provided in selection of appropriate interventions. Provided written instruction for home exercise program to facilitate proper performance and compliance. Correct performance of therapeutic exercises was facilitated with verbal and visual cuing. Billing Therapeutic Exercise Treatment Minutes: 38 Skilled Treatment Time Minutes (timed and untimed codes): 38 Total Session Time (minutes): 38 Session Start Time : 1438 Session Stop Time : 1516 BUFFY Pace PT [facility] 06-29-2023 Note HNO ID: [id number] Author: Dian Heaton, PT Service: ? Author Type: Physical Therapist Type: Progress Notes Filed: 06/29/2023 2:11 PM Note Text: Episode Visit Count: 1 Therapist That Will Accept/Oversee The Plan Of Care: Dian Moyer Start of Care Date: 06/29/23 Onset Date: 06/22/23 Plan of Care Certification Date: 06/29/23 Next Certification Due Date: 08/28/23 Patient Identified by Name and Date of : Yes REHABILITATION AND SPORTS THERAPY PHYSICAL THERAPY EVALUATION PLAN OF CARE: Assessment: Alyson Quinn presents with chief complaint of pelvic pain that interferes with sitting, sleeping . He presents with impairments in decreased flexibility in BLE. PROMIS? (Patient-Reported Outcomes Measurement Information System) scores were reviewed and physical function domain and self efficacy domain identified as within normal limits. Prognosis for therapy is Good due to: current objective clinical presentation . He will benefit from skilled therapy services to meet the goals established for this plan of care as noted below. Goals for Episode of Care: created on 06/29/23 through 08/28/23 [place] in home exercise program. Patient will increase flexibility of BLE to WNL to decrease pain. Perform sitting and sleeping with at least 75% improvement in pain compared to IE. Patient Goals: improve pain Planned Interventions, Frequency, and Duration: Current Frequency: 1x every other week Duration: 4 weeks (reassess at 4 weeks and progress as indicated) Total Number of Visits Planned: 2 Planned Treatment Interventions: Therapeutic exercise (80851), Manual therapy (40861), Self-half-way management (12771), Patient/Family/Caregiver Education PLAN FOR NEXT VISIT: progress stretches as tolerated Patient demonstrates good understanding of plan of care and treatment. The above goals and plan of care were discussed and agreed upon by patient/family. SUBJECTIVE: Pt returns to PFPT for pelvic pain, does state pelvic pain has improved a little bit over the past few months but then flared up again last week. Pt reports pain is worst while sitting or finding a comfortable sleeping position, tried using a donut pillow for sitting but now feels like he doesn't need it. Pt reports overall his pelvis is feeling better but would like to be able to sit and sleep more easily. Patient Goals: improve pain Functional Limitations: sitting, sleeping Prior Level of Function: Independent without limitations Relevant History Past Relevant Medical Conditions: (see note) Past Relevant Surgical Conditions: (see note) Employment: Unemployed Recreation / Current Exercise: walking Intake Information: Prescription present PAST MEDICAL HISTORY Diagnosis Date Bipolar 2 disorder (HCC) Dr. Justice, psych Degenerative disc disease Dr. 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 5 points is clinically meaningfully difference Percentiles provide an indication of how the patient's score ranks in relation to the general population. Higher percentile rankings indicate better function/quality of life. 50th percentile is the average of the general population and indicates half of respondents had a worse score. OBJECTIVE MEASURES WITH LEVEL OF FUNCTION: Pelvic Floor Urinary/Bowel History : Urinary History, Bowel History Difficulty starting stream: No Incomplete emptying: No Stress Incontinence: No Urgency: No Nocturia (times per night): 1 Daytime Frequency (hours): 2-3 Fluid Intake: Pop/Diet Pop, Water (8 oz measurements) Water : 1-2 Pop/Diet Pop : 3 liters/day Difficulty evacuating / Excessive Straining: No Incomplete emptying: No Bowel Movement Frequency: 1x/day Fecal incontinence: No Pelvic Floor Muscle Assessment Consent for pelvic assessment/testing and treatment: Patient was educated regarding pelvic floor physical therapy assessment/treatment which may include pelvic floor and girdle muscle assessment externally or internally (vaginal or rectal approach)., Patient verbalized consent for the above jong (more content not included)... [facility] 06-29-2023 History of Presen t illness Narrative Episode Visit Count: 1 Therapist That Will Accept/Oversee The Plan Of Care: Dian Moyer Start of Care Date: 06/29/23 Onset Date: 06/22/23 Plan of Care Certification Date: 06/29/23 Next Certification Due Date: 08/28/23 Patient Identified by Name and Date of : Yes REHABILITATION AND SPORTS THERAPY PHYSICAL THERAPY EVALUATION PLAN OF CARE: Assessment: Alyson Quinn presents with chief complaint of pelvic pain that interferes with sitting, sleeping . He presents with impairments in decreased flexibility in BLE. PROMIS (Patient-Reported Outcomes Measurement Information System) scores were reviewed and physical function domain and self efficacy domain identified as within normal limits. Prognosis for therapy is Good due to: current objective clinical presentation . He will benefit from skilled therapy services to meet the goals established for this plan of care as noted below. Goals for Episode of Care: created on 06/29/23 through 08/28/23 [place] in home exercise program. Patient will increase flexibility of BLE to WNL to decrease pain. Perform sitting and sleeping with at least 75% improvement in pain compared to IE. Patient Goals: improve pain Planned Interventions, Frequency, and Duration: Current Frequency: 1x every other week Duration: 4 weeks (reassess at 4 weeks and progress as indicated) Total Number of Visits Planned: 2 Planned Treatment Interventions: Therapeutic exercise (72921), Manual therapy (57778), Self-half-way management (85893), Patient/Family/Caregiver Education PLAN FOR NEXT VISIT: progress stretches as tolerated Patient demonstrates good understanding of plan of care and treatment. The above goals and plan of care were discussed and agreed upon by patient/family. SUBJECTIVE: Pt returns to PFPT for pelvic pain, does state pelvic pain has improved a little bit over the past few months but then flared up again last week. Pt reports pain is worst while sitting or finding a comfortable sleeping position, tried using a donut pillow for sitting but now feels like he doesn't need it. Pt reports overall his pelvis is feeling better but would like to be able to sit and sleep more easily. Patient Goals: improve pain Functional Limitations: sitting, sleeping Prior Level of Function: Independent without limitations Relevant History Past Relevant Medical Conditions: (see note) Past Relevant Surgical Conditions: (see note) Employment: Unemployed Recreation / Current Exercise: walking Intake Information: Prescription present PAST MEDICAL HISTORY Diagnosis Date Bipolar 2 disorder (HCC) Dr. Justice, psych Degenerative disc disease Dr. 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 5 points is clinically meaningfully difference Percentiles provide an indication of how the patient's score ranks in relation to the general population. Higher percentile rankings indicate better function/quality of life. 50th percentile is the average of the general population and indicates half of respondents had a worse score. OBJECTIVE MEASURES WITH LEVEL OF FUNCTION: Pelvic Floor Urinary/Bowel History : Urinary History, Bowel History Difficulty starting stream: No Incomplete emptying: No Stress Incontinence: No Urgency: No Nocturia (times per night): 1 Daytime Frequency (hours): 2-3 Fluid Intake: Pop/Diet Pop, Water (8 oz measurements) Water : 1-2 Pop/Diet Pop : 3 liters/day Difficulty evacuating / Excessive Straining: No Incomplete emptying: No Bowel Movement Frequency: 1x/day Fecal incontinence: No Pelvic Floor Muscle Assessment Consent for pelvic assessment/testing and treatment: Patient was educated regarding pelvic floor physical therapy assessment/treatment which may include pelvic floor and girdle muscle assessment externally or internally (vaginal or rectal approach)., Patient verbalized consent for the above treatment approaches today. Patient understands they have control of the treatment and an opportunity to stop treatment at any time. (assessed externally over clothes) Diaphragmatic Breathing : Good Pelvic Floor Manual Assessment External Pelvic Region Tenderness/ Hyperactivity - Trunk: Lower abdominals Lower abdominals: (No tenderness noted.) Pelvic Floor Tenderness/Hyperactivity: Tested Externally in Tested Externally in: Sidelying (No tenderness reported.) LE AROM R LE AROM: WFL L LE AROM: WFL LE Flexibility Flexibility: Hamstring Flexibility, Hip Flexor Flexibility, Hip Adductor, Hip Internal Rotation Flexibility, Hip External Rotation Flexibility R Hamstring Flexibility: Min restrictions L Hamstring Flexibility: Min restrictions R Hip Flexor Flexibility: Mod restrictions L Hip Flexor Flexibility: Mod restrictions R Adductor Flexibility: WNL L Adductor Flexibility: WNL R Hip Internal Rotation Flexibility: WNL L Hip Internal Rotation Flexibility: WNL R Hip External Rotation Flexibility: WNL L Hip External Rotation Flexibility: WNL LE Strength Trunk Strength: Lower Abdominals: 4/5 R LE Strength: 5/5 L LE Strength: 5/5 Education: Education Learning Preferences: Demonstration, Explanation, Performance, Printed Materials Barriers: None Learning/educational needs: Home exercise program, Plan of Care Education Provided: Yes, see treatment interventions for education provided Education Provided To: Patient Education Mode/Type: Demonstration, Explanation/Discussion, Literature/Printed Materials, Performance Response to Education/Teach Back: States/Identifies, Return Demonstration TREATMENT: PT Treatment Interventions: Therapeutic Exercise, Self-Alf Management Evaluation Therapeutic Exercise: 1: *supine hip flexor stretch, [id number] each 2: *supine adductor stretch with diaphragmatic breathing, 2x5 breaths 3: *hooklying figure-4 stretch, 2c57vkg each 4: *standing adductor stretch, 6a32juv each 5: *standing calf stretch, 0c45vej each Skilled Intervention: Patient was educated in proper exercise technique and purpose for exercises. Reviewed and educated patient on additions/changes for home exercise program as above (*). Skilled judgment was provided in selection of appropriate interventions. Provided written instruction for home exercise program to facilitate proper performance and compliance. Self-Alf Management: 1: Reviewed importance of avoiding prolonged positions, such as prolonged sitting 2: Reviewed benefits of increasing overall activity levels to improve endurance, circulation, and decrease pain 3: Reviewed various sleeping positions and benefits of propping with pillows to decrease pain with sleeping 4: Reviewed benefits of using foamroller or tennis ball for self-STM 5: Reviewed importance of increasing water intake and decreasing bladder irritant intake Skilled Intervention: Skilled judgment in the selection of proper modification for activity of daily living/home management based on clinical presentation, deficits, and needs. Billing * Evaluation Low Complexity: 1 Unit Therapeutic Exercise Treatment Minutes: 13 Self-Care/Home Management Treatment Minutes: 12 Total Treatment Time Minutes (timed/untimed): 39 Session Start Time : 1322 Session Stop Time : 1401 Dian Moyer PT documented in this encounter [facility] 06-28-2023 Note HNO ID: [id number] Author: Sarah Todd Service: ? Author Type: ? Type: Progress Notes Filed: 06/28/2023 4:13 PM Note Text: POPULATION HEALTH NAVIGATION OUTREACH Action/[facility] [place] Support: Called pt to schedule an appt in Pain Management. Lvm for pt to call [phone] for scheduling. Patient Identified by Name and : NO Outreach Outcome/Action Unable to reach patient: Left message Did you use a PCP flex slot to schedule this appointment? No Reason for Outreach Care Gap or Scheduling/Wellness visits Payer: Payor: [employer] [employer] / Plan: [place] [facility] MEDICAID [facility] / Product Type: Medicaid / Care Gap Reviewed:: Specialty Scheduling Reminder: Reminder note to check Health Maintenance for items below Health Maintenance items due: HEPATITIS B(1 of 3 - 3-dose series) Never done PNEUMOCOCCAL(1 - PCV) Never done BP CONTROLLED (<130/80) Never done DTAP,TDAP,TD(1 - Tdap) Never done COVID-19 VACCINE(3 - Moderna series) due on 08/29/2021 DEPRESSION ASSESSMENT Never done Navigation Signature: Sarah Todd June 28, 2023 4:09 PM [facility] 06-28-2023 History of Presen t illness Narrative POPULATION HEALTH NAVIGATION OUTREACH Action/[facility] [place] Support: Called pt to schedule an appt in Pain Management. Lvm for pt to call [phone] for scheduling. Patient Identified by Name and : NO Outreach Outcome/Action Unable to reach patient: Left message Did you use a PCP flex slot to schedule this appointment? No Reason for Outreach Care Gap or Scheduling/Wellness visits Payer: Payor: [employer] [employer] / Plan: [employer] [facility] MEDICAID [facility] / Product Type: Medicaid / Care Gap Reviewed:: Specialty Scheduling Reminder: Reminder note to check Health Maintenance for items below Health Maintenance items due: HEPATITIS B(1 of 3 - 3-dose series) Never done PNEUMOCOCCAL(1 - PCV) Never done BP CONTROLLED (<130/80) Never done DTAP,TDAP,TD(1 - Tdap) Never done COVID-19 VACCINE(3 - Moderna series) due on 08/29/2021 DEPRESSION ASSESSMENT Never done Navigation Signature: Sarah Todd June 28, 2023 4:09 PM documented in this encounter [facility] 06-28-2023 Note HNO ID: [id number] Author: Kenzie Art, PT Service: ? Author Type: Physical Therapist Type: Progress Notes Filed: 06/28/2023 2:44 PM Note Text: Episode Visit Count: 1 Therapist That Will Accept/Oversee The Plan Of Care: Kenzie Art Start of Care Date: 06/28/23 Onset Date: ( Too long to say ) Plan of Care Certification Date: 06/28/23 Next Certification Due Date: 08/02/23 Patient Identified by Name and Date of : Yes REHABILITATION AND SPORTS THERAPY PHYSICAL THERAPY EVALUATION PLAN OF CARE: Assessment: Alyson Quinn presents with chief complaint of LBP and RLE symptoms that interferes with walking, standing, lifting . He presents with impairments in ADL's, flexibility, posture, and symptom management. PROMIS? (Patient-Reported Outcomes Measurement Information System) scores were reviewed and all domains identified as a rehabilitation concern. Prognosis for therapy is Good due to: current objective clinical presentation . Most pertinent findings are tight hip flexors and poor lumbo-pelvic posture in standing. He will benefit from skilled therapy services to meet the goals established for this plan of care as noted below. Classification Low Back Pain Subgroup Classification: Specific exercise subgroup: recommended visits 8. Specific Exercies Subgroup Classification based on: directional preference, peripheralization, centralization Goals for Episode of Care: created on 06/28/23 through 08/23/23 [place] in home exercise program. Perform standing and walking for 45 minutes without pain. Improve flexibility of hip flexors to WNL for decreased extension force on L spine in 8 weeks or less Patient Goals: Reduce pain Planned Interventions, Frequency, and Duration: Current Frequency: 1x/week Duration: 4 weeks Total Number of Visits Planned: 4 Planned Treatment Interventions: Neuromuscular re-education (15618), Therapeutic exercise (54335), Manual therapy (83657), Self-half-way management (92780), Patient/Family/Caregiver Education PLAN FOR NEXT VISIT: Stretch hip flexors. Flexion of L spine Patient demonstrates good understanding of plan of care and treatment. The above goals and plan of care were discussed and agreed upon by patient/family. SUBJECTIVE: Low back pain. Standing too long and walking and lifting. Sitting feels better. Pain down the R leg to the knee. Can stand 20-30 min then hurts worse in the back then into the R leg. Patient Goals: Reduce pain Functional Limitations: walking, standing, lifting Prior Level of Function: Independent without limitations Intake Information: Prescription present Previous Treatment: None Pain: Pain Pain Level: 2 Pain Location: Leg - Right Description: Sharp, Tingling Additional Pain Information : Location 2 Pain Level 2: 3 Pain Location 2: Low Back/Lumbar Spine - Right Description 2: ( Feels like the spine will snap if he moves wrong ) PROMIS Scales Higher is Better 06/28/2023 Phys Func - Score 45 (within normal limits) Phys Func - Percentile 31 % Self-Eff Symptom - Score 50 (Average) Self-Eff Symptom - Percentile 50 % T-scores: mean of general population = 50. 5 points is clinically meaningfully difference Percentiles provide an indication of how the patient's score ranks in relation to the general population. Higher percentile rankings indicate better function/quality of life. 50th percentile is the average of the general population and indicates half of respondents had a worse score. OBJECTIVE MEASURES WITH LEVEL OF FUNCTION: Lumbar Spine AROM Lumbar Flexion: Normal, Increased pain Lumbar Extension: End range pain, Normal Lumbar R Side-Bend: Normal Lumbar L Side-Bend: Centralizing, Normal Lumbar R Rotation: Normal, Peripheralizing Lumbar L Rotation: Normal LE AROM Tested?: Yes LE Flexibility Flexibility: Hamstring Flexibility, Hip Flexor Flexibility R Hamstring Flexibility: Tight L Hamstring Flexibility: Tight R Hip Flexor Flexibility: Mod tightness L Hip Flexor Flexibility: Min tightness LE Strength R LE Strength: Grossly 5/5 L LE Strength: Grossly 5/5 Education: Education Learning Preferences: Demonstration, Explanation, Performance, Printed Materials Barriers: None Learning/educational needs: Plan of Care, Home exercise program Education Provided: Yes, see treatment interventions for education provided Education Provided To: Patient Education Mode/Type: Demonstration, Explanation/Discussion, Literature/Printed Materials, Performance Response to Education/Teach Back: States/Identifies, Return Demonstration TREATMENT: PT Treatment Interventions: Therapeutic Exercise Evaluation Therapeutic Exercise: 1: Discussed therapy goals, exam findings, and purpose of the HEP. Discussed anatomy of the L spine and how tight hip flexors can increase nerve compression when walking due to anterior pull of iliopsoas. 2: Standing hip flexor stretc (more content not included)... [facility] 06-28-2023 Note Patient Outreach (VERÓNICA TNAV) ALYSON QUINN ([id number]) 1985 M Date Time Provider Department 06/28/23 NO PCP NETGITAV During your visit today, we recorded the following information about you: Sarah Todd 06/28/2023 4:13 PM Signed POPULATION HEALTH NAVIGATION OUTREACH Action/I [place] Support: Called pt to schedule an appt in Pain Management. Lvm for pt to call [phone] for scheduling. Patient Identified by Name and : NO Outreach Outcome/Action Unable to reach patient: Left message Did you use a PCP flex slot to schedule this appointment? No Reason for Outreach Care Gap or Scheduling/Wellness visits Payer: Payor: [employer] / Plan: [employer] [facility] MEDICAID [facility] / Product Type: Medicaid / Care Gap Reviewed:: Specialty Scheduling Reminder: Reminder note to check Health Maintenance for items below Health Maintenance items due: HEPATITIS B(1 of 3 - 3-dose series) Never done PNEUMOCOCCAL(1 - PCV) Never done BP CONTROLLED (<130/80) Never done DTAP,TDAP,TD(1 - Tdap) Never done COVID-19 VACCINE(3 - Moderna series) due on 08/29/2021 DEPRESSION ASSESSMENT Never done Navigation Signature: Sarah Todd June 28, 2023 4:09 PM Allergies As of Date: 06/28/2023 Noted Allergy Reaction PENICILLINS 02/12/2012 4 - Hives Date Reviewed: 06/22/2023 Reviewed by: Melisa Lau LPN - Fully Assessed Prescriptions as of 06/28/2023 - amitriptyline (ELAVIL) 50 mg tablet Take 1 tablet by mouth daily at bedtime. - FLUoxetine (PROZAC) 10 mg capsule Take 10 mg by mouth once daily. - omeprazole (PRILOSEC) 20 mg capsule Take 1 capsule by mouth daily before breakfast. 1/2 hr before meal. - naproxen (NAPROSYN) 500 mg tablet Take 500 mg by mouth twice daily with meals. - levoFLOXacin (LEVAQUIN) 500 mg tablet Take 500 mg by mouth once daily. X 10 days. Ordered previously. Patient states five days remaining. - HYDROcodone-Acetaminophen (NORCO) 7.5-325 mg per tablet Take 1 tablet by mouth every 6 hours as needed for pain. - topiramate (TOPAMAX) 25 mg tablet Take 25 mg by mouth. 1 twice daily - diphenhydrAMINE (BENADRYL) 25 mg capsule Take 25 mg by mouth once daily. daily - cariprazine (VRAYLAR) 3 mg capsule Take 6 mg by mouth once daily. [facility]-Administered Medications as of 06/28/2023 - perflutren lipid microspheres 1.3 mL in NaCl (PF) 0.9% 10 mL injection (DEFINITY) - sodium chloride 0.9 % (flush) 10 mL (BD POSIFLUSH) Problem List As Of Date 06/28/2023 Noted Resolved HTN (hypertension) [I10] 06/21/2012 Hyperlipidemia [E78.5] 06/21/2012 Pain in back [M54.9] 06/21/2012 01/11/2017 Depression [F32.A] 06/21/2012 01/11/2017 GERD (gastroesophageal reflux disease) [K21.9] 06/21/2012 Tobacco use [Z72.0] 06/21/2012 Marijuana abuse [F12.10] 2012 Lumbar radiculopathy [M54.16] 09/30/2012 01/11/2017 Lumbar strain [S39.012A] 09/30/2012 01/11/2017 DDD (degenerative disc disease), lumbar [M51.36]09/30/2012 Degenerative disc disease [WRT5690] 01/11/2017 Bipolar 2 disorder (HCC) [F31.81] Cervicalgia [M54.2] 10/21/2013 Chronic migraine without aura, with intractable*10/22/2014 01/11/2017 Obesity, Class III, BMI 40-49.9 (morbid obesity*02/13/2018 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] 10/20/2022 Encounter Status:Closed by SARAH TODD on 06/28/23 [facility] 06-28-2023 History of Presen t illness Narrative Episode Visit Count: 1 Therapist That Will Accept/Oversee The Plan Of Care: Kenzie Art Start of Care Date: 06/28/23 Onset Date: ( Too long to say ) Plan of Care Certification Date: 06/28/23 Next Certification Due Date: 08/02/23 Patient Identified by Name and Date of : Yes REHABILITATION AND SPORTS THERAPY PHYSICAL THERAPY EVALUATION PLAN OF CARE: Assessment: Alyson Quinn presents with chief complaint of LBP and RLE symptoms that interferes with walking, standing, lifting . He presents with impairments in ADL's, flexibility, posture, and symptom management. PROMIS (Patient-Reported Outcomes Measurement Information System) scores were reviewed and all domains identified as a rehabilitation concern. Prognosis for therapy is Good due to: current objective clinical presentation . Most pertinent findings are tight hip flexors and poor lumbo-pelvic posture in standing. He will benefit from skilled therapy services to meet the goals established for this plan of care as noted below. Classification Low Back Pain Subgroup Classification: Specific exercise subgroup: recommended visits 8. Specific Exercies Subgroup Classification based on: directional preference, peripheralization, centralization Goals for Episode of Care: created on 06/28/23 through 08/23/23 [place] in home exercise program. Perform standing and walking for 45 minutes without pain. Improve flexibility of hip flexors to WNL for decreased extension force on L spine in 8 weeks or less Patient Goals: Reduce pain Planned Interventions, Frequency, and Duration: Current Frequency: 1x/week Duration: 4 weeks Total Number of Visits Planned: 4 Planned Treatment Interventions: Neuromuscular re-education (18230), Therapeutic exercise (44645), Manual therapy (63588), Self-half-way management (87250), Patient/Family/Caregiver Education PLAN FOR NEXT VISIT: Stretch hip flexors. Flexion of L spine Patient demonstrates good understanding of plan of care and treatment. The above goals and plan of care were discussed and agreed upon by patient/family. SUBJECTIVE: Low back pain. Standing too long and walking and lifting. Sitting feels better. Pain down the R leg to the knee. Can stand 20-30 min then hurts worse in the back then into the R leg. Patient Goals: Reduce pain Functional Limitations: walking, standing, lifting Prior Level of Function: Independent without limitations Intake Information: Prescription present Previous Treatment: None Pain: Pain Pain Level: 2 Pain Location: Leg - Right Description: Sharp, Tingling Additional Pain Information : Location 2 Pain Level 2: 3 Pain Location 2: Low Back/Lumbar Spine - Right Description 2: ( Feels like the spine will snap if he moves wrong ) PROMIS Scales Higher is Better 06/28/2023 Phys Func - Score 45 (within normal limits) Phys Func - Percentile 31 % Self-Eff Symptom - Score 50 (Average) Self-Eff Symptom - Percentile 50 % T-scores: mean of general population = 50. 5 points is clinically meaningfully difference Percentiles provide an indication of how the patient's score ranks in relation to the general population. Higher percentile rankings indicate better function/quality of life. 50th percentile is the average of the general population and indicates half of respondents had a worse score. OBJECTIVE MEASURES WITH LEVEL OF FUNCTION: Lumbar Spine AROM Lumbar Flexion: Normal, Increased pain Lumbar Extension: End range pain, Normal Lumbar R Side-Bend: Normal Lumbar L Side-Bend: Centralizing, Normal Lumbar R Rotation: Normal, Peripheralizing Lumbar L Rotation: Normal LE AROM Tested?: Yes LE Flexibility Flexibility: Hamstring Flexibility, Hip Flexor Flexibility R Hamstring Flexibility: Tight L Hamstring Flexibility: Tight R Hip Flexor Flexibility: Mod tightness L Hip Flexor Flexibility: Min tightness LE Strength R LE Strength: Grossly 5/5 L LE Strength: Grossly 5/5 Education: Education Learning Preferences: Demonstration, Explanation, Performance, Printed Materials Barriers: None Learning/educational needs: Plan of Care, Home exercise program Education Provided: Yes, see treatment interventions for education provided Education Provided To: Patient Education Mode/Type: Demonstration, Explanation/Discussion, Literature/Printed Materials, Performance Response to Education/Teach Back: States/Identifies, Return Demonstration TREATMENT: PT Treatment Interventions: Therapeutic Exercise Evaluation Therapeutic Exercise: 1: Discussed therapy goals, exam findings, and purpose of the HEP. Discussed anatomy of the L spine and how tight hip flexors can increase nerve compression when walking due to anterior pull of iliopsoas. 2: Standing hip flexor stretch x 30 (Not too much of a stretch felt (anterior pelvic tilt observed)) 3: Captain alma stretch on chair 2 x 30 sec 4: Hooklying PPT x 10 reps Skilled Intervention: Patient was educated in proper exercise technique and purpose for exercises. Provided written instruction for home exercise program to facilitate proper performance and compliance. Correct performance of therapeutic exercises was facilitated with verbal and visual cuing. Billing * Evaluation Low Complexity: 1 Unit Therapeutic Exercise Treatment Minutes: 24 Total Treatment Time Minutes (timed/untimed): 47 Session Start Time : 1348 Session Stop Time : 1435 Kenzie Art PT documented in this encounter [facility] 06-22-2023 Note HNO ID: [id number] Author: Edmund Mckenzie PA-C Service: ? Author Type: Physician Bottom Precipitator Operator Type: Progress Notes Filed: 06/22/2023 4:37 PM Note Text: [facility] EST PATIENT CLINIC NOTE NAME: Alyson Quinn CHIEF COMPLAINT: Testicle Pain/ Pelvic floor follow -up HISTORY OF PRESENT ILLNESS: Alyson Quinn is a 37 year old Male with PMH including HTN and Bipolar disease presenting with Bilateral Testicle pain The patient reports that he has pain that is worsened by sitting and can be in rectum, perineum, tip of penis and bilateral testicles After full review of his symptoms we discussed Pelvic floor dysfunction and the number of symptoms that can occur. I re-ordered pelvic floor PT evaluation and starting 50 mg Elavil at bedtime, I think his insurance needed a new order at the start of the new year and he thought we would schedule so I think just miscommunication Needs to be seen by PFPT again it was working well LUTS: DYSURIA: no URGENCY: Yes FREQUENCY:7 per day NOCTURIA: 2 per night STRAINING TO VOID: Yes EMPTIES COMPLETELY: Yes UTI: No GROSS HEMATURIA: no MICROSCOPIC HEMATURIA: no UA DIPSTICK POSITIVE ONLY: no Other symptoms: ED - yes and pain with ejaculation LABS: No results found for: TESTOST No results found for: TESTFREE No results found for: PSA Hematocrit (%) Date Value 06/01/2022 48.5 05/11/2022 53.3 04/04/2021 52.5 06/25/2017 51.4 05/31/2016 50.7 MEDICATIONS: FLUoxetine (PROZAC) 10 mg capsuleTake 10 mg by mouth once daily.Disp: Rfl: omeprazole (PRILOSEC) 20 mg capsuleTake 1 capsule by mouth daily before breakfast. 1/2 hr before meal.Disp: 30 capsuleRfl: 5 HYDROcodone-Acetaminophen (NORCO) 7.5-325 mg per tabletTake 1 tablet by mouth every 6 hours as needed for pain.Disp: 28 tabletRfl: 0 topiramate (TOPAMAX) 25 mg tabletTake 25 mg by mouth. 1 twice dailyDisp: Rfl: diphenhydrAMINE (BENADRYL) 25 mg capsuleTake 25 mg by mouth once daily. dailyDisp: Rfl: cariprazine (VRAYLAR) 3 mg capsuleTake 6 mg by mouth once daily. [facility] Disp: Rfl: naproxen (NAPROSYN) 500 mg tabletTake 500 mg by mouth twice daily with meals.Disp: Rfl: (Patient not taking: Reported on 06/22/2023) levoFLOXacin (LEVAQUIN) 500 mg tabletTake 500 mg by mouth once daily. X 10 days. Ordered previously. Patient states five days remaining.Disp: Rfl: (Patient not taking: Reported on 06/22/2023) amitriptyline (ELAVIL) 50 mg tabletTake 1 tablet by mouth daily at bedtime.Disp: 90 tabletRfl: 3 (Patient not taking: Reported on 06/22/2023) PAST MEDICAL HISTORY: PAST MEDICAL HISTORY Diagnosis Date Bipolar 2 disorder (HCC) Dr. Justice, psych Degenerative disc disease Dr. 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 PHYSICAL EXAMINATION: Blood pressure 144/80, pulse 102, temperature 36.6 ?C (97.9 ?F), temperature source Temporal, resp. rate 20, height 182.9 cm (6'), weight (!) 155 kg (341 lb 12.8 oz), SpO2 95 %. GENERAL: WNL nutrition, no deformities, healthy appearing PROBLEM LIST REVIEW: Yes LABS: PROCEDURES: PVR: 0 ml IMAGING: IMPRESSION/PLAN: 37 year old male with 1. Spastic pelvic floor syndrome - ICD9: 787.99, ICD10: K59.02 2. Pain in both testicles - ICD9: 608.9, ICD10: N50.811, N50.812 > Consult to Pelvic Floor PT soon > Start Elavil 50 mg at bedtime and will need to continue with PFPT to remain on this medication. > follow up if not improving LIZZIE Dash MT, MARYLU [facility] 06-22-2023 Instructions Edmund Mckenzie PA-C - 06/22/2023 3:54 PM EDT > Call PFPT to reschedule appointments > Refilled Elavil 50 mg at bedtime > 1 year Appt w/ BLIZZIE Eid MT, MARYLU for annual follow-up and refills. documented in this encounter [facility] 06-22-2023 History of Presen t illness Narrative Images from the original note were not included. [facility] EST PATIENT CLINIC NOTE NAME: Alyson Quinn CHIEF COMPLAINT: Testicle Pain/ Pelvic floor follow -up HISTORY OF PRESENT ILLNESS: Alyson Quinn is a 37 year old Male with PMH including HTN and Bipolar disease presenting with Bilateral Testicle pain The patient reports that he has pain that is worsened by sitting and can be in rectum, perineum, tip of penis and bilateral testicles After full review of his symptoms we discussed Pelvic floor dysfunction and the number of symptoms that can occur. I re-ordered pelvic floor PT evaluation and starting 50 mg Elavil at bedtime, I think his insurance needed a new order at the start of the new year and he thought we would schedule so I think just miscommunication Needs to be seen by PFPT again it was working well LUTS: DYSURIA: no URGENCY: Yes FREQUENCY:7 per day NOCTURIA: 2 per night STRAINING TO VOID: Yes EMPTIES COMPLETELY: Yes UTI: No GROSS HEMATURIA: no MICROSCOPIC HEMATURIA: no UA DIPSTICK POSITIVE ONLY: no Other symptoms: ED - yes and pain with ejaculation LABS: No results found for: TESTOST No results found for: TESTFREE No results found for: PSA Hematocrit (%) Date Value 06/01/2022 48.5 05/11/2022 53.3 04/04/2021 52.5 06/25/2017 51.4 05/31/2016 50.7 MEDICATIONS: FLUoxetine (PROZAC) 10 mg capsule^Take 10 mg by mouth once daily.^Disp: ^Rfl: omeprazole (PRILOSEC) 20 mg capsule^Take 1 capsule by mouth daily before breakfast. 1/2 hr before meal.^Disp: 30 capsule^Rfl: 5 HYDROcodone-Acetaminophen (NORCO) 7.5-325 mg per tablet^Take 1 tablet by mouth every 6 hours as needed for pain.^Disp: 28 tablet^Rfl: 0 topiramate (TOPAMAX) 25 mg tablet^Take 25 mg by mouth. 1 twice daily^Disp: ^Rfl: diphenhydrAMINE (BENADRYL) 25 mg capsule^Take 25 mg by mouth once daily. daily^Disp: ^Rfl: cariprazine (VRAYLAR) 3 mg capsule^Take 6 mg by mouth once daily. [facility] ^Disp: ^Rfl: naproxen (NAPROSYN) 500 mg tablet^Take 500 mg by mouth twice daily with meals.^Disp: ^Rfl: (Patient not taking: Reported on 06/22/2023) levoFLOXacin (LEVAQUIN) 500 mg tablet^Take 500 mg by mouth once daily. X 10 days. Ordered previously. Patient states five days remaining.^Disp: ^Rfl: (Patient not taking: Reported on 06/22/2023) amitriptyline (ELAVIL) 50 mg tablet^Take 1 tablet by mouth daily at bedtime.^Disp: 90 tablet^Rfl: 3 (Patient not taking: Reported on 06/22/2023) PAST MEDICAL HISTORY: PAST MEDICAL HISTORY Diagnosis Date Bipolar 2 disorder (HCC) Dr. Justice, psych Degenerative disc disease Dr. 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 PHYSICAL EXAMINATION: Blood pressure 144/80, pulse 102, temperature 36.6 C (97.9 F), temperature source Temporal, resp. rate 20, height 182.9 cm (6'), weight (!) 155 kg (341 lb 12.8 oz), SpO2 95 %. GENERAL: WNL nutrition, no deformities, healthy appearing PROBLEM LIST REVIEW: Yes LABS: PROCEDURES: PVR: 0 ml IMAGING: IMPRESSION/PLAN: 37 year old male with 1. Spastic pelvic floor syndrome - ICD9: 787.99, ICD10: K59.02 2. Pain in both testicles - ICD9: 608.9, ICD10: N50.811, N50.812 > Consult to Pelvic Floor PT soon > Start Elavil 50 mg at bedtime and will need to continue with PFPT to remain on this medication. > follow up if not improving LIZZIE Dash MT, PA-C documented in this encounter [facility] 06-18-2023 Note HNO ID: [id number] Author: Shanon Reid RT(R) Service: Radiology Author Type: Technologist Type: Progress Notes Filed: 06/18/2023 7:47 PM Note Text: Radiology Service Progress Note PATIENT NAME: Alyson Quinn DATE OF SERVICE: June 18, 2023 TIME: 7:40 PM PATIENT IDENTITY VERIFICATION COMPLETED USING TWO (2) IDENTIFIERS: Name and Date of confirmed by patient verbally. FALL SCREENING: Has the patient had 2 falls in the last year or 1 fall with injury or currently using an Ambulatory Assistive Device (Walker, Cane, Wheelchair, Crutches, etc.)? No PATIENT GENDER DATA: Male PATIENT RELEVANT IMPLANT DATA REVIEWED: Not Applicable RADIOLOGY DEPARTMENT: General X-ray: Exam(s) Completed: Spine X-Ray(s): Lumbar AP / LAT / L5-S1 PERIPHERAL IV DATA: Not applicable SIGNED BY: RT Luis(R) June 18, 2023 7:40 PM [facility] 06-18-2023 Note HNO ID: [id number] Author: Jessie Blackwell MD Service: ? Author Type: Physician Type: Progress Notes Filed: 06/18/2023 7:15 PM Note Text: Patient presents with: ER F/U HPI: Patient presents today for office visit for follow up. HOSPITAL/ER FOLLOW UP: Reason for visit: testicular pain Which facility: [facility] Date of visit: 06/16/23 Diagnosis: spastic pelvic floor symdrome, lumbar degenerative disc disease Testing done: reports US to be sure bladder was not obstructed Treatment given: percocet and valium Current symptoms: Feels like when he sits is sitting on his right testicle. Bilateral feet/leg edema wearing diabetic socks for them and they are leaving indents in legs. The edema has been going on for a couple of months with the rest of these issues while he has been stuck in the chair unable to lay down. Stay swollen all the time. States that is doing the stretches and exercises as he was instructed. Issues have been on and off since Aug. Hasn't been able to lie down since Aug. Started on Sunday night with the feeling of pelvic spasms again and that is when he went to ER. Denies fever, dysuria, or hematuria Appears he has been going back to ER multiple times He has had multiple ct's and ultrasounds. He only went a few times to physical therapy and has not followed up again with urology. Back is bothering him more again. He having worsening pain in his lower back and down his right leg. Has had xrays and lumbar mri's remotely. No new injuries. No urinary or bladder incontinence. MEDICATIONS: Current Outpatient Medications Medication Sig omeprazole (PRILOSEC) 20 mg capsule Take 1 capsule by mouth daily before breakfast. 1/2 hr before meal. naproxen (NAPROSYN) 500 mg tablet Take 500 mg by mouth twice daily with meals. levoFLOXacin (LEVAQUIN) 500 mg tablet Take 500 mg by mouth once daily. X 10 days. Ordered previously. Patient states five days remaining. amitriptyline (ELAVIL) 50 mg tablet Take 1 tablet by mouth daily at bedtime. HYDROcodone-Acetaminophen (NORCO) 7.5-325 mg per tablet Take 1 tablet by mouth every 6 hours as needed for pain. topiramate (TOPAMAX) 25 mg tablet Take 25 mg by mouth. 1 twice daily diphenhydrAMINE (BENADRYL) 25 mg capsule Take 25 mg by mouth. daily cariprazine (VRAYLAR) 3 mg capsule Take 6 mg by mouth once daily. [facility] No current facility-administered medications for this visit. ALLERGIES: ALLERGIES Allergen Reactions Penicillins Hives PAST MEDICAL HISTORY Diagnosis Date Bipolar 2 disorder (HCC) Dr. Justice, psych Degenerative disc disease Dr. 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 Bilateral PAST SURGICAL HISTORY Procedure Laterality Date CARDIAC CATH 2007 [facility]-normal ESOPHAGOGASTRODUODENOSCOPY TRANSORAL DIAGNOSTIC 2007 EGD FAMILY HISTORY Problem Relation Age of Onset other (bipolar [Other]) Father Diabetes Paternal Grandfather Stroke Paternal Grandmother Hypertension Paternal Grandmother Heart Paternal Grandmother other (Migraine [Other]) Mother other (Migraine [Other]) Father Social History Tobacco Use Smoking status: Every Day Packs/day: 1.00 Types: Cigarettes Smokeless tobacco: Former Vaping Use Vaping Use: Never used Substance Use Topics Alcohol use: Not Currently Comment: social few drinks a year Drug use: Yes Frequency: 7.0 times per week Types: Marijuana Reviewed current medications, allergies, past medical history, surgical history, family history and social history today. REVIEW OF SYSTEMS All other reviewed and negative other than HPI. VITALS: BP 115/74 Pulse 88 Wt (!) 154.7 kg (341 lb) SpO2 95% BMI 66.60 kg/m? Last 4 Encounter Wt Readings: Date: Wt: 12/04/2022 147.4 kg (325 lb) 09/19/2022 147.9 kg (326 lb) 09/15/2022 145 kg (319 lb 9.6 oz) 09/05/2022 146.1 kg (322 lb) PHYSICAL EXAMINATION: General appearance: Well appearing, alert, in no acute distress, well-hydrated, well nourished. Skin: Skin color, texture, turgor normal, no suspicious rashes or lesions Head: Normocephalic, no masses, lesions, tenderness or abnormalities Lungs: Lungs clear to auscultation. No wheezing, rhonchi, rales Heart: RRR without murmur, gallop, or rubs. No ectopy Abdomen: Normal abdominal exam, Abdomen soft, non-tender. Bowel sounds normal. No masses, organomegaly Extremities: two plus edema. No redness or warmth. No calf tenderness. No redness or warmth. Musculoskeletal: negative. BACK: Normal curvature of spine. No spine tenderness. Straight leg test negative. Deep tendon reflexes 2+/4 at patellas. Normal lower extremity strength. ASSESSMENT/PLAN: 1. DDD (degenerative disc disease), lumbar - ICD9: 722.52, ICD10: M51.36 (primary diagnosis) - xray an (more content not included)... [facility] 06-18-2023 History of Presen t illness Narrative Patient presents with: ER F/U HPI: Patient presents today for office visit for follow up. HOSPITAL/ER FOLLOW UP: Reason for visit: testicular pain Which facility: [facility] Date of visit: 06/16/23 Diagnosis: spastic pelvic floor symdrome, lumbar degenerative disc disease Testing done: reports US to be sure bladder was not obstructed Treatment given: percocet and valium Current symptoms: Feels like when he sits is sitting on his right testicle. Bilateral feet/leg edema wearing diabetic socks for them and they are leaving indents in legs. The edema has been going on for a couple of months with the rest of these issues while he has been stuck in the chair unable to lay down. Stay swollen all the time. States that is doing the stretches and exercises as he was instructed. Issues have been on and off since Aug. Hasn't been able to lie down since Aug. Started on Sunday night with the feeling of pelvic spasms again and that is when he went to ER. Denies fever, dysuria, or hematuria Appears he has been going back to ER multiple times He has had multiple ct's and ultrasounds. He only went a few times to physical therapy and has not followed up again with urology. Back is bothering him more again. He having worsening pain in his lower back and down his right leg. Has had xrays and lumbar mri's remotely. No new injuries. No urinary or bladder incontinence. MEDICATIONS: Current Outpatient Medications Medication Sig omeprazole (PRILOSEC) 20 mg capsule Take 1 capsule by mouth daily before breakfast. 1/2 hr before meal. naproxen (NAPROSYN) 500 mg tablet Take 500 mg by mouth twice daily with meals. levoFLOXacin (LEVAQUIN) 500 mg tablet Take 500 mg by mouth once daily. X 10 days. Ordered previously. Patient states five days remaining. amitriptyline (ELAVIL) 50 mg tablet Take 1 tablet by mouth daily at bedtime. HYDROcodone-Acetaminophen (NORCO) 7.5-325 mg per tablet Take 1 tablet by mouth every 6 hours as needed for pain. topiramate (TOPAMAX) 25 mg tablet Take 25 mg by mouth. 1 twice daily diphenhydrAMINE (BENADRYL) 25 mg capsule Take 25 mg by mouth. daily cariprazine (VRAYLAR) 3 mg capsule Take 6 mg by mouth once daily. [facility] No current facility-administered medications for this visit. ALLERGIES: ALLERGIES Allergen Reactions Penicillins Hives PAST MEDICAL HISTORY Diagnosis Date Bipolar 2 disorder (HCC) Dr. Justice, psych Degenerative disc disease Dr. 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 Bilateral PAST SURGICAL HISTORY Procedure Laterality Date CARDIAC CATH 2007 [facility]-normal ESOPHAGOGASTRODUODENOSCOPY TRANSORAL DIAGNOSTIC 2007 EGD FAMILY HISTORY Problem Relation Age of Onset other (bipolar [Other]) Father Diabetes Paternal Grandfather Stroke Paternal Grandmother Hypertension Paternal Grandmother Heart Paternal Grandmother other (Migraine [Other]) Mother other (Migraine [Other]) Father Social History Tobacco Use Smoking status: Every Day Packs/day: 1.00 Types: Cigarettes Smokeless tobacco: Former Vaping Use Vaping Use: Never used Substance Use Topics Alcohol use: Not Currently Comment: social few drinks a year Drug use: Yes Frequency: 7.0 times per week Types: Marijuana Reviewed current medications, allergies, past medical history, surgical history, family history and social history today. REVIEW OF SYSTEMS All other reviewed and negative other than HPI. VITALS: BP 115/74 Pulse 88 Wt (!) 154.7 kg (341 lb) SpO2 95% BMI 66.60 kg/m Last 4 Encounter Wt Readings: Date: Wt: 12/04/2022 147.4 kg (325 lb) 09/19/2022 147.9 kg (326 lb) 09/15/2022 145 kg (319 lb 9.6 oz) 09/05/2022 146.1 kg (322 lb) PHYSICAL EXAMINATION: General appearance: Well appearing, alert, in no acute distress, well-hydrated, well nourished. Skin: Skin color, texture, turgor normal, no suspicious rashes or lesions Head: Normocephalic, no masses, lesions, tenderness or abnormalities Lungs: Lungs clear to auscultation. No wheezing, rhonchi, rales Heart: RRR without murmur, gallop, or rubs. No ectopy Abdomen: Normal abdominal exam, Abdomen soft, non-tender. Bowel sounds normal. No masses, organomegaly Extremities: two plus edema. No redness or warmth. No calf tenderness. No redness or warmth. Musculoskeletal: negative. BACK: Normal curvature of spine. No spine tenderness. Straight leg test negative. Deep tendon reflexes 2+/4 at patellas. Normal lower extremity strength. ASSESSMENT/PLAN: 1. DDD (degenerative disc disease), lumbar - ICD9: 722.52, ICD10: M51.36 (primary diagnosis) - xray and therapy. See pain management. - XR LUMBAR GENERAL 3V AP/LAT/L5-S1 - CONSULT TO PHYSICAL THERAPY - CONSULT TO PAIN MGT 2. Edema, unspecified type - ICD9: 782.3, ICD10: R60.9 - check echo to evaluate systolic and diastolic function. Elevate legs. Get stat duplex in am. Can't do tonight and does not want to return to er. Red flags for re-assessment reviewed with patient in detail. - ECHO - PERFLUTREN LIPID MICROSPHERES 1.1 MG/ML INJECTION IN NS 10 ML - SODIUM CHLORIDE 0.9 % (FLUSH) INJECTION SYRINGE 3. 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 - CONSULT TO UROLOGY - CONSULT TO PHYSICAL THERAPY - CONSULT TO PAIN MGT 4. Hyperlipidemia, unspecified hyperlipidemia type - ICD9: 272.4, ICD10: E78.5 - check labs. - CBC + DIFF - COMP METABOLIC PANEL - LIPID PANEL BASIC 5. Primary hypertension - ICD9: 401.9, ICD10: I10 - Controlled - Continue current medications - ECHO - PERFLUTREN LIPID MICROSPHERES 1.1 MG/ML INJECTION IN NS 10 ML - SODIUM CHLORIDE 0.9 % (FLUSH) INJECTION SYRINGE 6. Pain in both testicles - ICD9: 608.9, ICD10: N50.811, N50.812 - CONSULT TO UROLOGY - CONSULT TO PAIN MGT 7. Localized edema - ICD9: 782.3, ICD10: R60.0 - US LEG VEIN DVT [facility] Jessie Blackwell MD documented in this encounter [facility] 12-12-2022 History of Presen t illness Narrative Episode Visit Count: 3 Therapist That Will Accept/Oversee The Plan Of Care: Dian Sanchez Start of Care Date: 10/20/22 Onset Date: 09/03/22 Plan of Care Certification Date: 12/12/22 Next Certification Due Date: 02/10/23 Patient Identified by Name and Date of : Yes [facility]AB[facility]TS [facility]ER[facility]Y PHYSICAL THERAPY PROGRESS REPORT PLAN OF CARE UPDATE: Assessment: Alyson Quinn demonstrates some improvements in overall pelvic pain, BLE flexibility. He has progressed toward goals. Patient continues to present with impairments in decreased quality of sleep due to pain. Patient continues to demonstrate overall decreased activity levels and limited activity tolerance. He will benefit from continued skilled therapy services to meet the updated goals for this plan of care as noted below. Goals for Episode of Care: created on 10/20/22 Updated on: 12/12/22 [place] in home exercise program.-MET Patient will increase flexibility of BLE to WNL to decrease pain.-PROGRESSING Pelvic Pain: Patient reports at least 75% improvement in ability to sleep through the night-NOT MET Patient reports at least 75% improvement in pelvic pain compared to IE.-PROGRESSING Patient Goals: improve pain Planned Interventions, Frequency, and Duration: 1x every other week, 4 weeks (reassess at 4 weeks and progress as indicated) Total Number of Visits Planned: 2 Patient to be seen for Therapeutic exercise (07658), Manual therapy (16328), Self-half-way management (67621), Patient/Family/Caregiver Education PLAN FOR NEXT VISIT: progress exercises as tolerated SUBJECTIVE: Patient Reason for Visit: Pt reports feeling like he hurt himself while trying HEP exercises but then started to feel really good for a few days afterwards. Pt reports a couple days later feeling like everything went in and tightened up. Pt reports going to the hospital, all tests negative, states it was a muscle spasm. Pt reports pain now is mostly in the lower back, especially while sitting. Pt reports 50% improvement in overall pelvic pain since beginning PT, no change in quality of sleep. Pt reports no change in overall activity levels, still mostly sedentary. Pain: Pain Pain Level: 2 Pain Location: Low Back/Lumbar Spine - Left, Low Back/Lumbar Spine - Right Description: ( uncomfortable ) Frequency: Intermittent Post Treatment Pain Post Treatment Pain Level: 0 PROMIS Scales T-scores: mean of general population = 50. 5 points is clinically meaningfully difference Percentiles provide an indication of how the patient's score ranks in relation to the general population. Higher percentile rankings indicate better function/quality of life. 50th percentile is the average of the general population and indicates half of respondents had a worse score. T-scores: mean of general population = 50. 5 points is clinically meaningfully difference Percentiles provide an indication of how the patient's score ranks in relation to the general population. Higher percentile rankings indicate better function/quality of life. 50th percentile is the average of the general population and indicates half of respondents had a worse score. OBJECTIVE MEASURES WITH LEVEL OF FUNCTION: LE Flexibility Flexibility: Hamstring Flexibility, Hip Adductor, Hip Internal Rotation Flexibility, Hip External Rotation Flexibility R Hamstring Flexibility: Min restrictions L Hamstring Flexibility: Min restrictions R Adductor Flexibility: WNL L Adductor Flexibility: WNL R Hip Internal Rotation Flexibility: WNL L Hip Internal Rotation Flexibility: WNL R Hip External Rotation Flexibility: WNL L Hip External Rotation Flexibility: WNL TREATMENT: Therapeutic Exercise: 1: Reassessment 2: supine adductor stretch, [id number] (improved pain during stretch, increased pain after stretch) 3: supine hip flexor stretch, [id number] each (improved pain during stretch, increased pain after stretch) 4: *standing hip flexor stretch, [id number] each 5: *standing sidebend stretch, [id number] each 6: *seated lumbar flexion stretch, [id number] 7: seated figure 4 stretch, [id number] R 8: *seated hamstring stretch, 2y79ymr each Skilled Intervention: Patient was educated in proper exercise technique and purpose for exercises. Reviewed and educated patient on additions/changes for home exercise program as above (*). Skilled judgment was provided in selection of appropriate interventions. Provided written instruction for home exercise program to facilitate proper performance and compliance. Billing Therapeutic Exercise Treatment Minutes: 38 Total Treatment Time Minutes (timed/untimed): 38 Dian Sanchez PT documented in this encounter [facility] 12-04-2022 History of Presen t illness Narrative This is a 37 year old male who presents today with: Patient presents with: Recheck: Follow up Abdominal Pain: Started last evening; hx of pelvic floor syndrome Flank Pain: Started thurs/fri HISTORY OF PRESENT ILLNESS: Alyson Quinn is a 37 year old male. Patient presents with: Recheck: Follow up Abdominal Pain: Started last evening; hx of pelvic floor syndrome Flank Pain: Started thurs/fri Pt presents today for follow-up; however, has been having some abdominal pain and leg swelling. He has been having problems with leg swelling. Refers that he has been having some trunk pain. Refers that he was having a hard time going to the bathroom. Refers that it feels like his insides are going to fall out since last night. Refers that when he was able to go, stool was very stringy. No fevers. Has been cold. Feels bloating. Passing gas. No hematochezia/melena. No n/v. Eating okay. Urinating okay. Pain unprovoked. Feet have been swollen for a couple of weeks. Refers that because of his pelvic floor syndrome, he has to sit in a donut and his legs are more dependent. Legs have some discomfort. PAST MEDICAL HISTORY: PAST MEDICAL HISTORY Diagnosis Date Bipolar 2 disorder (HCC) Dr. Justice, psych Degenerative disc disease Dr. 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 1/2 hr before meal. topiramate (TOPAMAX) 25 mg tablet Take 25 mg by mouth. 1 twice daily diphenhydrAMINE (BENADRYL) 25 mg capsule Take 25 mg by mouth. daily cariprazine (VRAYLAR) 3 mg capsule Take 6 mg by mouth once daily. [facility] naproxen (NAPROSYN) 500 mg tablet Take 500 mg by mouth twice daily with meals. levoFLOXacin (LEVAQUIN) 500 mg tablet Take 500 mg by mouth once daily. X 10 days. Ordered previously. Patient states five days remaining. amitriptyline (ELAVIL) 50 mg tablet Take 1 tablet by mouth daily at bedtime. HYDROcodone-Acetaminophen (NORCO) 7.5-325 mg per tablet Take 1 tablet by mouth every 6 hours as needed for pain. No current facility-administered medications for this visit. FAMILY HISTORY Problem Relation Age of Onset other (bipolar [Other]) Father Diabetes Paternal Grandfather Stroke Paternal Grandmother Hypertension Paternal Grandmother Heart Paternal Grandmother other (Migraine [Other]) Mother other (Migraine [Other]) Father Social History Tobacco Use Smoking status: Every Day Packs/day: 1.00 Types: Cigarettes Smokeless tobacco: Former Vaping Use Vaping Use: Never used Substance Use Topics Alcohol use: Not Currently Comment: social few drinks a year Drug use: Yes Frequency: 7.0 times per week Types: Marijuana EXAM: BP 148/94 Pulse 118 Resp 20 Wt (!) 147.4 kg (325 lb) SpO2 96% BMI 63.47 kg/m PHYSICAL EXAM: General Appearance: uncomfortable. Alert. Skin: Skin color, texture, turgor normal, no suspicious rashes or lesions. Head: Normocephalic, no masses, lesions, tenderness or abnormalities. Eyes: Anicteric sclera. Extraocular movements are intact. . Lungs: Lungs clear to auscultation. No wheezing, rhonchi, rales. Tachypnea. . Heart: RRR without murmur, gallop, or rubs. No ectopy. Abdomen: Abdomen soft, generalized tenderness more pronounced in the lower quads. Bowel sounds very hypoactive. + rebound. Extremities: No deformities, +2 BLE edema, some redness bilaterally. Good capillary refill. Neurologic: Gait normal. ASSESSMENT/PLAN: 1. Generalized abdominal pain - ICD9: 789.07, ICD10: R10.84 (primary diagnosis) Patient with abdominal pain that is more prominent in the lower quadrants. Bowel sounds are hypoactive. Positive rebound. Patient appears tachypneic and with tachycardia. Patient needs imaging of his abdomen and because of the late hour the day, doubtful that I can obtain on an outpatient setting unless patient goes through the emergency room. Discussed with patient he will proceed to [facility] emergency room. Passport complete. 2. Leg swelling - ICD9: 729.81, ICD10: M79.89 Prop. Limit sodium. Discussed treatment plan and patient voices understanding. Patient's questions answered appropriately. Medications and potential side effects were discussed and patient voices understanding. Return to the office as scheduled or as needed for worsening/no improvement. Frida Suarez APRN.SET O TYPE OPERATOR This note was partially generated using Dragon voice recognition system. Note was reviewed for accuracy. There may be minor misspellings or grammar miscues with Dragon voice recognition. documented in this encounter [facility] 11-14-2022 History of Presen t illness Narrative Episode Visit Count: 2 Therapist That Will Accept/Oversee The Plan Of Care: Dian Sanchez Start of Care Date: 10/20/22 Onset Date: 09/03/22 Plan of Care Certification Date: 10/20/22 Next Certification Due Date: 12/19/22 Patient Identified by Name and Date of : Yes REHABILITATION AND SPORTS THERAPY PHYSICAL THERAPY TREATMENT NOTE ASSESSMENT: Alyson Quinn tolerated the session with no issues. He demonstrated difficulty with continued pelvic pain. The patient will continue to benefit from ongoing skilled physical therapy to progress toward set goals. PLAN FOR NEXT VISIT: reassessment SUBJECTIVE: Patient Reason for Visit: Pt's in attendance during session. Pt reports no trouble sleeping in the recliner but has trouble sleeping on his back in bed. Pt reports continuing to sit on donut pillow, which helps. Pt reports attempting to walk more but has pain with general movement, overall low levels of activity performed. Pt reports good compliance with HEP. Pain: Pain Pain Level: 0 Post Treatment Pain Post Treatment Pain Level: 0 OBJECTIVE MEASURES WITH LEVEL OF FUNCTION: Pelvic Floor Muscle Assessment Consent for pelvic assessment/testing and treatment: Patient was educated regarding pelvic floor physical therapy assessment/treatment which may include pelvic floor and girdle muscle assessment externally or internally (vaginal or rectal approach).;Patient verbalized consent for the above treatment approaches today. Patient understands they have control of the treatment and an opportunity to stop treatment at any time. Pelvic Floor Manual Assessment External Pelvic Region Tenderness/ Hyperactivity - Trunk: Lower abdominals Lower abdominals: Bilateral (1/1) Tissue Restriction/Tenderness Scale: 1= mild, 2= moderate, 3= severe TREATMENT: Therapeutic Exercise: 1: Reviewed diaphragmatic breathing 2: *bridge with glute activation, 2x10 3: *posterior pelvic tilt, 2x10 4: *LTR, [id number] each Skilled Intervention: Patient was educated in proper exercise technique and purpose for exercises. Reviewed and educated patient on additions/changes for home exercise program as above (*). Skilled judgment was provided in selection of appropriate interventions. Provided written instruction for home exercise program to facilitate proper performance and compliance. Manual Therapy: 1: MFR to B lower abdominals, supine Skilled Intervention: Manual skills to improve joint mobility, ROM, and decrease pain. Utilized anatomy knowledge of the therapist, and assessment of patient's response to intervention. Self-Alf Management: 1: Reviewed benefits of sleeping on side with pillow between knees 2: Reviewed strategies to improve endurance with walking to increase general movement while decreasing pain Skilled Intervention: Skilled judgment in the selection of proper modification for activity of daily living/home management based on clinical presentation, deficits, and needs. Billing Therapeutic Exercise Treatment Minutes: 15 Manual TherapyTreatment Minutes: 14 Self-Care/Home Management Treatment Minutes: 10 Total Treatment Time Minutes (timed/untimed): 39 Dian Sanchez PT documented in this encounter [facility] 10-10-2022 Miscellaneous Notes Patient has been identified by name and date of : Yes Pharmacy phones for refill(s): Requested Prescriptions Pending Prescriptions Disp Refills omeprazole (PRILOSEC) 20 mg capsule 30 capsule 5 Sig: Take 1 capsule by mouth daily before breakfast. 1/2 hr before meal. Date of last office visit with pcp: 09-15-22. Next appt: 11-02-22 Last 2 Encounter Wt Readings: Date: Wt: 09/19/2022 147.9 kg (326 lb) 09/15/2022 145 kg (319 lb 9.6 oz) Previous labs/tests for medication: Blood Pressure: BUN (mg/dL) Date Value 05/11/2022 12 04/04/2021 11 Sodium (mmol/L) Date Value 05/11/2022 138 04/04/2021 138 Last 1 Encounter BP Readings: Date: BP: 09/19/2022 144/84[Edmund Mckenzie PA-C notified.[ Blood Counts: WBC (k/uL) Date Value 06/01/2022 9.86 04/04/2021 9.11 RBC (m/uL) Date Value 06/01/2022 5.31 04/04/2021 5.81 Hematocrit (%) Date Value 06/01/2022 48.5 04/04/2021 52.5 Hemoglobin (g/dL) Date Value 06/01/2022 15.7 04/04/2021 17.2 Platelet Count (k/uL) Date Value 06/01/2022 224 04/04/2021 281 Please advise. Thank you. Anthony Barraza RN documented in this encounter [facility] 09-15-2022 History of Presen t illness Narrative Patient presents with: ER F/U Testicular Pain HPI: Patient presents today for office visit for ER follow up. Went to [facility] ER 3 times with testicular pain in the past couple weeks. Right sided testicular pain that started on 09/03/22. Swelling and severe pain. Refers to pain being unbearable. Twisting feeling Saw Mayito Lino on 09/11/22. Completed Levaquin from Mayito and symptoms started to resolve but came back. Currently on another round of Levaquin. Burning with urination. Denies blood in urine or semen. Scheduled to see Urology on 09/19/22. Complains of severe RLQ pain, at least 8 out of 10. Unable to sit or lay and standing in the office while I am here. Is tachypneic and moaning from the pain. MEDICATIONS: Current Outpatient Medications Medication Sig levoFLOXacin (LEVAQUIN) 500 mg tablet Take 1 tablet by mouth once daily for 10 days. topiramate (TOPAMAX) 25 mg tablet Take 25 mg by mouth. 1 twice daily diphenhydrAMINE (BENADRYL) 25 mg capsule Take 25 mg by mouth. daily omeprazole (PRILOSEC) 20 mg capsule Take 1 capsule by mouth daily before breakfast. 1/2 hr before meal. cariprazine (VRAYLAR) 3 mg capsule Take 6 mg by mouth once daily. [facility] HYDROcodone-Acetaminophen (NORCO) 7.5-325 mg per tablet Take 1 tablet by mouth every 6 hours as needed for pain. (Patient not taking: Reported on 09/15/2022) No current facility-administered medications for this visit. ALLERGIES: ALLERGIES Allergen Reactions Penicillins Hives PAST MEDICAL HISTORY Diagnosis Date Bipolar 2 disorder (HCC) Dr. Justice, psych Degenerative disc disease Dr. Briones H/O multiple concussions HTN (hypertension) Hyperlipidemia Migraine without aura PAST SURGICAL HISTORY Procedure Laterality Date CARDIAC CATH 2007 [facility]-normal ESOPHAGOGASTRODUODENOSCOPY TRANSORAL DIAGNOSTIC 2007 EGD FAMILY HISTORY Problem Relation Age of Onset other (bipolar [Other]) Father Diabetes Paternal Grandfather Stroke Paternal Grandmother Hypertension Paternal Grandmother Heart Paternal Grandmother other (Migraine [Other]) Mother other (Migraine [Other]) Father Social History Tobacco Use Smoking status: Every Day Packs/day: 1.00 Types: Cigarettes Smokeless tobacco: Former Vaping Use Vaping Use: Never used Substance Use Topics Alcohol use: Not Currently Comment: social few drinks a year Drug use: Not Currently Comment: used to smoke marijuana Reviewed current medications, allergies, past medical history, surgical history, family history and social history today. VITALS: BP 144/98 Pulse 96 Temp 36.6 C (97.9 F) Ht 181.6 cm (5' 11.5 ) Wt (!) 145 kg (319 lb 9.6 oz) SpO2 98% BMI 43.95 kg/m Last 4 Encounter Wt Readings: Date: Wt: 09/05/2022 146.1 kg (322 lb) 05/04/2022 148.3 kg (327 lb) 03/15/2020 141.5 kg (312 lb) 11/08/2019 143.8 kg (317 lb) PHYSICAL EXAMINATION: As above. I cannot even really examine him here in the office. Cannot lay on the table. Tender standing in the RLQ. Unable to assess for masses etc. Moaning from pain. ASSESSMENT/PLAN: 1. RLQ abdominal pain - ICD9: 789.03, ICD10: R10.31 - has already had an us and ct recently. States the pain is unbearable and he cannot even be examined while in office due to the pain. We have no labs or testing available tonight after 5 which makes evaluating or treating him impossible. He will go to [facility] ER. ER passport completed. He initially stated he was in so much pain he could not go to ER. Offered to call squad. He declines. No charge for visit. Jessie Blackwell documented in this encounter [facility] 09-11-2022 Miscellaneous Notes Images from the original note were not included. MARYLU Wilson Please schedule urology consult documented in this encounter [facility] 09-11-2022 History of Presen t illness Narrative Audio only was used for evaluation of this patient. Location of patient: [place] Patient was offered a virtual/telemedicine appointment in lieu of an office visit due to recommendations to reduce patient exposure to COVID-19. Patient is aware of limitations of performing the visit without a face to face visit in the office setting and agrees. 10:14 AM 37 year old male with c/o follow up on bilateral testalgia R>L. No pain but still feels uncomfortable. Hasn't been able to lay down in bed. Feels nuts are floating around , still uncomfortable feeling but not pain as previously. No complications with Levaquin pain in proved in 1-2 days after starting. HISTORIES FAMILY HISTORY Problem Relation Age of Onset other (bipolar [Other]) Father Diabetes Paternal Grandfather Stroke Paternal Grandmother Hypertension Paternal Grandmother Heart Paternal Grandmother other (Migraine [Other]) Mother other (Migraine [Other]) Father PAST MEDICAL HISTORY Diagnosis Date Bipolar 2 disorder (HCC) Dr. Justice, psych Degenerative disc disease Dr. Briones H/O multiple concussions HTN (hypertension) Hyperlipidemia Migraine without aura PAST SURGICAL HISTORY Procedure Laterality Date CARDIAC CATH 2007 [facility]-normal ESOPHAGOGASTRODUODENOSCOPY TRANSORAL DIAGNOSTIC 2007 EGD Social History Tobacco Use Smoking status: Every Day Packs/day: 1.00 Types: Cigarettes Smokeless tobacco: Former Vaping Use Vaping Use: Never used Substance Use Topics Alcohol use: Not Currently Comment: social few drinks a year Drug use: Not Currently Comment: used to smoke marijuana ACTIVE PROBLEM LIST Htn (Hypertension) Hyperlipidemia Gerd (Gastroesophageal Reflux Disease) Tobacco Use Marijuana Abuse Ddd (Degenerative Disc Disease), Lumbar Bipolar 2 Disorder (Hcc) Cervicalgia Obesity, Class Iii, Bmi 40-49.9 (Morbid Obesity) (Hcc) Current Outpatient Medications Medication Sig Dispense Refill levoFLOXacin (LEVAQUIN) 500 mg tablet Take 1 tablet by mouth once daily for 10 days. 10 tablet 0 HYDROcodone-Acetaminophen (NORCO) 7.5-325 mg per tablet Take 1 tablet by mouth every 6 hours as needed for pain. 28 tablet 0 topiramate (TOPAMAX) 25 mg tablet Take 25 mg by mouth. 1 twice daily diphenhydrAMINE (BENADRYL) 25 mg capsule Take 25 mg by mouth. daily omeprazole (PRILOSEC) 20 mg capsule Take 1 capsule by mouth daily before breakfast. 1/2 hr before meal. 30 capsule 5 cariprazine (VRAYLAR) 3 mg capsule Take 6 mg by mouth once daily. [facility] No current facility-administered medications for this visit. HEPATITIS B(1 of 3 - 3-dose series) Never done PNEUMOCOCCAL(1 - PCV) Never done BP CONTROLLED (<130/80) Never done DTAP,TDAP,TD(1 - Tdap) Never done COVID-19 VACCINE(3 - Booster for Moderna series) due on 08/29/2021 DEPRESSION ASSESSMENT Never done INFLUENZA(1) due on 07/13/2022 EXAM: There were no vitals taken for this visit. Pleasant adult man in no acute distress. Alert and oriented all spheres. Normal affect and cognition. Speech normal. No deficits to learning or comprehension. Speaking in full sentences easily. ASSESSMENT/PLAN: 1. Pain in both testicles - ICD9: 608.9, ICD10: N50.811, N50.812 - CONSULT TO UROLOGY 10:21 AM 6min call Anthony Lino PA-C documented in this encounter [facility] 09-05-2022 Instructions Anthony Lino PA-C - 09/05/2022 3:43 PM EDT [facility] Mayito Lino PA-C [id number] [facility] [id number] ext [phone] [place] as directed per prescription for pain being careful to limit to 1-2 doses a day unless it is more severe pain. Do not drive or operate dangerous machinery while on this medication: It may cause drowsiness or impair judgment and cause increased risk for falls. This medication may be habit forming if used regularly, and may cause drowsiness, so use caution. This medication may cause constipation so increase fiber and exercise if possible. Stimulant laxatives such as pericolace or Sennekot OTC may help if needed but should not be used over long periods. asha is governed by federal regulations for schedule 2 narcotics: you may not share this medication with anyone else, this constitutes a felony. It must be locked or secured in a safe place and cannot be replaced if lost, damaged, or stolen. [place] Levaquin as directed per prescription If you should breakout in a rash, stop the medicine and call the office. This category of medication may cause tendon ruptures (3%) so use caution. It may also cause photosensitivity and may trigger heart arrhythmias (not common). Any antibiotic has the potential to cause diarrhea due to alteration in the normal bacterial lance of the gut. This can be reduced by eating yogurt with active cultures daily while on the medication. If diarrhea becomes severe (watery, large volumes or more than 3-4/day) call the office. If you do not like yogurt, ask the pharmacist for a probiotic supplement such as lactobacillus or acidophillus. Women may experience yeast vaginitis due to alteration in the vaginal lance. Symptoms include vaginal itching, irritation, and often a clumpy white discharge. If this occurs, there are several effective over the counter remedies available, including one-dose treatments. If these are unsuccessful, call the office. Antibiotics may interfer with control. If you are on oral contraceptives, use another form of protection (condoms, foams, jellies, diaphragm) throught the end of whatever pill pack you are on in 10 days. Epididymitis What is epididymitis? Epididymitis is an inflammation of the epididymis. The epididymis is the tube through which sperm pass. The tube is located at the back of each testicle. Epididymitis can affect both testicles, but it most often occurs on just one side. How does it occur? Epididymitis is caused by bacterial infections, such as: urinary tract infections sexually transmitted diseases such as chlamydia or gonorrhea prostatitis (infection of the prostate). It may also happen if you have: a fungal infection Henoch-Schoenlein purpura (a disease that causes a rash and swelling of joints) a prostatectomy (removal of the prostate) a medical procedure that affects your urinary tract, such as cystoscopy (looking at the inside of the bladder through a slim, flexible, lighted tube) or a catheter (a small tube put into the bladder to drain the urine from your body). Sometimes men have epididymitis when they are taking a heart medicine called amiodarone (Cordarone). What are the symptoms? Possible symptoms of epididymitis are: red, warm skin on the scrotum tender, swollen testicle or groin area on one side testicle pain that feels worse when you have a bowel movement fever and chills discharge from the urethra (the opening at the end of the penis) pain or burning when you urinate pain with intercourse or ejaculation testicular lump lower abdominal discomfort or pelvic discomfort blood in the semen. Because pain in the testicles can be a symptom of another, more serious problem (testicular torsion), contact your health care provider right away if you have this symptom. How is it diagnosed? Your health care provider will examine your groin and scrotum to rule out other possible diagnoses. You may have a rectal exam. You may also have these tests: urine tests tests for chlamydia and gonorrhea blood tests. How is it treated? Your health care provider may prescribe one or more antibiotics. Your sexual partner may need to be treated at the same time to prevent reinfection. Your provider may prescribe another medicine to control pain and inflammation. Sometimes severe cases of epididymitis need surgery. If you have an infection, it is very important to have a follow-up visit with your health care provider to make sure the infection is completely cleared up. How long do the effects last? The pain usually gets better within 1 to 3 days. The symptoms may return if antibiotics do not kill all of the bacteria. Symptoms may also return if bacteria from the urinary tract or from sexual contact reinfect the epididymis. If this happens, you will need more treatment with antibiotics. Chronic epididymitis is more of a problem. Chronic means that the infection continues even after treatment. Taking anti-inflammatory medicine for a longer time may be helpful. If antibiotics and pain medicine do not help, surgery to remove the epididymis (epididymectomy) may be necessary. If the infection spreads to the testis, you may become infertile (unable to have children). How can I take care of myself? Take all of the medicine prescribed by your health care provider. Follow your health care provider's directions. If you are very uncomfortable, you may need to rest in bed for a couple of days. Use an ice pack to help relieve the pain. (Do not leave the ice pack on your skin for longer than 20 minutes and do not use it more often than once every hour.) Elevate the scrotum with a rolled-up towel when you are resting. You can help relieve pain and discomfort by wearing an athletic supporter or jockey shorts instead of boxers. If you have an infection, do not have sexual intercourse until the infection clears up. What can I do to help prevent epididymitis? Keep the penis and scrotum clean. If you have symptoms of burning when you urinate or a discharge from the penis, see your health care provider promptly. Use a latex or polyurethane condom every time you have sexual intercourse to protect against sexually transmitted diseases. Published by [employer]. This content is reviewed periodically and is subject to change as new health information becomes available. The information is intended to inform and educate and is not a replacement for medical evaluation, advice, diagnosis or treatment by a healthcare professional. Developed by [employer]. Copyright 2005 [employer] and/or one of its subsidiaries. All Rights Reserved. Special Instructions: Levaquin as directed per prescription If you should breakout in a rash, stop the medicine and call the office. Any antibiotic has the potential to cause diarrhea due to alteration in the normal bacterial lance of the gut. This can be reduced by eating yogurt with active cultures daily while on the medication. If diarrhea becomes severe (watery, large volumes or more than 3-4/day) call the office. documented in this encounter [facility] 09-05-2022 History of Presen t illness Narrative 37 year old male with c/o bilateral testicular pain which started 09/03/2022, rolled over in bed and felt like twisted testicles with immediate severe pain to point unable to walk. Feels like testicles spasm 09/03/2022 patient presented [facility] twice with above history. Vital signs are stable both times. Genital exam did identify tenderness with diffuse pain in the right testicle, no issues to suggest discoloration or mass. Patient underwent testicular ultrasound demonstrated bilateral testicular microlithiasis but no discrete mass or evidence of torsion, small right and trace left hydroceles. Normal arterial flow bilaterally. Patient was given morphine IV with helped his pain. Patient was discharged 4 AM on no medication with instructions to try scrotal support. Patient returned later that day again Return to the emergency department same day again with complaints of severe pain. Vital signs again remained stable except this time blood pressure is 150/98. Patient was given Toradol. CT of the abdomen and pelvis was negative for any acute abnormalities, hydronephrosis or ureteral calculus. Note was made of a small right inguinal hernia containing fat. Patient was discharged with instructions again for scrotal support and use of Tylenol and ibuprofen together for pain. Tylenol 325mg 2 tabs every 6hh Ibuprofen 800mg q6h Urine flow normal Eating and drinking normally. No fever or chills HISTORIES FAMILY HISTORY Problem Relation Age of Onset other (bipolar [Other]) Father Diabetes Paternal Grandfather Stroke Paternal Grandmother Hypertension Paternal Grandmother Heart Paternal Grandmother other (Migraine [Other]) Mother other (Migraine [Other]) Father PAST MEDICAL HISTORY Diagnosis Date Bipolar 2 disorder (HCC) Dr. Justice, psych Degenerative disc disease Dr. Briones H/O multiple concussions HTN (hypertension) Hyperlipidemia Migraine without aura PAST SURGICAL HISTORY Procedure Laterality Date CARDIAC CATH 2007 [facility]-normal ESOPHAGOGASTRODUODENOSCOPY TRANSORAL DIAGNOSTIC 2007 EGD Social History Tobacco Use Smoking status: Every Day Packs/day: 1.00 Types: Cigarettes Smokeless tobacco: Former Vaping Use Vaping Use: Never used Substance Use Topics Alcohol use: Not Currently Comment: social few drinks a year Drug use: Not Currently Comment: used to smoke marijuana ACTIVE PROBLEM LIST Htn (Hypertension) Hyperlipidemia Gerd (Gastroesophageal Reflux Disease) Tobacco Use Marijuana Abuse Ddd (Degenerative Disc Disease), Lumbar Bipolar 2 Disorder (Hcc) Cervicalgia Obesity, Class Iii, Bmi 40-49.9 (Morbid Obesity) (Hcc) Current Outpatient Medications Medication Sig Dispense Refill topiramate (TOPAMAX) 25 mg tablet Take 25 mg by mouth. 1 twice daily diphenhydrAMINE (BENADRYL) 25 mg capsule Take 25 mg by mouth. daily omeprazole (PRILOSEC) 20 mg capsule Take 1 capsule by mouth daily before breakfast. 1/2 hr before meal. 30 capsule 5 cariprazine (VRAYLAR) 3 mg capsule Take 6 mg by mouth once daily. [facility] No current facility-administered medications for this visit. HEPATITIS B(1 of 3 - 3-dose series) Never done PNEUMOCOCCAL(1 - PCV) Never done BP CONTROLLED (<130/80) Never done DTAP,TDAP,TD(1 - Tdap) Never done COVID-19 VACCINE(3 - Booster for Moderna series) due on 08/29/2021 DEPRESSION ASSESSMENT Never done INFLUENZA(1) due on 07/13/2022 EXAM: BP 130/72 Pulse 87 Temp 37 C (98.6 F) Resp 20 Wt (!) 146.1 kg (322 lb) SpO2 96% BMI 44.29 kg/m Pleasant morbidly obese adult man in significant acute distress, holding scrotal area, pacing in room, difficulty sitting, standing, moving frequently. Alert and oriented all spheres. Normal affect and cognition. Speech normal. No deficits to learning or comprehension. Skin warm, dry, pink to lips and nailbeds. Normal turgor. Respirations regular and unlabored. Chest is normal shape. Lungs are clear to all duran with good air exchange through out. HRRR without murmur or gallop. No lifts, heaves, or rubs. Abdomen: active bowel sounds throughout, soft, nontender, no masses or organomegaly. No CVAT. No inguinal lymphadenopathy. Femoral pulses 2 out of 4 plus without bruits. Normal male genitalia, retractile penis, testicles 3 to 4 g, right side tender with epididymal swelling which is the focal area of his tenderness, left side patient apprehensive but not actually tender. No masses on either side. No masses palpated in spermatic cords, no inguinal hernia. It does not seem to be any abnormal situation of the testicles in the scrotum. Extrem: no clubbing or cyanosis. Edema: None. Extremities are warm and pink with prompt capillary refill. ASSESSMENT/PLAN: 1. Pain in both testicles - ICD9: 608.9, ICD10: N50.811, N50.812 (primary diagnosis) P pain level seems incongruent with his ability to work at this point. Rikki has been in ER twice on the same day with resultant CT of abdomen and pelvis, no evidence of stone and normal scrotal ultrasound demonstrating normal arterial flow and no particular masses. He does have swelling and tenderness localized to the right epididymis. 2. Right epididymitis - ICD9: 604.90, ICD10: N45.1 Due to patient's significant level of pain I think it is worthwhile to go ahead and treat. Reviewed Levaquin administration, warnings including 3% risk of Achilles tendon rupture. Recommend he not do any aggressive activity or things such as hiking on uneven ground which might put him in jeopardy. We will proceed with hydrocodone in the interim for pain. Patient does not use Tylenol concurrently. Patient is also counseled that this is only for severe pain, should try other things for less severe pain. Patient is to consider ice, scrotal support and rest. Supine position may actually improve pain. Patient was read and reviewed narcotic use per discharge instructions. - LEVOFLOXACIN 500 MG TABLET - HYDROCODONE 7.5 MG-ACETAMINOPHEN 325 MG TABLET Follow-up as needed. Work slip was provided through this week. If not improving in the interim, patient will need to be seen again. Anthony Lino PA-C Some of this note may have been copied and pasted for the purpose of history context and comparison. documented in this encounter [facility] 05-12-2022 Miscellaneous Notes Patient was notified Jeannette Pickett Ma Cholesterol is mildly up. Watch diet. Red count is up slightly. Push fluids. Decrease smoking which can cause. Recheck labs in two weeks documented in this encounter [facility] documented as of this encounter (statuses as of 05/12/2022) [facility]12[facility] History of Past illness Narrative* Problem Noted Date Resolved Date Chronic migraine without aur a, with intractable migraine, so stated, without mention of status migrainosus 10/22/2014 01/12/20 17 Lumbar radiculopathy 09/30/2012 01/11/2017 Lumbar strain 09/30/2012 01/11/2017 Pain in back 06/21/2012 01/11/2017 Overview: Uses marijuana. Do not prescribe controlled substances Depression 06/21/2012 01/11/2017 Degenerative disc disease 2016 Overview: Dr. Briones documented as of this encounter (statuses as of 09/06/2022) [facility] History of Past illness Narrative* Problem Noted Date Resolved Date Chronic migraine without aur a, with intractable migraine, so stated, without mention of status migrainosus 10/22/2014 01/12/20 17 Lumbar radiculopathy 09/30/2012 01/11/2017 Lumbar strain 09/30/2012 01/11/2017 Pain in back 06/21/2012 01/11/2017 Overview: Uses marijuana. Do not prescribe controlled substances Depression 06/21/2012 01/11/2017 Degenerative disc disease 2016 Overview: Dr. Briones documented as of this encounter (statuses as of 09/11/2022) [facility] History of Past illness Narrative* Problem Noted Date Resolved Date Chronic migraine without aur a, with intractable migraine, so stated, without mention of status migrainosus 10/22/2014 01/12/20 17 Lumbar radiculopathy 09/30/2012 01/11/2017 Lumbar strain 09/30/2012 01/11/2017 Pain in back 06/21/2012 01/11/2017 Overview: Uses marijuana. Do not prescribe controlled substances Depression 06/21/2012 01/11/2017 Degenerative disc disease 2016 Overview: Dr. Briones documented as of this encounter (statuses as of 09/15/2022) [facility] History of Past illness Narrative* Problem Noted Date Resolved Date Chronic migraine without aur a, with intractable migraine, so stated, without mention of status migrainosus 10/22/2014 01/12/20 17 Lumbar radiculopathy 09/30/2012 01/11/2017 Lumbar strain 09/30/2012 01/11/2017 Pain in back 06/21/2012 01/11/2017 Overview: Uses marijuana. Do not prescribe controlled substances Depression 06/21/2012 01/11/2017 Degenerative disc disease 2016 Overview: Dr. Briones documented as of this encounter (statuses as of 10/06/2022) [facility] History of Past illness Narrative* Problem Noted Date Resolved Date Chronic migraine without aur a, with intractable migraine, so stated, without mention of status migrainosus 10/22/2014 01/12/20 17 Lumbar radiculopathy 09/30/2012 01/11/2017 Lumbar strain 09/30/2012 01/11/2017 Pain in back 06/21/2012 01/11/2017 Overview: Uses marijuana. Do not prescribe controlled substances Depression 06/21/2012 01/11/2017 Degenerative disc disease 2016 Overview: Dr. Briones documented as of this encounter (statuses as of 10/10/2022) [facility] History of Past illness Narrative* Problem Noted Date Resolved Date Chronic migraine without aur a, with intractable migraine, so stated, without mention of status migrainosus 10/22/2014 01/12/20 17 Lumbar radiculopathy 09/30/2012 01/11/2017 Lumbar strain 09/30/2012 01/11/2017 Pain in back 06/21/2012 01/11/2017 Overview: Uses marijuana. Do not prescribe controlled substances Depression 06/21/2012 01/11/2017 Degenerative disc disease 2016 Overview: Dr. Briones documented as of this encounter (statuses as of 11/16/2022) [facility] History of Past illness Narrative* Problem Noted Date Resolved Date Chronic migraine without aur a, with intractable migraine, so stated, without mention of status migrainosus 10/22/2014 01/12/20 17 Lumbar radiculopathy 09/30/2012 01/11/2017 Lumbar strain 09/30/2012 01/11/2017 Pain in back 06/21/2012 01/11/2017 Overview: Uses marijuana. Do not prescribe controlled substances Depression 06/21/2012 01/11/2017 Degenerative disc disease 2016 Overview: Dr. Briones documented as of this encounter (statuses as of 12/05/2022) [facility] History of Past illness Narrative* Problem Noted Date Resolved Date Chronic migraine without aur a, with intractable migraine, so stated, without mention of status migrainosus 10/22/2014 01/12/20 17 Lumbar radiculopathy 09/30/2012 01/11/2017 Lumbar strain 09/30/2012 01/11/2017 Pain in back 06/21/2012 01/11/2017 Overview: Uses marijuana. Do not prescribe controlled substances Depression 06/21/2012 01/11/2017 Degenerative disc disease 2016 Overview: Dr. Briones documented as of this encounter (statuses as of 12/12/2022) [facility] History of Past illness Narrative* Problem Noted Date Diagnosed Date Resolved Date Chronic migraine without aur a, with intractable migraine, so stated, without mention of status migrainosus 10/22/2014 01/11/2017 Lumbar radiculopathy 09/30/2012 017 Lumbar strain 09/30/2012 01/11/2017 Pain in back 06/21/2012 01/11/2017 Overview: Uses marijuana. Do not prescribe controlled substances Depression 06/21/2012 01/11/2017 Degenerative disc disease Overview: Dr. Briones documented as of this encounter (statuses as of 06/19/2023) [facility] History of Past illness Narrative* Problem Noted Date Diagnosed Date Resolved Date Chronic migraine without aur a, with intractable migraine, so stated, without mention of status migrainosus 10/22/2014 01/11/2017 Lumbar radiculopathy 09/30/2012 017 Lumbar strain 09/30/2012 01/11/2017 Pain in back 06/21/2012 01/11/2017 Overview: Uses marijuana. Do not prescribe controlled substances Depression 06/21/2012 01/11/2017 Degenerative disc disease Overview: Dr. Briones documented as of this encounter (statuses as of 06/23/2023) [facility] History of Past illness Narrative* Problem Noted Date Diagnosed Date Resolved Date Chronic migraine without aur a, with intractable migraine, so stated, without mention of status migrainosus 10/22/2014 01/11/2017 Lumbar radiculopathy 09/30/2012 017 Lumbar strain 09/30/2012 01/11/2017 Pain in back 06/21/2012 01/11/2017 Overview: Uses marijuana. Do not prescribe controlled substances Depression 06/21/2012 01/11/2017 Degenerative disc disease Overview: Dr. Briones documented as of this encounter (statuses as of 06/29/2023) [facility] History of Past illness Narrative* Problem Noted Date Diagnosed Date Resolved Date Chronic migraine without aur a, with intractable migraine, so stated, without mention of status migrainosus 10/22/2014 01/11/2017 Lumbar radiculopathy 09/30/2012 017 Lumbar strain 09/30/2012 01/11/2017 Pain in back 06/21/2012 01/11/2017 Overview: Uses marijuana. Do not prescribe controlled substances Depression 06/21/2012 01/11/2017 Degenerative disc disease Overview: Dr. Briones documented as of this encounter (statuses as of 06/29/2023) [facility] History of Past illness Narrative* Problem Noted Date Diagnosed Date Resolved Date Chronic migraine without aur a, with intractable migraine, so stated, without mention of status migrainosus 10/22/2014 01/11/2017 Lumbar radiculopathy 09/30/2012 017 Lumbar strain 09/30/2012 01/11/2017 Pain in back 06/21/2012 01/11/2017 Overview: Uses marijuana. Do not prescribe controlled substances Depression 06/21/2012 01/11/2017 Degenerative disc disease Overview: Dr. Briones documented as of this encounter (statuses as of 06/29/2023) [facility] History of Past illness Narrative* Problem Noted Date Diagnosed Date Resolved Date Chronic migraine without aur a, with intractable migraine, so stated, without mention of status migrainosus 10/22/2014 01/11/2017 Lumbar radiculopathy 09/30/2012 017 Lumbar strain 09/30/2012 01/11/2017 Pain in back 06/21/2012 01/11/2017 Overview: Uses marijuana. Do not prescribe controlled substances Depression 06/21/2012 01/11/2017 Degenerative disc disease Overview: Dr. Briones documented as of this encounter (statuses as of 07/18/2023) [facility] History of Past illness Narrative* Problem Noted Date Diagnosed Date Resolved Date Chronic migraine without aur a, with intractable migraine, so stated, without mention of status migrainosus 10/22/2014 01/11/2017 Lumbar radiculopathy 09/30/2012 017 Lumbar strain 09/30/2012 01/11/2017 Pain in back 06/21/2012 01/11/2017 Overview: Uses marijuana. Do not prescribe controlled substances Depression 06/21/2012 01/11/2017 Degenerative disc disease Overview: Dr. Briones documented as of this encounter (statuses as of 07/21/2023) [facility] History of Past illness Narrative* Problem Noted Date Diagnosed Date Resolved Date Chronic migraine without aur a, with intractable migraine, so stated, without mention of status migrainosus 10/22/2014 01/11/2017 Lumbar radiculopathy 09/30/2012 017 Lumbar strain 09/30/2012 01/11/2017 Pain in back 06/21/2012 01/11/2017 Overview: Uses marijuana. Do not prescribe controlled substances Depression 06/21/2012 01/11/2017 Degenerative disc disease Overview: Dr. Briones documented as of this encounter (statuses as of 07/27/2023) [facility] History of Past illness Narrative* Problem Noted Date Diagnosed Date Resolved Date Chronic migraine without aur a, with intractable migraine, so stated, without mention of status migrainosus 10/22/2014 01/11/2017 Lumbar radiculopathy 09/30/2012 017 Lumbar strain 09/30/2012 01/11/2017 Pain in back 06/21/2012 01/11/2017 Overview: Uses marijuana. Do not prescribe controlled substances Depression 06/21/2012 01/11/2017 Degenerative disc disease Overview: Dr. Briones documented as of this encounter (statuses as of 07/31/2023) [facility] History of Past illness Narrative* Problem Noted Date Diagnosed Date Resolved Date Chronic migraine without aur a, with intractable migraine, so stated, without mention of status migrainosus 10/22/2014 01/11/2017 Lumbar radiculopathy 09/30/2012 017 Lumbar strain 09/30/2012 01/11/2017 Pain in back 06/21/2012 01/11/2017 Overview: Uses marijuana. Do not prescribe controlled substances Depression 06/21/2012 01/11/2017 Degenerative disc disease Overview: Dr. Briones documented as of this encounter (statuses as of 08/01/2023) [facility] History of Past illness Narrative* Problem Noted Date Diagnosed Date Resolved Date Chronic migraine without aur a, with intractable migraine, so stated, without mention of status migrainosus 10/22/2014 01/11/2017 Lumbar radiculopathy 09/30/2012 017 Lumbar strain 09/30/2012 01/11/2017 Pain in back 06/21/2012 01/11/2017 Overview: Uses marijuana. Do not prescribe controlled substances Depression 06/21/2012 01/11/2017 Degenerative disc disease Overview: Dr. Briones documented as of this encounter (statuses as of 10/13/2023) [facility] History of Past illness Narrative* Problem Noted Date Diagnosed Date Resolved Date Chronic migraine without aur a, with intractable migraine, so stated, without mention of status migrainosus 10/22/2014 01/11/2017 Lumbar radiculopathy 09/30/2012 017 Lumbar strain 09/30/2012 01/11/2017 Pain in back 06/21/2012 01/11/2017 Overview: Uses marijuana. Do not prescribe controlled substances Depression 06/21/2012 01/11/2017 Degenerative disc disease Overview: Dr. Briones documented as of this encounter (statuses as of 12/25/2023) [facility] History of Past illness Narrative* Problem Noted Date Diagnosed Date Resolved Date Chronic migraine without aur a, with intractable migraine, so stated, without mention of status migrainosus 10/22/2014 01/11/2017 Lumbar radiculopathy 09/30/2012 017 Lumbar strain 09/30/2012 01/11/2017 Pain in back 06/21/2012 01/11/2017 Overview: Uses marijuana. Do not prescribe controlled substances Depression 06/21/2012 01/11/2017 Degenerative disc disease Overview: Dr. Briones documented as of this encounter (statuses as of 12/31/2023) [facility] History of Past illness Narrative* Problem Noted Date Diagnosed Date Resolved Date Chronic migraine without aur a, with intractable migraine, so stated, without mention of status migrainosus 10/22/2014 01/11/2017 Lumbar radiculopathy 09/30/2012 017 Lumbar strain 09/30/2012 01/11/2017 Pain in back 06/21/2012 01/11/2017 Overview: Uses marijuana. Do not prescribe controlled substances Depression 06/21/2012 01/11/2017 Degenerative disc disease Overview: Dr. Briones documented as of this encounter (statuses as of 12/31/2023) [facility] History of Past illness Narrative* Problem Noted Date Diagnosed Date Resolved Date Chronic migraine without aur a, with intractable migraine, so stated, without mention of status migrainosus 10/22/2014 01/11/2017 Lumbar radiculopathy 09/30/2012 017 Lumbar strain 09/30/2012 01/11/2017 Pain in back 06/21/2012 01/11/2017 Overview: Uses marijuana. Do not prescribe controlled substances Depression 06/21/2012 01/11/2017 Degenerative disc disease Overview: Dr. Briones documented as of this encounter (statuses as of 01/02/2024) [facility] Polycythemia- Primary Polycythemia vera [facility] Diagnosis Pain in both testicles- Primary Right epididymitis Orchitis and epididymitis, unspecified [facility] Pain in both testicles- Primary [facility] Diagnosis RLQ abdominal pain- Primary Abdominal pain, right lower quadrant [facility] Diagnosis Gastroesophageal reflux disease without esophagitis Esophageal reflux [facility] Diagnosis Spastic pelvic floor syndrome- Primary Other symptoms involving digestive system [facility] Diagnosis Generalized abdominal pain- Primary Abdominal pain, generalized Leg swelling Swelling of limb [facility] Diagnosis Spastic pelvic floor syndrome- Primary Other symptoms involving digestive system [facility]* Diagnosis DDD (degenerative disc disease), lumbar- Primary Degeneration of lumbar or lumbosacral intervertebral disc Edema, unspecified type Spastic pelvic floor syndrome Other symptoms involving digestive system Hyperlipidemia, unspecified hyperlipidemia type Primary hypertension Unspecified essential hypertension Pain in both testicles Localized edema Edema [facility] Diagnosis Spastic pelvic floor syndrome Other symptoms involving digestive system Pain in both testicles [facility] Diagnosis DDD (degenerative disc disease), lumbar Degeneration of lumbar or lumbosacral intervertebral disc Spastic pelvic floor syndrome Other symptoms involving digestive system [facility] Diagnosis Muscle tightness- Primary Unspecified disorder of muscle, ligament, and fascia Pain in both testicles [facility] Diagnosis Muscle tightness- Primary Unspecified disorder of muscle, ligament, and fascia Pain in both testicles [facility] Diagnosis DDD (degenerative disc disease), lumbar- Primary Degeneration of lumbar or lumbosacral intervertebral disc [facility] Diagnosis DDD (degenerative disc disease), lumbar- Primary Degeneration of lumbar or lumbosacral intervertebral disc Spastic pelvic floor syndrome Other symptoms involving digestive system [facility] Diagnosis Muscle tightness- Primary Unspecified disorder of muscle, ligament, and fascia Pain in both testicles [facility] Diagnosis Muscle tightness- Primary Unspecified disorder of muscle, ligament, and fascia DDD (degenerative disc disease), lumbar Degeneration of lumbar or lumbosacral intervertebral disc [facility] Diagnosis Acute pain of left knee- Primary [facility] Diagnosis Onychodystrophy- Primary Other specified disease of nail Ingrown toenail Ingrowing nail Diminished pulses in lower extremity Other symptoms involving cardiovascular system [facility] Diagnosis Facial infection- Primary Other specified infectious and parasitic diseases [facility] Diagnosis Facial infection Other specified infectious and parasitic diseases [facility] Diagnosis Facial infection- Primary Other specified infectious and parasitic diseases documented in this encounter [facility] for referral (narrative)* Outpatient Procedure (Urgent) - Pending Review Specialty Diagnoses / Procedures Referred By Contac t Referred To Contact [facility] [place] Diagnoses Localized edema Procedures US LEG VEIN DVT [facility] DUP-SCAN XTR VEINS COMPLE[place] [address] [place] [id number] [address] Referral ID Status Reason Start Date Expiration Date Visits Requested Visits Authorized [id number] Pending Review Auto-Generat ed Referral 06/18/2023 06/17/2024 1 1 * Outpatient Procedure (Routine) - Authorized Specialty Diagnoses / Procedures Referred By Contac t Referred To Contact [facility] Diagnoses Edema, unspecified type Primary hypertension Procedures ECHO ECHO TTHRC R-T 2D W/WOM-MODE COMPL SPEC&COLR D Jessie Blackwell MD [address] [place] [id number] [address] Referral ID Status Reason Start Date Expiration Date Visits Requested Visits Authorized [id number] Authorized Auto-Generat ed Referral 06/18/2023 06/17/2024 1 1 * Consult, Test, Treat (Routine) - Pending Review Specialty Diagnoses / Procedures Referred By Contac t Referred To Contact Pain Management Diagnoses DDD (degenerative disc disease), lumbar Spastic pelvic floor syndrome Pain in both testicles Procedures CONSULT TO PAIN MGT OFFICE/OUTPATIENT NEW HIGH MDM 60-74 MINUTES Jessie Blackwell MD [address] [place] [id number] Referral ID Status Reason Start Date Expiration Date Visits Requested Visits Authorized [id number] Pending Review PCP Requested Referral 06/18/2023 06/17/2024 1 1 * Physical Therapy (Routine) - Pending Review Specialty Diagnoses / Procedures Referred By Contac t Referred To Contact [facility] Diagnoses DDD (degenerative disc disease), lumbar Spastic pelvic floor syndrome Procedures CONSULT TO PHYSICAL THERAPY PHYSICAL THERAPY EVALUATION HIGH COMPLEX 45 MINS Jessie Blackwell MD [address] [place] [address] [facility] [place] [address] [place] [address] Referral ID Status Reason Start Date Expiration Date Visits Requested Visits Authorized [id number] Pending Review Auto-Generat ed Referral 06/18/2023 06/17/2024 1 1 * Diagnostic Procedure Only (Routine) - Closed Specialty Diagnoses / Procedures Referred By Contac t Referred To Contact XR IMAGING Diagnoses DDD (degenerative disc disease), lumbar Procedures XR LUMBAR GENERAL 3V AP/LAT/L5-S1 RADEX SPINE LUMBOSACRAL 2/3 VIEWS Jessie Blackwell MD [address] [place] [address] Xr Imaging Referral ID Status Reason Start Date Expiration Date V isits Requested Visits Authorized [id number] Closed Auto-Generate d Referral 06/18/2023 07/17/2024 1 1 * Consult, Test, Treat (Routine) - Pending Review Specialty Diagnoses / Procedures Referred By Contac t Referred To Contact Urology Diagnoses Spastic pelvic floor syndrome Pain in both testicles Procedures CONSULT TO UROLOGY OFFICE/OUTPATIENT NEW [facility] MDM 60-74 MINUTES Jessie Blackwell MD [address] [place] [address] Referral ID Status Reason Start Date Expiration Date Visits Requested Visits Authorized [id number] Pending Review PCP Requested Referral 06/18/2023 06/17/[address] [facility] for referral (narrative)* - Pending Review Specialty Diagnoses / Procedures Referred By Contac t Referred To Contact Physical Therapy Diagnoses Spastic pelvic floor syndrome Pain in both testicles Procedures CONSULT TO PHYSICAL THERAPY Edmund Mckenzie PA-C [address] [place] [address] Referral ID Status Reason Start Date Expiration Date V isits Requested Visits Authorized [id number] Pending Review 07/23/2023 10/21/[address] [facility] for referral (narrative)* Diagnostic Procedure Only (Urgent) - Closed Specialty Diagnoses / Procedures Referred By Antwon cotter Referred To Contact XR IMAGING Diagnoses Acute pain of left knee Procedures XR KNEE GENERAL 4V AP BOTH/PA BOTH/LAT/MERC LEFT RADIOLOGIC EXAM KNEE COMPLETE 4/MORE VIEWS Eben Chen MD [address] [place] [address] Xr [id number] Referral ID Status Reason Start Date Expiration Date V isits Requested Visits Authorized [id number] Closed Auto-Generate d Referral 10/13/2023 11/11/2024 1 1 [facility] for referral (narrative)* Outpatient Procedure (Routine) - Authorized Specialty Diagnoses / Procedures Referred By Antwon cotter Referred To Contact [facility] Diagnoses Onychodystrophy Diminished pulses in lower extremity Procedures PVR ANK PRESS [facility] NON-INVAS PHYSIOLOGIC STD EXTREMITY ART 2 LEVEL Leonard Martínez [address] [place] [address] [facility] [place] [address] [place] [address] Referral ID Status Reason Start Date Expiration Date Visits Requested Visits Authorized [id number] Authorized Auto-Generat ed Referral 12/25/2023 12/24/2024 1 1 [facility] Reason for Referral Specialty Diagnoses / Procedures Referred By Contac t Referred To Contact Urology Diagnoses Pain in both testicles Procedures CONSULT TO UROLOGY OFFICE/OUTPATIENT NEW HIGH MDM 60-74 MINUTES Anthony Lino PA-C [address] [place] [address] Referral ID Status Reason Start Date Expiration Date Visits Requested Visits Authorized [id number] Pending Review PCP Requested Referral 2 09/11/2023 1 1 Specialty Diagnoses / Procedures Referred By Contac t Referred To Contact [facility] Diagnoses Spastic pelvic floor syndrome Procedures PT REHAB FOLLOW UP ORDER THERAPEUTIC EXERCISES RE, EA 15 MIN. Dian Sanchez, PT [address] [place] [address] [facility] [place] [address] [place] [address] Referral ID Status Reason Start Date Expiration Date Visits Requested Visits Authorized [id number] Pending Review PCP Requested Referral Auto-Generate d Referral 12/12/2022 03/12/2023 1 1 Summary Purpose Family History No Family History Records Found Advance Directives No Advanced Directives Records Found Additional Source Comments Source Comments (unrecognize d section and content) In the event this informatio n is protected by the Federal Confidentiality of Alcohol and Drug Abuse Patient Records regulations: The Federal rules restrict any use of the information to criminally investigate or prosecute any alcohol or drug abuse patient.[facility] the event this information is protected by the Federal Confidentiality of Alcohol and Drug Abuse Patient Records regulations: The Federal rules restrict any use of the information to criminally investigate or prosecute any alcohol or drug abuse patient.[facility] HospitalIn the event this information is protected by the Federal Confidentiality of Alcohol and Drug Abuse Patient Records regulations: The Federal rules restrict any use of the information to criminally investigate or prosecute any alcohol or drug abuse patient.[facility] HospitalIn the event this information is protected by the Federal Confidentiality of Alcohol and Drug Abuse Patient Records regulations: The Federal rules restrict any use of the information to criminally investigate or prosecute any alcohol or drug abuse patient.[facility] HospitalIn the event this information is protected by the Federal Confidentiality of Alcohol and Drug Abuse Patient Records regulations: The Federal rules restrict any use of the information to criminally investigate or prosecute any alcohol or drug abuse patient.[facility] HospitalIn the event this information is protected by the Federal Confidentiality of Alcohol and Drug Abuse Patient Records regulations: The Federal rules restrict any use of the information to criminally investigate or prosecute any alcohol or drug abuse patient.[facility] HospitalIn the event this information is protected by the Federal Confidentiality of Alcohol and Drug Abuse Patient Records regulations: The Federal rules restrict any use of the information to criminally investigate or prosecute any alcohol or drug abuse patient.[facility] HospitalIn the event this information is protected by the Federal Confidentiality of Alcohol and Drug Abuse Patient Records regulations: The Federal rules restrict any use of the information to criminally investigate or prosecute any alcohol or drug abuse patient.[facility] HospitalIn the event this information is protected by the Federal Confidentiality of Alcohol and Drug Abuse Patient Records regulations: The Federal rules restrict any use of the information to criminally investigate or prosecute any alcohol or drug abuse patient.[facility] HospitalIn the event this information is protected by the Federal Confidentiality of Alcohol and Drug Abuse Patient Records regulations: The Federal rules restrict any use of the information to criminally investigate or prosecute any alcohol or drug abuse patient.[facility] HospitalIn the event this information is protected by the Federal Confidentiality of Alcohol and Drug Abuse Patient Records regulations: The Federal rules restrict any use of the information to criminally investigate or prosecute any alcohol or drug abuse patient.[facility] HospitalIn the event this information is protected by the Federal Confidentiality of Alcohol and Drug Abuse Patient Records regulations: The Federal rules restrict any use of the information to criminally investigate or prosecute any alcohol or drug abuse patient.[facility] HospitalIn the event this information is protected by the Federal Confidentiality of Alcohol and Drug Abuse Patient Records regulations: The Federal rules restrict any use of the information to criminally investigate or prosecute any alcohol or drug abuse patient.[facility] HospitalIn the event this information is protected by the Federal Confidentiality of Alcohol and Drug Abuse Patient Records regulations: The Federal rules restrict any use of the information to criminally investigate or prosecute any alcohol or drug abuse patient.[facility] HospitalIn the event this information is protected by the Federal Confidentiality of Alcohol and Drug Abuse Patient Records regulations: The Federal rules restrict any use of the information to criminally investigate or prosecute any alcohol or drug abuse patient.[facility] HospitalIn the event this information is protected by the Federal Confidentiality of Alcohol and Drug Abuse Patient Records regulations: The Federal rules restrict any use of the information to criminally investigate or prosecute any alcohol or drug abuse patient.[facility] HospitalIn the event this information is protected by the Federal Confidentiality of Alcohol and Drug Abuse Patient Records regulations: The Federal rules restrict any use of the information to criminally investigate or prosecute any alcohol or drug abuse patient.[facility] HospitalIn the event this information is protected by the Federal Confidentiality of Alcohol and Drug Abuse Patient Records regulations: The Federal rules restrict any use of the information to criminally investigate or prosecute any alcohol or drug abuse patient.[facility] HospitalIn the event this information is protected by the Federal Confidentiality of Alcohol and Drug Abuse Patient Records regulations: The Federal rules restrict any use of the information to criminally investigate or prosecute any alcohol or drug abuse patient.[facility] HospitalIn the event this information is protected by the Federal Confidentiality of Alcohol and Drug Abuse Patient Records regulations: The Federal rules restrict any use of the information to criminally investigate or prosecute any alcohol or drug abuse patient.[facility] HospitalIn the event this information is protected by the Federal Confidentiality of Alcohol and Drug Abuse Patient Records regulations: The Federal rules restrict any use of the information to criminally investigate or prosecute any alcohol or drug abuse patient.[facility] HospitalIn the event this information is protected by the Federal Confidentiality of Alcohol and Drug Abuse Patient Records regulations: The Federal rules restrict any use of the information to criminally investigate or prosecute any alcohol or drug abuse patient.[facility] HospitalIn the event this information is protected by the Federal Confidentiality of Alcohol and Drug Abuse Patient Records regulations: The Federal rules restrict any use of the information to criminally investigate or prosecute any alcohol or drug abuse patient.[facility] HospitalIn the event this information is protected by the Federal Confidentiality of Alcohol and Drug Abuse Patient Records regulations: The Federal rules restrict any use of the information to criminally investigate or prosecute any alcohol or drug abuse patient.[facility] Reason for Visit (unrecogniz ed section and content) Specialty Diagnoses / Procedures Referred By Antwon cotter Referred To Contact [facility] Diagnoses DDD (degenerative disc disease), lumbar Spastic pelvic floor syndrome Procedures CONSULT TO PHYSICAL THERAPY PHYSICAL THERAPY EVALUATION HIGH COMPLEX 45 MINS Jessie Blackwell MD [address] [place] [address] [facility] [address] [address] Referral ID Status Reason Start Date Expiration Date Visits Requested Visits Authorized [id number] Authorized Auto-Generat ed Referral 11/12/2022 11/11/2023 30 30 Reason Comments Results Reason Comments Groin Pain Reason Comments Testicular Pain Reason Comments ER F/U Testicular Pain Reason Comments Appointment Reason Onset Date Comments Refill Request 10/10/2022 Reason Comments Physical Therapy Specialty Diagnoses / Procedures Referred By Contac t Referred To Contact [facility] Diagnoses Spastic pelvic floor syndrome Procedures PT REHAB FOLLOW UP ORDER THERAPEUTIC EXERCISES RE, EA 15 MIN. 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 Procedures EST RS PT ORTH K Edmund Mckenzie PA-C [address] [place] [address] Dian Sanchez, PT [address] [place] [address] Referral ID Status Reason Start Date Expiration Date V isits Requested Visits Authorized [id number] Authorized 11/12/2022 12/12/2022 99 99 Reason Comments ER F/U Reason Comments Follow Up Specialty Diagnoses / Procedures Referred By Contac t Referred To Contact Urology Diagnoses Spastic pelvic floor syndrome Pain in both testicles Procedures CONSULT TO UROLOGY OFFICE/OUTPATIENT NEW HIGH MDM 60-74 MINUTES Jessie Blackwell MD [address] [place] [address] Referral ID Status Reason Start Date Expiration Date Visits Requested Visits Authorized [id number] Pending Review PCP Requested Referral 06/18/2023 06/17/2024 1 1 Reason Comments PT Eval Reason Comments Knee Pain left x 1 week, denie s injury Reason Comments New Patient Ingrown Nail Specialty Diagnoses / Procedures Referred By Antwon cotter Referred To Contact Podiatry Diagnoses Ingrown toenail Procedures CONSULT TO PODIATRY OFFICE/OUTPATIENT NEW HIGH MDM 60 MINUTES Placido Pérez APRN.[employer]ATOR [address] [place] [address] Referral ID Status Reason Start Date Expiration Date V isits Requested Visits Authorized [id number] Closed PCP Requested Referral 12/06/2023 12/05/2024 1 1 Reason Comments Derm Problem right lower lip sore x 3-4 days Reason Onset Date Comments Refill Request 12/31/2023 Reason Comments Derm Problem redness, swelling an d drainage seen Sunday on bactrim Care Teams (unrecognized sec tion and content) Supervisor [employer] Relationship Specialty Start Date End Date Jessie Blackwell MD [address] [place], [place] [id number] PCP - General Family Medicine 06/21/12 Supervisor [employer] Relationship Specialty Start Date End Date Jessie Blackwell MD [address] [place], [place] [address] PCP - General Family Medicine 06/21/12 Supervisor [employer] Relationship Specialty Start Date End Date Jessie Blackwell MD [address] [place] [address] PCP - General Family Medicine 06/21/12 Supervisor [employer] Relationship Specialty Start Date End Date Jessie Blackwell MD [address] [place], [place] [id number] PCP - General Family Medicine 06/21/12 Supervisor [employer] Relationship Specialty Start Date End Date Jessie Blackwell MD [address] [place], [place] [id number] PCP - General Family Medicine 06/21/12 Supervisor [employer] Relationship Specialty Start Date End Date Jessie Blackwell MD [address] [place] [address] PCP - General Family Medicine 06/21/12 Supervisor [employer] Relationship Specialty Start Date End Date Jessie Blackwell MD [address] [place] [address] PCP - General Family Medicine 06/21/12 Supervisor [employer] Relationship Specialty Start Date End Date Jessie Blackwell MD [address] [place] [address] PCP - General Family Medicine 06/21/12 Supervisor [employer] Relationship Specialty Start Date End Date Jessie Blackwell MD [address] [place] [address] PCP - General Family Medicine 06/21/12 Supervisor [employer] Relationship Specialty Start Date End Date Jessie Blackwell MD [address] [place] [address] PCP - General Family Medicine 06/21/12 Supervisor [employer] Relationship Specialty Start Date End Date Jessie Blackwell MD [address] [place] [address] PCP - General Family Medicine 06/21/12 Supervisor [employer] Relationship Specialty Start Date End Date Jessie Blackwell MD [address] [place] [address] PCP - General Family Medicine 06/21/12 Supervisor Sh[employer] Relationship Specialty Start Date End Date Jessie Blackwell MD [address] [place] [address] PCP - General Family Medicine 06/21/12 Supervisor Sh[employer] Relationship Specialty Start Date End Date Jessie Blackwell MD [address] [place], [place] [id number] PCP - [facility] 06/21/12 Supervisor Sh[employer] Vene[employer] Relationship Specialty Start Date End Date Jessie Blackwell MD [address] [place], [place] [address] PCP - [facility] 06/21/12 Supervisor Sh[employer]ene[employer] Relationship Specialty Start Date End Date Jessie Blackwell MD [address] [place], [place] [id number] PCP - [facility] 06/21/12 Supervisor Sh[employer] Relationship Specialty Start Date End Date Jessie Blackwell MD [address] [place], [place] [address] PCP - [facility] 06/21/12 Supervisor Sh[employer] Relationship Specialty Start Date End Date Jessie Blackwell MD [address] [place], [place] [address] PCP - [facility] 06/21/12 (unrecognized sect ion and content) No Status Records Found INFORMATION SOURCE (unrecogn ized section and content) FOR RECORDS PERTAINING TO PATIENTS WHO ARE OR HAVE BEEN ENROLLED IN A CHEMICAL DEPENDENCY/SUBSTANCEABUSE PROGRAM, SOME INFORMATION MAY BE OMITTED. This clinical summary was aggregated from multiple sources. Caution should be exercised in using it in the provision of clinical care. This summary normalizes information from multiple sources, and as a consequence, information in this document may materially change the coding, format and clinical context of patient data. In addition, data may be omitted in some cases. CLINICAL DECISIONS SHOULD BE BASED ON THE PRIMARY CLINICAL RECORDS. [facility]. provides no warranty or guarantee of the accuracy or completeness of information in this document.
== END 2024-01-07 19:56 | disposition home or self-care (01) ==
PROVIDERS: Emergency Provider Emergency Medicine; PCP Family Medicine; Visit Provider Emergency Medicine
DX: M99.05 Segmental and somatic dysfunction of pelvic region (principal); F31.9 Bipolar disorder, unspecified; F17.210 Nicotine dependence, cigarettes, uncomplicated; Z79.899 Other long term (current) drug therapy
CPT/HCPCS: 72193; 80048; 81001; 83605; 85025; 87040; 87086; 96361; 96374; 96375; 96376; 99285; J7030; Q9967; A4216; J2405

== ENCOUNTER 2024-01-12 09:33 | Emergency (ER) | payer MEDICAID, SELFPAY ==
[2024-01-12 09:34] VITALS: BP 186/92; PULSE 104; RESP 22; TEMP 36; O2SAT 97; BMI 46.7
--- NOTE | 2024-01-12 10:17 | EKG12_ITS ---
Test Reason : SOB Blood Pressure : / mmHG Vent. Rate : 085 BPM Atrial Rate : 085 BPM P-R Int : 156 ms QRS Dur : 088 ms QT Int : 334 ms P-R-T Axes : 040 042 025 degrees QTc Int : 397 ms Normal sinus rhythm Normal ECG Confirmed by Michael Lr ([id number]), metropolitan editor DANNIE AUGUSTINE ([id number]) on 01/14/2024 10:27:00 AM Referred By: Confirmed By:Michael Lr
--- NOTE | 2024-01-12 10:17 | EDS_ITS ---
HPI History of Present Illness Chief Complaint: Shortness of Breath Informant: patient Onset/Context/Timing Onset: Days Context: gradual Timing: Continuous Quality: Positive for Dyspnea on exertion and Orthopnea Current Severity: Mild Maximum Severity: Mild Worsened by: Exertion and Lying flat Relieved by: Nothing Associated Symptoms Negative for cough Chest Pain: Positive for None Narrative Narrative: 38-year-old male history of bipolar disorder. States he has been short of breath last several days with weight gain and fluid buildup in both legs. Denies any cardiac history. Denies any history of CHF. Denies any history of kidney disease. No history of DVT or blood clots. He denies any chest pain. He denies any fever. PE Risk Factors: Negative for Cancer, OCP + Smoking + > 35, Prior DVT or PE, Recent immobilization, Recent surgery or Recent travel Prior similar symptoms: No Recent Illness/Hospitalization: No PFSH PFSH Medical History Bipolar 1 disorder DDD (degenerative disc disease) Spastic pelvic floor syndrome Home Medications cariprazine 6 mg capsule (Vraylar) 6 mg PO DAILY 09/15/18 [History Last Taken Unknown] omeprazole 20 mg capsule,delayed release 20 mg PO DAILY 05/10/19 [History Last Taken Unknown] polyethylene glycol 3350 17 gram/dose oral powder (ClearLax) 17 g PO DAILY PRN constipation #119 grams 12/04/22 [Rx Last Taken Unknown] topiramate 50 mg tablet 100 mg PO DAILY 12/04/22 [History Last Taken Unknown] hydrocodone-acetaminophen 5-325mg 5mg-325mg 1 tab PO Q6H PRN PRN Pain 3 days #10 TABLETS 12/06/22 [Rx Last Taken Unknown] diazepam 5 mg tablet (Valium) 5 mg PO TID PRN muscle spasm 5 days #15 tabs 06/16/23 [Rx Last Taken Unknown] oxycodone-acetaminophen 5 mg-325 mg tablet (Percocet) 1 tab PO Q6H PRN pain 3 days #12 tabs 06/16/23 [Rx Last Taken Unknown] diazepam 5 mg tablet (Valium) 5 mg PO BID PRN muscle spasm #10 tabs 01/07/24 [Rx Last Taken Unknown] oxycodone-acetaminophen 5 mg-325 mg tablet (Percocet) 1 tab PO Q8H PRN pain 3 days #10 tabs 01/07/24 [Rx Last Taken Unknown] furosemide 20 mg tablet (Lasix) 20 mg PO DAILY 10 days #10 tabs 01/12/24 [Rx Last Taken Unknown] Allergy/AdvReac Type Severity Reaction Status Date / Time Penicillins Allergy Hives Verified 01/07/24 16:08 Surgical History Hx of cardiac cath Social History Smoking Status: Former smoker ROS ROS ED ROS Narrative Bilateral lower extremity swelling. Shortness of breath. Review of Systems ROS Unobtainable: Denies due to encephalopathy Constitutional Constitutional ED: Denies chills or fever(s) ENT ENT ED: Denies ear pain Cardiovascular Cardiovascular: Reports orthopnea; Denies chest pain or palpitations Respiratory/Chest Respiratory/Chest: Reports dyspnea, dyspnea on exertion and orthopnea; Denies cough Gastrointestinal Gastrointestinal: Reports diarrhea; Denies abdominal pain, constipation, melena, nausea or vomiting Genitourinary Genitourinary ED: Denies dysuria or hematuria Musculoskeletal Musculoskeletal: Denies arthralgias Integumentary Denies abscess or Abrasions Neurologic Neurologic: Denies headache(s) Psychiatric Psychiatric: Denies anxiety Endocrine Endocrinology: Denies cold intolerance Hematologic/Lymphatic Hematologic/Lymphatic: Denies easy bleeding or easy bruising Allergic/Immunologic Allergic/Immunologic ED: Denies mouth swelling, tongue swelling or urticaria EXAM Physical Exam Narrative Exam Narrative: 38-year-old male no acute distress vital signs initial blood pressure 186/92. Pulse ox 97% on room air no signs hypoxia. He is afebrile. H EENT exam unremarkable. Mytrex membranes. Neck nontender no JVD. Lungs clear to auscultation bilaterally. Heart regular rhythm rate about 103 no murmur. Abdomen soft nontender. Moving all 4 extremities. 1+ pitting edema equal and symmetrical in both lower extremities below the knees. Dorsi and plantarflexion is intact. Normal showroom executive director strength. Neurologically is awake and alert no focal motor deficits. Back unremarkable. Const Vital Signs: 01/12/24 09:34 01/12/24 09:49 01/12/24 09:50 Temperature 96.8 F L Temperature Source Temporal Pulse Rate 104 H Respiratory Rate 22 H Respiratory Effort Short of Breath Respiratory Depth Normal Respiratory Pattern Normal Blood Pressure 186/92 H Blood Pressure Mean 123 Pulse Ox 97 Oxygen Delivery Method Room Air Room Air Room Air Positive well nourished and well developed; Negative for cachectic, contractures or unkempt General Appearance ED: well developed and NAD; Negative for unkempt, cachectic, contractures or pallor Nutritional Appearance: Negative for cachectic HEENT Reports moist mucous membranes; Denies dry mucous membranes atraumatic; Negative for trauma or tenderness Mouth ED: No dry mucous membranes Mouth: No dry mucous membranes Eyes PERRL and EOMs intact bilaterally General Eye ED: Negative for pale conjunctiva, scleral icterus or other Neck no lymphadenopathy, supple, no meningeal signs and no JVD General: Negative for tenderness Lymph Lymphatic: Negative for other Resp normal respiratory effort and clear to auscultation bilaterally Effort and Inspection: Negative for pain with movement Auscultation: Negative for rales, rhonchi or wheezes Cardio regular rate, regular rhythm, S1 normal heart sound, S2 normal heart sound and no murmurs Rate: Negative for bradycardia or tachycardic Rhythm: Negative for abnormal rhythm GI non-tender, non-distended and no masses Inspection: Negative for other Auscultation: normoactive bowel sounds Palpation: soft; Negative for tender, guarding or rebound tenderness present Back/Spine no CVA tenderness and normal to inspection General Back: Negative for CVA tenderness or tenderness Extremity Negative for normal to inspection Extremity Narrative: Bilateral lower extremity edema. General Extremety ED: Yes edema; Negative for tenderness General Extremity: edema Neuro oriented x3 and CN's II-XII intact bilaterally Sensorium / Orientation: alert, oriented to person, oriented to place and oriented to time; Negative for orientation impaired, confused, lethargic or stuporous Speech: speech normal Motor Exam: strength 5/5 throughout Psych mental status grossly normal Appearance: Negative for unkempt Mood & Affect: Negative for depressed, anxious or tearful Thought Process: normal thought process Skin no wounds and skin turgor normal General Skin Exam: Negative for jaundice or pallor Lesions: no lesions Rashes: no rashes Trauma: Negative for abrasion or laceration MDM MDM MDM Narrative Medical decision making narrative: 38-year-old male with bilateral lower extremity edema shortness of breath and orthopnea. Differential would include congestive heart failure, kidney disease versus other etiologies. Undergo cardiac workup with a chest x-ray. Repeat exam at 11:10 AM. Unchanged. Patient doing well. Pulse ox in the high 90s. I went over the labs chest x-ray and EKG with the patient. To be discharged home. Started on Lasix 20 mg a day. Outpatient follow-up with his primary care physician this week. History & Record Review Discussion w/independent historian: Patient Lab Data Attestation: I reviewed the patient's lab results. Lab results narrative: CBC normal. White count of 9.1. H&H 13 and 42. Platelets 278. Chemistries show a gap of 5. Normal BUN of 10 creatinine 1. Glucose 96. Troponin normal at 5. BNP is 55. Labs: Laboratory Results - last 24 hr 01/12/24 09:50 WBC 9.1 RBC 4.83 Hgb 13.5 Hct 42.7 MCV 88.4 MCH 28.0 MCHC 31.6 L RDW Std Deviation 42.5 RDW Coeff of Jodie 13.2 Plt Count 278 MPV 10.0 Immature Gran % (Auto) 1.000 H Neut % (Auto) 54.2 Lymph % (Auto) 35.5 Garfield % (Auto) 7.1 Eos % (Auto) 1.1 Baso % (Auto) 1.1 H Absolute Neuts (auto) 4.9 Absolute Lymphs (auto) 3.22 Nucleated RBC % 0 Sodium 141 Potassium 3.6 Chloride 112 H Carbon Dioxide 24.0 Anion Gap 5 BUN 10 Creatinine 1.03 Estim Creat Clear Calc 148.66 Est GFR (MDRD) Af Amer 103 Est GFR (MDRD) Non-Af 85 BUN/Creatinine Ratio 9.7 L Glucose 96 Calcium 9.2 Troponin I High Sens 5 B-Natriuretic Peptide 55.5 Radiography Chest X-Ray - ED: 1 View, Read by ED Physician, Mediastinum, Bony Structures, No Acute Disease and Chronic Changes Diagnostic Testing: Chest x-ray, portable, single view shows no acute abnormality. Normal cardiac silhouette. Normal lung duran. No pleural effusions. No pulmonary edema. Rhythm Strip Rhythm Strip: Sinus Rhythm Rate: 85 Ectopy: None EKG Initial EKG: Attestation: I personally reviewed and interpreted this EKG as follows: Interpretation: Sinus Rhythm and No Acute Injury Pattern Comments: Normal sinus rhythm rate 85 no acute signs of OR or ischemia. Discharge Plan Triage Chief Complaint: Shortness of Breath ED Provider: Marko Mendieta Dx/Rx/DC Orders Clinical Impression: History of bipolar disorder, Peripheral edema Instructions: ED Peripheral Edema, Bilateral Prescriptions: New furosemide [Lasix] 20 mg tablet 20 mg PO DAILY 10 Days Qty: 10 0RF Rx Instructions: Take the Lasix in the morning between 8 and 10 AM. No Action Vraylar 6 mg capsule 6 mg PO DAILY Patient Comments: Take 1 capsule by mouth once a day omeprazole 20 MG capsule 20 mg PO DAILY topiramate 50 mg tablet 100 mg PO DAILY polyethylene glycol 3350 [ClearLax] 17 gram/dose powder 17 g PO DAILY PRN (Reason: constipation) Qty: 119 0RF hydrocodone-acetaminophen 5-325 mg tablet 1 tab PO Q6H PRN PRN (Reason: Pain) 3 Days Qty: 10 0RF oxycodone-acetaminophen [Percocet] 5-325 mg tablet 1 tab PO Q6H PRN (Reason: pain) 3 Days Qty: 12 0RF diazepam [Valium] 5 mg tablet 5 mg PO TID PRN (Reason: muscle spasm) 5 Days Qty: 15 0RF oxycodone-acetaminophen [Percocet] 5-325 mg tablet 1 tab PO Q8H PRN (Reason: pain) 3 Days Qty: 10 0RF diazepam [Valium] 5 mg tablet 5 mg PO BID PRN (Reason: muscle spasm) Qty: 10 0RF Primary Care Provider: Raghu Blackwell Referrals: Raghu Blackwell MD [Primary Care Provider] - As soon as possible Activity Restrictions/Additional Instructions: Take the Lasix 1 pill each morning between 8 to 10 am This will make you urinate a lot. Should decrease the swelling in your legs. Have your primary care physician this week to ensure you are doing fine. Disposition Disposition: Home, Self Care
[2024-01-12 10:29] LABS: Absolute Lymphocyte Count 3.22 X10^3/uL (0.83-4.51); Absolute Neutrophil Count 4.9 X10^3/uL (2.0-7.7); Basophil% 1.1 % (0-1); Eosinophils% 1.1 % (0-5); Hematocrit 42.7 % (40-54); Hemoglobin 13.5 g/dL (13.0-16.5); Lymphocyte # 3.22 X10^3/ul (0.83-4.51); Lymphocyte % 35.5 % (19-41); Mean Corp Hgb Conc 31.6 g/dL (32-36); Mean Corpuscular Volume 88.4 fL (80-94); Monocyte# 0.64 X10^3/uL; Monocyte% 7.1 % (0-10); NRBC Flagged by Analyzer 0 % (0-5); Neutrophil # 4.92 X10^3/uL (2.7-7.7); Neutrophil % 54.2 % (47-70); Platelet Count 278 K/mm3 (150-450); RBC Distribution Width CV 13.2 % (11.6-14.6); RBC Distribution Width SD 42.5 fl (35.1-43.9); Red Blood Count 4.83 M/mm3 (4.6-6.2); White Blood Count 9.1 K/mm3 (4.4-11.0)
[2024-01-12 10:43] LABS: Anion Gap 5 (5-15); BUN 10 mg/dL (7-18); BUN/Creat Ratio 9.7 RATIO (10-20); Calcium,Total 9.2 mg/dL (8.5-10.1); Chloride 112 mmol/L (98-107); Creatinine, Serum 1.03 mg/dL (0.70-1.30); EST Glomerular Filtration Rate 85 mL/min (>60); Est Glom Filt Rate - Afr Amer 103 mL/min (>60); Estimated Creatinine Clearance 148.66 ml/min; Glucose 96 mg/dL (74-106); Potassium 3.6 mmol/L (3.5-5.1); Sodium Level 141 mmol/L (136-145); Troponin-I HS 5 pg/mL (3.0-78.0)
[2024-01-12 10:57] LABS: BNP,B-Type NATRIURETIC PEPTIDE 55.5 pg/mL (0-100)
--- NOTE | 2024-01-12 11:00 | RAD_ITS ---
STUDY: X-RAY CHEST REASON FOR EXAM: Male, 38 years old. Chest pain TECHNIQUE: Single AP portable view of the chest. COMPARISON: December 04, 2022 FINDINGS: The lungs are clear and expanded. There is no demonstrated pleural abnormality. Normal size heart. Normal mediastinum and william. Normal visualized pulmonary arteries. Normal visualized aortic arch and descending thoracic aorta. Normal visualized thoracic spine. Normal visualized ribs, clavicles, and shoulders. There is no demonstrated abnormality of the visualized soft tissue structures of the upper abdomen. RAD/Chest 1 View (Portable) IMPRESSION: Normal x-ray examination of the chest. Electronically Signed: Goyo Nino MD at 11:34 EST ,
[2024-01-12 11:40] VITALS: BP 168/96; PULSE 86; RESP 13; TEMP 36; O2SAT 96
[2024-01-12] MEDS: Furosemide 40 MG Tablet PO (11:40)
== END 2024-01-12 11:46 | disposition home or self-care (01) ==
PROVIDERS: Emergency Provider Emergency Medicine; PCP Family Medicine; Visit Provider Emergency Medicine
DX: R60.0 Localized edema (principal); F31.9 Bipolar disorder, unspecified; Z87.891 Personal history of nicotine dependence; R06.02 Shortness of breath; R63.5 Abnormal weight gain; R06.09 Other forms of dyspnea; R19.7 Diarrhea, unspecified
CPT/HCPCS: 71045; 80048; 83880; 84484; 85025; 93005; 99284; A4216

== ENCOUNTER 2024-01-13 02:45 | Emergency (ER) | payer MEDICAID, SELFPAY ==
[2024-01-13 02:46] VITALS: BP 163/95; PULSE 93; RESP 16; TEMP 36.4; O2SAT 97; BMI 46.4
--- OUTSIDE RECORDS SUMMARY | 2024-01-13 03:19 | XMS RPT_ITS | CCD ---
Author Name Unknown Address [address] [place] [address] Organization [facility] Care Team Providers Care Conference Services Director Name Role Phone Jessie Blackwell MD Primary Care Provider JESSIE BLACKWELL Primary Care Unavailable JACOBO, JESSIE Nielsen Referring Unavailable KENZIE ART Attending Unavailable JACOBO, JESSIE Nielsen Primary Care Unavailable JACOBO, JESSIE Nielsen Primary Care Unavailable LEONARD MARTÍNEZ Referring Unavailable JACOBO, JESSIE Nielsen Primary Care Unavailable LEONARD MARTÍNEZ Referring Unavailable JACOBO, JESSIE Nielsen Referring Unavailable JACOBO, JESSIE Nielsen Primary Care Unavailable DIAN HEATON Attending Unavailable JACOBO, JESSIE Nielsen Primary Care Unavailable JACOBO, JESSIE Nielsen Referring Unavailable DIAN HEATON Attending Unavailable JESSIE BLACKWELL Referring Unavailable JACOBO, JESSIE Nielsen Primary Care Unavailable KENZIE ART Attending Unavailable JACOBO, JESSIE Nielsen Primary Care Unavailable EDMUND MCKENZIE Attending Unavailable JESSIE BLACKWELL Referring Unavailable JESSIE BLACKWELL Primary Care Unavailable LEONARD MARTÍNEZ Attending Unavailable PLACIDO PÉREZ Referring Unavailable JACOBO, JESSIE Nielsen Primary Care Unavailable MARIVEL URRUTIA Attending Unavailable JACOBO, JESSIE Nielsen Primary Care Unavailable MARIVEL URRUTIA Attending Unavailable JESSIE BLACKWELL Primary Care Unavailable EBEN CHEN Referring Unavailable JACOBO, JESSIE Nielsen Primary Care Unavailable JACOBO, JESSIE Nielsen Attending Unavailable JESSIE BLACKWELL Primary Care Unavailable JACOBO, JESSIE Nielsen Referring Unavailable JACOBO, JESSIE Nielsen Primary Care Unavailable JACOBO, JESSIE Nielsen Primary Care Unavailable JESSIE BLACKWELL Primary Care Unavailable EDMUND MCKENZIE Referring Unavailable DIAN HEATON Attending Unavailable JESSIE BLACKWELL Primary Care Unavailable JESSIE BLACKWELL Attending Unavailable JACOBO, JESSIE Nielsen Primary Care Unavailable JACOBO, JESSIE Nielsen Primary Care Unavailable JACOBO, JESSIE Nielsen Referring Unavailable JACOBO, JESSIE Nielsen Primary Care Unavailable JESSIE BLACKWELL Referring Unavailable JESSIE BLACKWELL Referring Unavailable JESSIE BLACKWELL Primary Care Unavailable JESSIE BLACKWELL Primary Care Unavailable JESSIE BLACKWELL Referring Unavailable KENZIE ART Attending Unavailable JESSIE BLACKWELL Primary Care Unavailable JESSIE BLACKWELL Referring Unavailable KENZIE ART Attending Unavailable Jessie Blackwell MD Primary Care Provider Allergies Allergy Classification Reported Allergen(s) Allergy Type Date of Onset Reaction(s) Facility (20 sources) Penicillins; Translations: [PENICILLINS] Drug Allergy 02-12-2012 [facility] Medications Current Medications Medication Drug Class(es) Dates Sig (Normalized) Sig (Original) cephalexin 500 mg oral capsule (3 sources) Cephalosporin Antibacterial Start: 01-02-2024 End: 01-09-2024 take [...] pain; Translations: [Right lower quadrant pain] Episodic Diseases of mouth; excluding dental (3 sources) Diseases of lips; Translations: [Abscess of lip] Onset: 01-04-2024 01-04-2024 Episodic Disorders of lipid metabolism (20 sources) [...] Translations: [Avitaminosis D] Onset: 10-03-2023 Chronic Other circulatory disease (1 source) Abnormal peripheral pulse; Translations: [Other specified symptoms and signs involving the circulatory and respiratory systems] 12-25-2023 Episodic Other circulatory disease (1 source) Other specified symptoms and signs involving the circulatory and respiratory systems; Translations: [Diminished pulses in lower extremity] Onset: 01-02-2024 Episodic Other connective tissue disease (1 source) Swelling of lower limb; Translations: [Other specified soft tissue disorders] Episodic Other hematologic conditions (1 source) Erythrocytosis; Translations: [Secondary polycythemia] Episodic Other lower respiratory disease (1 source) Dyspnea; Translations: [Shortness of breath] 01-12-2024 Episodic Other non-traumatic joint disorders (2 sources) Pain in left knee; Translations: [Pain in joint, lower leg] Onset: 10-13-2023 10-13-2023 Episodic Other nutritional; endocrine; and metabolic disorders (20 sources) Body mass index 40+ - severely obese; Translations: [Morbid (severe) obesity due to excess calories] Onset: 02-13-2018 02-13-2018 Chronic Other nutritional; endocrine; and metabolic disorders (1 source) Weight gain; Translations: [Abnormal weight gain] 01-12-2024 Episodic Other skin disorders (1 source) Ingrowing toenail; Translations: [Ingrowing nail] 12-25-2023 Episodic Other skin disorders (1 source) Dystrophia unguium; Translations: [Nail dystrophy] 12-25-2023 Episodic Other skin disorders (1 source) Nail dystrophy; Translations: [Onychodystrophy] Onset: 01-02-2024 Episodic Other skin disorders (1 source) Ingrowing nail; Translations: [Ingrown toenail] Onset: 12-25-2023 Episodic Residual codes; unclassified (1 source) Edema; Translations: [Edema, unspecified] 06-18-2023 Episodic Residual codes; unclassified (1 source) Localized edema; Translations: [Localized edema] 06-18-2023 Episodic Residual codes; unclassified (1 source) Peripheral edema; Translations: [Localized edema] 01-12-2024 Episodic Spondylosis; intervertebral disc disorders; other back [...] [Encounter for immunization] Onset: 08-07-2023 Episodic Other aftercare (1 source) Other fci (current) drug therapy; Translations: [On angiotensin receptor blockers (ARB)] Onset: 10-03-2023 Episodic Other connective tissue disease (18 sources) Increased muscle tone; Translations: [Other specified disorders of muscle] Onset: 06-29-2023 06-29-2023 Episodic Other gastrointestinal disorders (20 sources) Anismus; Translations: [Other specified symptoms and signs involving the digestive system and abdomen] Onset: 10-20-2022 Episodic Other gastrointestinal disorders (1 source) Outlet dysfunction constipation; Translations: [Spastic pelvic floor syndrome] Onset: 10-20-2022 Episodic Other male genital disorders (20 sources) Bilateral testicular pain; Translations: [Right testicular [...] Edema, unspecified; Translations: [Edema, unspecified type] Onset: 06-18-2023 Episodic Residual codes; unclassified (1 source) Localized edema; Translations: [Localized edema] Onset: 06-18-2023 Episodic Skin and subcutaneous tissue infections (4 sources) Infected face; Translations: [Local infection of the skin and subcutaneous tissue, unspecified] Onset: 08-07-2023 12-31-2023 Episodic Spondylosis; intervertebral disc disorders; other back problems (20 sources) Neck pain; Translations: [Cervicalgia] Onset: 10-21-2013 10-21-2013 Episodic Results Test Name Value Interpretation Reference Range Facil ity Vital Signs Date Time Vital Sign Value Performing Clinician Heidi burton 01-12-2024 09:22-0500 Body temperature 97.81 [degF] Dian Athy PA-C Work Phone: [facility] 01-12-2024 09:22-0500 Body weight 157.22 kg Dian Athy PA-C Work Phone: [facility] 01-12-2024 09:22-0500 Diastolic blood pressure 102 mm[Hg] Dian Athy PA-C Work Phone: [facility] 01-12-2024 09:22-0500 Heart rate 91 /min Dian Athy PA-C Work Phone: [facility] 01-12-2024 09:22-0500 Respiratory rate 20 /min Dian Athy PA-C Work Phone: [facility] 01-12-2024 09:22-0500 SaO2% (BldA) [Mass fraction] 98 % Dian Athy PA-C Work Phone: [facility] 01-12-2024 09:22-0500 Systolic blood pressure 160 mm[Hg] Dian Athy PA-C Work Phone: [facility] 01-08-2024 13:24-0500 Body temperature 98.2 [degF] Marivel Suppan LACQUER SHADER.RADIOLOGY CT TECHNOLOGIST Work Phone: [facility] 01-08-2024 13:24-0500 Body weight 151.5 kg Marivel Suppan LACQUER SHADER.RADIOLOGY CT TECHNOLOGIST Work Phone: [facility] 01-08-2024 13:24-0500 Diastolic blood pressure 80 mm[Hg] Marivel Suppan LACQUER SHADER.RADIOLOGY CT TECHNOLOGIST Work Phone: [facility] 01-08-2024 13:24-0500 Heart rate 103 /min Marivel Suppan LACQUER SHADER.RADIOLOGY CT TECHNOLOGIST Work Phone: [facility] 01-08-2024 13:24-0500 Respiratory rate 16 /min Marivel Suppan LACQUER SHADER.RADIOLOGY CT TECHNOLOGIST Work Phone: [facility] 01-08-2024 13:24-0500 SaO2% (BldA) [Mass fraction] 95 % Marivel Suppan LACQUER SHADER.RADIOLOGY CT TECHNOLOGIST Work Phone: [facility] 01-08-2024 13:24-0500 Systolic blood pressure 132 mm[Hg] Marivel Suppan LACQUER SHADER.RADIOLOGY CT TECHNOLOGIST Work Phone: [facility] 01-04-2024 14:31-0500 Body temperature 98.29 [degF] Marivel Suppan LACQUER SHADER.RADIOLOGY CT TECHNOLOGIST Work Phone: [facility] 01-04-2024 14:31-0500 Body weight 147.42 kg Marivel Suppan LACQUER SHADER.RADIOLOGY CT TECHNOLOGIST Work Phone: [facility] 01-04-2024 14:31-0500 Diastolic blood pressure 88 mm[Hg] Marivel Suppan LACQUER SHADER.RADIOLOGY CT TECHNOLOGIST Work Phone: [facility] 01-04-2024 14:31-0500 Heart rate 115 /min Marivel Suppan LACQUER SHADER.RADIOLOGY CT TECHNOLOGIST Work Phone: [facility] 01-04-2024 14:31-0500 Respiratory rate 18 /min Marivel Suppan LACQUER SHADER.RADIOLOGY CT TECHNOLOGIST Work Phone: [facility] 01-04-2024 14:31-0500 SaO2% (BldA) [Mass fraction] 95 % Marivel Suppan LACQUER SHADER.RADIOLOGY CT TECHNOLOGIST Work Phone: [facility] 01-04-2024 14:31-0500 Systolic blood pressure 126 mm[Hg] Marivel Suppan LACQUER SHADER.RADIOLOGY CT TECHNOLOGIST Work Phone: [facility] 01-02-2024 10:26-0500 Body temperature 98.6 [degF] Placido Beto LACQUER SHADER.INVESTIGATOR CLAIMS Work Phone: [facility] 01-02-2024 10:26-0500 Body weight 148.33 kg Placido Beto LACQUER SHADER.INVESTIGATOR CLAIMS Work Phone: [facility] 01-02-2024 10:26-0500 Diastolic blood pressure 88 mm[Hg] Placido Beto LACQUER SHADER.INVESTIGATOR CLAIMS Work Phone: [facility] 01-02-2024 10:26-0500 Heart rate 118 /min Placido Beto LACQUER SHADER.INVESTIGATOR CLAIMS Work Phone: [facility] 01-02-2024 10:26-0500 Respiratory rate 18 /min Placido Beto LACQUER SHADER.INVESTIGATOR CLAIMS Work Phone: [facility] 01-02-2024 10:26-0500 SaO2% (BldA) [Mass fraction] 96 % Placido Beto LACQUER SHADER.INVESTIGATOR CLAIMS Work Phone: [facility] 01-02-2024 10:26-0500 Systolic blood pressure 128 mm[Hg] Placido Beto LACQUER SHADER.INVESTIGATOR CLAIMS Work Phone: [facility] 12-31-2023 13:57-0500 Body temperature 98.4 [degF] Placido Beto LACQUER SHADER.INVESTIGATOR CLAIMS Work Phone: [facility] 12-31-2023 13:57-0500 Body weight 151.96 kg Placido Beto LACQUER SHADER.INVESTIGATOR CLAIMS Work Phone: [facility] 12-31-2023 13:57-0500 Diastolic blood pressure 82 mm[Hg] Placido Beto LACQUER SHADER.INVESTIGATOR CLAIMS Work Phone: [facility] 12-31-2023 13:57-0500 Heart rate 118 /min Placido Beto LACQUER SHADER.INVESTIGATOR CLAIMS Work Phone: [facility] 12-31-2023 13:57-0500 Respiratory rate 18 /min Placido Beto LACQUER SHADER.INVESTIGATOR CLAIMS Work Phone: [facility] 12-31-2023 13:57-0500 SaO2% (BldA) [Mass fraction] 96 % Placido Beto LACQUER SHADER.INVESTIGATOR CLAIMS Work Phone: [facility] 12-31-2023 13:57-0500 Systolic blood pressure 148 mm[Hg] Placido Pérez APRN.INVESTIGATOR CLAIMS Work Phone: [facility] 10-13-2023 09:20-0500 Body temperature 97.11 [degF] Eben Chen MD Work Phone: [facility] 10-13-2023 09:20-0500 Body weight 151.5 kg Eben Chen MD Work Phone: [facility] 10-13-2023 09:20-0500 Diastolic blood pressure 72 mm[Hg] Eben Chen MD Work Phone: [facility] 10-13-2023 09:20-0500 Heart rate 98 /min Eben Chen MD Work Phone: [facility] 10-13-2023 09:20-0500 Respiratory rate 18 /min Eben Chen MD Work Phone: [facility] 10-13-2023 09:20-0500 SaO2% (BldA) [Mass fraction] 95 % Eben Chen MD Work Phone: [facility] 10-13-2023 09:20-0500 Systolic blood pressure 128 mm[Hg] Eben Chen MD Work Phone: [facility] 06-22-2023 15:37-0400 Body height 182.9 cm Edmund Mckenzie PA-C Work Phone: [facility] 06-22-2023 15:37-0400 Body temperature 97.9 [degF] Edmnud Mckenzie PA-C Work Phone: [facility] 06-22-2023 15:37-0400 Body weight 155.04 kg Edmund Mckenzie PA-C Work Phone: [facility] 06-22-2023 15:37-0400 Diastolic blood pressure 80 mm[Hg] Edmund Mckenzie PA-C Work Phone: [facility] 06-22-2023 15:37-0400 Heart rate 102 /min Edmund Mckenzie PA-C Work Phone: [facility] 06-22-2023 15:37-0400 Respiratory rate 20 /min Edmund Mckenzie PA-C Work Phone: [facility] 06-22-2023 15:37-0400 SaO2% (BldA) [Mass fraction] 95 % Edmund Mckenzie PA-C Work Phone: [facility] 06-22-2023 15:37-0400 Systolic blood pressure 144 mm[Hg] Edmund Mckenzie PA-C Work Phone: [facility] 06-18-2023 18:35-0400 Body weight 154.68 kg Jessie Blackwell MD Work Phone: [facility] 06-18-2023 18:35-0400 Diastolic blood pressure 74 mm[Hg] Jessie Blackwell MD Work Phone: [facility] 06-18-2023 18:35-0400 Heart rate 88 /min Jessie Blackwell MD Work Phone: [facility] 06-18-2023 18:35-0400 SaO2% (BldA) [Mass fraction] 95 % Jessie Blackwell MD Work Phone: [facility] 06-18-2023 18:35-0400 Systolic blood pressure 115 mm[Hg] Jessie Blackwell MD Work Phone: [facility] 12-04-2022 14:42-0500 Body temperature 99 [degF] Frida Haagen LACQUER SHADER.INVESTIGATOR CLAIMS Work Phone: [facility] 12-04-2022 14:26-0500 Body weight 147.42 kg Frida Haagen LACQUER SHADER.INVESTIGATOR CLAIMS Work Phone: [facility] 12-04-2022 14:26-0500 Diastolic blood pressure 94 mm[Hg] Frida Haagen LACQUER SHADER.INVESTIGATOR CLAIMS Work Phone: [facility] 12-04-2022 14:26-0500 Heart rate 118 /min Frida Haagen LACQUER SHADER.INVESTIGATOR CLAIMS Work Phone: [facility] 12-04-2022 14:26-0500 Respiratory rate 20 /min Frida Suarez LACQUER SHADER.INVESTIGATOR CLAIMS Work Phone: [facility] 12-04-2022 14:26-0500 SaO2% (BldA) [Mass fraction] 96 % Frida Suarez LACQUER SHADER.INVESTIGATOR CLAIMS Work Phone: [facility] 12-04-2022 14:26-0500 Systolic blood pressure 148 mm[Hg] Frida Suarez LACQUER SHADER.INVESTIGATOR CLAIMS Work Phone: [facility] 09-15-2022 16:35-0400 Body height 181.6 cm Jessie Blackwell MD Work Phone: [facility] 09-15-2022 16:35-0400 Body temperature 97.9 [degF] Jessie Blackwell MD Work Phone: [facility] 09-15-2022 16:35-0400 Body weight 144.97 kg Jessie Blackwell MD Work Phone: [facility] 09-15-2022 16:35-0400 Diastolic blood pressure 98 mm[Hg] Jessie Blackwell MD Work Phone: [facility] 09-15-2022 16:35-0400 Heart rate 96 /min Jessie Blackwell MD Work Phone: [facility] 09-15-2022 16:35-0400 SaO2% (BldA) [Mass fraction] 98 % Jessie Blackwell MD Work Phone: [facility] 09-15-2022 16:35-0400 Systolic blood pressure 144 mm[Hg] Jessie Blackwell MD Work Phone: [facility] 09-05-2022 15:16-0400 Body temperature 98.6 [degF] NA Lino PA-C Work Phone: [facility] 09-05-2022 15:16-0400 Body weight 146.06 kg NA Lino PA-C Work Phone: [facility] 10-25-2022 15:16-0400 Diastolic blood pressure 72 mm[Hg] NA Lino PA-C Work Phone: [facility] 09-05-2022 15:16-0400 Heart rate 87 /min NA Lino PA-C Work Phone: [facility] 09-05-2022 15:16-0400 Respiratory rate 20 /min NA Lino PA-C Work Phone: [facility] 09-05-2022 15:16-0400 SaO2% (BldA) [Mass fraction] 96 % NA Lino PA-C Work Phone: [facility] 09-05-2022 15:16-0400 Systolic blood pressure 130 mm[Hg] NA Lino PA-C Work Phone: [facility] Encounters Encounter Date Encounter Type Care Provider Facility Start: 01-12-2024 End: 01-12-2024 Patient encounter procedure Dian Braga Athy PA-C Work Phone: [facility] Procedures Date Procedure Procedure Detail Performing [...] - S fab or Plasma Lipid Screening [facility] Start: 10-03-2028 Lipid panel Lipid Screening [facility] Start: 06-26-2028 Lipid 1996 panel - S fab or Plasma Lipid Screening [facility] Start: 06-26-2028 LIPID SCREEN LIPID SCREEN [facility] Start: 05-11-2027 LIPID SCREEN LIPID SCREEN [facility] Start: 10-13-2024 BP Controlled (<130/80) BP Controlle d (<130/80) [facility] Start: 08-07-2024 Annual PCP Team [place] dolores Disease Visit Annual PCP Team Chronic Disease Visit [facility] Start: 08-07-2024 Covid-19 Vaccine ( season) Covid-19 Vaccine () [facility] Immunizations Immunization Date Immunization Notes Care Provider Charlene nunes 08-07-2023 influenza, injectabl e, quadrivalent, contains preservative Eben Chen MD Work Phone: [facility] 08-07-2023 pneumococcal (PCV20) vaccine, 20 valent (PREVNAR 20) Eben Chen MD Work Phone: [facility] 07-04-2021 COVID-19 vaccine, fu ll dose (MODERNA) Jessie Blackwell MD Work Phone: [facility] 06-06-2021 COVID-19 vaccine, fu ll dose (MODERNA) Jessie Blackwell MD Work Phone: [facility] 07-30-2019 influenza, injectabl e, quadrivalent, contains preservative Jessie Blackwell MD Work Phone: [facility] 07-30-2019 influenza virus vacc ine, unspecified formulation Kenzie Art PT Work Phone: [facility] 01-08-2018 influenza, injectabl e, quadrivalent, contains preservative Jessie Blackwell MD Work Phone: [facility] 01-11-2017 influenza, injectabl e, quadrivalent, preservative free Jessie Blackwell MD Work Phone: [facility] 08-28-2014 influenza, seasonal, injectable Jessie Blackwell MD Work Phone: [facility] 10-08-2013 influenza virus vacc ine, unspecified formulation Jessie Blackwell MD Work Phone: [facility] 12-04-2012 influenza virus vacc ine, unspecified formulation Jessie Blackwell MD Work Phone: [facility] Payers Date Payer Category Payer Medicaid [id number] 2021 Medicaid [employer] [id number] 2021-[facility] [phone] [place] [id number] Medicaid [id number] 2021 Medicaid [id number] Social History Date Type Detail Facility Start: 05-25-2014 End: 06-22-2023 Tobacco smoking status NHIS Smokes tobacco daily [facility] End: 09-12-2023 History of tobacco use Cigarette Smoker [facility] Start: 05-25-2014 End: 06-22-2023 Cigarettes smoked current (pack per day) - Reported 1 [facility] Work Phone: Start: 05-25-2014 End: 12-25-2023 Tobacco use and exposure Former smokeless tobacco user [facility] Start: 05-04-2022 End: 01-12-2024 Alcohol intake Ex-drinker (finding) [facility] Start: 06-21-2012 History SDOH Alcohol Comment social few drinks a year [facility] Start: 1985 Sex Assigned At Not on file [facility] Start: 09-01-2022 End: 09-19-2022 Exposure to SARS-CoV-2 (event) Not sure [facility] Start: 06-18-2023 End: 06-22-2023 Tobacco use panel [facility] Work Phone: Adult Depression Screening Assessment 1 [facility] Work Phone: [facility] of tobacco use [facility] Start: 12-25-2023 [facility] End: 09-12-2023 History of tobacco use Current smoker [facility] Clinical Notes 10-22-2014 to 01-12-2024 Dian Barakat PA-C - 01/12/2024 9:27 AM Marivel Chino APRN.RADIOLOGY CT TECHNOLOGIST - 01/08/2024 3:00 PM ESTPatient InstructionsPatient InstructionsSuMarivel dickerson APRN.RADIOLOGY CT TECHNOLOGIST - 01/04/2024 2:36 PM EST Note Date & Type Note Facility 01-12-2024 History of Presen t illness Narrative Presents to express care triage with the chief complaint bilateral swollen legs, leg pain, shortness of breath over the past week. He was in the ER Sunday and states he had a CT of his abdomen and some lab work. He states however his legs have gotten significantly more swollen the past few days. From January 04 to today he has gained 21 pounds. Denies any known history of heart failure. He states he is having some chest pressure with the shortness of breath. Recommend he be seen in the emergency department. Patient will go to [facility] ED. ER passport sent. documented in this encounter [facility] 01-08-2024 Note HNO ID: [id number] Author: MARIVEL URRUTIA APRN.RADIOLOGY CT TECHNOLOGIST Service: ? Author Type: Clinical Nurse Specialist Type: Progress Notes Filed: 01/08/2024 13:47 Note Text: This is a 38 year old male who presents today with: No chief complaint on file. HISTORY OF PRESENT ILLNESS: Alyson Quinn is a 38 year old male. No chief complaint on file. Patient presenting today with burning of his lips and receding gums after his infection of his right lower lip. Shaved his carcamo and noticed this recession. Lip is healed. A little pink from granulated tissue. Burning subsided. --- Went back to the emergency room for pelvic pain and pelvic floor syndrome. Last couple days he was wearing 2 pairs of boxer shorts which did not give him much support as normal. He states now he has pain through his scrotum and perineum. Noticed a slight rash in the area as well. Denies fever or chills. WBC in ER 10.6, hemoglobin 14.4, hematocrit 44.6, platelet count 305 Sodium 140, potassium 3.9, BUN 14, creatinine 1.59, glucose 107 Calcium 9.5 Urinalysis negative bilirubin, negative nitrates, Normal enhanced CT of the pelvis. MRI of the pelvic floor may be useful for further evaluation if indicated. 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 Wore boxers for 2 days. Needs the support of tighty whities . Groin pain. Worried that it may have caused an injury. Wearing 2 pair of underwear now for extra support. PAST MEDICAL HISTORY: PAST MEDICAL HISTORY Diagnosis Date Bipolar 2 disorder (HCC) Dr. Justice, psych Degenerative disc disease Dr. 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 cephALEXin (KEFLEX) 500 mg capsule Take 1 capsule by mouth four times daily for 7 days. Cholecalciferol, Vitamin D3, 125 mcg (5,000 unit) cap omeprazole (PRILOSEC) 20 mg capsule Take 1 capsule by mouth daily before breakfast. 1/2 hr before meal. amitriptyline (ELAVIL) 50 mg tablet Take 1 tablet by mouth daily at bedtime. (Patient not taking: Reported on 01/04/2024) FLUoxetine (PROZAC) 10 mg capsule Take 10 mg by mouth once daily. naproxen (NAPROSYN) 500 mg tablet Take 500 mg by mouth twice daily with meals. (Patient not taking: Reported on 06/22/2023) HYDROcodone-Acetaminophen (NORCO) 7.5-325 mg per tablet Take 1 tablet by mouth every 6 hours as needed for pain. (Patient not taking: Reported on 08/07/2023) topiramate (TOPAMAX) 25 mg tablet Take 25 mg by mouth. 1 twice daily (Patient not taking: Reported on 01/03/2024) diphenhydrAMINE (BENADRYL) 25 mg capsule Take 25 mg by mouth once daily. daily cariprazine (VRAYLAR) 3 mg capsule Take 3 mg by mouth once daily. [facility] Current Facility-Administered Medications Medication Dose Route Frequency perflutren lipid microspheres 1.3 mL in NaCl (PF) 0.9% 10 mL injection (DEFINITY) INTRAVENOUS DIRECTED PRN sodium chloride 0.9 % (flush) 10 mL (BD POSIFLUSH) 10 mL INTRAVENOUS DIRECTED PRN FAMILY HISTORY Problem Relation Age of Onset [...] times per week Types: Marijuana REVIEW OF SYSTEMSpelvic floor painNo weight loss, malaise or fevers/chills : No history of dysuria, frequency or incontinence MUSCULOSKELETAL: Terrible pain with underwear off. With them back on- resolves. SKIN: slight abdominal apron pink. EXAM: There were no vitals taken for this visit. PHYSICAL EXAM: General Appearance: Well appearing, alert, in no acute distress, well-hydrated, well nourished. and Morbidly obese. Skin: Skin color, texture, turgor normal, no suspicious rashes or lesions. Pelvic: exacerbation of pelvic floor disfunction by not wearing supportive underwear.. ASSESSMENT/ (more content not included)... [facility] 01-08-2024 History of Presen t illness Narrative This is a 38 year old male who presents today with: No chief complaint on file. HISTORY OF PRESENT ILLNESS: Alyson Quinn is a 38 year old male. No chief complaint on file. Patient presenting today with burning of his lips and receding gums after his infection of his right lower lip. Shaved his carcamo and noticed this recession. Lip is healed. A little pink from granulated tissue. Burning subsided. --- Went back to the emergency room for pelvic pain and pelvic floor syndrome. Last couple days he was wearing 2 pairs of boxer shorts which did not give him much support as normal. He states now he has pain through his scrotum and perineum. Noticed a slight rash in the area as well. Denies fever or chills. WBC in ER 10.6, hemoglobin 14.4, hematocrit 44.6, platelet count 305 Sodium 140, potassium 3.9, BUN 14, creatinine 1.59, glucose 107 Calcium 9.5 Urinalysis negative bilirubin, negative nitrates, Normal enhanced CT of the pelvis. MRI of the pelvic floor may be useful for further evaluation if indicated. 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 Wore boxers for 2 days. Needs the support of tighty whities . Groin pain. Worried that it may have caused an injury. Wearing 2 pair of underwear now for extra support. PAST MEDICAL HISTORY: PAST MEDICAL HISTORY Diagnosis Date Bipolar 2 disorder (HCC) Dr. Justice, psych Degenerative disc disease Dr. 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 cephALEXin (KEFLEX) 500 mg capsule Take 1 capsule by mouth four times daily for 7 days. Cholecalciferol, Vitamin D3, 125 mcg (5,000 unit) cap omeprazole (PRILOSEC) 20 mg capsule Take 1 capsule by mouth daily before breakfast. 1/2 hr before meal. amitriptyline (ELAVIL) 50 mg tablet Take 1 tablet by mouth daily at bedtime. (Patient not taking: Reported on 01/04/2024) FLUoxetine (PROZAC) 10 mg capsule Take 10 mg by mouth once daily. naproxen (NAPROSYN) 500 mg tablet Take 500 mg by mouth twice daily with meals. (Patient not taking: Reported on 06/22/2023) HYDROcodone-Acetaminophen (NORCO) 7.5-325 mg per tablet Take 1 tablet by mouth every 6 hours as needed for pain. (Patient not taking: Reported on 08/07/2023) topiramate (TOPAMAX) 25 mg tablet Take 25 mg by mouth. 1 twice daily (Patient not taking: Reported on 01/03/2024) diphenhydrAMINE (BENADRYL) 25 mg capsule Take 25 mg by mouth once daily. daily cariprazine (VRAYLAR) 3 mg capsule Take 3 mg by mouth once daily. [facility] Current Facility-Administered Medications Medication Dose Route Frequency perflutren lipid microspheres 1.3 mL in NaCl (PF) 0.9% 10 mL injection (DEFINITY) INTRAVENOUS DIRECTED PRN sodium chloride 0.9 % (flush) 10 mL (BD POSIFLUSH) 10 mL INTRAVENOUS DIRECTED PRN FAMILY HISTORY Problem Relation Age of Onset [...] times per week Types: Marijuana REVIEW OF SYSTEMSpelvic floor painNo weight loss, malaise or fevers/chills : No history of dysuria, frequency or incontinence MUSCULOSKELETAL: Terrible pain with underwear off. With them back on- resolves. SKIN: slight abdominal apron pink. EXAM: There were no vitals taken for this visit. PHYSICAL EXAM: General Appearance: Well appearing, alert, in no acute distress, well-hydrated, well nourished. and Morbidly obese. Skin: Skin color, texture, turgor normal, no suspicious rashes or lesions. Pelvic: exacerbation of pelvic floor disfunction by not wearing supportive underwear.. ASSESSMENT/PLAN: 1. Abscess, lip - ICD9: 528.5, ICD10: K13.0 (primary diagnosis) Healed. 2. Spastic pelvic floor syndrome - ICD9: 564.02, ICD10: K59.02 Exacerbation of pelvic floor dysfunction. Refer back to pelvic floor therapist. - CONSULT TO PHYSICAL THERAPY Follow up as scheduled Discussed treatment plan and patient voices understanding. Patient's questions answered appropriately. Medications and potential side effects were discussed and patient voices understanding. Return to the office as scheduled or as needed for worsening/no improvement. Marivel Urrutia APRN.CNS The patient indicates understanding of these issues and agrees with the plan. documented in this encounter [facility] 01-08-2024 Instructions Marivel Urrutia APRN.CNS - 01/08/2024 1:44 PM EST 1) Lip healed nicely. No worries. 2) Referred to pelvic floor therapist. 3) Follow up as scheduled documented in this encounter [facility] 01-04-2024 Note HNO ID: [id number] Author: MARIVEL URRUTIA APRN.CNS Service: ? Author Type: Clinical Nurse Specialist Type: Progress Notes Filed: 01/04/2024 14:51 Note Text: This is a 38 year old male who presents today with: Patient presents with: Recheck: Facial infection HISTORY OF PRESENT ILLNESS: Alyson Quinn is a 38 year old male. Patient presents with: Recheck: Facial infection Had a pimple on right lower lip. Was eating popcorn after popping it and it got infected . He had a large area of swelling and submandibular gland that was swollen. Started on Sunday. On two antibiotics. Drained about 48 hours ago. Swelling is much better as stated REVIEW OF SYSTEMS GENERAL: no more than normal malaise or fevers/chills HEENT: Negative for frequent or significant headaches, Nickel sized area of scab. Not painful. Drained a lot of bloody purulent matter on Sunday. NECK: Negative for tiny right cervical lump on right, goiter, pain and significant neck swelling RESPIRATORY: Negative for cough, hemoptysis, wheezing, dyspnea or shortness of breath CARDIOVASCULAR: Negative for chest pain, leg swelling, orthopnea, or palpitations GI: + nausea, vomiting X 1, or diarrhea/constipation. : No history of dysuria, frequency or incontinence SKIN: Nickel sized area of scab right lower lip, no pain but numb PAST MEDICAL HISTORY: PAST MEDICAL HISTORY Diagnosis Date Bipolar 2 disorder (HCC) Dr. Justice, psych Degenerative disc disease Dr. 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 cephALEXin (KEFLEX) 500 mg capsule Take 1 capsule by mouth four times daily for 7 days. sulfamethoxazole-trimethoprim (BACTRIM DS) 800-160 mg per tablet Take 1 tablet by mouth two times a day for 7 days. Cholecalciferol, Vitamin D3, 125 mcg (5,000 unit) cap omeprazole (PRILOSEC) 20 mg capsule Take 1 capsule by mouth daily before breakfast. 1/2 hr before meal. FLUoxetine (PROZAC) 10 mg capsule Take 10 mg by mouth once daily. diphenhydrAMINE (BENADRYL) 25 mg capsule Take 25 mg by mouth once daily. daily cariprazine (VRAYLAR) 3 mg capsule Take 3 mg by mouth once daily. [facility] amitriptyline (ELAVIL) 50 mg tablet Take 1 tablet by mouth daily at bedtime. (Patient not taking: Reported on 01/04/2024) naproxen (NAPROSYN) 500 mg tablet Take 500 mg by mouth twice daily with meals. (Patient not taking: Reported on 06/22/2023) HYDROcodone-Acetaminophen (NORCO) 7.5-325 mg per tablet Take 1 tablet by mouth every 6 hours as needed for pain. (Patient not taking: Reported on 08/07/2023) topiramate (TOPAMAX) 25 mg tablet Take 25 mg by mouth. 1 twice daily (Patient not taking: Reported on 01/03/2024) Current Facility-Administered Medications Medication Dose Route Frequency perflutren lipid microspheres 1.3 mL in NaCl (PF) 0.9% 10 mL injection (DEFINITY) INTRAVENOUS DIRECTED PRN sodium chloride 0.9 % (flush) 10 mL (BD POSIFLUSH) 10 mL INTRAVENOUS DIRECTED PRN FAMILY HISTORY Problem Relation Age of Onset [...] times per week Types: Marijuana EXAM: BP 126/88 Pulse 115 Temp 36.8 ?C (98.3 ?F) (Left Tympanic) Resp 18 Wt (!) 147.4 kg (325 lb) SpO2 95% BMI 44.08 kg/m? PHYSICAL EXAM: General Appearance: Well appearing, alert, in no acute distress, well-hydrated, well nourished.. Skin: right bottom lip is slightly swollen, nickel sized area of scab that is thick. Head: Normocephalic, no masses, lesions, tenderness or abnormalities. Neck: full carcamo, submandibular gland palpable but not tender. Lungs: Lungs clear to auscultation. No wheezing, rhonchi, rales.. Heart: RRR without murmur, gallop, or rubs. No ectopy. ASSESSMENT/PLAN: 1. Abscess, lip - ICD9: 528.5, ICD10: K13.0 - finish all the antibiotics - no sharing wash cloths or towels Keep January appointment Discu (more content not included)... [facility] 01-04-2024 Instructions Marivel Urrutia APRN.CNS - 01/04/2024 2:50 PM EST - Finish all antibiotics - Do not share towel or wash cloths - Follow up as scheduled in January documented in this encounter [facility] 01-04-2024 History of Presen t illness Narrative This is a 38 year old male who presents today with: Patient presents with: Recheck: Facial infection HISTORY OF PRESENT ILLNESS: Alyson Quinn is a 38 year old male. Patient presents with: Recheck: Facial infection Had a pimple on right lower lip. Was eating popcorn after popping it and it got infected . He had a large area of swelling and submandibular gland that was swollen. Started on Sunday. On two antibiotics. Drained about 48 hours ago. Swelling is much better as stated REVIEW OF SYSTEMS GENERAL: no more than normal malaise or fevers/chills HEENT: Negative for frequent or significant headaches, Nickel sized area of scab. Not painful. Drained a lot of bloody purulent matter on Sunday. NECK: Negative for tiny right cervical lump on right, goiter, pain and significant neck swelling RESPIRATORY: Negative for cough, hemoptysis, wheezing, dyspnea or shortness of breath CARDIOVASCULAR: Negative for chest pain, leg swelling, orthopnea, or palpitations GI: + nausea, vomiting X 1, or diarrhea/constipation. : No history of dysuria, frequency or incontinence SKIN: Nickel sized area of scab right lower lip, no pain but numb PAST MEDICAL HISTORY: PAST MEDICAL HISTORY Diagnosis Date Bipolar 2 disorder (HCC) Dr. Justice, psych Degenerative disc disease Dr. 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 cephALEXin (KEFLEX) 500 mg capsule Take 1 capsule by mouth four times daily for 7 days. sulfamethoxazole-trimethoprim (BACTRIM DS) 800-160 mg per tablet Take 1 tablet by mouth two times a day for 7 days. Cholecalciferol, Vitamin D3, 125 mcg (5,000 unit) cap omeprazole (PRILOSEC) 20 mg capsule Take 1 capsule by mouth daily before breakfast. 1/2 hr before meal. FLUoxetine (PROZAC) 10 mg capsule Take 10 mg by mouth once daily. diphenhydrAMINE (BENADRYL) 25 mg capsule Take 25 mg by mouth once daily. daily cariprazine (VRAYLAR) 3 mg capsule Take 3 mg by mouth once daily. [facility] amitriptyline (ELAVIL) 50 mg tablet Take 1 tablet by mouth daily at bedtime. (Patient not taking: Reported on 01/04/2024) naproxen (NAPROSYN) 500 mg tablet Take 500 mg by mouth twice daily with meals. (Patient not taking: Reported on 06/22/2023) HYDROcodone-Acetaminophen (NORCO) 7.5-325 mg per tablet Take 1 tablet by mouth every 6 hours as needed for pain. (Patient not taking: Reported on 08/07/2023) topiramate (TOPAMAX) 25 mg tablet Take 25 mg by mouth. 1 twice daily (Patient not taking: Reported on 01/03/2024) Current Facility-Administered Medications Medication Dose Route Frequency perflutren lipid microspheres 1.3 mL in NaCl (PF) 0.9% 10 mL injection (DEFINITY) INTRAVENOUS DIRECTED PRN sodium chloride 0.9 % (flush) 10 mL (BD POSIFLUSH) 10 mL INTRAVENOUS DIRECTED PRN FAMILY HISTORY Problem Relation Age of Onset [...] times per week Types: Marijuana EXAM: BP 126/88 Pulse 115 Temp 36.8 C (98.3 F) (Left Tympanic) Resp 18 Wt (!) 147.4 kg (325 lb) SpO2 95% BMI 44.08 kg/m PHYSICAL EXAM: General Appearance: Well appearing, alert, in no acute distress, well-hydrated, well nourished.. Skin: right bottom lip is slightly swollen, nickel sized area of scab that is thick. Head: Normocephalic, no masses, lesions, tenderness or abnormalities. Neck: full carcamo, submandibular gland palpable but not tender. Lungs: Lungs clear to auscultation. No wheezing, rhonchi, rales.. Heart: RRR without murmur, gallop, or rubs. No ectopy. ASSESSMENT/PLAN: 1. Abscess, lip - ICD9: 528.5, ICD10: K13.0 - finish all the antibiotics - no sharing wash cloths or towels Keep January appointment Discussed treatment plan and patient voices understanding. Patient's questions answered appropriately. Medications and potential side effects were discussed and patient voices understanding. Return to the office as scheduled or as needed for worsening/no improvement. KWAKU Heredia APRN.CNS The patient indicates understanding of these issues and agrees with the plan. documented in this encounter [facility] 01-02-2024 Note HNO ID: [id number] Author: PLACIDO PÉREZ APRN.INVESTIGATOR CLAIMS Service: ? Author Type: Nurse Practitioner Type: Progress Notes Filed: 01/02/2024 10:39 Note Text: Subjective HPI HPI Alyson Quinn is a 38 year old male who presents today for CC of facial infection, continuing. Seen in [facility] care 2 days ago, placed on bactrim. [...] HISTORY Procedure Laterality Date CARDIAC CATH 2007 [facility]-normal ESOPHAGOGASTRODUODENOSCOPY TRANSORAL DIAGNOSTIC 2007 EGD ALLERGIES Penicillins MEDICATIONS sulfamethoxazole-trimethoprim (BACTRIM DS) 800-160 mg per tabletTake 1 tablet by mouth two times a day for 7 days.Disp: 14 tabletRfl: 0 Cholecalciferol, Vitamin D3, 125 mcg (5,000 [...] once daily. [facility] Disp: Rfl: cephALEXin (KEFLEX) 500 mg capsuleTake 1 capsule by mouth four times daily for 7 days.Disp: 28 capsuleRfl: 0 naproxen (NAPROSYN) 500 mg tabletTake 500 mg [...] Blood pressure 128/88, pulse 118, temperature 37 ?C (98.6 ?F), resp. rate 18, weight (!) 148.3 kg [...] - CEPHALEXIN 500 MG CAPSULE Placido Pérez APRN.[facility] 01-02-2024 History of Presen t illness Narrative Images from the original note were not included. Subjective HPI HPI Alyson Quinn is a 38 year old male who presents today for CC of facial infection, continuing. Seen in [facility] care 2 days ago, placed on bactrim. [...] HISTORY Procedure Laterality Date CARDIAC CATH 2007 [facility]-normal ESOPHAGOGASTRODUODENOSCOPY TRANSORAL DIAGNOSTIC 2007 EGD [...] - CEPHALEXIN 500 MG CAPSULE Placido Pérez APRN.INVESTIGATOR CLAIMS documented in this encounter [facility] 12-31-2023 Note HNO ID: [id number] Author: PLACIDO PÉREZ APRN.INVESTIGATOR CLAIMS Service: ? Author Type: Nurse Practitioner Type: [...] HISTORY Procedure Laterality Date CARDIAC CATH 2007 [facility]-normal ESOPHAGOGASTRODUODENOSCOPY TRANSORAL DIAGNOSTIC 2007 EGD [...] MG-TRIMETHOPRIM 160 MG TABLET Placido Pérez APRN.CNP [facility] 12-31-2023 Miscellaneous Notes Addended by: PLACIDO PÉREZ on: 12/31/2023 03:07 PM Modules accepted: Orders documented in this encounter [facility] 12-31-2023 Miscellaneous Notes Pt needed antibiotic sent to [facility] instead of [place]. Patient has been identified by name and date of : Yes, Provider Placido Pérez [employer] OPERATOR Date 12/31/23 Time 1447. Patient phones for [...] Krysten Diaz RN. documented in this encounter [facility] 12-31-2023 History of Presen t illness [...] HISTORY Procedure Laterality Date CARDIAC CATH 2007 [facility]-normal ESOPHAGOGASTRODUODENOSCOPY TRANSORAL DIAGNOSTIC 2007 EGD [...] 800 MG-TRIMETHOPRIM 160 MG TABLET Placido Pérez APRN.INVESTIGATOR CLAIMS documented in this encounter [facility] 12-25-2023 Note HNO ID: [id number] Author: LEONARD MARTÍNEZ, ? Service: ? Author [...] HISTORY Procedure Laterality Date CARDIAC CATH 2007 [facility]-normal ESOPHAGOGASTRODUODENOSCOPY TRANSORAL DIAGNOSTIC 2007 EGD [...] intact light touch/epicritic (more content not included)... [facility] 12-25-2023 Note HNO ID: [id number] Author: POOJA ROSALES RN Service: ? Author Type: Registered Nurse Type: Progress Notes Filed: 12/25/2023 13:54 Note Text: Patient presents with: Left Great Toe - New Patient, Ingrown Nail Referred by Urgent Care. Was seen on 12/06/23 for ingrown toenail that was infected. Prescribed doxycycline. Infection has since resolved. No pain. [facility] 12-25-2023 History of Presen t illness [...] HISTORY Procedure Laterality Date CARDIAC CATH 2007 [facility]-normal ESOPHAGOGASTRODUODENOSCOPY TRANSORAL DIAGNOSTIC 2007 EGD [...] Leonard Martínez DPM Podiatry [address] [facility] [address] Dept: [phone] Dept Patient presents with: Left Great Toe - New Patient, Ingrown Nail Referred by Urgent Care. Was seen on 12/06/23 for ingrown toenail that was infected. Prescribed doxycycline. Infection has since resolved. No pain. documented in this encounter [facility] 12-06-2023 Note HNO ID: [id number] Author: PLACIDO PÉREZ APRN.INVESTIGATOR CLAIMS Service: ? Author Type: Nurse Practitioner Type: [...] HISTORY Procedure Laterality Date CARDIAC CATH 2007 [facility]-normal ESOPHAGOGASTRODUODENOSCOPY TRANSORAL DIAGNOSTIC 2007 EGD [...] MUPIROCIN 2 % TOPICAL OINTMENT Placido Pérez APRN.CNP [facility] 10-13-2023 Note HNO ID: [id number] Author: Shanon Reid RT(R) Service: Radiology Author [...] RT Luis(R) October 13, 2023 9:41 AM [facility] 10-13-2023 Note HNO ID: [id number] Author: Eben Chen MD Service: ? Author [...] orthopedics if not improving. Eben Chen MD [facility] 10-13-2023 History of Presen t illness [...] Eben Chen MD documented in this encounter [facility] 08-07-2023 Note HNO ID: [id number] Author: Jessie Blackwell MD Service: ? Author [...] Reason for visit: testicular pain Which facility: [facility] Date of visit: 06/16/23 Diagnosis: spastic pelvic [...] Abs Lymph 1.00 - 4.00 k/uL 3.81 Kane% % 7.1 Abs Kane <0.87 k/uL 0.67 Eosin% % 1.1 Abs [...] Hives PAST MEDICAL (more content not included)... [facility] 07-31-2023 Note HNO ID: [id number] Author: Kenzie Art, PT Service: ? Author [...] to 07/31/2023 and treatment included: Therapeutic exercise, Self-fpc management, and Patient/Family/Caregiver Education. Goals updated 07/31/2023 Goals for Episode of Care: created on 06/28/23 through 08/23/23 [place] in home exercise program. - MET Perform [...] Stop Time : 1454 Kenzie Art PT [facility] 07-31-2023 Note HNO ID: [id number] Author: Dian Heaton PT Service: ? Author [...] 07/31/2023 and treatment included: Therapeutic exercise and Self-fpc management. Goals for Episode of Care: created on 06/29/23 Updated on: 07/31/23 [place] in home exercise program.-MET Patient will increase [...] Exercise: 1: Reassessment 2: seated hamstring stretch, 4o87cjy each 3: seated figure-4 stretch, 9a93kcl each 4: standing hip flexor stretch, 4d76ehh each 5: standing sidebend stretch, 4m95qck each 6: Discussed discharge planning Skilled Intervention: Patient was educated in proper exercise technique and purpose for exercises. Skilled judgment was provided in selection of appropriate interventions. Billing Therapeutic Exercise Treatment Minutes: 25 Skilled Treatment Time Minutes (timed and untimed codes): 25 Total Session Time (minutes): 25 Session Start Time : 1316 Session Stop Time : 1341 Dian Moyer, PT [facility] 07-31-2023 History of Presen t illness [...] to 07/31/2023 and treatment included: Therapeutic exercise, Self-fpc management, and Patient/Family/Caregiver Education. Goals updated 07/31/2023 Goals for Episode of Care: created on 06/28/23 through 08/23/23 [place] in home exercise program. - MET Perform [...] Kenzie Art PT documented in this encounter [facility] 07-31-2023 History of Presen t illness [...] 07/31/2023 and treatment included: Therapeutic exercise and Self-fpc management. Goals for Episode of Care: created on 06/29/23 Updated on: 07/31/23 [place] in home exercise program.-MET Patient will increase [...] Exercise: 1: Reassessment 2: seated hamstring stretch, 7x00fsf each 3: seated figure-4 stretch, 3e98uxw each 4: standing hip flexor stretch, 9p96goi each 5: standing sidebend stretch, 8n91ldv each 6: Discussed discharge planning Skilled Intervention: [...] Dian Moyer PT documented in this encounter [facility] 07-27-2023 Note HNO ID: [id number] Author: Kenzie Art PT Service: ? Author [...] Stop Time : 1447 Kenzie Art PT [facility] 07-27-2023 History of Presen t illness [...] Kenzie Art PT documented in this encounter [facility] 07-20-2023 Note HNO ID: [id number] Author: Kenzie Art PT Service: ? Author [...] sec each 4: standing hip flexor stretch, 7l85fry each 6: *Hooklying PPT with alt UE [...] Time : 1503 Session Stop Time : 154 Kenzie Art PT [facility] 07-20-2023 History of Presen t illness [...] sec each 4: standing hip flexor stretch, 4u81kmd each 6: *Hooklying PPT with alt UE [...] Time : 1503 Session Stop Time : 1543 Kenzie Art PT documented in this encounter [facility] 07-17-2023 Note HNO ID: [id number] Author: Dian Heaton, PT Service: ? Author [...] TREATMENT: Therapeutic Exercise: 1: *seated figure-4 stretch, 4m86sop each 2: *seated hamstring stretch, 7e35zsl each 3: *diaphragmatic breathing, 2x5 breaths 4: *standing hip flexor stretch, 8b64jlv each 5: *standing sidebend stretch, 3i56xyl each Skilled Intervention: Patient was educated in proper exercise technique and purpose for exercises. Reviewed and educated patient on additions/changes for home exercise program as above (*). Skilled judgment was provided in selection of appropriate interventions. Provided written instruction for home exercise program to facilitate proper performance and compliance. Self-Skilled Nursing Management: 1: Reviewed benefits of a firmer [...] 1324 Session Stop Time : 1352 Dian Daniel Moyer, PT [facility] 07-17-2023 History of Presen t illness [...] TREATMENT: Therapeutic Exercise: 1: *seated figure-4 stretch, 3z44qnd each 2: *seated hamstring stretch, 4t31tom each 3: *diaphragmatic breathing, 2x5 breaths 4: *standing hip flexor stretch, 0g43rnp each 5: *standing sidebend stretch, 5j18xeq each Skilled Intervention: Patient was educated in proper exercise technique and purpose for exercises. Reviewed and educated patient on additions/changes for home exercise program as above (*). Skilled judgment was provided in selection of appropriate interventions. Provided written instruction for home exercise program to facilitate proper performance and compliance. Self-Skilled Nursing Management: 1: Reviewed benefits of a firmer [...] Dian Moyer PT documented in this encounter [facility] 07-13-2023 Note HNO ID: [id number] Author: Kenzie Art PT Service: ? Author [...] : 1438 Session Stop Time : 1516 Julia Crockett, BUFFY Art, PT [facility] 06-29-2023 Note HNO ID: [id number] Author: Dian Heaton PT Service: ? Author [...] of Care: created on 06/29/23 through 08/28/23 [place] in home exercise program. Patient will increase [...] Planned: 2 Planned Treatment Interventions: Therapeutic exercise (03642), Manual therapy (38352), Self-fpc management (71238), Patient/Family/Caregiver Education PLAN FOR NEXT VISIT: progress [...] HISTORY Procedure Laterality Date CARDIAC CATH 2007 [facility]-normal ESOPHAGOGASTRODUODENOSCOPY TRANSORAL DIAGNOSTIC 2007 EGD [...] the above jong (more content not included)... [facility] 06-29-2023 History of Presen t illness [...] of Care: created on 06/29/23 through 08/28/23 [place] in home exercise program. Patient will increase [...] Planned: 2 Planned Treatment Interventions: Therapeutic exercise (04514), Manual therapy (48634), Self-fpc management (37424), Patient/Family/Caregiver Education PLAN FOR NEXT VISIT: progress [...] HISTORY Procedure Laterality Date CARDIAC CATH 2007 [facility]-normal ESOPHAGOGASTRODUODENOSCOPY TRANSORAL DIAGNOSTIC 2007 EGD [...] Demonstration TREATMENT: PT Treatment Interventions: Therapeutic Exercise, Self-Skilled Nursing Management Evaluation Therapeutic Exercise: 1: *supine hip flexor stretch, 1f16ijp each 2: *supine adductor stretch with diaphragmatic breathing, 2x5 breaths 3: *hooklying figure-4 stretch, 3e60xwu each 4: *standing adductor stretch, 4s44vej each 5: *standing calf stretch, 9m35cat each Skilled Intervention: Patient was educated in proper exercise technique and purpose for exercises. Reviewed and educated patient on additions/changes for home exercise program as above (*). Skilled judgment was provided in selection of appropriate interventions. Provided written instruction for home exercise program to facilitate proper performance and compliance. Self-Skilled Nursing Management: 1: Reviewed importance of avoiding prolonged [...] Dian Moyer PT documented in this encounter [facility] 06-28-2023 Note HNO ID: [id number] Author: Sarah Todd Service: ? Author Type: ? Type: Progress Notes Filed: 06/28/2023 4:13 PM Note Text: POPULATION HEALTH NAVIGATION OUTREACH Action/[facility] Support: Called pt to schedule an appt in Pain Management. Lvm for pt to call [phone] for scheduling. Patient Identified by Name and : NO Outreach Outcome/Action Unable to reach patient: Left message Did you use a PCP flex slot to schedule this appointment? No Reason for Outreach Care Gap or Scheduling/Wellness visits Payer: Payor: [place] / Plan: [place] [employer]BS [place] OF [place] / Product Type: Medicaid / Care Gap [...] Sarah Todd June 28, 2023 4:09 PM [facility] 06-28-2023 History of Presen t illness Narrative POPULATION HEALTH NAVIGATION OUTREACH Action/[facility] Support: Called pt to schedule an appt in Pain Management. Lvm for pt to call [phone] for scheduling. Patient Identified by Name and : NO Outreach Outcome/Action Unable to reach patient: Left message Did you use a PCP flex slot to schedule this appointment? No Reason for Outreach Care Gap or Scheduling/Wellness visits Payer: Payor: [place] / Plan: [place] [facility] / Product Type: Medicaid / Care Gap [...] 2023 4:09 PM documented in this encounter [facility] 06-28-2023 Note HNO ID: [id number] Author: Kenzie Art PT Service: ? Author Type: Physical Therapist Type: Progress Notes Filed: 06/28/2023 2:44 PM Note Text: Episode Visit Count: 1 Therapist That Will Accept/Oversee The Plan Of Care: eKnzie Art Start of Care Date: 06/28/23 Onset [...] of Care: created on 06/28/23 through 08/23/23 [place] in home exercise program. Perform standing and walking for 45 minutes without pain. Improve flexibility of hip flexors to WNL for decreased extension force on L spine in 8 weeks or less Patient Goals: Reduce pain Planned Interventions, Frequency, and Duration: Current Frequency: 1x/week Duration: 4 weeks Total Number of Visits Planned: 4 Planned Treatment Interventions: Neuromuscular re-education (68129), Therapeutic exercise (22684), Manual therapy (91548), Self-fpc management (89219), Patient/Family/Caregiver Education PLAN FOR NEXT VISIT: Stretch [...] hip flexor stretc (more content not included)... [facility] 06-28-2023 Note Patient Outreach (VERÓNICA BOBAV) ALYSON QUINN ([id number]) 1985 M Date Time Provider Department 06/28/23 NO PCP NETNAV During your visit today, we recorded the following information about you: Sarah Todd 06/28/2023 4:13 PM Signed POPULATION HEALTH NAVIGATION OUTREACH Action/[facility] Support: Called pt to schedule an appt in Pain Management. m for pt to call [phone] for scheduling. Patient Identified by Name and : NO Outreach Outcome/Action Unable to reach patient: Left message Did you use a PCP flex slot to schedule this appointment? No Reason for Outreach Care Gap or Scheduling/Wellness visits Payer: Payor: [place] / Plan: [place] [facility] MEDICAID [facility] / Product Type: Medicaid / Care Gap [...] 6 mg by mouth once daily. 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 Perform standing and walking for 45 minutes without pain. Improve flexibility of hip flexors to WNL for decreased extension force on L spine in 8 weeks or less Patient Goals: Reduce pain Planned Interventions, Frequency, and Duration: Current Frequency: 1x/week Duration: 4 weeks Total Number of Visits Planned: 4 Planned Treatment Interventions: Neuromuscular re-education (82246), Therapeutic exercise (83423), Manual therapy (73462), Self-fpc management (59354), Patient/Family/Caregiver Education PLAN FOR NEXT VISIT: Stretch [...] Kenzie Art PT documented in this encounter [facility] 06-22-2023 Note HNO ID: [id number] Author: Edmund Mckenzie PA-C Service: ? Author Type: Physician Sawyer [place] Slabs Type: Progress Notes Filed: 06/22/2023 4:37 PM Note Text: [facility] EST PATIENT CLINIC NOTE [...] if not improving LIZZIE Dash MT, PA-C [facility] 06-22-2023 Instructions Edmund Mckenzie PA-C - 06/22/2023 3:54 PM EDT > Call PFPT to reschedule appointments > Refilled Elavil 50 mg at bedtime > 1 year Appt w/ B. LIZZIE Mckenzie MT, PA-C for annual follow-up and refills. documented in this encounter [facility] 06-22-2023 History of Presen t illness Narrative Images from the original note were not included. [facility] EST PATIENT CLINIC NOTE [...] > follow up if not improving LIZZIE Dash, MT, PARachaelC documented in this encounter [facility] 06-18-2023 Note HNO ID: [id number] Author: Shanon Reid RT(R) Service: Radiology Author [...] PERIPHERAL IV DATA: Not applicable SIGNED BY: Shanon Reid, RT(R) June 18, 2023 7:40 PM [facility] 06-18-2023 Note HNO ID: [id number] Author: Jessie Blackwell MD Service: ? Author Type: Physician Type: Progress Notes Filed: 06/18/2023 7:15 PM Note Text: Patient presents with: ER F/U HPI: Patient presents today for office visit for follow up. HOSPITAL/ER FOLLOW UP: Reason for visit: testicular pain Which facility: [facility] Date of visit: 06/16/23 Diagnosis: spastic pelvic [...] HISTORY Procedure Laterality Date CARDIAC CATH 2007 [facility]-normal ESOPHAGOGASTRODUODENOSCOPY TRANSORAL DIAGNOSTIC 2007 EGD [...] - xray an (more content not included)... [facility] 06-18-2023 History of Presen t illness Narrative Patient presents with: ER F/U HPI: Patient presents today for office visit for follow up. HOSPITAL/ER FOLLOW UP: Reason for visit: testicular pain Which facility: [facility] Date of visit: 06/16/23 Diagnosis: spastic pelvic [...] HISTORY Procedure Laterality Date CARDIAC CATH 2007 [facility]-normal ESOPHAGOGASTRODUODENOSCOPY TRANSORAL DIAGNOSTIC 2007 EGD [...] Jessie Blackwell MD documented in this encounter [facility] 12-12-2022 History of Presen t illness [...] Care: created on 10/20/22 Updated on: 12/12/22 [place] in home exercise program.-MET Patient will increase [...] Patient to be seen for Therapeutic exercise (56668), Manual therapy (36915), Self-fpc management (96064), Patient/Family/Caregiver Education PLAN FOR NEXT VISIT: progress [...] Exercise: 1: Reassessment 2: supine adductor stretch, 1h31cda (improved pain during stretch, increased pain after stretch) 3: supine hip flexor stretch, 4o46hfh each (improved pain during stretch, increased pain after stretch) 4: *standing hip flexor stretch, 8u43qam each 5: *standing sidebend stretch, 5o53htu each 6: *seated lumbar flexion stretch, 2p26kgv 7: seated figure 4 stretch, 8k68tci R 8: *seated hamstring stretch, 2r09uyn each Skilled Intervention: Patient was educated in [...] Dian Sanchez PT documented in this encounter [facility] 12-04-2022 History of Presen t illness [...] HISTORY Procedure Laterality Date CARDIAC CATH 2007 [facility]-normal ESOPHAGOGASTRODUODENOSCOPY TRANSORAL DIAGNOSTIC 2007 EGD [...] Discussed with patient he will proceed to [facility] emergency room. Passport complete. 2. Leg swelling - ICD9: 729.81, ICD10: M79.89 Prop. Limit sodium. Discussed treatment plan and patient voices understanding. Patient's questions answered appropriately. Medications and potential side effects were discussed and patient voices understanding. Return to the office as scheduled or as needed for worsening/no improvement. Frida Suarez APRN.RAMÓN This note was partially generated using [employer] voice recognition system. Note was reviewed for accuracy. There may be minor misspellings or grammar miscues with [employer] voice recognition. documented in this encounter [facility] 11-14-2022 History of Presen t illness [...] 3: *posterior pelvic tilt, 2x10 4: *LTR, 0a25ggk each Skilled Intervention: Patient was educated in [...] and assessment of patient's response to intervention. Self-Skilled Nursing Management: 1: Reviewed benefits of sleeping on [...] Dian Sanchez PT documented in this encounter [facility] 10-10-2022 Miscellaneous Notes Patient has been [...] Anthony Barraza RN documented in this encounter [facility] 09-15-2022 History of Presen t illness Narrative Patient presents with: ER F/U Testicular Pain HPI: Patient presents today for office visit for ER follow up. Went to [facility] ER 3 times with testicular pain in [...] HISTORY Procedure Laterality Date CARDIAC CATH 2007 [facility]-normal ESOPHAGOGASTRODUODENOSCOPY TRANSORAL DIAGNOSTIC 2007 EGD [...] treating him impossible. He will go to [facility] ER. ER passport completed. He initially stated he was in so much pain he could not go to ER. Offered to call squad. He declines. No charge for visit. Jessie Blackwell documented in this encounter [facility] 09-11-2022 Miscellaneous Notes Images from the original note were not included. MARYLU Wilson Please schedule urology consult documented in this encounter [facility] 09-11-2022 History of Presen t illness Narrative Audio only was used for evaluation of this patient. Location of patient: [place] Patient was offered a virtual/telemedicine appointment in [...] HISTORY Procedure Laterality Date CARDIAC CATH 2007 [facility]-normal ESOPHAGOGASTRODUODENOSCOPY TRANSORAL DIAGNOSTIC 2007 EGD [...] Obesity, Class Iii, Bmi 40-49.9 (Morbid Obesity) ([facility]) Current Outpatient Medications Medication Sig Dispense Refill [...] Anthony Lino PA-C documented in this encounter [facility] 09-05-2022 Instructions Anthony Lino PA-C - 09/05/2022 3:43 PM EDT [facility] Mayito Lino PA-C [address] [facility] [id number] ext [phone] [place] as directed per prescription for pain being [...] should not be used over long periods. [place]co is governed by federal regulations for schedule 2 narcotics: you may not share this medication with anyone else, this constitutes a felony. It must be locked or secured in a safe place and cannot be replaced if lost, damaged, or stolen. [place] Levaquin as directed per prescription If you [...] protect against sexually transmitted diseases. Published by [employer]. This content is reviewed periodically and is subject to change as new health information becomes available. The information is intended to inform and educate and is not a replacement for medical evaluation, advice, diagnosis or treatment by a healthcare professional. Developed by [employer]. Copyright 2005 [employer] and/or one of its subsidiaries. All Rights [...] call the office. documented in this encounter [facility] 09-05-2022 History of Presen t illness Narrative 37 year old male with c/o bilateral testicular pain which started 09/03/2022, rolled over in bed and felt like twisted testicles with immediate severe pain to point unable to walk. Feels like testicles spasm 09/03/2022 patient presented [facility] twice with above history. Vital signs are [...] HISTORY Procedure Laterality Date CARDIAC CATH 2007 [facility]-normal ESOPHAGOGASTRODUODENOSCOPY TRANSORAL DIAGNOSTIC 2007 EGD [...] context and comparison. documented in this encounter [facility] 05-12-2022 Miscellaneous Notes Patient was notified Jeannette Pickett Ma Cholesterol is mildly up. Watch diet. Red count is up slightly. Push fluids. Decrease smoking which can cause. Recheck labs in two weeks documented in this encounter [facility] documented as of this encounter (statuses as of 05/12/2022) [facility] History of Past illness Narrative* Problem [...] of this encounter (statuses as of 09/06/2022) [facility] of Past [facility] Narrative* Problem [...] of this encounter (statuses as of 09/11/2022) [facility] of [facility] Narrative* Problem [...] of this encounter (statuses as of 09/15/2022) [facility] Narrative* Problem [...] of this encounter (statuses as of 10/06/2022) [facility] Narrative* Problem [...] of this encounter (statuses as of 10/10/2022) [facility] Narrative* Problem [...] of this encounter (statuses as of 11/16/2022) [facility] Narrative* Problem [...] of this encounter (statuses as of 12/05/2022) [facility] N[facility]ative* Problem [...] of this encounter (statuses as of 12/12/2022) [facility] Narrative* Problem [...] of this encounter (statuses as of 06/19/2023) [facility] Narrative* Problem [...] of this encounter (statuses as of 06/23/2023) [facility] Narrative* Problem [...] of this encounter (statuses as of 06/29/2023) [facility] N[facility]ative* Problem [...] of this encounter (statuses as of 06/29/2023) [facility] N[facility]ative* Problem [...] of this encounter (statuses as of 06/29/2023) [facility] N[facility]* Problem [...] of this encounter (statuses as of 07/18/2023) [facility] N[facility]* Problem [...] of this encounter (statuses as of 07/21/2023) [facility] N[facility]ative* Problem [...] of this encounter (statuses as of 07/27/2023) [facility] N[facility]* Problem [...] of this encounter (statuses as of 07/31/2023) [facility] N[facility]ative* Problem [...] of this encounter (statuses as of 08/01/2023) [facility]* Problem [...] of this encounter (statuses as of 10/13/2023) [facility] N[facility]* Problem [...] of this encounter (statuses as of 12/25/2023) [facility]* Problem [...] of this encounter (statuses as of 12/31/2023) [facility] N[facility]ative* Problem [...] of this encounter (statuses as of 12/31/2023) [facility]* Problem [...] of this encounter (statuses as of 01/02/2024) [facility]* Problem [...] as of this encounter (statuses as of 01/04/2024) [facility]* Problem [...] as of this encounter (statuses as of 01/09/2024) [facility]* Problem [...] as of this encounter (statuses as of 01/12/2024) [facility] Diagnosis Polycythemia- Primary Poly[facility]themia vera [facility] Pain in both testicles- Primary Right epididymitis Orchitis and epididymitis, unspecified [facility] Diagnosis Pain in both testicles- Primary [facility] Diagnosis RLQ abdominal pain- Primary Abdominal pain, right lower quadrant [facility] Diagnosis Gastroesophageal reflux disease without esophagitis Esophageal reflux [facility] Diagnosis Spastic pelvic floor syndrome- Primary Other symptoms involving digestive system [facility]* Diagnosis Generalized abdominal pain- Primary Abdominal pain, generalized Leg swelling Swelling of limb [facility] Diagnosis Spastic pelvic floor syndrome- Primary Other symptoms involving digestive system [facility]* Diagnosis DDD (degenerative disc disease), lumbar- Primary Degeneration of lumbar or lumbosacral intervertebral disc Edema, unspecified type Spastic pelvic floor syndrome Other symptoms involving digestive system Hyperlipidemia, unspecified hyperlipidemia type Primary hypertension Unspecified essential hypertension Pain in both testicles Localized edema Edema [facility] Diagnosis Spastic pelvic floor syndrome Other symptoms involving digestive system Pain in both testicles [facility] Diagnosis DDD (degenerative disc disease), lumbar Degeneration of lumbar or lumbosacral intervertebral disc Spastic pelvic floor syndrome Other symptoms involving digestive system [facility] Diagnosis Muscle tightness- Primary Unspecified disorder of muscle, ligament, and fascia Pain in both testicles [facility] Diagnosis Muscle tightness- Primary Unspecified disorder of muscle, ligament, and fascia Pain in both testicles [facility] Diagnosis DDD (degenerative disc disease), lumbar- Primary Degeneration of lumbar or lumbosacral intervertebral disc [facility] Diagnosis DDD (degenerative disc disease), lumbar- Primary Degeneration of lumbar or lumbosacral intervertebral disc Spastic pelvic floor syndrome Other symptoms involving digestive system [facility] Diagnosis Muscle tightness- Primary Unspecified disorder of muscle, ligament, and fascia Pain in both testicles [facility] Diagnosis Muscle tightness- Primary Unspecified disorder of muscle, ligament, and fascia DDD (degenerative disc disease), lumbar Degeneration of lumbar or lumbosacral intervertebral disc [facility] Diagnosis Acute pain of left knee- Primary [facility] Diagnosis Onychodystrophy- Primary Other specified disease of nail Ingrown toenail Ingrowing nail Diminished pulses in lower extremity Other symptoms involving cardiovascular system [facility] Diagnosis Facial infection- Primary Other specified infectious and parasitic diseases [facility] Diagnosis Facial infection Other specified infectious and parasitic diseases [facility] Diagnosis Facial infection- Primary Other specified infectious and parasitic diseases [facility] Diagnosis Abscess, lip- Primary Diseases of lips [facility] Diagnosis Abscess, lip- Primary Diseases of lips Spastic pelvic floor syndrome Other symptoms involving digestive system [facility] Diagnosis Weight gain- Primary Abnormal weight gain SOB (shortness of breath) Shortness of breath Peripheral edema Edema documented in this encounter [facility] for referral (narrative)* Outpatient Procedure (Urgent) - Pending Review Specialty Diagnoses / Procedures [facility] [place] Diagnoses Localized edema Procedures US LEG VEIN DVT GARRY [facility] LAB DUP-SCAN XTR VEINS COMPLETE BILATERAL STUDY Jessie Blackwell MD [address] [place] [address] [address] Referral ID Status Reason Start Date Expiration Date Visits Requested Visits Authorized [id number] Pending Review Auto-Generat ed Referral 06/18/2023 06/17/2024 1 1 * Outpatient Procedure (Routine) - Authorized Specialty Diagnoses / Procedures Referred By [facility] Referred To Contact [facility] Diagnoses Edema, unspecified type Primary hypertension Procedures ECHO ECHO TTHRC R-T 2D W/WOM-MODE COMPL SPEC&[place] [address] [place] [address] [address] Referral ID Status Reason Start Date Expiration Date Visits Requested Visits Authorized [id number] Authorized Auto-Generat ed Referral 06/18/2023 06/17/2024 1 1 * Consult, Test, Treat (Routine) - Pending Review Specialty Diagnoses / Procedures Referred By [facility] Referred To Contact Pain Management Diagnoses DDD (degenerative disc disease), lumbar Spastic pelvic floor syndrome Pain in both testicles Procedures CONSULT TO PAIN MGT OFFICE/OUTPATIENT NEW HIGH MDM 60-[place] [address] [place] [address] Referral ID Status Reason Start Date Expiration Date Visits Requested Visits Authorized [id number] Pending Review PCP Requested Referral 06/18/2023 06/17/2024 1 1 * Physical Therapy (Routine) - Pending Review Specialty Diagnoses / Procedures Referred By Contac t Referred To Contact [facility] Diagnoses DDD (degenerative disc disease), lumbar Spastic pelvic floor syndrome Procedures CONSULT TO PHYSICAL THERAPY PHYSICAL THERAPY EVALUATION [facility] COMPLEX 45 MINS Jessie Blackwell MD [address] [place] [address] [facility] [place] [address] [place] [address] Referral ID Status Reason Start Date Expiration Date Visits Requested Visits Authorized [id number] Pending Review Auto-Generat ed Referral 06/18/2023 06/17/2024 1 1 * Diagnostic Procedure Only (Routine) - Closed Specialty Diagnoses / Procedures Referred By Contac t Referred To Contact XR IMAGING Diagnoses DDD (degenerative disc disease), lumbar Procedures XR LUMBAR GENERAL 3V AP/LAT/L5-S1 RADEX SPINE LUMBOSACRAL 2/3 VIEWS Jessie Blackwell MD [address] [place] [address] Xr Imaging Referral ID Status Reason Start Date Expiration Date V isits Requested Visits Authorized [id number] Closed Auto-Generate d Referral 06/18/2023 07/17/2024 1 1 * Consult, Test, Treat (Routine) - Pending Review Specialty Diagnoses / Procedures Referred By Contac t Referred To Contact Urology Diagnoses Spastic pelvic floor syndrome Pain in both testicles Procedures CONSULT TO UROLOGY OFFICE/OUTPATIENT [facility] MDM 60-74 MINUTES Jessie Blackwell MD [address] [place] [address] Referral ID Status Reason Start Date Expiration Date Visits Requested Visits Authorized [id number] Pending Review PCP Requested Referral 06/18/2023 06/17/2024 1 1 [facility] for referral (narrative)* - Pending Review Specialty Diagnoses / Procedures Referred By Contac t Referred To Contact Physical Therapy Diagnoses Spastic pelvic floor syndrome Pain in both testicles Procedures CONSULT TO PHYSICAL THERAPY Mckenzie, Edmund, PA-C [address] [place] [address] Referral ID Status Reason Start Date Expiration Date V isits Requested Visits Authorized [id number] Pending Review 07/23/2023 10/21/2023 1 1 [facility] for referral (narrative)* Diagnostic Procedure Only (Urgent) - Closed Specialty Diagnoses / Procedures Referred By Contac t Referred To Contact XR IMAGING Diagnoses Acute pain of left knee Procedures XR KNEE GENERAL 4V AP BOTH/PA BOTH/LAT/MERC LEFT RADIOLOGIC EXAM KNEE COMPLETE 4/MORE VIEWS Eben Chen MD [address] [place] [address] Xr Imaging [facility] Referral ID Status Reason Start Date Expiration Date V isits Requested Visits Authorized [id number] Closed Auto-Generate d Referral 10/13/2023 11/11/2024 1 1 [facility] for referral (narrative)* Outpatient Procedure (Routine) - Authorized Specialty Diagnoses / Procedures Referred By Contac t Referred To Contact [facility] [place] Diagnoses Onychodystrophy Diminished pulses in lower extremity Procedures PVR ANK PRESS G[facility] NON-INVAS PHYSIOLOGIC STD EXTREMITY ART 2 LEVEL Leonard Martínez [address] [place] [address] [facility] [place] [address] [place] [address] Referral ID Status Reason Start Date Expiration Date Visits Requested Visits Authorized [id number] Authorized Auto-Generat ed Referral 12/25/2023 12/24/2024 1 1 [facility] Reason for Referral Specialty Diagnoses / Procedures Referred By Contac t Referred To Contact Urology Diagnoses Pain in both testicles Procedures CONSULT TO UROLOGY OFFICE/OUTPATIENT [facility] 60-74 MINUTES Anthony Lino PA-C [address] [place] [address] Referral ID Status Reason Start Date Expiration Date Visits Requested Visits Authorized [id number] Pending Review PCP Requested Referral 2 09/11/2023 1 1 Specialty Diagnoses / Procedures Referred By Contac t Referred To Contact [facility] Diagnoses Spastic pelvic floor syndrome Procedures PT REHAB FOLLOW UP ORDER THERAPEUTIC EXERCISES RE, EA 15 MIN. Dian Sanchez, PT [address] [place] [address] [facility] [address] [address] Referral ID Status Reason Start Date Expiration Date Visits Requested Visits Authorized [id number] Pending Review PCP Requested Referral Auto-Generate d Referral 12/12/2022 03/12/2023 1 1 Specialty Diagnoses / Procedures Referred By Contac t Referred To Contact [facility] Diagnoses Spastic pelvic floor syndrome Procedures CONSULT TO PHYSICAL THERAPY PHYSICAL THERAPY EVALUATION HIGH COMPLEX 45 MINS Marivel Urrutia APRN.RADIOLOGY CT TECHNOLOGIST [address] [place] [id number] [facility] [address] [address] Referral ID Status Reason Start Date Expiration Date Visits Requested Visits Authorized [id number] Pending Review Auto-Generat ed Referral 01/08/2024 01/07/2025 1 1 Summary Purpose Family History No [...] or prosecute any alcohol or drug abuse patient.[facility] the event this information is protected by the Federal Confidentiality of Alcohol and Drug Abuse Patient Records regulations: The Federal rules restrict any use of the information to criminally investigate or prosecute any alcohol or drug abuse patient.[facility] HospitalIn the event this information is protected by the Federal Confidentiality of Alcohol and Drug Abuse Patient Records regulations: The Federal rules restrict any use of the information to criminally investigate or prosecute any alcohol or drug abuse patient.[facility] HospitalIn the event this information is protected by the Federal Confidentiality of Alcohol and Drug Abuse Patient Records regulations: The Federal rules restrict any use of the information to criminally investigate or prosecute any alcohol or drug abuse patient.[facility] HospitalIn the event this information is protected by the Federal Confidentiality of Alcohol and Drug Abuse Patient Records regulations: The Federal rules restrict any use of the information to criminally investigate or prosecute any alcohol or drug abuse patient.[facility] HospitalIn the event this information is protected by the Federal Confidentiality of Alcohol and Drug Abuse Patient Records regulations: The Federal rules restrict any use of the information to criminally investigate or prosecute any alcohol or drug abuse patient.[facility] HospitalIn the event this information is protected by the Federal Confidentiality of Alcohol and Drug Abuse Patient Records regulations: The Federal rules restrict any use of the information to criminally investigate or prosecute any alcohol or drug abuse patient.[facility] HospitalIn the event this information is protected by the Federal Confidentiality of Alcohol and Drug Abuse Patient Records regulations: The Federal rules restrict any use of the information to criminally investigate or prosecute any alcohol or drug abuse patient.[facility] HospitalIn the event this information is protected by the Federal Confidentiality of Alcohol and Drug Abuse Patient Records regulations: The Federal rules restrict any use of the information to criminally investigate or prosecute any alcohol or drug abuse patient.[facility] HospitalIn the event this information is protected by the Federal Confidentiality of Alcohol and Drug Abuse Patient Records regulations: The Federal rules restrict any use of the information to criminally investigate or prosecute any alcohol or drug abuse patient.[facility] HospitalIn the event this information is protected by the Federal Confidentiality of Alcohol and Drug Abuse Patient Records regulations: The Federal rules restrict any use of the information to criminally investigate or prosecute any alcohol or drug abuse patient.[facility] HospitalIn the event this information is protected by the Federal Confidentiality of Alcohol and Drug Abuse Patient Records regulations: The Federal rules restrict any use of the information to criminally investigate or prosecute any alcohol or drug abuse patient.[facility] HospitalIn the event this information is protected by the Federal Confidentiality of Alcohol and Drug Abuse Patient Records regulations: The Federal rules restrict any use of the information to criminally investigate or prosecute any alcohol or drug abuse patient.[facility] HospitalIn the event this information is protected by the Federal Confidentiality of Alcohol and Drug Abuse Patient Records regulations: The Federal rules restrict any use of the information to criminally investigate or prosecute any alcohol or drug abuse patient.[facility] HospitalIn the event this information is protected by the Federal Confidentiality of Alcohol and Drug Abuse Patient Records regulations: The Federal rules restrict any use of the information to criminally investigate or prosecute any alcohol or drug abuse patient.[facility] HospitalIn the event this information is protected by the Federal Confidentiality of Alcohol and Drug Abuse Patient Records regulations: The Federal rules restrict any use of the information to criminally investigate or prosecute any alcohol or drug abuse patient.[facility] HospitalIn the event this information is protected by the Federal Confidentiality of Alcohol and Drug Abuse Patient Records regulations: The Federal rules restrict any use of the information to criminally investigate or prosecute any alcohol or drug abuse patient.[facility] HospitalIn the event this information is protected by the Federal Confidentiality of Alcohol and Drug Abuse Patient Records regulations: The Federal rules restrict any use of the information to criminally investigate or prosecute any alcohol or drug abuse patient.[facility] HospitalIn the event this information is protected by the Federal Confidentiality of Alcohol and Drug Abuse Patient Records regulations: The Federal rules restrict any use of the information to criminally investigate or prosecute any alcohol or drug abuse patient.[facility] HospitalIn the event this information is protected by the Federal Confidentiality of Alcohol and Drug Abuse Patient Records regulations: The Federal rules restrict any use of the information to criminally investigate or prosecute any alcohol or drug abuse patient.[facility] HospitalIn the event this information is protected by the Federal Confidentiality of Alcohol and Drug Abuse Patient Records regulations: The Federal rules restrict any use of the information to criminally investigate or prosecute any alcohol or drug abuse patient.[facility] HospitalIn the event this information is protected by the Federal Confidentiality of Alcohol and Drug Abuse Patient Records regulations: The Federal rules restrict any use of the information to criminally investigate or prosecute any alcohol or drug abuse patient.[facility] HospitalIn the event this information is protected by the Federal Confidentiality of Alcohol and Drug Abuse Patient Records regulations: The Federal rules restrict any use of the information to criminally investigate or prosecute any alcohol or drug abuse patient.[facility] HospitalIn the event this information is protected by the Federal Confidentiality of Alcohol and Drug Abuse Patient Records regulations: The Federal rules restrict any use of the information to criminally investigate or prosecute any alcohol or drug abuse patient.[facility] HospitalIn the event this information is protected by the Federal Confidentiality of Alcohol and Drug Abuse Patient Records regulations: The Federal rules restrict any use of the information to criminally investigate or prosecute any alcohol or drug abuse patient.[facility] HospitalIn the event this information is protected by the Federal Confidentiality of Alcohol and Drug Abuse Patient Records regulations: The Federal rules restrict any use of the information to criminally investigate or prosecute any alcohol or drug abuse patient.[facility] HospitalIn the event this information is protected by the Federal Confidentiality of Alcohol and Drug Abuse Patient Records regulations: The Federal rules restrict any use of the information to criminally investigate or prosecute any alcohol or drug abuse patient.[facility] Reason for Visit (unrecogniz ed section and content) Specialty Diagnoses / Procedures Referred By Contac t Referred To Contact [facility] Diagnoses DDD (degenerative disc disease), lumbar Spastic pelvic floor syndrome Procedures CONSULT TO PHYSICAL THERAPY PHYSICAL THERAPY EVALUATION HIGH COMPLEX 45 MINS Jessie Blackwell MD [address] [place] [address] [facility] [place] [address] [place] [address] Referral ID Status Reason Start Date Expiration Date Visits Requested Visits Authorized [id number] Authorized Auto-Generat ed Referral 11/12/2022 11/11/2023 30 [...] 15 MIN. Dian Sanchez, PT [address] [facility] [place] [address] [facility] [place] [address] [place] [address] Referral ID Status Reason Start Date Expiration Date Visits Requested Visits Authorized [id number] Pending Review PCP Requested Referral Auto-Generate d Referral 10/20/2022 01/18/2023 1 1 Reason Comments Recheck Follow up Abdominal Pain Started last evening ; hx of pelvic floor syndrome Flank Pain Started th/fri Reason Comments PT Progress Note Specialty Diagnoses / Procedures Referred By Contac t Referred To Contact Physical Therapy / PHYSICAL THERAPY Diagnoses R19.8 (ICD-10-CM) - Spastic pelvic floor syndrome Procedures EST RS PT ORTH Edmund Conley PA-C [address] [place] [address] Dian Sanchez, PT [address] [facility] [place] [address] Referral ID Status Reason Start Date Expiration Date V isits Requested Visits Authorized [id number] Authorized 11/12/2022 12/12/2022 99 99 Reason Comments ER F/U Reason Comments Follow Up Specialty Diagnoses / Procedures Referred By Contac t Referred To Contact Urology Diagnoses Spastic pelvic floor syndrome Pain in both testicles Procedures CONSULT TO UROLOGY OFFICE/OUTPATIENT NEW HIGH MDM 60-74 MINUTES Jessie Blackwell MD [address] [place] [address] Referral ID Status Reason Start Date Expiration Date Visits Requested Visits Authorized [id number] Pending Review PCP Requested Referral 06/18/2023 06/17/2024 1 1 Reason Comments PT Eval Reason Comments Knee Pain left x 1 week, denie s injury Reason Comments New Patient Ingrown Nail Specialty Diagnoses / Procedures Referred By Antwon cotter Referred To Contact Podiatry Diagnoses Ingrown toenail Procedures CONSULT TO PODIATRY OFFICE/OUTPATIENT NEW HIGH MDM 60 MINUTES Placido Pérez APRN.RAMÓN [address] [place] [address] Referral ID Status Reason Start Date Expiration Date V isits Requested Visits Authorized [id number] Closed PCP Requested Referral 12/06/2023 12/05/2024 1 1 Reason Comments Derm Problem right lower lip sore x 3-4 days Reason Onset Date Comments Refill Request 12/31/2023 Reason Comments Derm Problem redness, swelling an d drainage seen Sunday on bactrim Reason Comments Recheck Facial infection Reason Comments Recheck Follow up infection. Lips were burning yesterday, today feels better. ER F/U Care Teams (unrecognized sec tion and content) Conference Services Director Relationship Specialty Start Date End Date Jessie Blackwell MD [address] [place] [address] PCP - General Family Medicine 06/21/12 Conference Services Director Relationship Specialty Start Date End Date Jessie Blackwell MD [address] [place], [place] [address] PCP - General Family Medicine 06/21/12 Conference Services Director Relationship Specialty Start Date End Date Jessie Blackwell MD [address] [place] [address] PCP - General Family Medicine 06/21/12 Conference Services Director Relationship Specialty Start Date End Date Jessie Blackwell MD [address] [place], [place] [id number] PCP - General Family Medicine 06/21/12 Conference Services Director Relationship Specialty Start Date End Date Jessie Blackwell MD [address] [place], [place] [id number] PCP - General Family Medicine 06/21/12 Conference Services Director Relationship Specialty Start Date End Date Jessie Blackwell MD [address] [place] [address] PCP - General Family Medicine 06/21/12 Conference Services Director Relationship Specialty Start Date End Date Jessie Blackwell MD [address] [place] [address] PCP - General Family Medicine 06/21/12 Conference Services Director Relationship Specialty Start Date End Date Jessie Blackwell MD [address] [place] [address] PCP - General Family Medicine 06/21/12 Conference Services Director Relationship Specialty Start Date End Date Jessie Blackwell MD [address] [place] [address] PCP - General Family Medicine 06/21/12 Conference Services Director Relationship Specialty Start Date End Date Jessie Blackwell MD [address] [place] [address] PCP - General Family Medicine 06/21/12 Conference Services Director Relationship Specialty Start Date End Date Jessie Blackwell MD [address] [place] [address] PCP - General Family Medicine 06/21/12 Conference Services Director Relationship Specialty Start Date End Date Jessie Blackwell MD [address] [place] [address] PCP - General Family Medicine 06/21/12 Conference Services Director Relationship Specialty Start Date End Date Jessie Blackwell MD [address] [place] [address] PCP - General Family Medicine 06/21/12 Conference Services Director Relationship Specialty Start Date End Date Jessie Blackwell MD [address] [place], [place] [address] PCP - General Family Medicine 06/21/12 Conference Services Director Relationship Specialty Start Date End Date Jessie Blackwell MD [address] [place], [place] [address] PCP - General Family Medicine 06/21/12 Conference Services Director Relationship Specialty Start Date End Date Jessie Blackwell MD [address] [place], [place] [address] PCP - General Family Medicine 06/21/12 Conference Services Director Relationship Specialty Start Date End Date Jessie Blackwell MD [address] [place], [place] [address] PCP - General Family Medicine 06/21/12 Conference Services Director Relationship Specialty Start Date End Date Jessie Blackwell MD [address] [place], [place] [address] PCP - General Family Medicine 06/21/12 Conference Services Director Relationship Specialty Start Date End Date Jessie Blackwell MD [address] [place], [place] [address] PCP - General Family Medicine 06/21/12 Conference Services Director Relationship Specialty Start Date End Date Jessie Blackwell MD [address] [place], [place] [address] PCP - General Family Medicine 06/21/12 (unrecognized sect ion and content) No [...] BE BASED ON THE PRIMARY CLINICAL RECORDS. [facility] [place] [employer] [facility]. provides no warranty or guarantee of the accuracy or completeness of information in this document.
--- NOTE | 2024-01-13 03:20 | RAD_ITS ---
EXAM: XR ABDOMEN, 1 VIEW CLINICAL INDICATION: constipation TECHNIQUE: Frontal supine view of the abdomen/pelvis. COMPARISON: 12/04/2022 FINDINGS: LOWER THORAX: No acute pathology. GASTROINTESTINAL TRACT: Moderate amount of stool in the colon. Non-obstructive. No bowel or stomach distention. ORGANS: Unremarkable as visualized. No organomegaly. No abnormal calcifications. BONES/JOINTS: No acute pathology. SOFT TISSUES: No acute pathology. RAD/Abdomen Single View (Portable) IMPRESSION: Moderate amount of stool in the colon. Electronically Signed: Mario Kelly MD at 3:53 EST ,
--- NOTE | 2024-01-13 04:07 | EX.ED.DYSGE1 ---
HPI History of Present Illness Chief Complaint: Constipation Informant: patient Narrative Narrative: Patient is a 38-year-old male with past medical history of bipolar disorder as well as pelvic floor dysfunction syndrome. He states he was seen recently secondary to this and reports that he will follow-up and have treatment with physical therapy but that will take 1 to 2 months. He reports had a bowel movement around 3 or 4 PM today but has since developed pain and spasm in the lower abdomen. He states it feels like he has had a bowel movement but he has not been able to do so. He also reports that he had decreased urination and is concerned that he may be obstructed and therefore comes in for evaluation [facility] Medical History Bipolar 1 disorder DDD (degenerative disc disease) Spastic pelvic floor syndrome Home Medications cariprazine 6 mg capsule (Vraylar) 6 mg PO DAILY 09/15/18 [History Last Taken Unknown] omeprazole 20 mg capsule,delayed release 20 mg PO DAILY 05/10/19 [History Last Taken Unknown] polyethylene glycol 3350 17 gram/dose oral powder (ClearLax) 17 g PO DAILY PRN constipation #119 grams 12/04/22 [Rx Last Taken Unknown] topiramate 50 mg tablet 100 mg PO DAILY 12/04/22 [History Last Taken Unknown] hydrocodone-acetaminophen 5-325mg 5mg-325mg 1 tab PO Q6H PRN PRN Pain 3 days #10 TABLETS 12/06/22 [Rx Last Taken Unknown] diazepam 5 mg tablet (Valium) 5 mg PO TID PRN muscle spasm 5 days #15 tabs 06/16/23 [Rx Last Taken Unknown] oxycodone-acetaminophen 5 mg-325 mg tablet (Percocet) 1 tab PO Q6H PRN pain 3 days #12 tabs 06/16/23 [Rx Last Taken Unknown] diazepam 5 mg tablet (Valium) 5 mg PO BID PRN muscle spasm #10 tabs 01/07/24 [Rx Last Taken Unknown] oxycodone-acetaminophen 5 mg-325 mg tablet (Percocet) 1 tab PO Q8H PRN pain 3 days #10 tabs 01/07/24 [Rx Last Taken Unknown] furosemide 20 mg tablet (Lasix) 20 mg PO DAILY 10 days #10 tabs 01/12/24 [Rx Last Taken Unknown] polyethylene glycol 3350 17 gram oral powder packet (Miralax) 17 g PO DAILY PRN constipation #100 ea 01/13/24 [Rx Last Taken Unknown] Allergy/AdvReac Type Severity Reaction Status Date / Time Penicillins Allergy Hives Verified 01/07/24 16:08 Surgical History Hx of cardiac cath Social History Smoking Status: Former smoker ROS ROS ED Constitutional Constitutional ED: Denies chills or fever(s) ENT ENT ED: Denies sore throat Cardiovascular Cardiovascular: Denies chest pain Respiratory/Chest Respiratory/Chest: Denies cough or dyspnea Gastrointestinal Gastrointestinal: Reports abdominal pain and constipation; Denies diarrhea, nausea or vomiting Genitourinary Genitourinary ED: Denies dysuria Musculoskeletal Musculoskeletal: Denies myalgias Integumentary Denies rash Neurologic Neurologic: Denies headache(s) Hematologic/Lymphatic Hematologic/Lymphatic: Denies easy bleeding or easy bruising EXAM Physical Exam Const Vital Signs: 01/13/24 02:46 01/13/24 04:18 Temperature 97.5 F L 97.5 F L Temperature Source Temporal Pulse Rate 93 86 Respiratory Rate 16 19 H Blood Pressure 163/95 H 163/95 H Blood Pressure Mean 117 117 Pulse Ox 97 100 Oxygen Delivery Method Room Air Positive well nourished, well developed and obese General Appearance ED: well developed; Negative for pallor Nutritional Appearance: obese HEENT HEENT Narrative: Normocephalic atraumatic Eyes PERRL and EOMs intact bilaterally General Eye ED: Negative for scleral icterus Neck supple Neck Narrative: No nuchal rigidity or meningeal signs Resp normal respiratory effort and clear to auscultation bilaterally Cardio regular rate and regular rhythm GI non-distended GI Narrative: Abdomen is soft and nondistended with hypoactive bowel sounds. There is mild diffuse pain on palpation without voluntary guarding or rigidity or pulsatile mass. No organomegaly noted. No fluid wave present Auscultation: hypoactive bowel sounds Palpation: soft Back/Spine no CVA tenderness Extremity normal to inspection Neuro oriented x3, CN's II-XII intact bilaterally and no sensory deficits noted Sensorium / Orientation: alert Motor Exam: strength 5/5 throughout Psych Psych Narrative: Patient has a flat affect Skin no rashes or lesions noted General Skin Exam: Negative for jaundice or pallor MDM MDM MDM Narrative Medical decision making narrative: Patient arrived to the ER hypertensive otherwise with stable vitals. He been seen recently for the same complaint and has had was diagnosed with pelvic floor dysfunction. He was concerned he may have urinary retention so bladder scan was performed and an amount of 63 mL was present in the bladder going against retention. Moreover there is no organomegaly on exam to indicate this. He does not have risk factors for small bowel obstruction but he has he had concerned about constipation as well a KUB was obtained. This showed a nonspecific nonobstructive bowel gas pattern without free air going against perforation or blockage. There was moderate amount of stool present consistent with constipation. At this time I do not feel the patient needs a enema or disimpaction as he was able to have a bowel movement roughly 12 hours ago. Patient will be started on magnesium citrate and MiraLAX to stimulate bowel movement but this time as his exam does not show urinary retention or signs of small bowel obstruction or perforation there is no need for further workup and he is otherwise safe for discharge History & Record Review Discussion w/independent historian: Patient Radiography Diagnostic Testing: Clinical Impression(s) from Imaging Studies KUB X-Ray 01/13/24 03:20 IMPRESSION: Moderate amount of stool in the colon. Electronically Signed: Mario Kelly MD at 3:53 EST Reading Location ID and State: [address] [place] [address] Tel , Service support , KUB as interpreted by the emergency medicine physician reveals a nonobstructive nonspecific bowel gas pattern with moderate amount of stool in the colon consistent with constipation Discharge Plan Triage Chief Complaint: Constipation ED Provider: Marcio Edward Dx/Rx/DC Orders Clinical Impression: Constipation, Bipolar 1 disorder, Spastic pelvic floor syndrome Instructions: ED Constipation (Adult) Prescriptions: New polyethylene glycol 3350 [Miralax] 17 gram powder in packet 17 g PO DAILY PRN (Reason: constipation) Qty: 100 0RF No Action Vraylar 6 mg capsule 6 mg PO DAILY Patient Comments: Take 1 capsule by mouth once a day omeprazole 20 MG capsule 20 mg PO DAILY topiramate 50 mg tablet 100 mg PO DAILY polyethylene glycol 3350 [ClearLax] 17 gram/dose powder 17 g PO DAILY PRN (Reason: constipation) Qty: 119 0RF hydrocodone-acetaminophen 5-325 mg tablet 1 tab PO Q6H PRN PRN (Reason: Pain) 3 Days Qty: 10 0RF oxycodone-acetaminophen [Percocet] 5-325 mg tablet 1 tab PO Q6H PRN (Reason: pain) 3 Days Qty: 12 0RF diazepam [Valium] 5 mg tablet 5 mg PO TID PRN (Reason: muscle spasm) 5 Days Qty: 15 0RF oxycodone-acetaminophen [Percocet] 5-325 mg tablet 1 tab PO Q8H PRN (Reason: pain) 3 Days Qty: 10 0RF diazepam [Valium] 5 mg tablet 5 mg PO BID PRN (Reason: muscle spasm) Qty: 10 0RF furosemide [Lasix] 20 mg tablet 20 mg PO DAILY 10 Days Qty: 10 0RF Rx Instructions: Take the Lasix in the morning between 8 and 10 AM. Primary Care Provider: Raghu Blackwell Referrals: Raghu Blackwell MD [Primary Care Provider] - Activity Restrictions/Additional Instructions: Your x-ray did show moderate constipation. Secondary to this drink half the bottle of magnesium citrate that you were given in the ER. If you do not have a bowel movement in the next 4 hours then finished the bottle. Beginning January 13 please take MiraLAX once a day as directed to prevent any further bouts of constipation and return to the ER should you have any further concerns. Disposition Disposition: Home, Self Care Discharge Date/Time: 01/13/24 04:20
[2024-01-13] MEDS: Magnesium Citrate 300 ML PO (04:17)
[2024-01-13 04:18] VITALS: BP 163/95; PULSE 86; RESP 19; TEMP 36.4; O2SAT 100
== END 2024-01-13 04:20 | disposition home or self-care (01) ==
PROVIDERS: Emergency Provider Emergency Medicine; PCP Family Medicine; Visit Provider Emergency Medicine
DX: K59.00 Constipation, unspecified (principal); F31.9 Bipolar disorder, unspecified; Z87.891 Personal history of nicotine dependence; R10.30 Lower abdominal pain, unspecified; E66.9 Obesity, unspecified; M99.05 Segmental and somatic dysfunction of pelvic region
CPT/HCPCS: 74018; 99283

== ENCOUNTER 2024-01-23 00:49 | Emergency (ER) | payer MEDICAID, SELFPAY ==
[2024-01-23 00:51] VITALS: BP 162/83; PULSE 115; RESP 16; TEMP 36.1; O2SAT 95; BMI 45.3
--- NOTE | 2024-01-23 01:23 | EDS_ITS ---
HPI History of Present Illness Chief Complaint: Complaint Informant: patient Narrative Narrative: Patient presenting by EMS because for the past 6 hours he feels like he needs to urinate and is unable. He has been leaking nonbloody urine into his underwear and is very small amounts, feels like he needs to urinate and states he is in distress because he cannot. He denies any back pain. No injury to the area recently. This is never happened before but he states he has a pelvic floor disorder that he was diagnosed with clinically, he follows with a urologist at [facility] Dr. Duran, states he is supposed to wear underwear with support in it, and 2 weeks ago wore boxers for several days and thinks that may be related to this. He denies any blood thinners or hematuria recently or any other urinary symptoms prior to this tonight. [facility] Medical History Anxiety Bipolar 1 disorder Bipolar disorder DDD (degenerative disc disease) Depression Former smoker GERD (gastroesophageal reflux disease) Hypertension Spastic pelvic floor syndrome Home Medications cariprazine 6 mg capsule (Vraylar) 6 mg PO DAILY 09/15/18 [History Last Taken Unknown] omeprazole 20 mg capsule,delayed release 20 mg PO DAILY 05/10/19 [History Last Taken Unknown] polyethylene glycol 3350 17 gram/dose oral powder (ClearLax) 17 g PO DAILY PRN constipation #119 grams 12/04/22 [Rx Last Taken Unknown] topiramate 50 mg tablet 100 mg PO DAILY 12/04/22 [History Last Taken Unknown] hydrocodone-acetaminophen 5-325mg 5mg-325mg 1 tab PO Q6H PRN PRN Pain 3 days #10 TABLETS 12/06/22 [Rx Last Taken Unknown] diazepam 5 mg tablet (Valium) 5 mg PO TID PRN muscle spasm 5 days #15 tabs 06/16/23 [Rx Last Taken Unknown] oxycodone-acetaminophen 5 mg-325 mg tablet (Percocet) 1 tab PO Q6H PRN pain 3 days #12 tabs 06/16/23 [Rx Last Taken Unknown] diazepam 5 mg tablet (Valium) 5 mg PO BID PRN muscle spasm #10 tabs 01/07/24 [Rx Last Taken Unknown] oxycodone-acetaminophen 5 mg-325 mg tablet (Percocet) 1 tab PO Q8H PRN pain 3 days #10 tabs 01/07/24 [Rx Last Taken Unknown] furosemide 20 mg tablet (Lasix) 20 mg PO DAILY 10 days #10 tabs 01/12/24 [Rx Last Taken Unknown] polyethylene glycol 3350 17 gram oral powder packet (Miralax) 17 g PO DAILY PRN constipation #100 ea 01/13/24 [Rx Last Taken Unknown] cholecalciferol (vitamin D3) 125 mcg (5,000 unit) capsule 125 mcg PO DAILY 01/23/24 [History Last Taken Unknown] Allergy/AdvReac Type Severity Reaction Status Date / Time Penicillins Allergy Hives Verified 01/07/24 16:08 Surgical History Hx of cardiac cath Social History Smoking Status: Former smoker ROS ROS ED Constitutional Constitutional ED: Denies chills or fever(s) Eyes Eyes: Denies change in vision or diplopia ENT ENT ED: Denies rhinorrhea or sore throat Cardiovascular Cardiovascular: Denies chest pain or palpitations Respiratory/Chest Respiratory/Chest: Denies cough or dyspnea Gastrointestinal Gastrointestinal: Denies abdominal pain, diarrhea, nausea or vomiting Genitourinary Genitourinary ED: Reports as per HPI and difficulty urinating; Denies dysuria or hematuria Musculoskeletal Musculoskeletal: Denies back pain or neck pain Integumentary Denies abscess or rash Neurologic Neurologic: Denies headache(s), paresthesias or weakness Psychiatric Psychiatric: Reports anxiety; Denies suicidal thoughts EXAM Physical Exam Const Vital Signs: 01/23/24 00:51 Temperature 97 F L Temperature Source Temporal Pulse Rate 115 H Respiratory Rate 16 Blood Pressure 162/83 H Blood Pressure Mean 109 Pulse Ox 95 Oxygen Delivery Method Room Air Positive well nourished, well developed and obese Constitutional Narrative: Standing. States he is uncomfortable but no distress. General Appearance ED: well developed and NAD Nutritional Appearance: obese HEENT Reports moist mucous membranes normocephalic and atraumatic Eyes PERRL and EOMs intact bilaterally Neck full ROM and supple Resp normal respiratory effort and clear to auscultation bilaterally Cardio regular rate, regular rhythm and no murmurs GI non-tender and non-distended Auscultation: normoactive bowel sounds Palpation: soft no CVA tenderness Narrative: Normal external genitalia Back/Spine no CVA tenderness General Back: other FROM Extremity normal to inspection General Extremety ED: Negative for edema, pulses abnormal or tenderness General Extremity: Negative for edema or pulses abnormal Neuro oriented x3, CN's II-XII intact bilaterally and no sensory deficits noted Sensorium / Orientation: awake and alert Motor Exam: strength 5/5 throughout Psych Mood & Affect: anxious Skin no rashes or lesions noted and no wounds MDM MDM MDM Narrative Medical decision making narrative: We initially did a bladder scan on this patient, and the results were 75 cc or less on several different measurements. Given that, the Bhatia catheter was canceled and not performed, neither was the Uro-Jet. This is more consistent with pelvic floor muscle spasm causing transient urinary retention. He was given a dose of oxybutynin immediate release, in addition to Valium 5 mg and baclofen 10 mg orally. As a result, he was able to urinate 3 times, he felt much better. Urinalysis is negative for infection. Patient stable for discharge home advised to follow-up with his urologist. Lab Data Attestation: I reviewed the patient's lab results. Labs: Laboratory Results - last 24 hr 01/23/24 02:41 Urine Color Yellow Urine Clarity Clear Urine pH 7.0 Ur Specific [place] 1.015 Urine Protein Negative Urine Glucose (UA) Normal Urine Ketones Negative Urine Occult Blood 10 H Urine Nitrite Negative Urine Bilirubin Negative Urine Urobilinogen 1 H Ur Leukocyte Esterase Negative Urine RBC 0 SEEN Urine WBC 0 SEEN Ur Squamous Epith Cells 0 SEEN Urine Bacteria 0 SEEN Urine Mucus 0 SEEN Discharge Plan Triage Chief Complaint: Complaint ED Provider: Goyo Mayer Dx/Rx/DC Orders Clinical Impression: Pain of muscle of pelvis Instructions: ED Muscle Spasm Prescriptions: No Action Vraylar 6 mg capsule 6 mg PO DAILY Patient Comments: Take 1 capsule by mouth once a day omeprazole 20 MG capsule 20 mg PO DAILY topiramate 50 mg tablet 100 mg PO DAILY polyethylene glycol 3350 [ClearLax] 17 gram/dose powder 17 g PO DAILY PRN (Reason: constipation) Qty: 119 0RF hydrocodone-acetaminophen 5-325 mg tablet 1 tab PO Q6H PRN PRN (Reason: Pain) 3 Days Qty: 10 0RF oxycodone-acetaminophen [Percocet] 5-325 mg tablet 1 tab PO Q6H PRN (Reason: pain) 3 Days Qty: 12 0RF diazepam [Valium] 5 mg tablet 5 mg PO TID PRN (Reason: muscle spasm) 5 Days Qty: 15 0RF oxycodone-acetaminophen [Percocet] 5-325 mg tablet 1 tab PO Q8H PRN (Reason: pain) 3 Days Qty: 10 0RF diazepam [Valium] 5 mg tablet 5 mg PO BID PRN (Reason: muscle spasm) Qty: 10 0RF furosemide [Lasix] 20 mg tablet 20 mg PO DAILY 10 Days Qty: 10 0RF Rx Instructions: Take the Lasix in the morning between 8 and 10 AM. cholecalciferol (vitamin D3) 125 mcg (5,000 unit) capsule 125 mcg PO DAILY polyethylene glycol 3350 [Miralax] 17 gram powder in packet 17 g PO DAILY PRN (Reason: constipation) Qty: 100 0RF Primary Care Provider: Raghu Blackwell Referrals: Raghu Blackwell MD [Primary Care Provider] - (or your urologist) Disposition Disposition: Home, Self Care
[2024-01-23] MEDS: Baclofen 10 MG Tablet PO (02:29)
[2024-01-23] MEDS: Oxybutynin 5 MG Tablet PO (02:29)
[2024-01-23] MEDS: diazePAM 5 MG Tablet PO (02:29)
[2024-01-23 02:48] LABS: Bacteria 0 SEEN /hpf (None Seen); Mucous, Urine 0 SEEN /hpf (<or=2+); Red Blood Cells-Urine 0 SEEN /hpf (0-5); Squamous Epithelial Cells - UA 0 SEEN /hpf (0-5); White Blood Cells 0 SEEN /hpf (0-5)
[2024-01-23 02:55] LABS: Color, Urine Yellow (Yellow); Glucose, Dipstick Normal (Normal); Ketone-Dipstick Negative (Negative); Leukocyte Esterase-Dipstick Negative /ul (Negative); Nitrite-Dipstick Negative (Negative); Occult Blood-Urine 10 /ul (Negative); Protein-Dipstick Negative (Negative); Specific Gravity, Urine 1.015 (1.002-1.030); Urine Bilirubin Dipstick Negative (Negative); Urine Clarity Clear (Clear); Urine Urobilinogen 1 mg/dl (Normal)
[2024-01-23 04:09] VITALS: BP 148/80; PULSE 87; RESP 16; TEMP 36.3; O2SAT 97
[2024-01-23 04:12] VITALS: BP 142/80; PULSE 81; RESP 16; TEMP 36.3; O2SAT 97
== END 2024-01-23 04:13 | disposition home or self-care (01) ==
PROVIDERS: Emergency Provider Emergency Medicine; PCP Family Medicine; Visit Provider Emergency Medicine
DX: R10.2 Pelvic and perineal pain (principal); F31.9 Bipolar disorder, unspecified; Z87.891 Personal history of nicotine dependence; Z79.899 Other long term (current) drug therapy; K21.9 Gastro-esophageal reflux disease without esophagitis; I10 Essential (primary) hypertension
CPT/HCPCS: 81001; 99283

== ENCOUNTER 2024-03-17 15:11 | Emergency (ER) | payer OTHER, SELFPAY ==
[2024-03-17 15:12] VITALS: BP 157/95; PULSE 97; RESP 18; TEMP 36.8; O2SAT 98; BMI 44.7
[2024-03-17 15:14] VITALS: BP 157/95; PULSE 97; RESP 16; TEMP 36.8; O2SAT 98
[2024-03-17] MEDS: Cephalexin 250 MG Capsule 500 MG PO (15:54)
[2024-03-17] MEDS: Lidocaine 1% /Epi 1:100 (20ml) 20 ML Vial 3 ML INFILT (15:55)
--- NOTE | 2024-03-17 16:15 | EDS_ITS ---
HPI <CLAUDETTE Camejo - Last Filed: 03/17/24 16:23> History of Present Illness Chief Complaint: Abscess Narrative Narrative: Patient is a 38-year-old male with history of bipolar, anxiety, depression who presents to the emergency department with 1 week of abscess to the right armpit. Patient states that he has been working a lot, sweating inside getting a house ready to sell. Patient states that he noticed a small lump 7 days ago, he went on Sunday to his PCP who put him on Bactrim, patient states he got more swollen and is here for I&D. Patient denies any fever or chills. Patient does have some redness to his posterior right upper arm. He denies any fever chills nausea or vomiting. PFSH <CLAUDETTE Camejo - Last Filed: 03/17/24 16:23> [facility] Medical History Anxiety Bipolar 1 disorder Bipolar disorder DDD (degenerative disc disease) Depression Former smoker GERD (gastroesophageal reflux disease) Hypertension Spastic pelvic floor syndrome Home Medications omeprazole 20 mg capsule,delayed release 20 mg PO DAILY 05/10/19 [History Last Taken Unknown] topiramate 50 mg tablet 100 mg PO DAILY 12/04/22 [History Last Taken Unknown] furosemide 20 mg tablet (Lasix) 20 mg PO DAILY 10 days #10 tabs 01/12/24 [Rx Last Taken Unknown] cariprazine 3 mg capsule (Vraylar) 3 mg PO DAILY 03/17/24 [History Last Taken Unknown] cephalexin 500 mg capsule 500 mg PO Q6 #40 CAPSULES 03/17/24 [Rx Last Taken Unknown] fluoxetine 10 mg capsule 10 mg PO DAILY 03/17/24 [History Last Taken Unknown] hydrocodone-acetaminophen 5-325mg 5mg-325mg 1 tab PO Q6H PRN PRN Pain 2 days #6 TABLETS 03/17/24 [Rx Last Taken Unknown] sulfamethoxazole 800 mg-trimethoprim 160 mg tablet 1 tab PO BID 03/17/24 [History Last Taken Unknown] Allergy/AdvReac Type Severity Reaction Status Date / Time Penicillins Allergy Hives Verified 03/17/24 15:14 Surgical History Hx of cardiac cath Social History Smoking Status: Former smoker ROS <CLAUDETTE Camejo - Last Filed: 03/17/24 16:23> ROS ED ROS Narrative Constitutional: Negative for fever, chills, weight loss, weakness Eyes: Negative for vision loss, vision change, double vision ENT: Negative for any sore throat, ear pain, congestion Cardiovascular: Negative for any chest pain, tightness, palpitations Respiratory: Negative for any cough, sputum production, hemoptysis, dyspnea, dyspnea on exertion, orthopnea Gastrointestinal: Negative for any abdominal pain, nausea, vomiting, diarrhea, constipation, blood in stool, blood in vomit : Negative for any urinary frequency, dysuria, retention, blood in urine Muscle skeletal: Negative for any neck pain, back pain Neurological: Negative for any headache, syncope, dizziness Skin: Negative for any rashes, itching, abrasions, lacerations. Positive for abscess to the right axilla Psychiatric: Negative for any depression, anxiety, stress, suicidal ideation, homicidal ideation Hematologic: Negative for any excessive bruising, easy bleeding EXAM <CLAUDETTE Camejo - Last Filed: 03/17/24 16:23> Physical Exam Narrative Exam Narrative: Vital signs reviewed. HEET: Head normocephalic atraumatic, TMs clear bilaterally. Posterior pharynx is clear, moist mucous membranes. Nares clear bilaterally. Neck: Supple with no lymphadenopathy or tenderness. No signs of meningismus. Cardiac: Regular rate and rhythm no murmurs gallops or rubs, equal peripheral pulses bilaterally. Respiratory: Lungs clear to auscultation bilaterally. No chest tenderness. Abdomen: Soft, nontender, nondistended. No abdominal bruit or pulsatile masses. No hepatosplenomegaly Extremities: No peripheral edema, no signs of gross trauma or deformity. Active full range of motion of all extremities. Patient has a 3 x 2 cm abscess on the right axilla, there is some surrounding cellulitis. There are some tender to the touch. There is some yellow to ivan drainage from the distal aspect of the abscess. Neuro: Cranial nerves II through XII intact, no focal neurological deficits. Skin: Clean dry and intact with no rash, purpura, petechiae, vesicles or pustules. Backs/flank: No CVA tenderness, no midline spinal tenderness, no deformity. Psych: Normal mood and affect. No SI, HI or acute psychosis. Const Vital Signs: 03/17/24 15:12 03/17/24 15:14 03/17/24 16:30 Temperature 98.2 F 98.2 F 98.2 F Temperature Source Temporal Temporal Pulse Rate 97 97 99 Respiratory Rate 18 16 18 Blood Pressure 157/95 H 157/95 H 155/89 H Blood Pressure Mean 115 115 111 Pulse Ox 98 98 99 Oxygen Delivery Method Room Air Room Air Positive well nourished, well developed and obese General Appearance ED: well developed Nutritional Appearance: obese <Dr. Adrien Mcallister, DO - Last Filed: 03/17/24 16:46> Physical Exam Const Vital Signs: 03/17/24 15:12 03/17/24 15:14 03/17/24 16:30 Temperature 98.2 F 98.2 F 98.2 F Temperature Source Temporal Temporal Pulse Rate 97 97 99 Respiratory Rate 18 16 18 Blood Pressure 157/95 H 157/95 H 155/89 H Blood Pressure Mean 115 115 111 Pulse Ox 98 98 99 Oxygen Delivery Method Room Air Room Air MDM <CLAUDETTE Camejo - Last Filed: 03/17/24 16:23> [facility] Treatment and Re-Evaluation :: Patient appears to be in no obvious respiratory distress, patient does have pain to the right axilla, does appear uncomfortable. Patient is looks nontoxic. Presenting to the emergency department with a abscess to the right axilla. This area will need incision and drainage. Patient be started on Keflex, patient is already on 2 days of Bactrim. Procedure note: Area was cleansed with ChloraPrep, anesthetized with lidocaine with epinephrine. I was able to inject 7 to 8 cc of lidocaine. I was able to use an 11 blade and make a 1 cm horizontal incision, copious amounts of yellow, green, foul-smelling discharge was expelled. I was able to successfully packed the wound. Patient will need to follow-up the next 48 to 72 hours to ensure proper healing. Patient will let the packing come out in 1 to 2 days. Patient will continue to take the Keflex, as well as the Bactrim. He will be given a short course of pain medicine. He is instructed return for any worsening symptoms. All questions were answered, instructed return for any worsening symptoms. <Dr. Adrien Mcallister, DO - Last Filed: 03/17/24 16:46> [facility] Treatment and Re-Evaluation :: Patient appears to be in no obvious respiratory distress, patient does have pain to the right axilla, does appear uncomfortable. Patient is looks nontoxic. Presenting to the emergency department with a abscess to the right axilla. This area will need incision and drainage. Patient be started on Keflex, patient is already on 2 days of Bactrim. Procedure note: Area was cleansed with ChloraPrep, anesthetized with lidocaine with epinephrine. I was able to inject 7 to 8 cc of lidocaine. I was able to use an 11 blade and make a 1 cm horizontal incision, copious amounts of yellow, green, foul-smelling discharge was expelled. I was able to successfully packed the wound. Patient will need to follow-up the next 48 to 72 hours to ensure proper healing. Patient will let the packing come out in 1 to 2 days. Patient will continue to take the Keflex, as well as the Bactrim. He will be given a short course of pain medicine. He is instructed return for any worsening symptoms. All questions were answered, instructed return for any worsening symptoms. ED attending note: I evaluated the patient in conjunction with the VIPIN. I agree with his/her statements and above findings. I have personally performed a face to face assessment of the patient and have reviewed the VIPIN Note. I performed a substantive portion of the visit including all aspects of the following. I personally saw the patient performed chart review, physical exam, reviewed labs, imaging (if obtained), and formulated a treatment and management plan. This note was generated with [employer] dictation software. It may contain incorrect words, spelling, and punctuation that were not noted in review of the chart prior to signing. Discharge Plan Triage Chief Complaint: Abscess ED Midlevel Provider: Gorge Mckenna ED Provider: Adrien Mcallister Dx/Rx/DC Orders Clinical Impression: Abscess, Cellulitis Instructions: ED Abscess Incision And Drainage, ED Cellulitis Prescriptions: New cephalexin 500 mg capsule 500 mg PO Q6 Qty: 40 0RF hydrocodone-acetaminophen 5-325 mg tablet 1 tab PO Q6H PRN PRN (Reason: Pain) 2 Days Qty: 6 0RF No Action omeprazole 20 MG capsule 20 mg PO DAILY topiramate 50 mg tablet 100 mg PO DAILY furosemide [Lasix] 20 mg tablet 20 mg PO DAILY 10 Days Qty: 10 0RF Rx Instructions: Take the Lasix in the morning between 8 and 10 AM. sulfamethoxazole-trimethoprim 800-160 mg tablet 1 tab PO BID Patient Comments: started 03/14/24 fluoxetine 10 mg capsule 10 mg PO DAILY Vraylar 3 mg capsule 3 mg PO DAILY Primary Care Provider: Raghu Blackwell Referrals: Raghu Blackwell MD [Primary Care Provider] - Activity Restrictions/Additional Instructions: The packing may come out in 1 to 2 days. If it falls out that is fine. May use warm compresses. This needs to be looked at again by Dr. Blackwell in the next 3 to 4 days. Take both antibiotics until finished. Return for any worsening symptoms. Disposition Disposition: Home, Self Care Discharge Date/Time: 03/17/24 16:45
[2024-03-17] MEDS: Oxycodone/Apap 5/325 Tablet PO (16:29)
[2024-03-17 16:30] VITALS: BP 155/89; PULSE 99; RESP 18; TEMP 36.8; O2SAT 99
== END 2024-03-17 16:45 | disposition home or self-care (01) ==
PROVIDERS: Emergency Provider Emergency Medicine; PCP Family Medicine; Visit Provider Emergency Medicine
DX: L02.411 Cutaneous abscess of right axilla (principal); F41.9 Anxiety disorder, unspecified; Z87.891 Personal history of nicotine dependence; K21.9 Gastro-esophageal reflux disease without esophagitis; Z79.899 Other long term (current) drug therapy; I10 Essential (primary) hypertension; F32.A Depression, unspecified; L03.111 Cellulitis of right axilla
CPT/HCPCS: 10060; 99283